=== PATIENT | female | born 1940 | race Caucasian/White ===

== ENCOUNTER → 2016-12-03 | Outpatient (CLI) | payer BC ==
[~2016-12-03] MED LIST: CALC-51 PO; CLB/200 PO; CLON0.5T3 PO; DICY10CA12 PO; DORZ1SOL OPB; FEXO1TAB49 PO; MAGN250T8 PO; MULTTAB58 PO; OMEP20TA14 PO; POTA99TA PO; PRD/1 PO; SERT25TA PO; SUMA50TA15 PO; TRAV0.00 OPB; VITA400C15 PO; VITAMIN B12 PO; VITAMIN D3 PO; ZNTT/150 PO
[2016-12-03 13:19] LABS: BASO % 0.3 %; BASO ABS # 0.02 K/uL (0-0.2); COMPLETE YES; EOS % 4.8 %; HEMATOCRIT 40.7 % (37-47); IG% 0.2 %; LYMPH % 33.8 %; LYMPH ABS # 2.04 K/uL (1.2-3.4); MEAN CELL VOLUME 88.3 fL (80-100); MEAN CORPUSCULAR HEMOGLOBIN 29.7 pg (25-34); MEAN CORPUSCULAR HGB CONC 33.7 g/dl (32-36); MEAN PLATELET VOLUME 9.9 fL (7.4-10.4); MONO % 8.3 %; NEUT % 52.6 %; PLATELET COUNT 200 K/uL (130-400); RED BLOOD COUNT 4.61 M/uL (4.2-5.4); WHITE BLOOD COUNT 6.04 K/uL (4.8-10.8)
[2016-12-03 13:47] LABS: BLOOD UREA NITROGEN 23 mg/dl (7-18); BUN/CREATININE RATIO 32.9 (10-20); CALCIUM 9.4 mg/dl (8.5-10.1); CARBON DIOXIDE 29 mmol/L (21-32); CHLORIDE 108 mmol/L (98-107); CREATININE 0.69 mg/dl (0.60-1.20); GLUCOSE 85 mg/dl (70-99); POTASSIUM 4.4 mmol/L (3.5-5.1); SODIUM 144 mmol/L (136-145)
== END | disposition home or self-care (01) ==
LOC: C.CPL 12:11
PROVIDERS: ATTEND Physical Medicine & Rehabilitation Sports Medicine
DX: Z01.818 Encounter for other preprocedural examination (principal); I44.0 Atrioventricular block, first degree; I25.2 Old myocardial infarction

== ENCOUNTER → 2016-12-22 | Day surgery (SDC) | payer BC ==
[2016-12-08 14:31] VITALS: Ht 160 cm; Wt 54.5 kg
--- NOTE | 2016-12-14 01:21 | INTERNAL MEDICINE CONSULTATION ---
DATE OF CONSULTATION: 12/22/2016 PREOPERATIVE NOTE A 76-year-old female scheduled to undergo a left median nerve decompression by Dr. Rocha on 12/22/2016. She has bilateral carpal tunnel syndrome. MEDICAL PROBLEMS: Include: 1. Migraine headache. 2. Osteoarthritis. 3. Degenerative disc disease of the lumbar spine. 4. Osteopenia. 5. Glaucoma. 6. Irritable bowel syndrome. 7. Depression. 8. History of recurrent rash, eczematous in nature. 9. Hyperlipidemia, not requiring any drug therapy. 10. History of rectopexy for rectal prolapse. CURRENT MEDICATIONS: Include: 1. Potassium and magnesium supplement 1 tablet daily. 2. Meclizine 12.5 mg 3 times a day as needed for vertigo. 3. Lidex cream to apply to the rash area, as prescribed by Dr. Kessler. 4. Ranitidine 150 mg twice a day. 5. Zyrtec 10 mg daily. 6. Metamucil 2 tablespoons in water daily. 7. Prilosec 20 mg daily, when needed for her dyspepsia. 8. Sertraline 50 mg daily. 9. Clonazepam 0.5 mg at bedtime. 10. Imitrex 100 mg tablets, she uses half a tablet as needed. 11. Dicyclomine 20 mg twice a day as needed. 12. Celebrex 200 mg twice a day. 13. Multivitamin 1 daily. 14. Vitamin D 1000 international units daily. 15. Calcium 600 mg twice a day. 16. Vitamin E 400 international units daily. 17. Dorzolamide eyedrops, 1 drop in each eye twice a day. 18. Travatan eyedrops, 1 drop in each eye at bedtime. Overall, she is doing quite well. Denied any headache, except for her migraines, which are intermittent. No dizziness, no lightheadedness. No earache, sore throat or neck pain. Denied any chest pain, pressure or tightness. No shortness of breath. No abdominal pain, no nausea, no vomiting. No problem with her bowel movements since her rectopexy. No problem urinating. She does have chronic pain in her back and extremities related to her osteoarthritis and degenerative disc disease. She was complaining of pain and numbness in both hands and wrists, related to her carpal tunnel syndrome. PHYSICAL EXAMINATION: GENERAL: Well developed, in no acute distress. Her recorded weight is 54.55 kg, her height is 160 cm, BMI is 21.3. SKIN: Warm and dry. No active rash at this point. HEENT: She is treated for glaucoma. She wears glasses for reading only. She has had a prior LASIK procedure with mono vision. No mucosal abnormality. She has upper dentures. She has a torus on the roof of her mouth. NECK: Supple without adenopathy or thyromegaly. No JVD. Normal carotid pulses. No bruit. CHEST: Normal. HEART: Regular heart sounds without any murmur, rub or gallop. LUNGS: Clear. ABDOMEN: Soft, nontender, without organomegaly or masses. BACK: No spinal tenderness. EXTREMITIES: Osteoarthritic changes. No edema, clubbing or cyanosis. Good pedal pulses. NEUROLOGIC: She does have exam findings consistent with carpal tunnel syndrome. No other neurological findings. ASSESSMENT: 1. Carpal tunnel syndrome -- bilateral. 2. Schedule for median nerve decompression on the left side first by Dr. Rocha on 12/22/2016. 3. Migraine headache. 4. Glaucoma. 5. Irritable bowel syndrome. 6. Environmental allergies. 7. Dyspepsia. 8. Osteoarthritis. 9. Degenerative disc disease. LABORATORY TESTS: The patient did have her preoperative testing done. They included a CBC showing WBC count of 6040, hemoglobin 13.7, hematocrit 40.7, platelet count 200,000. Sodium 144, potassium 4.4, chloride 108, CO2 of 29, BUN 23, creatinine 0.69, glucose 85, calcium 9.4. Her electrocardiogram did not really show any new changes compared to prior electrocardiograms. It is a sinus rhythm with a first-degree AV block. At this point, patient is in a good medical condition. I do not see any contraindication for her anticipated surgery. FIORELLA
[~2016-12-22] VITALS: Ht 160 cm; Wt 54.5 kg
[~2016-12-22] MED LIST changes: +ATROPINE SULFATE 0.1 MG/ML 5ML SYR IV PRN; +BUPIVACAINE 0.5 % 5 MG/1 ML PF 10ML VIAL ONE; +CEFAZOLIN 2000 MG/60 ML D5W IV SCH; +EpHEDrine SULFATE INJ 50 MG/ML AMP IV PRN; +FENTANYL CITRATE INJ 50 MCG/1 ML 2 ML VIAL IV PRN; +FENTANYL CITRATE INJ 50 MCG/1 ML 2 ML VIAL ONE; +LACTATED RINGER'S 1000ML 1,000 ML IV SCH; +LIDOCAINE HCL 2% 2 ML VIAL (20MG/ML) ONE; +LIDOCAINE HCL 2% LOCAL 20 ML VIAL ONE; +MIDAZOLAM HCL 1 MG/ML 2ML VIAL ONE; +ONDANSETRON INJ 2 MG/ML 2 ML VIAL IV PRN; +PROPOFOL IV EMULSION 10 MG/ML 20 ML VIAL IV ONE; +SODIUM CHLORIDE 0.9% 1000ML 1,000 ML IV SCH
--- NOTE | 2016-12-22 06:46 | History & Physical Bridge Note ---
H&P Re-Evaluation Bridge Note: I have examined the patient, reviewed the History & Physical and in the interval since the performance of the History & Physical I have noted the following changes of clinical significance: No changes noted
--- NOTE | 2016-12-22 06:47 | Discharge Instructions ---
Discharge Instructions Visit Reason for Visit: Left Carpal Tunnel Syndrome Discharge Discharge Diagnosis / Problem: same Discharge Goals Goal(s): Decrease discomfort Medications Stopped Medications Name(s): Celebrex stopped 5 days ago Restart Stopped Medication(s): resume all meds as directed by scripts Activity Recommendations Activity Limitations: as noted below Lifting Limitations: until after follow-up appointment Exercise/Sports Limitations: until after follow-up appointment May Resume Sexual Activity: when tolerated Shower/Bathe: keep incision dry Driving or Machine Use: resume 1 day after discharge Anesthesia . Post Anesthesia Instructions: If you have had General Anesthesia or IV Sedation: * Do not drive today. * Resume driving when surgeon permits. * Do not make important decisions or sign legal documents today. * Call surgeon for: 1. Temperature elevations greater than 101 degrees F. 2. Uncontrollable pain. 3. Excessive bleeding. 4. Persistent nausea and vomiting. 5. Medication intolerance (nausea, vomiting or rash). * For nausea and vomiting use only clear liquids such as: tea, soda, bouillon until nausea subsides, then gradually increase diet as tolerated. * If you have any concerns or questions, call your surgeon's office. If physician is unavailable and it is an emergency, call 911 or go to the nearest emergency room. . Instructions / Follow-Up Instructions / Follow-Up The following are instructions to follow after minor hand surgery. ACTIVITY RECOMMENDATIONS: * Minimize activity until your first visit after surgery. * No excessive walking, jogging, sports or laboring. * Return to activity is individualized. Most patients are able to return to everyday activities within 2 weeks. * Return to sports or intensive labor usually occurs at 1-2 months. * DRIVING: Driving may be resumed when you feel you have adequate pain control and use of the hand. * BATHING: You may shower or sponge-bathe immediately after surgery. The dressing will need to be covered with a plastic bag or plastic wrap until the dressing is changed on the fourth or fifth day after surgery. Once the dressing has been changed on the fourth or fifth day after surgery, you may shower and get the incision wet. * Wash with regular soap and water. * Do not bathe (submerge the incision), soak, swim or use a hot tub until the incision is completely healed over with normal skin and the doctor has given the OK to proceed. * There is no need to apply any ointments, powders or salves to your incision. * Do not apply alcohol or hydrogen peroxide directly to the incision. Diluted peroxide (50:50 mixture with sterile saline) may be used to clean dried blood from around the incision area. WORK/SCHOOL: * You may return to sedentary work or school when you are feeling comfortable. This is usually 3-7 days after surgery. * Expect increased discomfort with increased activity. Continue to elevate and ice the hand as much as possible. DIET: * Resume previous diet. MEDICATIONS: * You will have a prescription for pain medication and an anti-inflammatory medication after surgery. Use the pain pills for severe pain and the anti-inflammatory for less severe pain. * Once the pain pills have run out, try to use the anti-inflammatory. If this is not effective then contact the office for assistance. * The pain medication may cause nausea, constipation and sleepiness. You should see how they affect you before driving or similar activity. * The anti-inflammatory may cause stomach upset and bleeding. If this occurs, let your doctor know immediately . * Some patients may need blood clot prevention. This can be done with either a pill or a simple shot. Your doctor will advise you on when to begin these medications and how to take them. * Do not take aspirin or other anti-inflammatory products (i.e. Advil or Aleve ) if taking blood thinner medication. * Take a stool softener like Colace or a stimulant like Senokot to prevent constipation. SPECIAL CARE INSTRUCTIONS: ICE: * Do not apply ice directly to the skin. * Use a thin dressing or stockinet between the skin and ice bag. The dressing in place after surgery will suffice. * Apply ice for 20-30 minutes and repeat every 2-4 hours. This is especially important for the first 3-7 days after surgery. * Once the pain improves, use ice as needed. ELEVATION: * Keep your hand elevated at or above the level of your heart as much as possible. * Expect some increased discomfort and swelling if you allow your hand to hang down for any length of time. DRESSING: * Your dressing will be changed 4-5 days after surgery by the physical therapist or physician's election assistant. Leave your dressing intact until this time. * You may then change your dressing daily with clean dry gauze or Band-aids and a soft wrap or stockinet. * Always wash your hands prior to touching the incision area. * Once the stitches are removed, you may leave the wound open to air or cover with a thin bandage. * There is no need to apply any ointments, powders or salves to your incision. * Expect some bloody drainage for the first few days after surgery. * Leave the tape strips in place (if present) for 5-7 days. * The initial dressing after surgery may become soaked with blood or fluid which is normal. You may reinforce your dressing with clean, dry gauze as needed. BRACE: * Bracing is generally not needed after routine hand surgery. THERAPY: * Physical therapy may be prescribed after your surgery. * For carpal tunnel and trigger digit surgery you may begin moving your fingers and wrist immediately after surgery as tolerated. * Be careful to not overuse. * Once the sutures are removed, further range of motion exercises can be performed. * Hand incisions may be very sensitive for a few months after surgery so avoid excessive pressure on the incision. If necessary, use a padded weightlifters' glove. * You may massage the incision with skin cream to make it less sensitive and reduce scarring. * Hand strength usually returns with normal use. * If needed, squeezing a soft sponge or Play-dough may help. * Your doctor will recommend physical therapy if necessary. PROBLEMS/QUESTIONS: * If you have any problems such as severe pain, numbness, tingling or high fevers or if you have any questions, please contact the office at [phone]. * It is not uncommon to have some numbness and tingling after the surgery especially if you have had a nerve block done. This should gradually improve over the first 1- 2 days. If this persists longer or worsens then contact the office. FOLLOW UP VISIT: * If not already scheduled, please call the office at to schedule follow-up appointments for approximately 10 days, 6 weeks and 3 months after surgery. Diet Recommendations Recommended Home Diet: resume previous diet Pending Studies Studies pending at discharge: no Medical Emergencies . Who to Call and When: Medical Emergencies: If at any time you feel your situation is an emergency, please call 911 immediately. . Non-Emergent Contact Non-Emergency issues call your: Specialist Call Non-Emergent contact if: temperature is above 101.5 . . "Provider Documentation" section prepared by Gal Walsh.
[2016-12-22 07:29] VITALS: TEMP 36.9
--- NOTE | 2016-12-22 07:29 | [facility] Post Operative Brief Note ---
Immediate Operative Summary Operative Date Dec 22, 2016. Pre-Operative Diagnosis Left Carpal Tunnel Syndrome Post-Operative Diagnosis Same Procedure(s) Performed Left Carpal Tunnel Release Surgeon Dr. Walsh Laborer [facility] Surgeon(s) Danial Quiroz PA-C Estimated Blood Loss Trace Findings cts Fluids (cc crystalloids) 500cc Specimens None Drains none Anesthesia local/sedation Complication(s) None Disposition Recovery Room / PACU
--- NOTE | 2016-12-22 07:40 | Anesthesia Progress Nt - [facility] ---
Anesthesia Post Op Note Date & Time Dec 22, 2016 at 07:40 Vital Signs Pain Intensity: 0 Vital Signs Past 12 Hours Date Time Temp Pulse Resp B/P Pulse Ox O2 Delivery O2 Flow Rate FiO2 12/22/16 07:29 36.9 66 18 87/57 97 Room Air 12/22/16 06:23 36.7 63 16 101/54 95 Room Air Notes Mental Status: alert / awake / arousable, participated in evaluation Pt Amnestic to Procedure: Yes Nausea / Vomiting: adequately controlled Pain: adequately controlled Airway Patency, RR, SpO2: stable & adequate BP & HR: stable & adequate Hydration State: stable & adequate Anesthetic Complications: no major complications apparent
[2016-12-22 08:13] VITALS: BP 123/41; PULSE 68; O2SAT 97
--- NOTE | 2016-12-22 08:19 | OPERATIVE REPORT ---
DATE OF OPERATION: 12/22/2016 SURGEON: Dr. Walsh. CALIBRATION CHECKER: Jorge Luis Quiroz PA-C. No resident or fellow available. PREOPERATIVE DIAGNOSIS: Carpal tunnel syndrome left upper extremity. POSTOPERATIVE DIAGNOSIS: Same. OPERATION PERFORMED: Left carpal tunnel release. PERIOPERATIVE SITUATION: Medically cleared female with intractable numbness and tingling in the median nerve distribution of her left hand. Physical exam, x-ray and EMG nerve conduction study confirms diagnosis. PROCEDURE: The patient appropriately identified, site verified, consent verified, 2 grams of Ancef has been given. The wrist was injected with 4 mL of 0.5% plain Marcaine and 4 mL of 2% plain lidocaine. The arm was then prepped and draped in usual routine fashion. Tourniquet inflated to 250 mmHg after exsanguination of the limb with a rubber Esmarch bandage for a total of approximately 14 minutes. A curvilinear incision was then made based on the fourth ray. Sharp dissection carried through the skin and blunt dissection down to the palmar fascia. This was then incised under direct vision. The transverse carpal ligament identified and then incised under direct vision for approximately 0.5 cm proximal hook of the hamate to the distal superficial palmar arch. The floor of the carpal canal had no masses. The motor takeoff branch was identified but not explored. The nerve became hyperemic upon release of the transverse carpal ligament. The wound was then irrigated and then the wound closed with horizontal 4-0 nylon mattress sutures, Dermabond, appropriate splint and a soft tissue dressing. The patient was transferred to the holding area in satisfactory condition having tolerated the procedure well. Estimated blood loss was trace. Crystalloid was 500 mL. No DVT prophylaxis required. I attest to the content of the Intraoperative Record and any orders documented therein. Any exceptio ns are noted below.
--- NOTE | 2016-12-22 09:06 | OPERATIVE REPORT ---
PREOPERATIVE DIAGNOSIS: Left wrist carpal tunnel syndrome. POSTOPERATIVE DIAGNOSIS: Left wrist same. PROCEDURE: Left wrist open carpal tunnel release. SURGEON: Dr. Walsh. MAGNET VALVE ASSEMBLER: Jorge Luis Quiroz PA-C. HISTORY OF PRESENT ILLNESS: This 76-year-old white female presented to the office with complaints of left hand tingling that have been ongoing for several months. She had tried conservative care measures without success. EMG was obtained. She elected to proceed with surgical intervention after being educated about potential risks and outcomes. OPERATION: The patient was taken to the operating room where she was given local anesthetic and sedation. She was prepped and draped in the usual sterile fashion. Please see Dr. Walsh's operative report for specifics of the procedure. I was present for the entire case from initial patient positioning through final wound closure. Assistance was provided in tissue retraction, hemostasis, and final wound closure. The patient was taken to phase 2 recovery in satisfactory condition.
== END | disposition home or self-care (01) ==
LOC: X.SURG 06:09
PROVIDERS: ATTEND Physical Medicine & Rehabilitation Sports Medicine
DX: G56.02 Carpal tunnel syndrome, left upper limb (principal); K58.9 Irritable bowel syndrome, unspecified; G43.909 Migraine, unspecified, not intractable, without status migrainosus; G25.81 Restless legs syndrome; Z98.890 Other specified postprocedural states; Z98.51 Tubal ligation status

== ENCOUNTER → 2017-01-19 | Day surgery (SDC) | payer BC ==
[2017-01-06 13:53] VITALS: Ht 160 cm; Wt 54.5 kg
[~2017-01-19] VITALS: Ht 160 cm; Wt 54.5 kg
[~2017-01-19] MED LIST changes: +CEFAZOLIN 2000 MG/60 ML D5W 60 ML IV SCH; -CEFAZOLIN 2000 MG/60 ML D5W IV SCH; -FENTANYL CITRATE INJ 50 MCG/1 ML 2 ML VIAL IV PRN; +FLUMAZENIL 0.1 MG/1 ML 10 ML VIAL IV PRN; +HYDROmorphone INJ 1 MG/ML SYR IV PRN; +LABETALOL HCL IV 5 MG/ML 20ML IV PRN; -LACTATED RINGER'S 1000ML 1,000 ML IV SCH; +LACTATED RINGER'S 1000ML IV SCH; +NALOXONE HCL 0.4 MG/1 ML VIAL/CARP IV PRN; +PROMETHAZINE HCL INJ 12.5 MG in SODIUM CHLORIDE 0.9% 50ML 50 ML IV PRN; -VITA400C15 PO
--- NOTE | 2017-01-19 06:39 | Discharge Instructions ---
Discharge Instructions Visit Reason for Visit: Right Carpal Tunnel Syndrome Discharge Goals Goal(s): Decrease discomfort, Improve function Medications Stopped Medications Name(s): na Restart Stopped Medication(s): use scripts as directed Activity Recommendations Activity Limitations: as noted below Lifting Limitations: until after follow-up appointment Exercise/Sports Limitations: until after follow-up appointment May Resume Sexual Activity: when tolerated Shower/Bathe: keep incision dry Driving or Machine Use: no limitations Anesthesia . Post Anesthesia Instructions: If you have had General Anesthesia or IV Sedation: * Do not drive today. * Resume driving when surgeon permits. * Do not make important decisions or sign legal documents today. * Call surgeon for: 1. Temperature elevations greater than 101 degrees F. 2. Uncontrollable pain. 3. Excessive bleeding. 4. Persistent nausea and vomiting. 5. Medication intolerance (nausea, vomiting or rash). * For nausea and vomiting use only clear liquids such as: tea, soda, bouillon until nausea subsides, then gradually increase diet as tolerated. * If you have any concerns or questions, call your surgeon's office. If physician is unavailable and it is an emergency, call 911 or go to the nearest emergency room. . Instructions / Follow-Up Instructions / Follow-Up The following are instructions to follow after minor hand surgery. ACTIVITY RECOMMENDATIONS: * Minimize activity until your first visit after surgery. * No excessive walking, jogging, sports or laboring. * Return to activity is individualized. Most patients are able to return to everyday activities within 2 weeks. * Return to sports or intensive labor usually occurs at 1-2 months. * DRIVING: Driving may be resumed when you feel you have adequate pain control and use of the hand. * BATHING: You may shower or sponge-bathe immediately after surgery. The dressing will need to be covered with a plastic bag or plastic wrap until the dressing is changed on the fourth or fifth day after surgery. Once the dressing has been changed on the fourth or fifth day after surgery, you may shower and get the incision wet. * Wash with regular soap and water. * Do not bathe (submerge the incision), soak, swim or use a hot tub until the incision is completely healed over with normal skin and the doctor has given the OK to proceed. * There is no need to apply any ointments, powders or salves to your incision. * Do not apply alcohol or hydrogen peroxide directly to the incision. Diluted peroxide (50:50 mixture with sterile saline) may be used to clean dried blood from around the incision area. WORK/SCHOOL: * You may return to sedentary work or school when you are feeling comfortable. This is usually 3-7 days after surgery. * Expect increased discomfort with increased activity. Continue to elevate and ice the hand as much as possible. DIET: * Resume previous diet. MEDICATIONS: * You will have a prescription for pain medication and an anti-inflammatory medication after surgery. Use the pain pills for severe pain and the anti-inflammatory for less severe pain. * Once the pain pills have run out, try to use the anti-inflammatory. If this is not effective then contact the office for assistance. * The pain medication may cause nausea, constipation and sleepiness. You should see how they affect you before driving or similar activity. * The anti-inflammatory may cause stomach upset and bleeding. If this occurs, let your doctor know immediately . * Some patients may need blood clot prevention. This can be done with either a pill or a simple shot. Your doctor will advise you on when to begin these medications and how to take them. * Do not take aspirin or other anti-inflammatory products (i.e. Advil or Aleve ) if taking blood thinner medication. * Take a stool softener like Colace or a stimulant like Senokot to prevent constipation. SPECIAL CARE INSTRUCTIONS: ICE: * Do not apply ice directly to the skin. * Use a thin dressing or stockinet between the skin and ice bag. The dressing in place after surgery will suffice. * Apply ice for 20-30 minutes and repeat every 2-4 hours. This is especially important for the first 3-7 days after surgery. * Once the pain improves, use ice as needed. ELEVATION: * Keep your hand elevated at or above the level of your heart as much as possible. * Expect some increased discomfort and swelling if you allow your hand to hang down for any length of time. DRESSING: * Your dressing will be changed 4-5 days after surgery by the physical therapist or physician's cashier assistant. Leave your dressing intact until this time. * You may then change your dressing daily with clean dry gauze or Band-aids and a soft wrap or stockinet. * Always wash your hands prior to touching the incision area. * Once the stitches are removed, you may leave the wound open to air or cover with a thin bandage. * There is no need to apply any ointments, powders or salves to your incision. * Expect some bloody drainage for the first few days after surgery. * Leave the tape strips in place (if present) for 5-7 days. * The initial dressing after surgery may become soaked with blood or fluid which is normal. You may reinforce your dressing with clean, dry gauze as needed. BRACE: * Bracing is generally not needed after routine hand surgery. THERAPY: * Physical therapy may be prescribed after your surgery. * For carpal tunnel and trigger digit surgery you may begin moving your fingers and wrist immediately after surgery as tolerated. * Be careful to not overuse. * Once the sutures are removed, further range of motion exercises can be performed. * Hand incisions may be very sensitive for a few months after surgery so avoid excessive pressure on the incision. If necessary, use a padded weightlifters' glove. * You may massage the incision with skin cream to make it less sensitive and reduce scarring. * Hand strength usually returns with normal use. * If needed, squeezing a soft sponge or Play-dough may help. * Your doctor will recommend physical therapy if necessary. PROBLEMS/QUESTIONS: * If you have any problems such as severe pain, numbness, tingling or high fevers or if you have any questions, please contact the office at [phone]. * It is not uncommon to have some numbness and tingling after the surgery especially if you have had a nerve block done. This should gradually improve over the first 1- 2 days. If this persists longer or worsens then contact the office. FOLLOW UP VISIT: * If not already scheduled, please call the office at to schedule follow-up appointments for approximately 10 days, 6 weeks and 3 months after surgery. Diet Recommendations Recommended Home Diet: resume previous diet Procedures Procedures Performed: right carpal tunnel release Pending Studies Studies pending at discharge: no Medical Emergencies . Who to Call and When: Medical Emergencies: If at any time you feel your situation is an emergency, please call 911 immediately. . Non-Emergent Contact Non-Emergency issues call your: Specialist Call Non-Emergent contact if: temperature is above 101.5 . . "Provider Documentation" section prepared by Gal Walsh.
--- NOTE | 2017-01-19 08:06 | [facility] Post Operative Brief Note ---
Immediate Operative Summary Operative Date Jan 19, 2017. Pre-Operative Diagnosis Right Carpal Tunnel Syndrome Post-Operative Diagnosis Same Procedure(s) Performed Right Open Carpal Tunnel Release Surgeon Dr Walsh Visual Supervisor Surgeon(s) Danial Quiroz PA-C Estimated Blood Loss Trace Findings Right CTS Fluids (cc crystalloids) 500cc Specimens None Drains none Anesthesia local/sedation Complication(s) None Disposition Recovery Room / PACU
[2017-01-19 08:10] VITALS: TEMP 36.5
--- NOTE | 2017-01-19 08:19 | Anesthesia Progress Nt - [facility] ---
Anesthesia Post Op Note Date & Time Jan 19, 2017 at 08:19 Vital Signs Pain Intensity: 0 Vital Signs Past 12 Hours Date Time Temp Pulse Resp B/P Pulse Ox O2 Delivery O2 Flow Rate FiO2 01/19/17 06:38 36.6 52 20 122/57 95 Room Air Notes Mental Status: alert / awake / arousable, participated in evaluation Pt Amnestic to Procedure: Yes Nausea / Vomiting: adequately controlled Pain: adequately controlled Airway Patency, RR, SpO2: stable & adequate BP & HR: stable & adequate Hydration State: stable & adequate Anesthetic Complications: no major complications apparent
--- NOTE | 2017-01-19 08:25 | OPERATIVE REPORT ---
DATE OF OPERATION: 01/19/2017 SURGEON: Dr. Walsh. RATING EXAMINER: Jorge Luis Quiroz PA-C. No resident or fellow available. PREOPERATIVE DIAGNOSIS: Carpal tunnel syndrome right upper extremity. POSTOPERATIVE DIAGNOSIS: Same. OPERATION PERFORMED: Right carpal tunnel release. PERIOPERATIVE SITUATION: Medically cleared female with intractable numbness, tingling in the median nerve distribution. At this point in time wants to proceed with right carpal tunnel release; she had her left one done in the recent past. OPERATION: The patient appropriately identified, site verified, consent verified, 2 grams of Ancef confirmed as being given. The right upper extremity was blocked with 4 mL of 0.5% plain Marcaine and 4 mL of 2% plain lidocaine. She was then prepped and draped in usual routine fashion. Tourniquet inflated to 250 mmHg after exsanguination of limb with a rubber Esmarch bandage for a total of approximately 15 minutes. Curvilinear incision was then made based on the fourth ray. Blunt dissection carried down to the fascia. This was then incised under direct vision. The transverse carpal ligament and antebrachial fascia were then identified and incised from approximately 0.5 cm proximal hook to the hamate to the superficial palmar arch. The floor of the carpal canal had no masses. The FPL was intact. The wound was then irrigated. It should be mentioned that the nerve was quite flat and anemic and then once released started to get pink. The motor takeoff branch was identified but not explored. The wound was irrigated one final time and then closed with horizontal 3-0 and simple mattress 3-0 nylon sutures, Dermabond, appropriately dressed with Xeroform, 4 x 4 gauze and a volar fiberglass splint. The patient transferred to the holding area in satisfactory condition having tolerated the procedure well. ESTIMATED BLOOD LOSS: Trace. CRYSTALLOID: 500 mL. I attest to the content of the Intraoperative Record and any orders documented therein. Any exceptio ns are noted below.
--- NOTE | 2017-01-19 08:26 | OPERATIVE REPORT ---
PREOPERATIVE DIAGNOSIS: Right wrist carpal tunnel syndrome. POSTOPERATIVE DIAGNOSIS: Right wrist same. PROCEDURE: Right wrist open carpal tunnel release. COUNTER CLERK TRACTOR PARTS: Dr. Walsh. COUNTER CLERK TRACTOR PARTS: Jorge Luis Quiroz PA-C. HISTORY OF PRESENT ILLNESS: This 76-year-old white female presented to the office with complaints of numbness and tingling to her right wrist and hand. EMG was obtained. She elected to proceed with surgical intervention after being educated about potential risks and outcomes. OPERATION: The patient was taken to the operating room where she was given local anesthetic and sedation. She was prepped and draped in usual sterile fashion. Please see Dr. Walsh's operative report for specifics of the procedure. I was present for the entire case from initial patient positioning through final wound closure. Assistance was provided in tissue retraction, hemostasis, and final wound closure. The patient was taken to phase 2 recovery in satisfactory condition.
[2017-01-19 08:51] VITALS: BP 107/61; PULSE 51; O2SAT 99
== END | disposition home or self-care (01) ==
LOC: X.SURG 06:24
PROVIDERS: ATTEND Physical Medicine & Rehabilitation Sports Medicine
DX: G56.01 Carpal tunnel syndrome, right upper limb (principal); G43.909 Migraine, unspecified, not intractable, without status migrainosus; G25.81 Restless legs syndrome; K58.9 Irritable bowel syndrome, unspecified; Z98.890 Other specified postprocedural states; Z98.51 Tubal ligation status

== ENCOUNTER → 2017-02-18 | Outpatient (CLI) | payer BC ==
[~2017-02-18] MED LIST changes: -ATROPINE SULFATE 0.1 MG/ML 5ML SYR IV PRN; -BUPIVACAINE 0.5 % 5 MG/1 ML PF 10ML VIAL ONE; -CEFAZOLIN 2000 MG/60 ML D5W 60 ML IV SCH; -EpHEDrine SULFATE INJ 50 MG/ML AMP IV PRN; -FENTANYL CITRATE INJ 50 MCG/1 ML 2 ML VIAL ONE; -FLUMAZENIL 0.1 MG/1 ML 10 ML VIAL IV PRN; -HYDROmorphone INJ 1 MG/ML SYR IV PRN; -LABETALOL HCL IV 5 MG/ML 20ML IV PRN; -LACTATED RINGER'S 1000ML IV SCH; -LIDOCAINE HCL 2% 2 ML VIAL (20MG/ML) ONE; -LIDOCAINE HCL 2% LOCAL 20 ML VIAL ONE; -MIDAZOLAM HCL 1 MG/ML 2ML VIAL ONE; -NALOXONE HCL 0.4 MG/1 ML VIAL/CARP IV PRN; -ONDANSETRON INJ 2 MG/ML 2 ML VIAL IV PRN; -PROMETHAZINE HCL INJ 12.5 MG in SODIUM CHLORIDE 0.9% 50ML 50 ML IV PRN; -PROPOFOL IV EMULSION 10 MG/ML 20 ML VIAL IV ONE; -SODIUM CHLORIDE 0.9% 1000ML 1,000 ML IV SCH
--- NOTE | 2017-02-18 15:41 | MAMMOGRAPHY REPORT ---
BILATERAL DIGITAL SCREENING MAMMOGRAM WITH CAD: 02/18/2017 CLINICAL HISTORY: Routine screening. Patient has no complaints. TECHNIQUE: Current study was also evaluated with a Computer Aided Detection (CAD) system. Bilatera l CC and MLO views were obtained. COMPARISON: Comparison is made to exams dated: 02/13/2016 mammogram, 01/18/2014 mammogram, 02/07/2015 mammogram, 01/12/2012 mammogram, 01/07/2011 mammogram, and 12/13/2009 mammogram - [facility]. BREAST COMPOSITION: There are scattered areas of fibroglandular density in both breasts. FINDINGS: No suspicious masses, calcifications, or areas of architectural distortion are noted in e ither breast. There has been no significant interval change compared to prior exams. IMPRESSION: ACR BI-RADS CATEGORY 1: NEGATIVE There is no mammographic evidence of malignancy. A 1 year screening mammogram is recommended. The p atient will receive written notification of the results. Approximately 10% of breast cancers are not detected with mammography. A negative mammographic repor t should not delay biopsy if a clinically suggestive mass is present. Laura Brooks M.D. ah/:02/18/2017 14:52:40 Sales And Customer Relations Rep: Zafar GAMA(R)(M), [facility] letter sent: Normal 1/2 BI-RADS Code: ACR BI-RADS Category 1: Negative
== END | disposition home or self-care (01) ==
LOC: C.MAMM 11:28
PROVIDERS: ATTEND Internal Medicine
DX: Z12.31 Encounter for screening mammogram for malignant neoplasm of breast (principal)

== ENCOUNTER → 2017-02-25 | Outpatient (CLI) | payer BC | END | disposition home or self-care (01) | LOC: C.PAPS 16:11 | PROVIDERS: ATTEND Internal Medicine | DX: Z01.419 Encounter for gynecological examination (general) (routine) without abnormal findings (principal) ==

== ENCOUNTER → 2017-03-01 | Outpatient (CLI) | payer BC ==
--- NOTE | 2017-03-01 12:10 | DIAGNOSTIC IMAGING REPORT ---
LEFT KNEE 1 OR 2 VIEWS ROUTINE, RIGHT KNEE 1 OR 2 VIEWS ROUTINE CLINICAL HISTORY: BILATERAL KNEE PAIN COMPARISON STUDY: None. FINDINGS: No fracture or dislocation within the right or left knee. Cartilage spaces are maintained for age. No significant knee effusions. Soft tissues are unremarkable. IMPRESSION: No significant abnormality within the right or left knee. Electronically signed by: Mark Villela M.D. 03/01/2017 12:08 PM Dictated Date/Time: 03/01/2017 12:07 PM
== END | disposition home or self-care (01) ==
LOC: C.RAD1850 11:36
PROVIDERS: ATTEND Internal Medicine
DX: M25.561 Pain in right knee (principal); M25.562 Pain in left knee

== ENCOUNTER → 2017-08-26 | Outpatient (CLI) | payer BC ==
--- NOTE | 2017-08-26 16:20 | DIAGNOSTIC IMAGING REPORT ---
LUMBAR SPINE 5 VIEWS HISTORY: LOW BACK PAIN COMPARISON: Lumbar spine 07/24/2013. FINDINGS: There is no fracture. There is again noted mild levoscoliosis. This remains unchanged. The apex is at the L1-L2 level. Mild to moderate facet degenerative changes within the lower lumbar spine. Mild anterior wedging at L2, unchanged. Grade I retrolisthesis of L2 on L3 persists. No acute fractures identified. Moderate disc space narrowing at L1-L2 and L2-L3. IMPRESSION: No change compared the prior study. No acute fractures. Levoscoliosis and degenerative changes as described above. Electronically signed by: Mark Villela M.D. 08/26/2017 4:18 PM Dictated Date/Time: 08/26/2017 4:16 PM
--- NOTE | 2017-08-26 16:32 | DIAGNOSTIC IMAGING REPORT ---
L HAND MIN 3 VIEWS ROUTINE, R HAND MIN 3 VIEWS ROUTINE HISTORY: 76 years-old Female OSTEO ARTH chronic bilateral hand pain without trauma. Osteoarthritis. COMPARISON: Wrist radiographs 11/19/2016 TECHNIQUE: 3 views of the bilateral hands for a total of 6 images FINDINGS: RIGHT: The bones are moderately demineralized. No acute fracture or dislocation identified. Multifocal degenerative changes are seen throughout the right hand including moderate radiocarpal, severe first carpometacarpal and multidigit moderate and moderate to severe interphalangeal joint osteoarthritis. There is mild ulnar subluxation of the third distal phalanx. The fifth metacarpal is diminutive in size. LEFT: The bones are moderately demineralized without acute fracture or dislocation. The fifth metacarpal is diminutive in size. Prominent subcortical cystic changes are seen throughout. Multifocal degenerative changes are noted with severe first carpometacarpal and multidigit moderate interphalangeal joint osteoarthritis. IMPRESSION: 1. No acute fracture or dislocation of either hand. 2. Background bone demineralization noted in addition to multifocal degenerative changes as described above including severe joint space narrowing and marginal spurring of the third DIP joint with mild ulnar deviation of the distal phalanx. 3. Nonspecific diminutive size of the bilateral fifth metacarpals The above report was generated using voice recognition software. It may contain grammatical, syntax or spelling errors. Electronically signed by: Rahul Frey M.D. 08/26/2017 4:31 PM Dictated Date/Time: 08/26/2017 4:26 PM
== END | disposition home or self-care (01) ==
LOC: C.RAD 15:25
PROVIDERS: ATTEND Internal Medicine
DX: M54.5 Low back pain (principal); M19.041 Primary osteoarthritis, right hand; M19.042 Primary osteoarthritis, left hand; M85.841 Other specified disorders of bone density and structure, right hand; M85.842 Other specified disorders of bone density and structure, left hand; M25.70 Osteophyte, unspecified joint; M41.86 Other forms of scoliosis, lumbar region

== ENCOUNTER → 2017-11-04 | Outpatient (CLI) | payer BC | END | disposition home or self-care (01) | LOC: C.MAMM 13:51 | PROVIDERS: ATTEND Internal Medicine | DX: M85.851 Other specified disorders of bone density and structure, right thigh (principal); M85.852 Other specified disorders of bone density and structure, left thigh ==

== ENCOUNTER → 2018-03-01 | Outpatient (CLI) | payer BC ==
[~2018-03-01] MED LIST changes: +RANI150T85 PO; -ZNTT/150 PO
[2018-03-01 17:38] LABS: BASO % 0.4 %; BASO ABS # 0.03 K/uL (0-0.2); EOS % 3.6 %; EOS ABS # 0.25 K/uL (0-0.5); HEMATOCRIT 43.2 % (37-47); HEMOGLOBIN 14.4 g/dL (12.0-16.0); IG# 0.01 K/uL (0.00-0.02); LYMPH ABS # 2.13 K/uL (1.2-3.4); MEAN CELL VOLUME 91.5 fL (80-100); MEAN CORPUSCULAR HEMOGLOBIN 30.5 pg (25-34); MEAN CORPUSCULAR HGB CONC 33.3 g/dl (32-36); MEAN PLATELET VOLUME 10.1 fL (7.4-10.4); MONO % 14.1 %; MONO ABS # 0.97 K/uL (0.11-0.59); NEUT % 50.8 %; NEUT ABS # 3.47 K/uL (1.4-6.5); PLATELET COUNT 263 K/uL (130-400); RED CELL DISTRIBUTION WIDTH CV 14.9 % (11.5-14.5); RED CELL DISTRIBUTION WIDTH SD 50.1 fL (36.4-46.3); WHITE BLOOD COUNT 6.86 K/uL (4.8-10.8)
[2018-03-01 17:52] LABS: ALBUMIN 3.6 gm/dl (3.4-5.0); ALT/SGPT 20 U/L (12-78); AST/SGOT 25 U/L (15-37); BLOOD UREA NITROGEN 29 mg/dl (7-18); CALCIUM 8.6 mg/dl (8.5-10.1); CARBON DIOXIDE 31 mmol/L (21-32); CHOLESTEROL 191 mg/dl (0-200); CREATININE 0.96 mg/dl (0.60-1.20); GLUCOSE 77 mg/dl (70-99); POTASSIUM 3.8 mmol/L (3.5-5.1); SODIUM 141 mmol/L (136-145)
[2018-03-01 17:55] LABS: ALKALINE PHOSPHATASE 49 U/L (45-117); LDL CHOLESTEROL (DIRECT) 115 mg/dl; TOTAL PROTEIN 6.8 gm/dl (6.4-8.2)
== END | disposition home or self-care (01) ==
LOC: C.LABSPEC 16:42
PROVIDERS: ATTEND Internal Medicine
DX: M19.90 Unspecified osteoarthritis, unspecified site (principal); M85.80 Other specified disorders of bone density and structure, unspecified site; E78.5 Hyperlipidemia, unspecified

== ENCOUNTER → 2018-03-10 | Outpatient (CLI) | payer BC ==
--- NOTE | 2018-03-10 14:54 | MAMMOGRAPHY REPORT ---
BILATERAL DIGITAL SCREENING MAMMOGRAM TOMOSYNTHESIS WITH CAD: 03/10/2018 CLINICAL HISTORY: Routine screening. Patient has no complaints. TECHNIQUE: Breast tomosynthesis in addition to standard 2D mammography was performed. Current study was also evaluated with a Computer Aided Detection (CAD) system. COMPARISON: Comparison is made to exams dated: 02/18/2017 mammogram, 02/13/2016 mammogram, 02/07/2015 m ammogram, 01/18/2014 mammogram, 01/17/2013 mammogram, and 01/12/2012 mammogram - [facility] enter. BREAST COMPOSITION: There are scattered areas of fibroglandular density in both breasts. FINDINGS: No suspicious masses, calcifications, or areas of architectural distortion are noted in ei ther breast. There has been no significant interval change compared to prior exams. IMPRESSION: ACR BI-RADS CATEGORY 1: NEGATIVE There is no mammographic evidence of malignancy. A 1 year screening mammogram is recommended. The pa tient will receive written notification of the results. Approximately 10% of breast cancers are not detected with mammography. A negative mammographic report should not delay biopsy if a clinically suggestive mass is present. Laura Brooks M.D. ah/:03/10/2018 13:43:54 Traffic Control Flagger: Yessica GAMA(Michelle)(Kailee), [facility] letter sent: Normal 1/2 BI-RADS Code: ACR BI-RADS Category 1: Negative
== END | disposition home or self-care (01) ==
LOC: C.MAMM 11:46
PROVIDERS: ATTEND Internal Medicine
DX: Z12.31 Encounter for screening mammogram for malignant neoplasm of breast (principal)

== ENCOUNTER → 2018-07-04 | Outpatient (CLI) | payer BC ==
[~2018-07-04] MED LIST changes: -CLON0.5T3 PO; +CLON0.5T9 PO
== END | disposition home or self-care (01) ==
LOC: C.RDSM 10:17
PROVIDERS: ATTEND Physical Medicine & Rehabilitation Sports Medicine
DX: M79.644 Pain in right finger(s) (principal); M79.89 Other specified soft tissue disorders

== ENCOUNTER 2021-08-12 16:53 | Inpatient (IN) ==
[2021-08-12] MEDS ORDERED: SODIUM CHLORIDE 0.9% 1000ML 1,000 ML IV ONE ×2 (19:10→21:54)
--- NOTE | 2021-08-12 19:14 | Emergency Department Note ---
Impression & Plan Sepsis, Abdominal pain, Pneumonia, Leukocytosis, Splenic infarct ED Provider Note NAME: MARY NOVOA AGE: 80 SEX: F : 1940 ARRIVES VIA: Walk-In INFORMANT: Patient ED PROVIDER(S): Raul Bonilla DO CHIEF COMPLAINT: abdominal pain HPI: Patient is a 80-year-old female that presents to the ER for abdominal pain and weakness. Pain is located in left lower quadrant. She notes this started about 2 to 3 days ago. Has been worsening. She been having diarrhea which is typical for her as she had C. difficile in May. Denies any headache or change in vision. No chest pain or shortness of breath. She does feel very weak. No dysuria, urgency, or frequency. No other exacerbating or remitting factors. Pain is worse with palpation of belly. ROS: See above HPI for pertinent positives & negatives. A total of 10 systems reviewed and were otherwise negative. PAST MEDICAL HISTORY:See Below PAST SURGICAL HISTORY:See Below FAMILY HISTORY:See Below SOCIAL HISTORY:See Below HOME MEDICATIONS:See Below ALLERGIES:See Below VITALS:See Below PHYSICAL EXAMINATION: GENERAL: Sitting up in bed, alert, well appearing, well nourished, no distress, non-toxic EYE EXAM: normal conjunctiva. PERRL and EOM's grossly intact. OROPHARYNX: no exudate, no erythema, lips, buccal mucosa, and tongue normal and mucous membranes are moist NECK: supple, no nuchal rigidity, no adenopathy, non-tender LUNGS: Clear to auscultation. Normal chest wall mechanics HEART: no murmurs, S1 normal and S2 normal ABDOMEN: abdomen soft, mild diffuse tenderness, normo-active bowel sounds, no masses, no rebound or guarding. UPPER EXTREMITIES: upper extremities are grossly normal. LOWER EXTREMITIES: No pitting edema. NEURO EXAM: Normal sensorium, cranial nerves II-XII grossly intact, normal speech, no gross weakness of arms, no gross weakness of legs. MEDICAL DECISION MAKING: Patient is a 80-year-old female who presents ER for the above-stated complaint. IV was established blood was obtained. Labs show leukocytosis of 18,000. No anemia. BMP along with LFTs and bilirubin was unremarkable. UA was contaminated with multiple epithelial cells. Covid was negative. Patient had a CT angio of the abdomen which showed a questionable splenic infarct with bilateral pneumonia. Patient was given IV fluids as well as Levaquin, as for more pain. Patient was updated bedside. Discussed with hospitalist and patient was admitted for further work-up. Triage Nursing notes reviewed. Limited review of prior medical records performed Vital Signs: reviewed and remarkable for tachy Differential diagnosis: Differential diagnoses includes but is not limited to gastritis, peptic ulcer disease, GERD, gallbladder disease, pancreatitis, small bowel obstruction, acute coronary syndrome, pericarditis, ischemic bowel, irritable bowel disease, irritable bowel syndrome, appendicitis, diverticulitis, malignancy, hernia, urinary tract infection, torsion, perforation, trauma, infectious. ER treatment provided: See below Diagnostics interpreted by me: ECG: none Cardiac Monitoring: An order was placed for continuous cardiac monitoring. The monitor shows a rate of 98 with sinus rhythm. Laboratory studies: As stated above and show below. 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 Hx MRSA infection Melanoma right heel & chest wall Migraine Osteoarthritis Osteoporosis Patella-femoral syndrome Pseudogout prednisone daily for pseudogout arthritis Restless leg syndrome Scleroderma Spondylolisthesis of cervical region FULL ROM Surgical History History of carpal tunnel surgery bilateral History of colonoscopy w/ polypectomy History of hand surgery Rt finger History of Mohs micrographic surgery for skin cancer History of surgery repair of prolapsed rectum History of tooth extraction History of tubal ligation Hx of bilateral cataract extraction Hx of surgical procedure left hand pointer finger repair S/P LASIK surgery of both eyes Family History Father Family hx of colon cancer Other No family history of adverse response to anesthesia Social History Smoking Status: Former smoker Second Hand Exposure: No; Hx Alcohol Use: Yes Alcohol type: wine Hx Substance Use: No Preferred Language: Hungarian Communication Ability: Effective Visual Impairment: No Limitations Hearing Ability: Normal Telephone Clerks Supervisor Required: No Beliefs That Will Affect Care: None marital status: / Current Living Situation: Alone current occupational status: retired Feels Safe at Home: Yes Childhood Exposure to Second-Hand Smoke: No Assistive Devices: Denture - Upper and Denture - Lower Allergies Allergies Allergy/AdvReac Type Severity Reaction Status Date / Time cephalexin [From Keflex] Allergy Mild rash Verified 08/12/21 20:23 oxycodone Allergy Mild rash Verified 08/12/21 20:23 adhesive Allergy Unknown RASH Verified 08/12/21 20:23 Home Meds Home Medications Medication Instructions Recorded Confirmed dorzolamide 2 % eye drops (Trusopt) 1 drops OP BID 06/22/19 08/12/21 sumatriptan succinate 50 mg tablet 50 mg PO Q2H PRN 06/22/19 08/12/21 (Imitrex) travoprost 0.004 % eye drops 1 drops OP QPM 06/22/19 08/12/21 (Travatan Z) cholecalciferol (vitamin D3) 25 1,000 unit PO BID 07/28/19 08/12/21 mcg (1,000 unit) capsule (Vitamin D3) risedronate 35 mg tablet 35 mg PO WK 07/28/19 08/12/21 Lactobacillus acidophilus 1 tab PO QAM 04/25/20 08/12/21 (Acidophilus) calcium carbonate-vitamin D3 600 1 cap PO BID 04/25/20 08/12/21 mg calcium-200 unit capsule (Calcium 600 + D(3)) clonazepam 1 mg disintegrating 1 mg PO HS 04/25/20 08/12/21 tablet colchicine 0.6 mg tablet 0.6 mg PO QAM 04/25/20 08/12/21 lifitegrast 5 % eye drops in a 1 drp OPHTHALMIC (EYE) BID 04/25/20 08/12/21 dropperette (Xiidra) sertraline 50 mg tablet 50 mg PO QAM 04/25/20 08/12/21 peg 400-propylene glycol (PF) 0.4 1 drp OPHTHALMIC (EYE) TID PRN 05/21/20 08/12/21 %-0.3 % eye drops in a dropperette (Systane (PF)) celecoxib 200 mg capsule 200 mg PO BID 08/12/21 08/12/21 felodipine 2.5 mg tablet,extended 2.5 mg PO QAM 08/12/21 08/12/21 release 24 hr hydroxychloroquine 200 mg tablet 200 mg PO QAM 08/12/21 08/12/21 fenicevu-ghegjrwq-vpz C 250 1 tab PO DAILY 08/12/21 08/12/21 mg-herbal no.124 8.875 mg chewable tablet (Airborne (ascorbic acid)) omeprazole 20 mg capsule,delayed 20 mg PO QAM 08/12/21 08/12/21 release prednisone 5 mg tablet 5 mg PO QAM 08/12/21 08/12/21 thiamine HCl (vitamin B1) 500 mg 500 mg PO DAILY 08/12/21 08/12/21 tablet Results & Data (ED) Vital Signs Vital Signs - 24 hr 08/12/21 16:58 08/12/21 19:20 08/12/21 19:21 Temperature 37.2 C Temperature Source Temporal Artery Scan Pulse Rate 111 H 100 H Pulse Rate [Right Finger] 99 H Pulse Rate from SpO2 Sensor 100 H Pulse Rhythm [Right Finger] Regular Pulse Strength [Right Finger] Normal Respiratory Rate 20 20 22 Respiratory Effort / Characteristics Non-Labored Non-Labored Spontaneous Respiratory Depth Normal Normal Respiratory Pattern Regular Regular Blood Pressure 103/62 102/66 Blood Pressure [Left Arm] 102/66 Blood Pressure Mean 75 78 Blood Pressure Mean [Left Arm] 78 Blood Pressure Position Sitting Blood Pressure Position [Left Arm] Lying Pulse Oximetry 97 95 94 Oxygen Delivery Method Room Air Room Air Room Air Sepsis Recent Fever Within 48 Hours No Sepsis New/Unexplained Change in Mental Status No Sepsis Action Taken by Nursing No Action Required 08/12/21 20:00 08/12/21 20:10 08/12/21 20:20 Temperature Temperature Source Pulse Rate 98 H 102 H 97 H Pulse Rate [Right Finger] Pulse Rate from SpO2 Sensor Pulse Rhythm [Right Finger] Pulse Strength [Right Finger] Respiratory Rate 15 21 22 Respiratory Effort / Characteristics Respiratory Depth Respiratory Pattern Blood Pressure Blood Pressure [Left Arm] Blood Pressure Mean Blood Pressure Mean [Left Arm] Blood Pressure Position Blood Pressure Position [Left Arm] Pulse Oximetry 95 96 96 Oxygen Delivery Method Sepsis Recent Fever Within 48 Hours Sepsis New/Unexplained Change in Mental Status Sepsis Action Taken by Nursing 08/12/21 20:30 08/12/21 20:40 08/12/21 21:21 Temperature Temperature Source Pulse Rate 97 H 100 H 96 H Pulse Rate [Right Finger] Pulse Rate from SpO2 Sensor 96 H 100 H Pulse Rhythm [Right Finger] Pulse Strength [Right Finger] Respiratory Rate 22 22 18 Respiratory Effort / Characteristics Respiratory Depth Respiratory Pattern Blood Pressure 107/57 L Blood Pressure [Left Arm] Blood Pressure Mean 73 Blood Pressure Mean [Left Arm] Blood Pressure Position Blood Pressure Position [Left Arm] Pulse Oximetry 97 94 96 Oxygen Delivery Method Room Air Room Air Sepsis Recent Fever Within 48 Hours Sepsis New/Unexplained Change in Mental Status Sepsis Action Taken by Nursing 08/12/21 22:00 08/12/21 23:00 Temperature Temperature Source Pulse Rate 100 H 91 H Pulse Rate [Right Finger] Pulse Rate from SpO2 Sensor 99 H 95 H Pulse Rhythm [Right Finger] Pulse Strength [Right Finger] Respiratory Rate 24 23 Respiratory Effort / Characteristics Respiratory Depth Respiratory Pattern Blood Pressure 102/54 L 104/64 Blood Pressure [Left Arm] Blood Pressure Mean 70 77 Blood Pressure Mean [Left Arm] Blood Pressure Position Blood Pressure Position [Left Arm] Pulse Oximetry 96 96 Oxygen Delivery Method Room Air Room Air Sepsis Recent Fever Within 48 Hours Sepsis New/Unexplained Change in Mental Status Sepsis Action Taken by Nursing Laboratory Data Result diagrams: 08/12/21 Unknown 08/12/21 Unknown Lab Results 08/12/21 08/12/21 08/12/21 Range/Units 19:03 19:03 21:30 WBC (4.8-10.8) K/uL RBC (4.2-5.4) M/uL Hgb (12.0-16.0) g/dL Hct (37-47) % MCV (80-100) fL MCH (25-34) pg MCHC (32-36) g/dL RDW Std Deviation (36.4-46.3) fL RDW Coeff of Lila (11.5-14.5) % Plt Count (130-400) K/uL MPV (7.4-10.4) fL Immature Gran % (Auto) % Neut % (Auto) % Lymph % (Auto) % [place] % (Auto) % Eos % (Auto) % Baso % (Auto) % Neut # (Auto) (1.4-6.5) K/uL Lymph # (Auto) (1.2-3.4) K/uL [place] # (Auto) (0.11-0.59) K/uL Eos # (Auto) (0-0.5) K/uL Baso # (Auto) (0-0.2) K/uL Immature Gran # (Auto) (0.00-0.02) K/uL Sodium (136-145) mmol/L Potassium (3.5-5.1) mmol/L Chloride (98-107) mmol/L Carbon Dioxide (21-32) mmol/L Anion Gap (3-11) BUN (7-18) mg/dl Creatinine (0.6-1.2) mg/dl Est Cr Clr Drug Dosing ml/min Est GFR ( Amer) ml/min Est GFR (Non-Af Amer) ml/min BUN/Creatinine Ratio (10-20) Glucose (70-99) mg/dl Calcium (8.5-10.1) mg/dl Total Bilirubin (0.2-1) mg/dl AST (15-37) U/L ALT (12-78) U/L Alkaline Phosphatase (45-117) U/L Total Protein (6.4-8.2) gm/dl Albumin (3.4-5.0) gm/dl Globulin (2.5-4.0) gm/dl Albumin/Globulin Ratio (0.9-2) Lipase (73-393) U/L Urine Color Dark Yellow Urine Appearance Clear (Clear) Urine pH 8.0 H (4.5-7.5) Ur Specific [place] 1.043 H (1.000-1.030) Urine Protein 2+ H (Negative) Urine Glucose (UA) Negative (Negative) Urine Ketones Trace H (Negative) Urine Blood Trace H (Negative) Urine Nitrite Negative (Negative) Urine Bilirubin Negative (Negative) Urine Urobilinogen Negative (Negative) Ur Leukocyte Esterase Negative (Negative) Urine WBC (Auto) 1-5 (0-5) /hpf Urine RBC (Auto) 10-30 H (0-4) /hpf U Hyaline Cast (Auto) 1-5 (0-5) /lpf U Epithel Cells (Auto) 20-30 H (0-5) /lpf Urine Bacteria (Auto) Negative (Negative) COVID-19 Eval Order Covid19 at [facility] SARS-CoV-2 (PCR) NEGATIVE (Negative) 08/12/21 08/12/21 Range/Units Unknown Unknown WBC 18.84 H (4.8-10.8) K/uL RBC 4.53 (4.2-5.4) M/uL Hgb 13.5 (12.0-16.0) g/dL Hct 43.0 (37-47) % MCV 94.9 (80-100) fL MCH 29.8 (25-34) pg MCHC 31.4 L (32-36) g/dL RDW Std Deviation 50.6 H (36.4-46.3) fL RDW Coeff of Lila 14.5 (11.5-14.5) % Plt Count 273 (130-400) K/uL MPV 9.7 (7.4-10.4) fL Immature Gran % (Auto) 0.5 % Neut % (Auto) 80.3 % Lymph % (Auto) 6.0 % [place] % (Auto) 13.0 % Eos % (Auto) 0.1 % Baso % (Auto) 0.1 % Neut # (Auto) 15.13 H (1.4-6.5) K/uL Lymph # (Auto) 1.13 L (1.2-3.4) K/uL [place] # (Auto) 2.44 H (0.11-0.59) K/uL Eos # (Auto) 0.02 (0-0.5) K/uL Baso # (Auto) 0.02 (0-0.2) K/uL Immature Gran # (Auto) 0.10 H (0.00-0.02) K/uL Sodium 136 (136-145) mmol/L Potassium 3.8 (3.5-5.1) mmol/L Chloride 102 (98-107) mmol/L Carbon Dioxide 26 (21-32) mmol/L Anion Gap 8.0 (3-11) BUN 18 (7-18) mg/dl Creatinine 0.88 (0.6-1.2) mg/dl Est Cr Clr Drug Dosing 41.7 ml/min Est GFR ( Amer) 72.9 ml/min Est GFR (Non-Af Amer) 62.9 ml/min BUN/Creatinine Ratio 20.1 H (10-20) Glucose 124 H (70-99) mg/dl Calcium 8.4 L (8.5-10.1) mg/dl Total Bilirubin 0.5 (0.2-1) mg/dl AST 13 L (15-37) U/L ALT 13 (12-78) U/L Alkaline Phosphatase 67 (45-117) U/L Total Protein 6.4 (6.4-8.2) gm/dl Albumin 2.5 L (3.4-5.0) gm/dl Globulin 3.9 (2.5-4.0) gm/dl Albumin/Globulin Ratio 0.6 L (0.9-2) Lipase 44 L (73-393) U/L Urine Color Urine Appearance (Clear) Urine pH (4.5-7.5) Ur Specific [place] (1.000-1.030) Urine Protein (Negative) Urine Glucose (UA) (Negative) Urine Ketones (Negative) Urine Blood (Negative) Urine Nitrite (Negative) Urine Bilirubin (Negative) Urine Urobilinogen (Negative) Ur Leukocyte Esterase (Negative) Urine WBC (Auto) (0-5) /hpf Urine RBC (Auto) (0-4) /hpf U Hyaline Cast (Auto) (0-5) /lpf U Epithel Cells (Auto) (0-5) /lpf Urine Bacteria (Auto) (Negative) COVID-19 Eval Order SARS-CoV-2 (PCR) (Negative) Administered Medications Discontinued Medications Sodium Chloride (Nss 1000ml) 1,000 mls @ 999 mls/hr IV .Q1H1M ONE Stop: 08/12/21 20:10 Last Infusion: 08/12/21 20:41 Dose: 0 mls/hr Documented by: [id number] Admin: 08/12/21 19:37 Dose: 999 mls/hr Documented by: [id number] Levofloxacin/Dextrose (Levaquin/D5w) 750 mg in 150 mls @ 100 mls/hr IV NOW STA Stop: 08/12/21 23:23 Last Admin: 08/12/21 22:39 Dose: 100 mls/hr Documented by: [id number] Sodium Chloride (Nss 1000ml) 1,000 mls @ 999 mls/hr IV .Q1H1M ONE Stop: 08/12/21 22:54 Last Admin: 08/12/21 22:46 Dose: 999 mls/hr Documented by: [id number] Ioversol (Optiray 320 125ml) 120 ml IV ONCE ONE Stop: 08/12/21 20:57 Last Admin: 08/12/21 20:57 Dose: 120 ml Documented by: [id number] Morphine Sulfate (Morphine Sulfate 4 Mg/Ml 1 Ml Carp\Vial) 4 mg IV NOW STA Stop: 08/12/21 20:18 Last Admin: 08/12/21 20:34 Dose: 4 mg Documented by: [id number] Ondansetron HCl (Ondansetron Inj 2 Mg/Ml 2 Ml Vial) 4 mg IV NOW STA Stop: 08/12/21 20:18 Last Admin: 08/12/21 20:31 Dose: 4 mg Documented by: [id number] Discharge Plan Visit Data Chief Complaint: Abdominal Pain Stated Complaint: CONSTIPATION,ABD PAIN,WEAKNESS ED Provider: Raul Bonilla Discharge Problem: Sepsis, Abdominal pain, Pneumonia, Leukocytosis, Splenic infarct Forms Stand Alone Forms: [facility] Prescriptions Prescriptions: No Action dorzolamide [Trusopt] 2 % drops 1 drops OP BID RF: 0 sumatriptan succinate [Imitrex] 50 mg tablet 50 mg PO Q2H PRN (Reason: migraines) RF: 0 Travatan Z 0.004 % drops 1 drops OP QPM RF: 0 cholecalciferol (vitamin D3) [Vitamin D3] 1,000 unit Capsule 1,000 unit PO BID RF: 0 risedronate 35 mg Tablet 35 mg PO WK RF: 0 colchicine 0.6 mg Tablet 0.6 mg PO QAM RF: 0 sertraline 50 mg Tablet 50 mg PO QAM RF: 0 clonazepam 1 mg Tablet,Disintegrating 1 mg PO HS RF: 0 Acidophilus Tablet,Chewable 1 tab PO QAM RF: 0 Calcium 600 + D(3) 600 mg calcium- 200 unit Capsule 1 cap PO BID RF: 0 Xiidra 5 % Dropperette 1 drp OPHTHALMIC (EYE) BID RF: 0 Systane (PF) 0.4-0.3 % Dropperette 1 drp OPHTHALMIC (EYE) TID PRN (Reason: Dry Eyes) RF: 0 omeprazole 20 mg capsule,delayed release(DR/EC) 20 mg PO QAM RF: 0 celecoxib 200 mg capsule 200 mg PO BID RF: 0 felodipine 2.5 mg tablet extended release 24 hr 2.5 mg PO QAM RF: 0 prednisone 5 mg tablet 5 mg PO QAM RF: 0 hydroxychloroquine 200 mg tablet 200 mg PO QAM RF: 0 thiamine HCl (vitamin B1) [Vitamin B-1] 500 mg Tablet 500 mg PO DAILY RF: 0 Airborne (ascorbic acid) 250-8.875 mg Tablet,Chewable 1 tab PO DAILY RF: 0 Referrals Referrals: Darian Cunningham MD [Primary Care Provider] - Discharge Problem: Sepsis Qualifiers: Sepsis type: sepsis due to unspecified organism Sepsis acute organ dysfunction status: unspecified Qualified Code(s): A41.9 - Sepsis, unspecified organism Abdominal pain Qualifiers: Abdominal location: unspecified location Qualified Code(s): R10.9 - Unspecified abdominal pain Pneumonia Qualifiers: Pneumonia type: due to unspecified organism Laterality: unspecified laterality Lung location: unspecified part of lung Qualified Code(s): J18.9 - Pneumonia, unspecified organism Leukocytosis Qualifiers: Leukocytosis type: unspecified Qualified Code(s): D72.829 - Elevated white blood cell count, unspecified
[2021-08-12 19:46] LABS: Basophils # (auto) 0.02 K/uL (0-0.2); Basophils % (auto) 0.1 %; Eosinophils # (auto) 0.02 K/uL (0-0.5); Eosinophils % (auto) 0.1 %; Hemoglobin 13.5 g/dL (12.0-16.0); Immature Granulocytes % (auto) 0.5 %; Lymphocytes # (auto) 1.13 K/uL (1.2-3.4); Mean Corpuscular Hemoglobin 29.8 pg (25-34); Mean Corpuscular Hgb Conc 31.4 g/dL (32-36); Mean Corpuscular Volume 94.9 fL (80-100); Mean Platelet Volume 9.7 fL (7.4-10.4); Monocytes # (auto) 2.44 K/uL (0.11-0.59); Neutrophils # (auto) 15.13 K/uL (1.4-6.5); Neutrophils % (auto) 80.3 %; Platelet Count 273 K/uL (130-400); RDW Coefficient of Variation 14.5 % (11.5-14.5); RDW Standard Deviation 50.6 fL (36.4-46.3); Red Blood Count 4.53 M/uL (4.2-5.4); White Blood Count 18.84 K/uL (4.8-10.8)
[2021-08-12 20:14] LABS: Albumin Level 2.5 gm/dl (3.4-5.0); BUN Creatinine Ratio 20.1 (10-20); Calcium 8.4 mg/dl (8.5-10.1); Creatinine Clr Calc Pharmacy 41.7 ml/min; Est GFR (African American) 72.9 ml/min; Est GFR (Non-African American) 62.9 ml/min; Potassium 3.8 mmol/L (3.5-5.1)
[2021-08-12 20:17] LABS: Albumin Globulin Ratio 0.6 (0.9-2); Bilirubin,Total 0.5 mg/dl (0.2-1); Globulin 3.9 gm/dl (2.5-4.0); Total Protein 6.4 gm/dl (6.4-8.2)
[2021-08-12] MEDS ORDERED: MoRPHine SULFATE 4 MG/ML 1 ML CARP\\VIAL IV STA (20:17)
[2021-08-12] MEDS ORDERED: ONDANSETRON INJ 2 MG/ML 2 ML VIAL IV STA (20:17)
[2021-08-12] MEDS ORDERED: OPTIRAY 320 125ml IV ONE (20:56)
[2021-08-12 21:42] LABS: Appearance Urine Clear (Clear); Bacteria Urine Automated Negative (Negative); Bilirubin Urine Negative (Negative); Blood Urine Trace (Negative); Color Urine Dark Yellow; Epithelial Cell Urine Auto 20-30 /lpf (0-5); Glucose Urine UA Negative (Negative); Ketones Urine Trace (Negative); Leukocyte Esterase Urine Negative (Negative); Nitrite Urine Negative (Negative); Specific Gravity Urine 1.043 (1.000-1.030); Urobilinogen Urine Negative (Negative)
[2021-08-12 21:52] LABS: Protein Urine 2+ (Negative)
[2021-08-12] MEDS ORDERED: levoFLOXacin/D5W 750 MG/150 ML BAG IV STA (21:54)
[2021-08-13] MEDS ORDERED: DOCUSATE SODIUM 100 MG CAP PO PRN (01:53)
[2021-08-13] MEDS ORDERED: HEPARIN SODIUM/DEXTROSE 25,000 UNITS/500 ML BAG IV SCH (01:53)
[2021-08-13] MEDS ORDERED: Heparin IV Adult Wt-Based Standard *NO* Bolus Protocol IV ONE (01:53)
[2021-08-13] MEDS ORDERED: HEPARIN 25000 UNIT/500 ML D5W IV ONE (02:13)
[2021-08-13] MEDS: MoRPHine SULFATE 2 MG/ML CARP IV PRN (02:26)
[2021-08-13] MEDS: ONDANSETRON INJ 2 MG/ML 2 ML VIAL IV PRN ×3 (02:26→16:22)
[2021-08-13 02:28] LABS: Cdiff Antigen Positive
[2021-08-13 02:28] LABS: Magnesium 2.3 mg/dl (1.8-2.4); Phosphorus 2.3 mg/dl (2.5-4.9)
[2021-08-13 02:29] LABS: Cdiff Toxin A+B Positive Cdiff Toxin (Negative)
[2021-08-13 02:39] LABS: Hematocrit (blood only) 36.9 % (37-47); Hemoglobin 11.9 g/dL (12.0-16.0); Mean Corpuscular Hemoglobin 29.9 pg (25-34); Mean Corpuscular Hgb Conc 32.2 g/dL (32-36); Mean Corpuscular Volume 92.7 fL (80-100); Platelet Count 277 K/uL (130-400); RDW Coefficient of Variation 14.5 % (11.5-14.5); RDW Standard Deviation 49.4 fL (36.4-46.3); Red Blood Count 3.98 M/uL (4.2-5.4); White Blood Count 19.81 K/uL (4.8-10.8)
[2021-08-13 02:43] LABS: INR 1.1 (0.9-1.1); Prothrombin Time 11.4 Seconds (9.0-12.0)
[2021-08-13 03:19] LABS: Basophils # (auto) 0.02 K/uL (0-0.2); Basophils % (auto) 0.1 %; Echinocytes 1+; Eosinophils # (auto) 0.05 K/uL (0-0.5); Eosinophils % (auto) 0.3 %; Immature Granulocytes # (auto) 0.11 K/uL (0.00-0.02); Immature Granulocytes % (auto) 0.6 %; Lymphocytes # (auto) 2.28 K/uL (1.2-3.4); Lymphocytes % (auto) 11.5 %; Monocytes # (auto) 1.61 K/uL (0.11-0.59); Monocytes % (auto) 8.1 %; Neutrophils # (auto) 15.74 K/uL (1.4-6.5); Neutrophils % (auto) 79.4 %
--- NOTE | 2021-08-13 04:11 | History & Physical Report ---
Date of Service August 12, 2021 Assessment & Plan (1) C. difficile colitis: Plan: Patient with prior C. difficile infection status post 2 courses of antibiotic treatment. She has continuous diarrhea. Leukocytosis today with WBC = 18.84. C. difficile gene and toxin positive. Patient has ongoing diarrhea. CT with inflammation of the colon consistent with colitis, most likely secondary to C. difficile infection. Admit to PCU Fidaxomicin 200 mg p.o. twice daily for treatment of recurrent C. difficile infection Stool cultures ordered as well Avoidance of further antibiotics if possible (2) Splenic infarct: Plan: Patient found to have possible splenic infarct new from CT abdomen obtained on 08/10. Could possibly be contributing to abdominal pain as well. 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 Questionable stricture versus thrombus in the right hepatic vein along the proximal portion. LFTs with mildly elevated AST. Heparin drip Monitor LFTs and INR (4) GERD (gastroesophageal reflux disease): Plan: Chronic. Continue Pepcid 40 mg p.o. daily (5) Depression: Plan: Chronic. Well-controlled. Continue Zoloft 50 mg p.o. every morning (6) CKD (chronic kidney disease): Plan: BUN and creatinine near baseline Avoid nephrotoxic agents Continue to monitor BUN, creatinine, electrolytes, urine output (7) Scleroderma: Plan: Chronic. Patient is to that she has pulmonary involvement as well. She follows with cardiology and has routine PFTs. Last performed on 05/01/21 which showed no obstructive lung dysfunction. Low DLCO with poor patient effort during exam. Continue hydroxychloroquine Continue prednisone Consider sending antiphospholipid antibody and anticardiolipin antibody work-up in setting of new clots Admission and Anticipated Discharge Date Admission Date: August 12, 2021 History of Present Illness Chief Complaint: Abdominal Pain Primary Care Provider: Darian Cunningham MD Mary Venegas is a 80-year-old female with history of CKD, GERD, C. difficile presenting with left lower quadrant abdominal pain progressive over the last 2 to 3 days as well as worsening diarrhea. Patient was seen in the ER on 06/09/21 with this complaint. She had a CT abdomen and pelvis with contrast performed which revealed mucosal thickening in the rectum and sigmoid colon suggestive of colitis as well as moderate stool burden consistent with constipation. No perforation or abscess. Also noted on chronic changes of the lung bases and calcified granulomas present in the spleen. She was discharged home in stable condition. Patient returns with worsening of her abdominal pain today. Patient with history of C. difficile colitis first diagnosed in May. She has received 2 courses of antibiotics. She reports persistent diarrhea ongoing since May. She had been taking a significant amount of anti-diarrheal medication lately. She also endorses poor appetite, decreased oral intake as well as sweats last night. She denies chest pain, palpitations, cough, shortness of breath. Denies nausea/vomiting/fever. No additional complaints at this time. ER course: Levaquin, Motrin, Zofran Allergies Allergy/AdvReac Type Severity Reaction Status Date / Time cephalexin [From Keflex] Allergy Mild rash Verified 08/12/21 20:23 oxycodone Allergy Mild rash Verified 08/12/21 20:23 adhesive Allergy Unknown RASH Verified 08/12/21 20:23 Home Medications Medication Instructions Recorded Confirmed Type dorzolamide 2 % eye drops (Trusopt) 1 drops OP BID 06/22/19 08/12/21 History sumatriptan succinate 50 mg tablet 50 mg PO Q2H PRN 06/22/19 08/12/21 History (Imitrex) travoprost 0.004 % eye drops 1 drops OP QPM 06/22/19 08/12/21 History (Travatan Z) cholecalciferol (vitamin D3) 25 1,000 unit PO BID 07/28/19 08/12/21 History mcg (1,000 unit) capsule (Vitamin D3) risedronate 35 mg tablet 35 mg PO WK 07/28/19 08/12/21 History Lactobacillus acidophilus 1 tab PO QAM 04/25/20 08/12/21 History (Acidophilus) calcium carbonate-vitamin D3 600 1 cap PO BID 04/25/20 08/12/21 History mg calcium-200 unit capsule (Calcium 600 + D(3)) clonazepam 1 mg disintegrating 1 mg PO HS 04/25/20 08/12/21 History tablet colchicine 0.6 mg tablet 0.6 mg PO QAM 04/25/20 08/12/21 History lifitegrast 5 % eye drops in a 1 drp OPHTHALMIC (EYE) BID 04/25/20 08/12/21 History dropperette (Xiidra) sertraline 50 mg tablet 50 mg PO QAM 04/25/20 08/12/21 History peg 400-propylene glycol (PF) 0.4 1 drp OPHTHALMIC (EYE) TID PRN 05/21/20 08/12/21 History %-0.3 % eye drops in a dropperette (Systane (PF)) celecoxib 200 mg capsule 200 mg PO BID 08/12/21 08/12/21 History felodipine 2.5 mg tablet,extended 2.5 mg PO QAM 08/12/21 08/12/21 History release 24 hr hydroxychloroquine 200 mg tablet 200 mg PO QAM 08/12/21 08/12/21 History fhnmchhh-drgnbxfh-axr C 250 1 tab PO DAILY 08/12/21 08/12/21 History mg-herbal no.124 8.875 mg chewable tablet (Airborne (ascorbic acid)) omeprazole 20 mg capsule,delayed 20 mg PO QAM 08/12/21 08/12/21 History release prednisone 5 mg tablet 5 mg PO QAM 08/12/21 08/12/21 History thiamine HCl (vitamin B1) 500 mg 500 mg PO DAILY 08/12/21 08/12/21 History tablet Past Med/Surg History Medical History (Updated 08/13/21 @ 04:[address] DO) Cervical stenosis of spine Chronic back pain CKD (chronic kidney disease) per records Depression pt denies GERD (gastroesophageal reflux disease) Glaucoma Hammertoe of second toe of left foot Hx MRSA infection Melanoma right heel & chest wall Migraine Osteoarthritis Osteoporosis Patella-femoral syndrome Pseudogout prednisone daily for pseudogout arthritis Restless leg syndrome Scleroderma Spondylolisthesis of cervical region FULL ROM Surgical History History of carpal tunnel surgery bilateral History of colonoscopy w/ polypectomy History of hand surgery Rt finger History of Mohs micrographic surgery for skin cancer History of surgery repair of prolapsed rectum History of tooth extraction History of tubal ligation Hx of bilateral cataract extraction Hx of surgical procedure left hand pointer finger repair S/P LASIK surgery of both eyes Family History Father Family hx of colon cancer Other No family history of adverse response to anesthesia Social History Smoking Status: Former smoker Second Hand Exposure: No; Hx Alcohol Use: Yes Alcohol type: wine Hx Substance Use: No Preferred Language: Urdu Communication Ability: Effective Visual Impairment: No Limitations Hearing Ability: Normal Filling Machine Set Up Mechanic Required: No Beliefs That Will Affect Care: None marital status: / Current Living Situation: Alone current occupational status: retired Feels Safe at Home: Yes Childhood Exposure to Second-Hand Smoke: No Assistive Devices: Denture - Upper and Denture - Lower Review of Systems Review of Systems: All systems reviewed & are unremarkable except as noted in HPI & below Physical Exam Physical Exam: General: patient resting comfortably, NAD, non-toxic in appearance, AA&O x 4 Skin: warm, dry, intact, no rashes or lesions, changes of sclerodactyly noted on fingers HEENT: NC/AT, PERRL, EOMI, anicteric sclera, conjunctiva without injection, external ear normal to inspection and nontender, nares patent, moist mucus membranes, dentition intact, no oropharyngeal lesions, neck supple, trachea midline, no LAD, no thyromegaly, no JVD Heart: +S1/S2, regular, no m/r/g Lungs: equal air entry bilaterally, no rales/rhonchi/wheezes Abd: +BS, soft, ND, tenderness in LLQ with voluntary guarding, no masses/organomegaly/ascites Ext: warm, 2+ pulses in UE/LE bilaterally, no clubbing/cyanosis or edema Neuro: nonfocal, patient AA&O x 4, speech intact, no facial droop, moving all extremities on command with equal strength 5/5 Results & Data Results & Data ([facility]) Vital Signs (Past 12 Hours) Vital Signs Temp Pulse Pulse Resp BP BP Pulse Ox 08/13/21 03:00 99 H 16 116/57 L 95 08/13/21 01:58 08/13/21 01:41 103 H 22 109/55 L 95 08/13/21 00:37 98 H 23 98/61 L 94 08/12/21 23:00 91 H 23 104/64 96 08/12/21 22:00 100 H 24 102/54 L 96 08/12/21 21:21 96 H 18 107/57 L 96 08/12/21 20:40 100 H 22 94 08/12/21 20:30 97 H 22 97 08/12/21 20:20 97 H 22 96 08/12/21 20:10 102 H 21 96 08/12/21 20:00 98 H 15 95 08/12/21 19:21 99 H 22 102/66 94 08/12/21 19:20 100 H 20 102/66 95 08/12/21 16:58 37.2 C 111 H 20 103/62 97 Pulse Ox 08/13/21 03:00 08/13/21 01:58 96 08/13/21 01:41 08/13/21 00:37 08/12/21 23:00 08/12/21 22:00 08/12/21 21:21 08/12/21 20:40 08/12/21 20:30 08/12/21 20:20 08/12/21 20:10 08/12/21 20:00 08/12/21 19:21 08/12/21 19:20 08/12/21 16:58 Laboratory Results Laboratory Results WBC 18.84 K/uL (4.8-10.8) H 08/12/21 Unknown RBC 4.53 M/uL (4.2-5.4) 08/12/21 Unknown Hgb 13.5 g/dL (12.0-16.0) 08/12/21 Unknown Hct 43.0 % (37-47) 08/12/21 Unknown MCV 94.9 fL (80-100) 08/12/21 Unknown MCH 29.8 pg (25-34) 08/12/21 Unknown MCHC 31.4 g/dL (32-36) L 08/12/21 Unknown RDW Std Deviation 50.6 fL (36.4-46.3) H 08/12/21 Unknown RDW Coeff of Lila 14.5 % (11.5-14.5) 08/12/21 Unknown Plt Count 273 K/uL (130-400) 08/12/21 Unknown MPV 9.7 fL (7.4-10.4) 08/12/21 Unknown Immature Gran % (Auto) 0.5 % 08/12/21 Unknown Neut % (Auto) 80.3 % 08/12/21 Unknown Lymph % (Auto) 6.0 % 08/12/21 Unknown [place] % (Auto) 13.0 % 08/12/21 Unknown Eos % (Auto) 0.1 % 08/12/21 Unknown Baso % (Auto) 0.1 % 08/12/21 Unknown Neut # (Auto) 15.13 K/uL (1.4-6.5) H 08/12/21 Unknown Lymph # (Auto) 1.13 K/uL (1.2-3.4) L 08/12/21 Unknown [place] # (Auto) 2.44 K/uL (0.11-0.59) H 08/12/21 Unknown Eos # (Auto) 0.02 K/uL (0-0.5) 08/12/21 Unknown Baso # (Auto) 0.02 K/uL (0-0.2) 08/12/21 Unknown Immature Gran # (Auto) 0.10 K/uL (0.00-0.02) H 08/12/21 Unknown Echinocytes 1+ 08/12/21 22:46 PT 11.4 Seconds (9.0-12.0) 08/12/21 22:46 PT Cancelled 08/12/21 22:46 INR 1.1 (0.9-1.1) 08/12/21 22:46 INR Cancelled 08/12/21 22:46 Sodium 136 mmol/L (136-145) 08/12/21 Unknown Potassium 3.8 mmol/L (3.5-5.1) 08/12/21 Unknown Chloride 102 mmol/L (98-107) 08/12/21 Unknown Carbon Dioxide 26 mmol/L (21-32) 08/12/21 Unknown Anion Gap 8.0 (3-11) 08/12/21 Unknown BUN 18 mg/dl (7-18) 08/12/21 Unknown Creatinine 0.88 mg/dl (0.6-1.2) 08/12/21 Unknown Est Cr Clr Drug Dosing 41.7 ml/min 08/12/21 Unknown Est GFR ( Amer) 72.9 ml/min 08/12/21 Unknown Est GFR (Non-Af Amer) 62.9 ml/min 08/12/21 Unknown BUN/Creatinine Ratio 20.1 (10-20) H 08/12/21 Unknown Glucose 124 mg/dl (70-99) H 08/12/21 Unknown Lactate 2.4 mmol/L (0.4-2.0) H* 08/13/21 00:52 Calcium 8.4 mg/dl (8.5-10.1) L 08/12/21 Unknown Phosphorus 2.3 mg/dl (2.5-4.9) L 08/12/21 Unknown Magnesium 2.3 mg/dl (1.8-2.4) 08/12/21 Unknown Total Bilirubin 0.5 mg/dl (0.2-1) 08/12/21 Unknown AST 13 U/L (15-37) L 08/12/21 Unknown ALT 13 U/L (12-78) 08/12/21 Unknown Alkaline Phosphatase 67 U/L (45-117) 08/12/21 Unknown NT-Pro-B Natriuret Pep 1191 pg/ml (0-1800) 08/12/21 Unknown Total Protein 6.4 gm/dl (6.4-8.2) 08/12/21 Unknown Albumin 2.5 gm/dl (3.4-5.0) L 08/12/21 Unknown Globulin 3.9 gm/dl (2.5-4.0) 08/12/21 Unknown Albumin/Globulin Ratio 0.6 (0.9-2) L 08/12/21 Unknown Lipase 44 U/L (73-393) L 08/12/21 Unknown Urine Color Dark Yellow 08/12/21 21:30 Urine Appearance Clear (Clear) 08/12/21 21:30 Urine pH 8.0 (4.5-7.5) H 08/12/21 21:30 Ur Specific [place] 1.043 (1.000-1.030) H 08/12/21 21:30 Urine Protein 2+ (Negative) H 08/12/21 21:30 Urine Glucose (UA) Negative (Negative) 08/12/21 21:30 Urine Ketones Trace (Negative) H 08/12/21 21:30 Urine Blood Trace (Negative) H 08/12/21 21:30 Urine Nitrite Negative (Negative) 08/12/21 21:30 Urine Bilirubin Negative (Negative) 08/12/21 21:30 Urine Urobilinogen Negative (Negative) 08/12/21 21:30 Ur Leukocyte Esterase Negative (Negative) 08/12/21 21:30 Urine WBC (Auto) 1-5 /hpf (0-5) 08/12/21 21:30 Urine RBC (Auto) 10-30 /hpf (0-4) H 08/12/21 21:30 U Hyaline Cast (Auto) 1-5 /lpf (0-5) 08/12/21 21:30 U Epithel Cells (Auto) 20-30 /lpf (0-5) H 08/12/21 21:30 Urine Bacteria (Auto) Negative (Negative) 08/12/21 21:30 Stl C. diff Tox B Gene Positive Cdiff Gene (Neg) H 08/13/21 00:49 Stl C.difficile Tox A&B Positive Cdiff Toxin (Negative) A* 08/13/21 00:49 COVID-19 Eval Order Covid19 at [facility] 08/12/21 19:03 SARS-CoV-2 (PCR) NEGATIVE (Negative) 08/12/21 19:[address] abdomen pelvis with contrast: Per stat readmild to moderate cardiomegaly. Trace bilateral pleural effusions. Bilateral posterior lower lobe consolidation suggestive of pneumonia with mild bilateral bronchiectasis. Atherosclerotic disease of aorta with no aneurysm or dissection. Heart point enhancement of the spleen suggestive of splenic infarct, new in the interval. Diffuse granulomata throughout the spleen. Heterogenous liver which may indicate chronic liver disease or cirrhosis. Due to some mild heterogenous appearance of the liver, differential diagnosis includes perfusion abnormality which may be indicative of hepatic congestion from CHF versus Budd-Chiari syndrome. Normal bilateral kidneys. Normal bilateral adrenal glands. The stomach is decompressed with mild hiatal hernia. Nonspecific small bowel. Diffuse thickening of the wall throughout the colon more severe throughout the descending portion consistent with diffuse colitis. Degenerative disease of the spine. Ultrasound duplex hepatic/portal veins: Partially occlusive thrombus within the proximal inferior vena cava. The left and main hepatic veins are normal. Questionable stricture versus thrombus within the right hepatic vein along with the proximal portion. Portal veins are patent with normal flow. Splenic vein within normal limits. Hepatic artery velocity is 195 cm/s. ECG Additional Comments: EKG with sinus tachycardia 101 bpm, PACs present, NJ = 172, QRS = 62, QTc = 469. Low voltage QRS complexes. No acute ischemic changes. Poor R wave progression Code Status & VTE Plan VTE Prophylaxis Plan VTE Prophylaxis will be ordered: Yes PG Care Time/CCT Total # of Minutes Spent Total Time Spent with Patient: Total time spent is greater than 50% in coordination of care (as documented) at patient's floor/unit and/or counseling patient: Coding Level of Care Code 46082 Initial Inpt Care Lvl 3 Diagnoses C. difficile colitis A04.72 Splenic infarct D73.5 GERD (gastroesophageal reflux disease) K21.9 Depression F32.9 CKD (chronic kidney disease) N18.9 IVC thrombosis I82.220 Scleroderma M34.9
[2021-08-13 05:47] LABS: INR 1.1 (0.9-1.1); Prothrombin Time 11.5 Seconds (9.0-12.0)
[2021-08-13 06:11] LABS: Alanine Aminotransferase 13 U/L (12-78); Aspartate Aminotransferase 12 U/L (15-37); BUN Creatinine Ratio 16.9 (10-20); Bilirubin Direct < 0.1 mg/dl (0-0.2); Blood Urea Nitrogen 15 mg/dl (7-18); Calcium 7.4 mg/dl (8.5-10.1); Carbon Dioxide 22 mmol/L (21-32); Chloride 107 mmol/L (98-107); Creatinine Clr Calc Pharmacy 42.1 ml/min; Est GFR (Non-African American) 63.8 ml/min; Glucose 116 mg/dl (70-99); Potassium 3.6 mmol/L (3.5-5.1); Sodium 134 mmol/L (136-145)
[2021-08-13 06:14] LABS: Alkaline Phosphatase 63 U/L (45-117); Bilirubin,Total 0.4 mg/dl (0.2-1); Total Protein 5.3 gm/dl (6.4-8.2)
--- NOTE | 2021-08-13 07:27 | Ultrasound Report ---
US duplex portal hepatic veins HISTORY: 80 years-old Female ?Budd Chiari acute generalized abdominal pain with possible hepatic ab ous thrombus COMPARISON: CT abdomen and pelvis 08/12/2021, CT abdomen and pelvis 08/10/2021 TECHNIQUE: Multiple real-time sonographic images of the hepatic vasculature were obtained assessing g rayscale appearance, color and spectral flow. FINDINGS: Patent portal vein with hepatopedal flow. The splenic vein also appears patent. The hepatic artery de monstrates low resistance waveforms with peak systolic flow seen measuring up to 195 cm/s. The main a nd left hepatic veins appear normal. Narrowing of the right hepatic vein with areas of broken flow no colby distally. There is an apparent filling defect within the intrahepatic IVC which is nonocclusive. IMPRESSION: Questioned filling defect within the intrahepatic IVC which favors artifact rather than t hrombus. Note that no thrombus was identified within the IVC on the CT abdomen and pelvis study from 08/10/2021. Correlation with confirmatory CT venogram of the abdomen recommended. ACT 112: Negative or not required by law. The above report was generated using voice recognition software. It may contain grammatical, syntax o r spelling errors. Electronically signed by: Lamberto Frey M.D. 08/13/2021 7:25 AM
--- NOTE | 2021-08-13 07:44 | XRay Report ---
SINGLE VIEW CHEST CLINICAL HISTORY: Sepsis. FINDINGS: An AP, portable, upright chest radiograph is compared to study dated 01/22/2020 and correlate d with chest CT dated 04/10/2021. The heart is enlarged. The pulmonary vasculature is noncongested. En largement of the central pulmonary arteries is unchanged and suggests pulmonary hypertension. Scarrin g/atelectasis is present at both lung bases, left greater than right. No airspace consolidation typic al for pneumonia or large pleural effusion is identified. No pneumothorax is seen. The skeletal struc tures are osteopenic. The bony thorax is grossly intact. Calcified granulomas are noted in the spleen . IMPRESSION: Cardiomegaly with no acute cardiopulmonary abnormality. ACT 112: Negative or not required by law. Electronically signed by: Devante Ortiz M.D. 08/13/2021 7:43 AM
--- NOTE | 2021-08-13 08:00 | CT Scan Report ---
CT ANGIOGRAM OF THE ABDOMEN AND PELVIS CLINICAL HISTORY: Generalized abdominal pain. COMPARISON STUDY: Abdominal CT dated 08/10/2021. TECHNIQUE: Following the IV administration of 120 cc of Optiray 320, CT angiogram of the abdomen and pelvis was performed from the lung bases the proximal femora. Images are reviewed in the axial, sagit joel, and coronal planes. 3-D MIPS images are created and assessed. IV contrast was administered witho ut complication. A dose lowering technique was utilized adhering to the principles of ALARA. CT DOSE: 252.49 mGy.cm FINDINGS: Lower chest: The heart is normal in size noting a small to moderate pericardial effusion. There are t race pleural effusions. There is significant bibasilar scarring/atelectasis. No airspace consolidatio n is seen typical for pneumonia. Calcified granulomas are seen at the lung bases. There is a small to moderate hiatal hernia. Liver: The contrast-enhanced liver is normal in size and contour. Attenuation is heterogeneous. There is no intrahepatic biliary ductal dilatation. The main portal veins appear patent. Gallbladder: Unremarkable. Spleen: Normal in size and attenuation noting heterogeneous arterial phase enhancement. There are michelle cified splenic granulomas. Pancreas: Mildly atrophic and grossly unremarkable. Adrenal glands: Unremarkable. Kidneys: The contrast enhanced kidneys demonstrate cortical atrophy and are without hydronephrosis. T he kidneys enhance symmetrically. A 1.6 cm cyst arises from the interpolar right kidney. Abdominal aorta and iliac arteries: The abdominal aorta is normal in course and caliber noting mild t o moderate atherosclerotic calcification. The abdominal aorta and iliac arteries are widely patent bi laterally. No dissection is seen. Major branches of the abdominal aorta: The celiac trunk, superior mesenteric, and inferior mesenteric arteries are widely patent. The splenic artery is patent. Hepatic arterial anatomy is conventional. Single bilateral renal arteries are widely patent. Bowel: There is wall thickening and edema seen throughout the colon. This extends from the transverse colon to the rectosigmoid, with surrounding pericolonic inflammation and fluid. No bowel obstruction is seen. The appendiceal wall appears mildly thickened and hyperemic. The appendix is normal in norma ayush and fluid-filled with surrounding ascitic fluid. Peritoneum: There is a small amount of perisplenic and perihepatic ascites, as well as trace free flu id in the pelvis. No intraperitoneal free air is identified. Lymphadenopathy: None. Pelvic viscera: The bladder is normal as visualized. The endometrium is significantly thickened for a ge measuring up to 2.5 cm. No adnexal lesion is seen Skeletal structures: The skeletal structures are osteopenic. There is moderate to advanced lumbosacra l spondylosis and mild scoliosis. A mild superior endplate compression deformity of L2 is unchanged. No lytic or blastic lesion is seen. IMPRESSION: 1. Findings are consistent with a nonspecific colitis, likely on an infectious or inflammatory basis. Clinical correlation will be required. This has worsened as compared to 08/10/2021. 2. A small volume of abdominopelvic ascites is new from previous. 3. Unremarkable CT angiogram of the abdominal aorta and its major branches. 4. The endometrium is markedly thickened and heterogeneous for age. This is not well assessed by CT, and nonemergent follow-up with gynecology and pelvic ultrasound is recommended for further evaluation . 5. There is heterogeneous arterial phase enhancement of the spleen. A splenic infarct as questioned b y the pulmonary interpretation is considered unlikely. 6. The liver is heterogeneous, likely related to phase of enhancement. There is no CT evidence of [place] d-Chiari syndrome is questioned on the preliminary interpretation. 7. Mild to moderate pericardial effusion and trace pleural effusions. 8. The appendiceal wall appears mildly thickened and hyperemic. This is likely related to colitis and surrounding ascitic fluid. There is no clear CT evidence of acute appendicitis. 9. Additional findings as above. ACT 112: Negative or not required by law. Electronically signed by: Devante Ortiz M.D. 08/13/2021 7:59 AM
--- NOTE | 2021-08-13 08:33 | Electrocardiogram Report ---
Test Reason : Blood Pressure : / mmHG Vent. Rate : 101 BPM Atrial Rate : 101 BPM P-R Int : 172 ms QRS Dur : 062 ms QT Int : 362 ms P-R-T Axes : 063 031 027 degrees QTc Int : 469 ms Poor data quality, interpretation may be adversely affected Sinus tachycardia with Premature atrial complexes Low voltage QRS Possible Old Anteroseptal infarct (cited on or before 29-AUG-2012) Diffuse Nonspecific T wave abnormality Abnormal ECG When compared with ECG of 03-DEC-2016 12:38, No significant change Confirmed by Remi Chacon ([id number]) on 08/13/2021 8:32:51 AM Referred By: Darian Cunningham Confirmed By:Remi Chacon
[2021-08-13 08:54] LABS: Hematocrit (blood only) 37.5 % (37-47); Mean Corpuscular Hemoglobin 29.5 pg (25-34); Mean Corpuscular Volume 92.1 fL (80-100); Mean Platelet Volume 9.4 fL (7.4-10.4); Platelet Count 227 K/uL (130-400); RDW Coefficient of Variation 14.4 % (11.5-14.5); RDW Standard Deviation 48.8 fL (36.4-46.3); Red Blood Count 4.07 M/uL (4.2-5.4); White Blood Count 19.31 K/uL (4.8-10.8)
[2021-08-13 09:20] LABS: Partial Thromboplastin Ratio 2.5; Partial Thromboplastin Time 66.9 Seconds (21.0-31.0)
--- NOTE | 2021-08-13 09:21 | XCELERA ---
[id number]
[2021-08-13 09:22] LABS: Basophils # (auto) 0.02 K/uL (0-0.2); Basophils % (auto) 0.1 %; Dohle Bodies 1+; Eosinophils # (auto) 0.01 K/uL (0-0.5); Eosinophils % (auto) 0.1 %; Immature Granulocytes # (auto) 0.29 K/uL (0.00-0.02); Immature Granulocytes % (auto) 1.5 %; Lymphocytes # (auto) 1.37 K/uL (1.2-3.4); Lymphocytes % (auto) 7.1 %; Monocytes # (auto) 2.03 K/uL (0.11-0.59); Monocytes % (auto) 10.5 %; Neutrophils # (auto) 15.59 K/uL (1.4-6.5); Neutrophils % (auto) 80.7 %
[2021-08-13] MEDS ORDERED: OPTIRAY 320 100ml IV ONE (09:23)
[2021-08-13] MEDS: THIAMINE HCL 100 MG TAB PO SCH (09:32)
[2021-08-13] MEDS: FAMOTIDINE 40 MG TABLET PO SCH (09:32)
[2021-08-13] MEDS: DORZOLAMIDE HCL 2% OPH SOLN 10 ML BTL OP SCH ×2 (09:32→20:45)
[2021-08-13] MEDS: HYDROXYCHLOROQUINE SULFATE 200 MG TAB PO SCH (09:32)
[2021-08-13] MEDS: PANTOprazole 40 MG TAB PO SCH (09:32)
[2021-08-13] MEDS: FELODIPINE 2.5 MG TABCR PO SCH (09:32)
[2021-08-13] MEDS: SERTRALINE HCL 50 MG TABLET PO SCH (09:32)
--- NOTE | 2021-08-13 09:53 | CT Scan Report ---
CT abdomen pelvis veno w con CLINICAL INDICATION: MN ^r/o IVC thrombus. TECHNIQUE: Helical axial images of the abdomen and pelvis were obtained and displayed at 5 and 1 mm i ntervals. Automated dose lowering techniques and/or adjustment according to patient size were utilize d for this exam. This exam was performed with intravenous contrast. COMPARISON: Comparison is made to CT abdomen and pelvis 08/12/2021 FINDINGS: Lower chest: Bilateral fibrotic changes are seen within the visualized portion of the lungs. Scatter ed calcifications within the lungs. Cardiomegaly with biatrial enlargement is seen. There is a small pericardial effusion. Liver: Unremarkable. No focal lesions are seen. Gallbladder and biliary tree: Layering radiodense material is seen in the dependent portion of the ga llbladder which may represent sludge versus stones. No intra- or extrahepatic biliary ductal dilation . Pancreas: Unremarkable, no focal lesions. Spleen: Multiple scattered splenic calcifications are seen. Adrenals: Unremarkable. Kidneys and ureters: There is a 17 mm exophytic cyst on the right and a subcentimeter hypodensity in the left kidney upper pole favored to represent a cyst. Bladder: Unremarkable. Bowel: Appendix is unremarkable. Redemonstration of wall thickening and pericolonic stranding in the transverse, descending, and sigmoid colon. Wall thickening now appears to also affect the hepatic fle xure. Lymph nodes Retroperitoneal: Unremarkable. Mesenteric: Subcentimeter lymph nodes are noted. Pelvic: Subcentimeter lymph nodes are noted. Reproductive organs: Fluid-filled endometrial cavity is noted. Peritoneum: Small ascites is seen, similar to prior exam. Vessels: Atherosclerotic calcifications are seen. No thrombus is seen in the inferior vena cava. The portal venous system and superior mesenteric vein are without thrombus as well. Abdominal wall: Bilateral fat-containing inguinal hernias are seen. Bones: Redemonstration of degenerative changes most prominent in the lumbar spine. IMPRESSION: 1. No evidence of inferior vena cava thrombus. 2. Slightly greater extent of wall thickening in the colon compatible with colitis. 3. Stable ascites. 4. Endometrium is again noted to be markedly thickened for age. Nonemergent follow-up ultrasound is recommended. 5. Stable pericardial effusion. 6. Stable fibrotic changes in the lungs. 7. Diffuse calcifications in the visualized lungs and spleen compatible with granulomatous disease. ACT 112: Negative or not required by law. Electronically signed by: Kobi Castellanos M.D. 08/13/2021 9:51 AM
[2021-08-13] MEDS: LACTATED RINGER'S 1,000 ML IV SCH ×2 (10:08→20:47)
[2021-08-13] MEDS: FIDAXOMICIN 200 MG TAB PO SCH ×2 (10:08→20:46)
[2021-08-13] MEDS: predniSONE 5 MG TAB PO SCH (10:08)
--- NOTE | 2021-08-13 12:34 | Gastrointestinal Consultation ---
Date of Consultation August 13, 2021 Assessment & Plan (1) Recurrent Clostridioides difficile diarrhea: (2) C. difficile colitis: This is a 9-year-old female with the above comorbidities, has had several bouts of C. difficile since the summer, this seems to be her third bout. Previously was treated with 2 rounds of what may have been vancomycin. Now is admitted with recurrent diarrhea, abdominal discomfort, and CT suggestive of colitis. She may have also been using antidiarrheals as well. She has a leukocytosis and elevated lactate. When evaluated in the emergency room, she is afebrile, her abdomen was soft, with mild diffuse tenderness. - Agree with Dificid - Recommend bowel rest - Supportive care with IVF - Analgesia PRN - Trend CBC - Monitor GI output - She is scheduled for outpatient colonoscopy sometime in August, with the group locally, however is not sure of the details Thank you for allowing us to participate in the care of this patient. Please call with any acute changes, questions or concerns. Please see addendum below with additional recommendation from my supervising physician. Supervising Physician Co-Signing Physician Notes I have personally seen and examined the patient with Isha Hardy PA-C on 08/13/21. Her note reflects my exam and findings. I agree with her impression and plan. Agree with extended course of Dificid. Azael Castro M.D. History of Present Illness Reason for Consultation: C. diff colitis,recurrent Requesting Physician: Dr. Powers Attending Physician: Katherine Powers MD History of Present Illness This is a 80-year-old female with history of CKD, scleroderma, GERD, C. difficile and others being admitted after presenting with LLQ pain x 2-3 days as well as worsening diarrhea. She has had C. diff colitis first dx'd in May; was tx with 2 courses of antibiotics (14 day course and 10 day course) however symptoms never really went away. She had been tx with ABX for a UTI around this time. Lately has had worsening diarrhea, poor PO intake, abd discomfort. On arrival CTA abd/pelvis = nonspecific colitis, small abdominopelvic ascites, CTA portion unremarkable, and several other nonacute findings. C. difficile testing is positive. She has a leukocytosis with WBC 19 K, elevated lactate 2.4, normal hemoglobin. She was started on Dificid. Patient was seen in the ER on 06/09/21 with abd pain, diarrhea CTAP = mucosal thickening in the rectum and sigmoid colon suggestive of colitis as well as moderate stool burden consistent with constipation. No perforation or abscess. Also noted on chronic changes of the lung bases and calcified granulomas present in the spleen. She denies chest pain, palpitations, cough, shortness of breath. Denies nausea/vomiting/fever, melena, hematochezia. No additional complaints at this time. She has had several colonoscopies, in 2000, had 3 small polyps, in 2005 had diverticula, and she states she is scheduled for one in August, however, she is not sure with whom. Allergies Allergy/AdvReac Type Severity Reaction Status Date / Time cephalexin [From Open [employer] Storage] Allergy Mild rash Verified 08/12/21 20:23 oxycodone Allergy Mild rash Verified 08/12/21 20:23 adhesive Allergy Unknown RASH Verified 08/12/21 20:23 Home Medications Medication Instructions Recorded Confirmed Type dorzolamide 2 % eye drops (Trusopt) 1 drops OP BID 06/22/19 08/12/21 History sumatriptan succinate 50 mg tablet 50 mg PO Q2H PRN 06/22/19 08/12/21 History (Imitrex) travoprost 0.004 % eye drops 1 drops OP QPM 06/22/19 08/12/21 History (Travatan Z) cholecalciferol (vitamin D3) 25 1,000 unit PO BID 07/28/19 08/12/21 History mcg (1,000 unit) capsule (Vitamin D3) risedronate 35 mg tablet 35 mg PO WK 07/28/19 08/12/21 History Lactobacillus acidophilus 1 tab PO QAM 04/25/20 08/12/21 History (Acidophilus) calcium carbonate-vitamin D3 600 1 cap PO BID 04/25/20 08/12/21 History mg calcium-200 unit capsule (Calcium 600 + D(3)) clonazepam 1 mg disintegrating 1 mg PO HS 04/25/20 08/12/21 History tablet colchicine 0.6 mg tablet 0.6 mg PO QAM 04/25/20 08/12/21 History lifitegrast 5 % eye drops in a 1 drp OPHTHALMIC (EYE) BID 04/25/20 08/12/21 History dropperette (Xiidra) sertraline 50 mg tablet 50 mg PO QAM 04/25/20 08/12/21 History peg 400-propylene glycol (PF) 0.4 1 drp OPHTHALMIC (EYE) TID PRN 05/21/20 08/12/21 History %-0.3 % eye drops in a dropperette (Systane (PF)) celecoxib 200 mg capsule 200 mg PO BID 08/12/21 08/12/21 History felodipine 2.5 mg tablet,extended 2.5 mg PO QAM 08/12/21 08/12/21 History release 24 hr hydroxychloroquine 200 mg tablet 200 mg PO QAM 08/12/21 08/12/21 History tybxngfy-rqwptfep-dtk C 250 1 tab PO DAILY 08/12/21 08/12/21 History mg-herbal no.124 8.875 mg chewable tablet (Airborne (ascorbic acid)) omeprazole 20 mg capsule,delayed 20 mg PO QAM 08/12/21 08/12/21 History release prednisone 5 mg tablet 5 mg PO QAM 08/12/21 08/12/21 History thiamine HCl (vitamin B1) 500 mg 500 mg PO DAILY 08/12/21 08/12/21 History tablet Patient History Medical History (Updated 08/13/21 @ 12:50 by Isha Hardy PA-C) Cervical stenosis of spine Chronic back pain CKD (chronic kidney disease) per records Depression pt denies GERD (gastroesophageal reflux disease) Glaucoma Hammertoe of second toe of left foot Hx MRSA infection Melanoma right heel & chest wall Migraine Osteoarthritis Osteoporosis Patella-femoral syndrome Pseudogout prednisone daily for pseudogout arthritis Restless leg syndrome Scleroderma Spondylolisthesis of cervical region FULL ROM Surgical History History of carpal tunnel surgery bilateral History of colonoscopy w/ polypectomy History of hand surgery Rt finger History of Mohs micrographic surgery for skin cancer History of surgery repair of prolapsed rectum History of tooth extraction History of tubal ligation Hx of bilateral cataract extraction Hx of surgical procedure left hand pointer finger repair S/P LASIK surgery of both eyes Family History Father Family hx of colon cancer Other No family history of adverse response to anesthesia Social History Smoking Status: Never smoker Second Hand Exposure: No; Hx Alcohol Use: No Hx Substance Use: No Preferred Language: Azeri Communication Ability: Effective Visual Impairment: No Limitations Hearing Ability: Normal Relief Mate Required: No Beliefs That Will Affect Care: None marital status: / Current Living Situation: Alone current occupational status: retired Feels Safe at Home: Yes Childhood Exposure to Second-Hand Smoke: No Assistive Devices: None Review of Systems Review of Systems: A complete review of systems was performed and negative except as noted in HPI Physical Exam Constitutional: WD/WN, vitals as above Eyes: Sclera anicteric Respiratory: normal respiratory effort, lungs clear to auscultation Cardiovascular: RRR, no murmur, no edema Gastrointestinal (Abdomen): Abdomen is soft, bowel sounds somewhat hyperactive, minimal distention, mild generalized tenderness, no rebound or guarding. Skin: no rashes, warm and dry Psychiatric: A+Ox3, euthymic affect Results & Data ([facility]) Vital Signs (Past 12 Hours) Vital Signs Temp Pulse Pulse Resp BP BP Pulse Ox 08/13/21 08:42 36.7 C 101 H 18 105/63 96 08/13/21 04:54 101 H 16 103/58 L 97 08/13/21 03:00 99 H 16 116/57 L 95 08/13/21 01:58 08/13/21 01:41 103 H 22 109/55 L 95 08/13/21 00:37 98 H 23 98/61 L 94 Pulse Ox 08/13/21 08:42 08/13/21 04:54 08/13/21 03:00 08/13/21 01:58 96 08/13/21 01:41 08/13/21 00:37 Laboratory Results 08/13/21 08/13/21 08/13/21 Range/Units 08:40 08:40 08:40 WBC 19.31 H (4.8-10.8) K/uL RBC 4.07 L (4.2-5.4) M/uL Hgb 12.0 (12.0-16.0) g/dL Hct 37.5 (37-47) % MCV 92.1 (80-100) fL MCH 29.5 (25-34) pg MCHC 32.0 (32-36) g/dL RDW Std Deviation 48.8 H (36.4-46.3) fL RDW Coeff of Lila 14.4 (11.5-14.5) % Plt Count 227 (130-400) K/uL MPV 9.4 (7.4-10.4) fL Immature Gran % (Auto) 1.5 % Neut % (Auto) 80.7 % Lymph % (Auto) 7.1 % [place] % (Auto) 10.5 % Eos % (Auto) 0.1 % Baso % (Auto) 0.1 % Neut # (Auto) 15.59 H (1.4-6.5) K/uL Lymph # (Auto) 1.37 (1.2-3.4) K/uL [place] # (Auto) 2.03 H (0.11-0.59) K/uL Eos # (Auto) 0.01 (0-0.5) K/uL Baso # (Auto) 0.02 (0-0.2) K/uL Immature Gran # (Auto) 0.29 H (0.00-0.02) K/uL Dohle Bodies 1+ Anisocytosis SURVEILLANCE SUPERVISOR Echinocytes Peripher Smr Path Cons PT INR APTT 66.9 H* (21.0-31.0) Seconds PTT Ratio 2.5 Sodium (136-145) mmol/L Potassium (3.5-5.1) mmol/L Chloride (98-107) mmol/L Carbon Dioxide (21-32) mmol/L Anion Gap (3-11) BUN (7-18) mg/dl Creatinine (0.6-1.2) mg/dl Est Cr Clr Drug Dosing ml/min Est GFR ( Amer) ml/min Est GFR (Non-Af Amer) ml/min BUN/Creatinine Ratio (10-20) Glucose (70-99) mg/dl Lactate 2.3 H* (0.4-2.0) mmol/L Calcium (8.5-10.1) mg/dl Phosphorus (2.5-4.9) mg/dl Magnesium (1.8-2.4) mg/dl Total Bilirubin (0.2-1) mg/dl Direct Bilirubin (0-0.2) mg/dl AST (15-37) U/L ALT (12-78) U/L Alkaline Phosphatase (45-117) U/L NT-Pro-B Natriuret Pep (0-1800) pg/ml Total Protein (6.4-8.2) gm/dl Albumin (3.4-5.0) gm/dl Globulin (2.5-4.0) gm/dl Albumin/Globulin Ratio (0.9-2) Lipase (73-393) U/L Urine Color Urine Appearance (Clear) Urine pH (4.5-7.5) Ur Specific [place] (1.000-1.030) Urine Protein (Negative) Urine Glucose (UA) (Negative) Urine Ketones (Negative) Urine Blood (Negative) Urine Nitrite (Negative) Urine Bilirubin (Negative) Urine Urobilinogen (Negative) Ur Leukocyte Esterase (Negative) Urine WBC (Auto) (0-5) /hpf Urine RBC (Auto) (0-4) /hpf U Hyaline Cast (Auto) (0-5) /lpf U Epithel Cells (Auto) (0-5) /lpf Urine Bacteria (Auto) (Negative) Stl C. diff Tox B Gene (Neg) Stl C.difficile Tox A&B (Negative) COVID-19 Eval Order SARS-CoV-2 (PCR) (Negative) 08/13/21 08/13/21 08/13/21 Range/Units 05:31 05:31 00:52 WBC (4.8-10.8) K/uL RBC (4.2-5.4) M/uL Hgb (12.0-16.0) g/dL Hct (37-47) % MCV (80-100) fL MCH (25-34) pg MCHC (32-36) g/dL RDW Std Deviation (36.4-46.3) fL RDW Coeff of Lila (11.5-14.5) % Plt Count (130-400) K/uL MPV (7.4-10.4) fL Immature Gran % (Auto) % Neut % (Auto) % Lymph % (Auto) % [place] % (Auto) % Eos % (Auto) % Baso % (Auto) % Neut # (Auto) (1.4-6.5) K/uL Lymph # (Auto) (1.2-3.4) K/uL [place] # (Auto) (0.11-0.59) K/uL Eos # (Auto) (0-0.5) K/uL Baso # (Auto) (0-0.2) K/uL Immature Gran # (Auto) (0.00-0.02) K/uL Dohle Bodies Anisocytosis Echinocytes Peripher Smr Path Cons PT 11.5 INR 1.1 APTT (21.0-31.0) Seconds PTT Ratio Sodium 134 L (136-145) mmol/L Potassium 3.6 (3.5-5.1) mmol/L Chloride 107 (98-107) mmol/L Carbon Dioxide 22 (21-32) mmol/L Anion Gap 5.0 (3-11) BUN 15 (7-18) mg/dl Creatinine 0.87 (0.6-1.2) mg/dl Est Cr Clr Drug Dosing 42.1 ml/min Est GFR ( Amer) 74.0 ml/min Est GFR (Non-Af Amer) 63.8 ml/min BUN/Creatinine Ratio 16.9 (10-20) Glucose 116 H (70-99) mg/dl Lactate 2.4 H* (0.4-2.0) mmol/L Calcium 7.4 L (8.5-10.1) mg/dl Phosphorus (2.5-4.9) mg/dl Magnesium (1.8-2.4) mg/dl Total Bilirubin 0.4 (0.2-1) mg/dl Direct Bilirubin < 0.1 (0-0.2) mg/dl AST 12 L (15-37) U/L ALT 13 (12-78) U/L Alkaline Phosphatase 63 (45-117) U/L NT-Pro-B Natriuret Pep (0-1800) pg/ml Total Protein 5.3 L (6.4-8.2) gm/dl Albumin 2.0 L (3.4-5.0) gm/dl Globulin (2.5-4.0) gm/dl Albumin/Globulin Ratio (0.9-2) Lipase (73-393) U/L Urine Color Urine Appearance (Clear) Urine pH (4.5-7.5) Ur Specific [place] (1.000-1.030) Urine Protein (Negative) Urine Glucose (UA) (Negative) Urine Ketones (Negative) Urine Blood (Negative) Urine Nitrite (Negative) Urine Bilirubin (Negative) Urine Urobilinogen (Negative) Ur Leukocyte Esterase (Negative) Urine WBC (Auto) (0-5) /hpf Urine RBC (Auto) (0-4) /hpf U Hyaline Cast (Auto) (0-5) /lpf U Epithel Cells (Auto) (0-5) /lpf Urine Bacteria (Auto) (Negative) Stl C. diff Tox B Gene (Neg) Stl C.difficile Tox A&B (Negative) COVID-19 Eval Order SARS-CoV-2 (PCR) (Negative) 08/13/21 08/12/21 08/12/21 Range/Units 00:49 Unknown Unknown WBC 18.84 H (4.8-10.8) K/uL RBC 4.53 (4.2-5.4) M/uL Hgb 13.5 (12.0-16.0) g/dL Hct 43.0 (37-47) % MCV 94.9 (80-100) fL MCH 29.8 (25-34) pg MCHC 31.4 L (32-36) g/dL RDW Std Deviation 50.6 H (36.4-46.3) fL RDW Coeff of Lila 14.5 (11.5-14.5) % Plt Count 273 (130-400) K/uL MPV 9.7 (7.4-10.4) fL Immature Gran % (Auto) 0.5 % Neut % (Auto) 80.3 % Lymph % (Auto) 6.0 % [place] % (Auto) 13.0 % Eos % (Auto) 0.1 % Baso % (Auto) 0.1 % Neut # (Auto) 15.13 H (1.4-6.5) K/uL Lymph # (Auto) 1.13 L (1.2-3.4) K/uL [place] # (Auto) 2.44 H (0.11-0.59) K/uL Eos # (Auto) 0.02 (0-0.5) K/uL Baso # (Auto) 0.02 (0-0.2) K/uL Immature Gran # (Auto) 0.10 H (0.00-0.02) K/uL Dohle Bodies Anisocytosis Echinocytes Peripher Smr Path Cons PT INR APTT (21.0-31.0) Seconds PTT Ratio Sodium 136 (136-145) mmol/L Potassium 3.8 (3.5-5.1) mmol/L Chloride 102 (98-107) mmol/L Carbon Dioxide 26 (21-32) mmol/L Anion Gap 8.0 (3-11) BUN 18 (7-18) mg/dl Creatinine 0.88 (0.6-1.2) mg/dl Est Cr Clr Drug Dosing 41.7 ml/min Est GFR ( Amer) 72.9 ml/min Est GFR (Non-Af Amer) 62.9 ml/min BUN/Creatinine Ratio 20.1 H (10-20) Glucose 124 H (70-99) mg/dl Lactate (0.4-2.0) mmol/L Calcium 8.4 L (8.5-10.1) mg/dl Phosphorus 2.3 L (2.5-4.9) mg/dl Magnesium 2.3 (1.8-2.4) mg/dl Total Bilirubin 0.5 (0.2-1) mg/dl Direct Bilirubin (0-0.2) mg/dl AST 13 L (15-37) U/L ALT 13 (12-78) U/L Alkaline Phosphatase 67 (45-117) U/L NT-Pro-B Natriuret Pep 1191 (0-1800) pg/ml Total Protein 6.4 (6.4-8.2) gm/dl Albumin 2.5 L (3.4-5.0) gm/dl Globulin 3.9 (2.5-4.0) gm/dl Albumin/Globulin Ratio 0.6 L (0.9-2) Lipase 44 L (73-393) U/L Urine Color Urine Appearance (Clear) Urine pH (4.5-7.5) Ur Specific [place] (1.000-1.030) Urine Protein (Negative) Urine Glucose (UA) (Negative) Urine Ketones (Negative) Urine Blood (Negative) Urine Nitrite (Negative) Urine Bilirubin (Negative) Urine Urobilinogen (Negative) Ur Leukocyte Esterase (Negative) Urine WBC (Auto) (0-5) /hpf Urine RBC (Auto) (0-4) /hpf U Hyaline Cast (Auto) (0-5) /lpf U Epithel Cells (Auto) (0-5) /lpf Urine Bacteria (Auto) (Negative) Stl C. diff Tox B Gene Positive Cdiff Gene H (Neg) Stl C.difficile Tox A&B Positive Cdiff Toxin A* (Negative) COVID-19 Eval Order SARS-CoV-2 (PCR) (Negative) 08/12/21 08/12/21 08/12/21 Range/Units 22:46 22:46 22:46 WBC 19.81 H (4.8-10.8) K/uL RBC 3.98 L (4.2-5.4) M/uL Hgb 11.9 L (12.0-16.0) g/dL Hct 36.9 L (37-47) % MCV 92.7 (80-100) fL MCH 29.9 (25-34) pg MCHC 32.2 (32-36) g/dL RDW Std Deviation 49.4 H (36.4-46.3) fL RDW Coeff of Lila 14.5 (11.5-14.5) % Plt Count 277 (130-400) K/uL MPV 10.0 (7.4-10.4) fL Immature Gran % (Auto) 0.6 % Neut % (Auto) 79.4 % Lymph % (Auto) 11.5 % [place] % (Auto) 8.1 % Eos % (Auto) 0.3 % Baso % (Auto) 0.1 % Neut # (Auto) 15.74 H (1.4-6.5) K/uL Lymph # (Auto) 2.28 (1.2-3.4) K/uL [place] # (Auto) 1.61 H (0.11-0.59) K/uL Eos # (Auto) 0.05 (0-0.5) K/uL Baso # (Auto) 0.02 (0-0.2) K/uL Immature Gran # (Auto) 0.11 H (0.00-0.02) K/uL Dohle Bodies Anisocytosis Echinocytes 1+ Peripher Smr Path Cons PT 11.4 Cancelled INR 1.1 Cancelled APTT (21.0-31.0) Seconds PTT Ratio Sodium (136-145) mmol/L Potassium (3.5-5.1) mmol/L Chloride (98-107) mmol/L Carbon Dioxide (21-32) mmol/L Anion Gap (3-11) BUN (7-18) mg/dl Creatinine (0.6-1.2) mg/dl Est Cr Clr Drug Dosing ml/min Est GFR ( Amer) ml/min Est GFR (Non-Af Amer) ml/min BUN/Creatinine Ratio (10-20) Glucose (70-99) mg/dl Lactate (0.4-2.0) mmol/L Calcium (8.5-10.1) mg/dl Phosphorus (2.5-4.9) mg/dl Magnesium (1.8-2.4) mg/dl Total Bilirubin (0.2-1) mg/dl Direct Bilirubin (0-0.2) mg/dl AST (15-37) U/L ALT (12-78) U/L Alkaline Phosphatase (45-117) U/L NT-Pro-B Natriuret Pep (0-1800) pg/ml Total Protein (6.4-8.2) gm/dl Albumin (3.4-5.0) gm/dl Globulin (2.5-4.0) gm/dl Albumin/Globulin Ratio (0.9-2) Lipase (73-393) U/L Urine Color Urine Appearance (Clear) Urine pH (4.5-7.5) Ur Specific [place] (1.000-1.030) Urine Protein (Negative) Urine Glucose (UA) (Negative) Urine Ketones (Negative) Urine Blood (Negative) Urine Nitrite (Negative) Urine Bilirubin (Negative) Urine Urobilinogen (Negative) Ur Leukocyte Esterase (Negative) Urine WBC (Auto) (0-5) /hpf Urine RBC (Auto) (0-4) /hpf U Hyaline Cast (Auto) (0-5) /lpf U Epithel Cells (Auto) (0-5) /lpf Urine Bacteria (Auto) (Negative) Stl C. diff Tox B Gene (Neg) Stl C.difficile Tox A&B (Negative) COVID-19 Eval Order SARS-CoV-2 (PCR) (Negative) 08/12/21 08/12/21 08/12/21 Range/Units 21:30 19:03 19:03 WBC (4.8-10.8) K/uL RBC (4.2-5.4) M/uL Hgb (12.0-16.0) g/dL Hct (37-47) % MCV (80-100) fL MCH (25-34) pg MCHC (32-36) g/dL RDW Std Deviation (36.4-46.3) fL RDW Coeff of Lila (11.5-14.5) % Plt Count (130-400) K/uL MPV (7.4-10.4) fL Immature Gran % (Auto) % Neut % (Auto) % Lymph % (Auto) % [place] % (Auto) % Eos % (Auto) % Baso % (Auto) % Neut # (Auto) (1.4-6.5) K/uL Lymph # (Auto) (1.2-3.4) K/uL [place] # (Auto) (0.11-0.59) K/uL Eos # (Auto) (0-0.5) K/uL Baso # (Auto) (0-0.2) K/uL Immature Gran # (Auto) (0.00-0.02) K/uL Dohle Bodies Anisocytosis Echinocytes Peripher Smr Path Cons PT INR APTT (21.0-31.0) Seconds PTT Ratio Sodium (136-145) mmol/L Potassium (3.5-5.1) mmol/L Chloride (98-107) mmol/L Carbon Dioxide (21-32) mmol/L Anion Gap (3-11) BUN (7-18) mg/dl Creatinine (0.6-1.2) mg/dl Est Cr Clr Drug Dosing ml/min Est GFR ( Amer) ml/min Est GFR (Non-Af Amer) ml/min BUN/Creatinine Ratio (10-20) Glucose (70-99) mg/dl Lactate (0.4-2.0) mmol/L Calcium (8.5-10.1) mg/dl Phosphorus (2.5-4.9) mg/dl Magnesium (1.8-2.4) mg/dl Total Bilirubin (0.2-1) mg/dl Direct Bilirubin (0-0.2) mg/dl AST (15-37) U/L ALT (12-78) U/L Alkaline Phosphatase (45-117) U/L NT-Pro-B Natriuret Pep (0-1800) pg/ml Total Protein (6.4-8.2) gm/dl Albumin (3.4-5.0) gm/dl Globulin (2.5-4.0) gm/dl Albumin/Globulin Ratio (0.9-2) Lipase (73-393) U/L Urine Color Dark Yellow Urine Appearance Clear (Clear) Urine pH 8.0 H (4.5-7.5) Ur Specific [place] 1.043 H (1.000-1.030) Urine Protein 2+ H (Negative) Urine Glucose (UA) Negative (Negative) Urine Ketones Trace H (Negative) Urine Blood Trace H (Negative) Urine Nitrite Negative (Negative) Urine Bilirubin Negative (Negative) Urine Urobilinogen Negative (Negative) Ur Leukocyte Esterase Negative (Negative) Urine WBC (Auto) 1-5 (0-5) /hpf Urine RBC (Auto) 10-30 H (0-4) /hpf U Hyaline Cast (Auto) 1-5 (0-5) /lpf U Epithel Cells (Auto) 20-30 H (0-5) /lpf Urine Bacteria (Auto) Negative (Negative) Stl C. diff Tox B Gene (Neg) Stl C.difficile Tox A&B (Negative) COVID-19 Eval Order Covid19 at [facility] SARS-CoV-2 (PCR) NEGATIVE (Negative) Diagnostic Findings CTA: Lower chest: The heart is normal in size noting a small to moderate pericardial effusion. There are trace pleural effusions. There is significant bibasilar scarring/atelectasis. No airspace consolidation is seen typical for pneumonia. Calcified granulomas are seen at the lung bases. There is a small to moderate h iatal hernia. Liver: The contrast-enhanced liver is normal in size and contour. Attenuation is heterogeneous. There is no intrahepatic biliary ductal dilatation. The main portal veins appear patent. Gallbladder: Unremarkable. Spleen: Normal in size and attenuation noting heterogeneous arterial phase enhancement. There are calcified splenic granulomas. Pancreas: Mildly atrophic and grossly unremarkable. Adrenal glands: Unremarkable. Kidneys: The contrast enhanced kidneys demonstrate cortical atrophy and are without hydronephrosis. The kidneys enhance symmetrically. A 1.6 cm cyst arises from the interpolar right kidney. Abdominal aorta and iliac arteries: The abdominal aorta is normal in course and caliber noting mild to moderate atherosclerotic calcification. The abdominal aorta and iliac arteries are widely patent bilaterally. No dissection is seen. Major branches of the abdominal aorta: The celiac trunk, superior mesenteric, and inferior mesenteric arteries are widely patent. The splenic artery is patent. Hepatic arterial anatomy is conventional. Single bilateral renal arteries are widely patent. Bowel: There is wall thickening and edema seen throughout the colon. This ex tends from the transverse colon to the rectosigmoid, with surrounding pericolonic inflammation and fluid. No bowel obstruction is seen. The appendiceal wall appears mildly thickened and hyperemic. The appendix is normal in caliber and fluid-filled with surrounding ascitic fluid. Peritoneum: There is a small amount of perisplenic and perihepatic ascites, as well as trace free fluid in the pelvis. No intraperitoneal free air is identified. Lymphadenopathy: None. Pelvic viscera: The bladder is normal as visualized. The endometrium is significantly thickened for age measuring up to 2.5 cm. No adnexal lesion is seen Skeletal structures: The skeletal structures are osteopenic. There is moderate to advanced lumbosacral spondylosis and mild scoliosis. A mild superior endplate compression deformity of L2 is unchanged. No lytic or blastic lesion is seen. IMPRESSION: 1. Findings are consistent with a nonspecific colitis, likely on an infectious or inflammatory basis. Clinical correlation will be required. This has worsened as compared to 08/10/2021. 2. A small volume of abdominopelvic ascites is new from previous. 3. Unremarkable CT angiogram of the abdominal aorta and its major branches. 4. The endometrium is markedly thickened and heterogeneous for age. This is not well assessed by CT, and nonemergent follow-up with gynecology and pelvic ultrasound is recommended for further evaluation. 5. There is heterogeneous arterial phase enhancement of the spleen. A splenic infarct as questioned by the pulmonary interpretation is considered unlikely. 6. The liver is heterogeneous, likely related to phase of enhancement. There is no CT evidence of Budd-Chiari syndrome is questioned on the preliminary interpretation. 7. Mild to moderate pericardial effusion and trace pleural effusions. 8. The appendiceal wall appears mildly thickened and hyperemic. This is likely related to colitis and surrounding ascitic fluid. There is no clear CT evidence of acute appendicitis. 9. Additional findings as above. Portal Vein US: Patent portal vein with hepatopedal flow. The splenic vein also appears patent. The hepatic artery demonstrates low resistance waveforms with peak systolic flow seen measuring up to 195 cm/s. The main and left hepatic veins appear normal. Narrowing of the right hepatic vein with areas of broken flow noted distally. There is an apparent filling defect within the intrahepatic IVC which is nonocclusive. IMPRESSION: Questioned filling defect within the intrahepatic IVC which favors artifact rather than thrombus. Note that no thrombus was identified within the IVC on the CT abdomen and pelvis study from 08/10/2021. Correlation with confirmatory CT venogram of the abdomen recommended.
[2021-08-13 16:03] LABS: Partial Thromboplastin Ratio 2.9
[2021-08-13 16:17] LABS: Partial Thromboplastin Time 75.7 Seconds (21.0-31.0)
--- NOTE | 2021-08-13 20:08 | Communication Note ---
Date of Service: August 13, 2021 Attending: Dr. Powers 80-year-old female with history of CKD, GERD, C. difficile presenting with left lower quadrant abdominal pain progressive over the last 2 to 3 days as well as worsening diarrhea. Patient seen initially in the emergency department and then followed up in room 109 on telemetry Initial imaging suggested IVC thrombus as well as splenic infarct with wet read overnight. Patient started on heparin drip. Radiology read in the morning shows that there is not an IVC thrombus or a splenic infarct. Consequently heparin drip was discontinued. Patient does have a history of C. difficile colitis first diagnosed in May. This continue to be problematic for her. GI was consulted. Patient started on Dificid. Throughout the day, patient continues to have abdominal discomfort but is much improved. Patient also continues to have multiple bowel movements throughout the day. She has no fever or chills. She has no nausea or vomiting. She reports that she is feeling better at this time. Home meds include colchicine. This was held on admission. This will continue to be held at this time as this can cause diarrhea. Patient has no other acute complaints at this time. 08/13/21 08:40 08/13/21 05:31 Laboratory Tests 08/13/21 00:49 Stl C. diff Tox B Gene Positive Cdiff Gene H Vital Signs Temp 37.2 C 08/13/21 17:26 Pulse 93 H 08/13/21 17:20 Resp 24 08/13/21 17:20 BP 111/61 08/13/21 17:20 Pulse Ox 97 08/13/21 16:33 Intake & Output 08/13/21 08/13/21 08/14/21 06:59 18:59 06:59 Intake Total 2150 / 2150 468.217 / 468.217 Output Total 2 / 2 Balance 2150 / 2150 466.217 / 466.217 Weight 57.1 kg 57.1 kg Intake: IV 2150 / 2150 268.217 / 268.217 Heparin Sodium/Dextrose 25,000 268.217 / 268.217 units In 500 ml @ 900 UNITS/HR 18 mls/hr IV .Q24H [facility] Rx#: [id number] Sodium Chloride 0.9% 1000ML 1, 2000 / 2000 000 ml @ 999 mls/hr IV .Q1H1M ONE Rx#:[id number] levoFLOXacin/D5W 750 mg In 150 150 / 150 ml @ 100 mls/hr IV NOW STA Rx#: [id number] Oral 200 / 200 Output: # Bowel Movements 2 / 2 Other: # Unmeasured Voids 1 Weight Measurement Method Built in Bedscale Built in Bedscale 1. C. difficile colitis: * Continue fidaxomicin * GI consult. Appreciate their input. * Continue supportive care * Hold colchicine 2. Splenic infarct: * Reviewed by in-house radiologist shows no IVC thrombus or splenic infarct on CT scan * Discontinue heparin drip * Continue to monitor on telemetry overnight 3. GERD: * Continue pantoprazole * Patient with no complaints of midepigastric pain 4. CKD: * Continue to monitor secondary to diarrhea * Creatinine appears to be close to baseline * Follow serial labs 5. Scleroderma: * Patient is on Plaquenil as well as prednisone * Patient reports pulmonary involvement * Pulmonary function testing 05/01/2021 -no obstructive or restrictive pattern on pulmonary function testing. DLCOunc moderately reduced at 41%. Corrects for alveolar volume * Continue supportive care and home medications Disposition: Patient be monitored on telemetry overnight. If no significant changes, will downgrade to medical. Please refer to Dr. Powers's addendum for further corrections or additions. PA Supervision Note: I personally saw and examined the patient. I verified all romeo points and agree with BRANDEN Hester with the following exceptions and/or additions: Patient reports feeling better throughout the day with less abdominal pain. Still with some loose stools. We reviewed her follow-up CT venogram of the ab domen/pelvis which showed no evidence of IVC thrombus. I also discussed her care with the reading radiologist for her CT abdomen/pelvis and there is indeed no splenic infarct. I discussed her care with her daughter on the phone as well with all these findings. The patient and her daughter also questioned whether she had bilateral pneumonia-I told her that I did not feel she had pneumonia, but rather scarring at the bases of the lungs likely secondary to her scleroderma which is known to cause pulmonary fibrosis. Vitals reviewed Gen: AAOx3, NAD HEENT: Anicteric sclerae, EOMI CV: RRR no mgr nl S1S2 Pulm: Mild bibasilar crackles Abd: +BS soft positive diffuse tenderness to palpation especially in the lower abdomen without guarding or rebound, ND no masses or hernias Ext: No edema, with tightening of the skin of the fingers, no active pits on the tips of the fingers Skin: No rashes, warm/dry Neuro: Full strength throughout Laboratory values reviewed, imaging studies all reviewed 80-year-old female here with C. difficile colitis which is severe, and initially suspected splenic infarct and IVC thrombus which has now been disproven. -Continue Dificid, IV fluids, supportive care -Consider adding on cholestyramine powder for diarrhea -Replace electrolytes as needed -Recommend discontinuing home colchicine which contributes to diarrhea -Discontinued heparin drip
--- NOTE | 2021-08-13 20:40 | Billing Data ---
Date of Service August 13, 2021 Coding Level of Care Code 69934 Subseq Hosp Care Lvl 3
[2021-08-13] MEDS: TRAVOPROST Z 0.004% OPH SOLN 2.5 ML BTL OP SCH (20:46)
[2021-08-14 05:58] LABS: Hematocrit (blood only) 41.1 % (37-47); Hemoglobin 13.5 g/dL (12.0-16.0); Mean Corpuscular Hemoglobin 29.7 pg (25-34); Mean Corpuscular Hgb Conc 32.8 g/dL (32-36); Mean Corpuscular Volume 90.5 fL (80-100); Mean Platelet Volume 9.6 fL (7.4-10.4); Platelet Count 277 K/uL (130-400); RDW Coefficient of Variation 14.4 % (11.5-14.5); Red Blood Count 4.54 M/uL (4.2-5.4); White Blood Count 21.76 K/uL (4.8-10.8)
[2021-08-14 06:18] LABS: Albumin Level 1.8 gm/dl (3.4-5.0); BUN Creatinine Ratio 17.6 (10-20); Calcium 7.3 mg/dl (8.5-10.1); Creatinine Clr Calc Pharmacy 39.4 ml/min; Est GFR (African American) 68.2 ml/min; Est GFR (Non-African American) 58.9 ml/min; Magnesium 2.2 mg/dl (1.8-2.4); Potassium 3.7 mmol/L (3.5-5.1)
[2021-08-14 06:21] LABS: Albumin Globulin Ratio 0.5 (0.9-2); Bilirubin,Total 0.5 mg/dl (0.2-1); Globulin 3.3 gm/dl (2.5-4.0); Phosphorus 2.4 mg/dl (2.5-4.9); Total Protein 5.1 gm/dl (6.4-8.2)
[2021-08-14 06:40] LABS: Basophils # (auto) 0.01 K/uL (0-0.2); Dohle Bodies 1+; Echinocytes 1+; Eosinophils # (auto) 0.01 K/uL (0-0.5); Immature Granulocytes # (auto) 0.15 K/uL (0.00-0.02); Immature Granulocytes % (auto) 0.7 %; Lymphocytes # (auto) 1.36 K/uL (1.2-3.4); Lymphocytes % (auto) 6.3 %; Monocytes # (auto) 2.46 K/uL (0.11-0.59); Monocytes % (auto) 11.3 %; Neutrophils # (auto) 17.77 K/uL (1.4-6.5); Neutrophils % (auto) 81.7 %
[2021-08-14] MEDS: THIAMINE HCL 100 MG TAB PO SCH (08:11)
[2021-08-14] MEDS: FELODIPINE 2.5 MG TABCR PO SCH (08:11)
[2021-08-14] MEDS: HYDROXYCHLOROQUINE SULFATE 200 MG TAB PO SCH (08:12)
[2021-08-14] MEDS: FAMOTIDINE 40 MG TABLET PO SCH (08:12)
[2021-08-14] MEDS: predniSONE 5 MG TAB PO SCH (08:12)
[2021-08-14] MEDS: PANTOprazole 40 MG TAB PO SCH (08:12)
[2021-08-14] MEDS: SERTRALINE HCL 50 MG TABLET PO SCH (08:12)
[2021-08-14] MEDS: DORZOLAMIDE HCL 2% OPH SOLN 10 ML BTL OP SCH ×2 (08:13→20:34)
[2021-08-14] MEDS: FIDAXOMICIN 200 MG TAB PO SCH ×2 (08:14→20:34)
[2021-08-14] MEDS: ONDANSETRON INJ 2 MG/ML 2 ML VIAL IV PRN (08:29)
[2021-08-14] MEDS: LACTATED RINGER'S 1,000 ML IV SCH (10:54)
--- NOTE | 2021-08-14 12:03 | Gastroenterology Progress Note ---
Date of Service August 14, 2021 Assessment & Plan (1) Recurrent Clostridioides difficile diarrhea: (2) C. difficile colitis: Plan: This is a 80-year-old female with the above comorbidities, has had several bouts of C. difficile since the summer, this seems to be her third bout. Previously was treated with 2 rounds of what may have been vancomycin. Now is admitted with recurrent diarrhea, abdominal discomfort, and CT suggestive of colitis. She may have also been using antidiarrheals as well. She has a leukocytosis. Today she's afebrile, her abdomen was soft, with mild lower abd tenderness. She feels weak; states overall abd feels improved from what it was. - Agree with Dificid; would recommend extended course on DC - Avoid anti-diarrheals - Avoid unnecessary use of ABX; recommend judicious use - Clears as tolerated - Supportive care with IVF - Analgesia PRN - Trend CBC - Monitor GI output - She is scheduled for outpatient colonoscopy sometime in August, with the group locally, however is not sure of the details; would clarify with pt - GI will sign off, please call with questions Thank you for allowing us to participate in the care of this patient. Please call with any acute changes, questions or concerns. Please see addendum below w ith additional recommendation from my supervising physician. Admission and Anticipated Discharge Date Admission Date: August 12, 2021 Supervising Physician Co-Signing Physician Notes I have personally seen and examined the patient with Isha Hardy PA-C. Her note reflects my exam and findings. I agree with her impression and plan. Looking better today. WBC is up a little however. Abdominal exam with bowel sounds and no rebound. Cont current Tx. If WBC increases again or if she develops increasing abdominal pain, add IV Flagyl. Azael Castro M.D. Subjective Patient seen and examined, chart reviewed. She is still having abd discomfort but is better than what it was. Currently tolerating small bites of food; feels well. Bowels are loose, seem to be slowing down No n/v, hematemesis, melena, hematochezia Afebrile, no tachycardia Denies CP, SOB Review of Systems Review of Systems: A complete review of systems was performed and negative except as noted in HPI Physical Exam Constitutional: WD/WN, vitals as above looks fatigued, resting in bed Eyes: sclera anicteric Respiratory: normal respiratory effort, lungs clear to auscultation Cardiovascular: RRR, no murmur, no edema Gastrointestinal (Abdomen): soft, mildly tender to lower abd quadrants; nondistended, normal bowel sounds Skin: no rashes, warm and dry Psychiatric: A+Ox3, euthymic affect Results & Data ([facility]) Laboratory Results 08/14/21 08/14/21 08/13/21 Range/Units 05:41 05:41 15:29 WBC 21.76 H (4.8-10.8) K/uL RBC 4.54 (4.2-5.4) M/uL Hgb 13.5 (12.0-16.0) g/dL Hct 41.1 (37-47) % MCV 90.5 (80-100) fL MCH 29.7 (25-34) pg MCHC 32.8 (32-36) g/dL RDW Std Deviation 48.0 H (36.4-46.3) fL RDW Coeff of Lila 14.4 (11.5-14.5) % Plt Count 277 (130-400) K/uL MPV 9.6 (7.4-10.4) fL Immature Gran % (Auto) 0.7 % Neut % (Auto) 81.7 % Lymph % (Auto) 6.3 % [place] % (Auto) 11.3 % Eos % (Auto) 0.0 % Baso % (Auto) 0.0 % Neut # (Auto) 17.77 H (1.4-6.5) K/uL Lymph # (Auto) 1.36 (1.2-3.4) K/uL [place]ade # (Auto) 2.46 H (0.11-0.59) K/uL Eos # (Auto) 0.01 (0-0.5) K/uL Baso # (Auto) 0.01 (0-0.2) K/uL Immature Gran # (Auto) 0.15 H (0.00-0.02) K/uL Dohle Bodies 1+ Echinocytes 1+ APTT 75.7 H* (21.0-31.0) Seconds PTT Ratio 2.9 Sodium 134 L (136-145) mmol/L Potassium 3.7 (3.5-5.1) mmol/L Chloride 105 (98-107) mmol/L Carbon Dioxide 23 (21-32) mmol/L Anion Gap 6.0 (3-11) BUN 16 (7-18) mg/dl Creatinine 0.93 (0.6-1.2) mg/dl Est Cr Clr Drug Dosing 39.4 ml/min Est GFR ( Amer) 68.2 ml/min Est GFR (Non-Af Amer) 58.9 ml/min BUN/Creatinine Ratio 17.6 (10-20) Glucose 123 H (70-99) mg/dl Calcium 7.3 L (8.5-10.1) mg/dl Phosphorus 2.4 L (2.5-4.9) mg/dl Magnesium 2.2 (1.8-2.4) mg/dl Total Bilirubin 0.5 (0.2-1) mg/dl AST 15 (15-37) U/L ALT 10 L (12-78) U/L Alkaline Phosphatase 78 (45-117) U/L Total Protein 5.1 L (6.4-8.2) gm/dl Albumin 1.8 L (3.4-5.0) gm/dl Globulin 3.3 (2.5-4.0) gm/dl Albumin/Globulin Ratio 0.5 L (0.9-2) Nasal Screen MRSA (PCR) (Negative) 08/13/21 Range/Units 12:00 WBC (4.8-10.8) K/uL RBC (4.2-5.4) M/uL Hgb (12.0-16.0) g/dL Hct (37-47) % MCV (80-100) fL MCH (25-34) pg MCHC (32-36) g/dL RDW Std Deviation (36.4-46.3) fL RDW Coeff of Lila (11.5-14.5) % Plt Count (130-400) K/uL MPV (7.4-10.4) fL Immature Gran % (Auto) % Neut % (Auto) % Lymph % (Auto) % [place] % (Auto) % Eos % (Auto) % Baso % (Auto) % Neut # (Auto) (1.4-6.5) K/uL Lymph # (Auto) (1.2-3.4) K/uL Meade # (Auto) (0.11-0.59) K/uL Eos # (Auto) (0-0.5) K/uL Baso # (Auto) (0-0.2) K/uL Immature Gran # (Auto) (0.00-0.02) K/uL Dohle Bodies Echinocytes APTT (21.0-31.0) Seconds PTT Ratio Sodium (136-145) mmol/L Potassium (3.5-5.1) mmol/L Chloride (98-107) mmol/L Carbon Dioxide (21-32) mmol/L Anion Gap (3-11) BUN (7-18) mg/dl Creatinine (0.6-1.2) mg/dl Est Cr Clr Drug Dosing ml/min Est GFR ( Amer) ml/min Est GFR (Non-Af Amer) ml/min BUN/Creatinine Ratio (10-20) Glucose (70-99) mg/dl Calcium (8.5-10.1) mg/dl Phosphorus (2.5-4.9) mg/dl Magnesium (1.8-2.4) mg/dl Total Bilirubin (0.2-1) mg/dl AST (15-37) U/L ALT (12-78) U/L Alkaline Phosphatase (45-117) U/L Total Protein (6.4-8.2) gm/dl Albumin (3.4-5.0) gm/dl Globulin (2.5-4.0) gm/dl Albumin/Globulin Ratio (0.9-2) Nasal Screen MRSA (PCR) Negative (Negative)
--- NOTE | 2021-08-14 17:31 | Hospitalist Progress Note ---
Date of Service August 14, 2021 Assessment & Plan (1) C. difficile colitis: Plan: Attending: Dr. Powers Impression: Patient with prior C. difficile infection status post 2 courses of antibiotic treatment. She has continuous diarrhea. Leukocytosis on admission W BC = 18.84. C. difficile gene and toxin positive. Patient has ongoing diarrhea. CT with inflammation of the colon consistent with colitis, most likely secondary to C. difficile infection. Leukocytosis worsened today to 21, remains afebrile. Diarrhea not yet improving, but abdominal pain is improving somewhat * Admitted to PCU * Fidaxomicin (Dificid) 200 mg p.o. twice daily for treatment of recurrent C. difficile infection * Stool cultures ordered and are negative for Salmonella, Shigella, Campy lobacter jejuni. No E. coli Shiga toxin 1 or Shiga toxin 2 detected * Add metronidazole (Flagyl) 500 mg IV every 8 hours for severe disease in addition to Dificid * Would stop home colchicine daily as this can also contribute to diarrhea (2) Splenic infarct: Plan: Question of splenic infarct and IVC thrombus new from CT abdomen obtained on 08/10. This was based on wet read of overnight service Reviewed by in-house radiologist stated this was probably an over read Venogram performed with no evidence of thrombus in IVC either * Continue Morphine as needed for pain * Zofran as needed for nausea * Initially admitted to Telemetry monitoring for possible atrial fibrillation. 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 Questionable stricture versus thrombus in the right hepatic vein along the proximal portion. Patient initially started on Heparin drip Further review of imaging indicated this most likely was an over read Heparin drip was discontinued (4) GERD (gastroesophageal reflux disease): Plan: Chronic. Continue famotidine (5) Depression: Plan: Chronic. Continue Zoloft 50 mg p.o. every morning (6) CKD (chronic kidney disease): Plan: Chronic kidney disease, stage 2-3 BUN and creatinine near baseline Avoid nephrotoxic agents Continue to monitor BUN, creatinine, electrolytes, urine output (7) Scleroderma: Plan: Chronic. Patient states that she has pulmonary involvement as well. Patient follows with pulmonology and has routine PFTs. Most recent PFTs 05/01/21 showed no obstructive lung dysfunction. Slightly decreased DLCOunc with poor patient effort during exam. Continue hydroxychloroquine Continue prednisone Admission and Anticipated Discharge Date Admission Date: August 12, 2021 Supervising Physician Co-Signing Physician Notes PA Supervision Note: I did not personally see or examine the patient today, but I verified all romeo points of BRANDEN Hester's assessment and plan with the following exceptions/additions: None Subjective Attending: Dr. Powers Patient seen and examined at bedside in room 109. She is a telemetry patient at this time. There were no beds upstairs so she was temporarily placed in the intensive care unit for monitoring. Patient continues to have some abdominal tenderness but it seems improved from y . She does still have considerable amounts of diarrhea. This responds almost like a dumping syndrome. Antigen as well as PCR both positive for C. difficile. She had previously been on vancomycin orally. She was seen by gastroenterology and placed on Dificid. Due to her increased frequency and volume of diarrhea throughout the afternoon, she was started on metronidazole 500 mg IV every 8 hours. Patient denies any fever, chills, sweats, rigors. No chest pain or tightness. No shortness of breath. She is extremely tired. She denies any tachyarrhythmias or palpitations. Review of Systems Review of Systems: All systems reviewed & are unremarkable except as noted in Subjective Physical Exam Physical Exam: GENERAL : No acute distress EYES: No icterus, gaze conjugate NOSE: No evidence of epistaxis MOUTH: No lesions or candidiasis NECK: Supple LUNGS: CTA B/L, no wheezes, rales or rhonchi HEART: Regular, rate controlled ABDOMEN: Soft, BS Present. Patient does appear to be more bloated this afternoon. She also has persistent abdominal pain with palpation. There is no rebound tenderness or guarding. EXTREMITIES: No LE edema, pedal pulses intact NEURO: A&OX3 Results & Data Results & Data ([facility]) Vital Signs (Past 12 Hours) Vital Signs Temp Pulse Resp BP Pulse Ox 08/14/21 12:24 36.9 C 108 H 28 H 129/66 96 08/14/21 08:00 36.8 C 97 H 24 112/85 96 Laboratory Results 08/14/21 05:41 08/14/21 05:41 PG Care Time/CCT Total # of Minutes Spent Total Time Spent with Patient: Total time spent is greater than 50% in coordination of care (as documented) at patient's floor/unit and/or counseling patient: Coding Level of Care Code 33473 Subseq Hosp Care Lvl 2 Diagnoses C. difficile colitis A04.72 Splenic infarct D73.5 IVC thrombosis I82.220 GERD (gastroesophageal reflux disease) K21.9 Depression F32.9 CKD (chronic kidney disease) N18.9 Scleroderma M34.9 Time Spent (min) 25
[2021-08-14] MEDS: metroNIDAZOLE 500 MG/100 ML BAG IV SCH (18:10)
[2021-08-14] MEDS: TRAVOPROST Z 0.004% OPH SOLN 2.5 ML BTL OP SCH (20:34)
[2021-08-15] MEDS: LACTATED RINGER'S 1,000 ML IV SCH ×4 (00:15→22:09)
[2021-08-15] MEDS: metroNIDAZOLE 500 MG/100 ML BAG IV SCH ×3 (01:44→19:16)
[2021-08-15 05:48] LABS: Basophils # (auto) 0.02 K/uL (0-0.2); Basophils % (auto) 0.1 %; Eosinophils # (auto) 0.01 K/uL (0-0.5); Hematocrit (blood only) 39.2 % (37-47); Hemoglobin 12.9 g/dL (12.0-16.0); Immature Granulocytes % (auto) 0.9 %; Lymphocytes # (auto) 1.46 K/uL (1.2-3.4); Lymphocytes % (auto) 6.5 %; Mean Corpuscular Hemoglobin 29.4 pg (25-34); Mean Corpuscular Hgb Conc 32.9 g/dL (32-36); Mean Corpuscular Volume 89.3 fL (80-100); Mean Platelet Volume 9.6 fL (7.4-10.4); Monocytes # (auto) 2.31 K/uL (0.11-0.59); Monocytes % (auto) 10.3 %; Neutrophils # (auto) 18.37 K/uL (1.4-6.5); Neutrophils % (auto) 82.2 %; Platelet Count 288 K/uL (130-400); RDW Coefficient of Variation 14.2 % (11.5-14.5); RDW Standard Deviation 46.6 fL (36.4-46.3); Red Blood Count 4.39 M/uL (4.2-5.4); White Blood Count 22.37 K/uL (4.8-10.8)
[2021-08-15 05:51] LABS: BUN Creatinine Ratio 19.5 (10-20); Calcium 7.3 mg/dl (8.5-10.1); Creatinine Clr Calc Pharmacy 40.7 ml/min; Est GFR (Non-African American) 61.2 ml/min; Magnesium 2.4 mg/dl (1.8-2.4); Potassium 3.8 mmol/L (3.5-5.1)
[2021-08-15 05:52] LABS: Phosphorus 2.2 mg/dl (2.5-4.9)
[2021-08-15] MEDS: DORZOLAMIDE HCL 2% OPH SOLN 10 ML BTL OP SCH ×2 (08:03→22:06)
[2021-08-15] MEDS: FIDAXOMICIN 200 MG TAB PO SCH ×2 (08:04→20:53)
[2021-08-15] MEDS: SERTRALINE HCL 50 MG TABLET PO SCH (08:04)
[2021-08-15] MEDS: PANTOprazole 40 MG TAB PO SCH (08:04)
[2021-08-15] MEDS: FELODIPINE 2.5 MG TABCR PO SCH (08:04)
[2021-08-15] MEDS: HYDROXYCHLOROQUINE SULFATE 200 MG TAB PO SCH (08:04)
[2021-08-15] MEDS: FAMOTIDINE 40 MG TABLET PO SCH (08:04)
[2021-08-15] MEDS: predniSONE 5 MG TAB PO SCH (08:04)
[2021-08-15] MEDS: THIAMINE HCL 100 MG TAB PO SCH (08:05)
[2021-08-15] MEDS ORDERED: POTASSIUM PHOS 3 MMOL/1 ML INFUSION IV STA (09:46)
[2021-08-15] MEDS ORDERED: POTASSIUM PHOSPHATE 15 MMOL in SODIUM CHLORIDE 0.9% 250 ML IV ONE (10:00)
[2021-08-15] MEDS: MoRPHine SULFATE 2 MG/ML CARP IV PRN (11:56)
[2021-08-15] MEDS: ONDANSETRON INJ 2 MG/ML 2 ML VIAL IV PRN (11:56)
[2021-08-15] MEDS: MoRPHine SULFATE 4 MG/ML 1 ML CARP\\VIAL IV PRN (13:07)
--- NOTE | 2021-08-15 14:31 | Hospitalist Progress Note ---
Date of Service August 15, 2021 Assessment & Plan (1) C. difficile colitis: Plan: Patient with prior C. difficile infection status post 2 courses of antibiotic treatment with po Vanco from 05/2021-06/2021. She has had continuous diarrhea since then despite testing neg for C. diff, but then took a course of abx for a UTI recently and had worsening of the diarrhea. Leukocytosis on admission WBC = 18.84. C. difficile gene and toxin positive. CT with inflammation of the colon consistent with colitis, most likely secondary to C. difficile infection. Diarrhea volume improving, remains afebrile Leukocytosis worsened again today to 22 and having pain in rectum from recurrent rectal prolapse that is reducible Still with abd pain requiring morphine Feels retaining urine as well and having rectal prolapse with BMs that reduces afterwards Stool cultures ordered and are negative for Salmonella, Shigella, Campylobacter jejuni. No E. coli Shiga toxin 1 or Shiga toxin 2 detected -check KUB today to assess colon given somewhat worsening abd pain -repeat CBC and lactate now -continue Fidaxomicin (Dificid) 200 mg p.o. twice daily for treatment of recurrent C. difficile infection-GI recommends prolonged course -continue IVFs with LR at 100mL/hr -continue metronidazole (Flagyl) 500 mg IV every 8 hours for severe disease in addition to Dificid-started evening of 08/14 -Would stop home colchicine daily as this can also contribute to diarrhea -if had toxic megacolon, would need transfer out to tertiary care facility due to advanced age, comorbidities for total colectomy -follow daily CBC, CMP, lactate, Mag, Phos -pain control with IV morphine -no intervention for rectal prolapse unless protrudes and turns necrotic -bladder scan qshift -make NPO now (2) Splenic infarct: Plan: Question of splenic infarct and IVC thrombus new from CT abdomen obtained on 08/10. 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 Questionable stricture versus thrombus in the right hepatic vein along the proximal portion. Patient initially started on Heparin drip Further review of imaging indicated this most likely was an over read Heparin drip was discontinued RULED OUT (4) GERD (gastroesophageal reflux disease): Plan: Chronic. Continue famotidine, PPI (5) Depression: Plan: Chronic. Continue Zoloft 50 mg p.o. every morning (6) CKD (chronic kidney disease): Plan: Chronic kidney disease, stage 2-3 BUN and creatinine near baseline Avoid nephrotoxic agents Continue to monitor BUN, creatinine, electrolytes, urine output (7) Scleroderma: Plan: Chronic. Patient states that she has pulmonary involvement as well. Patient follows with pulmonology and has routine PFTs. Most recent PFTs 05/01/21 showed no obstructive lung dysfunction. Slightly decreased DLCOunc with poor patient effort during exam. Continue hydroxychloroquine Continue prednisone felodipine for Raynaud's Plan: DVT proph-SCDs, hold off on adding Lovenox in case of need for surgery Dispo-continued stay, was downgraded to med/surg Admission and Anticipated Discharge Date Admission Date: August 12, 2021 Subjective Pt having some prolapse of her rectum with BMs today that is painful-she has a h/o rectal prolapse repair. Diarrhea has slowed down somewhat since admission. Still having abd pain as well but is improved with morphine. Feels like she had to push on her bladder today to get it to empty. Review of Systems Review of Systems: All systems reviewed & are unremarkable except as noted in HPI & below Physical Exam Constitutional: WD/WN, vitals as above Eyes: + anicteric sclerae Neck: trachea midline, no thyromegaly Respiratory: normal respiratory effort, lungs clear to auscultation Cardiovascular: RRR, no murmur, no edema Chest (Breasts): Chest: normal inspection of chest Gastrointestinal (Abdomen): Inspection/Auscultation: + abdomen distended (mild) and normal bowel sounds Percussion/Palpation: + abdomen tender (mid abdomen without guarding or rebound) and abdomen soft Rectal Exam: normal visual inspection of rectum (no prolapse of rectum, a small skin tag at 0500); no hemorrhoids Musculoskeletal: Extremities: extremities normal to inspection; no cyanosis and no clubbing Skin: no rashes, warm and dry Neurologic: moves all extremities and awake; no focal motor deficits Psychiatric: A+Ox3, euthymic affect Lymphatic: no lymphedema Results & Data Results & Data ([facility]) Vital Signs (Past 12 Hours) Vital Signs Temp Pulse Pulse Resp BP BP Pulse Ox 08/15/21 12:02 36.8 C 88 16 148/80 H 96 08/15/21 08:07 105 H 19 113/66 08/15/21 08:00 36.7 C 08/15/21 03:57 37.3 C 90 20 115/73 96 Laboratory Results 08/15/21 08/15/21 Range/Units 05:28 05:28 WBC 22.37 H (4.8-10.8) K/uL RBC 4.39 (4.2-5.4) M/uL Hgb 12.9 (12.0-16.0) g/dL Hct 39.2 (37-47) % MCV 89.3 (80-100) fL MCH 29.4 (25-34) pg MCHC 32.9 (32-36) g/dL RDW Std Deviation 46.6 H (36.4-46.3) fL RDW Coeff of Lila 14.2 (11.5-14.5) % Plt Count 288 (130-400) K/uL MPV 9.6 (7.4-10.4) fL Immature Gran % (Auto) 0.9 % Neut % (Auto) 82.2 % Lymph % (Auto) 6.5 % [place] % (Auto) 10.3 % Eos % (Auto) 0.0 % Baso % (Auto) 0.1 % Neut # (Auto) 18.37 H (1.4-6.5) K/uL Lymph # (Auto) 1.46 (1.2-3.4) K/uL [place] # (Auto) 2.31 H (0.11-0.59) K/uL Eos # (Auto) 0.01 (0-0.5) K/uL Baso # (Auto) 0.02 (0-0.2) K/uL Immature Gran # (Auto) 0.20 H (0.00-0.02) K/uL Sodium 136 (136-145) mmol/L Potassium 3.8 (3.5-5.1) mmol/L Chloride 105 (98-107) mmol/L Carbon Dioxide 22 (21-32) mmol/L Anion Gap 9.0 (3-11) BUN 18 (7-18) mg/dl Creatinine 0.90 (0.6-1.2) mg/dl Est Cr Clr Drug Dosing 40.7 ml/min Est GFR ( Amer) 71.0 ml/min Est GFR (Non-Af Amer) 61.2 ml/min BUN/Creatinine Ratio 19.5 (10-20) Glucose 113 H (70-99) mg/dl Calcium 7.3 L (8.5-10.1) mg/dl Phosphorus 2.2 L (2.5-4.9) mg/dl Magnesium 2.4 (1.8-2.4) mg/dl PG Care Time/CCT Total # of Minutes Spent Total Time Spent with Patient: Total time spent is greater than 50% in coordination of care (as documented) at patient's floor/unit and/or counseling patient: Coding Level of Care Code 16090 Subseq Hosp Care Lvl 3 Diagnoses C. difficile colitis A04.72 Splenic infarct D73.5 IVC thrombosis I82.220 GERD (gastroesophageal reflux disease) K21.9 Depression F32.9 CKD (chronic kidney disease) N18.9 Scleroderma M34.9
[2021-08-15 14:52] LABS: Basophils # (auto) 0.02 K/uL (0-0.2); Basophils % (auto) 0.1 %; Eosinophils # (auto) 0.01 K/uL (0-0.5); Hematocrit (blood only) 38.7 % (37-47); Hemoglobin 12.6 g/dL (12.0-16.0); Immature Granulocytes # (auto) 0.18 K/uL (0.00-0.02); Immature Granulocytes % (auto) 0.8 %; Lymphocytes # (auto) 1.19 K/uL (1.2-3.4); Lymphocytes % (auto) 5.3 %; Mean Corpuscular Hemoglobin 29.8 pg (25-34); Mean Corpuscular Hgb Conc 32.6 g/dL (32-36); Mean Corpuscular Volume 91.5 fL (80-100); Mean Platelet Volume 9.4 fL (7.4-10.4); Monocytes # (auto) 2.12 K/uL (0.11-0.59); Monocytes % (auto) 9.4 %; Neutrophils # (auto) 19.12 K/uL (1.4-6.5); Neutrophils % (auto) 84.4 %; Platelet Count 322 K/uL (130-400); RDW Coefficient of Variation 14.4 % (11.5-14.5); RDW Standard Deviation 48.3 fL (36.4-46.3); Red Blood Count 4.23 M/uL (4.2-5.4); White Blood Count 22.64 K/uL (4.8-10.8)
--- NOTE | 2021-08-15 16:04 | XRay Report ---
KUB CLINICAL HISTORY: C. difficile colitis. FINDINGS: 2 AP, portable, supine abdominal radiographs are correlated with abdominal CT dated 08/13/20. There is a nonobstructed abdominal bowel gas pattern. No significant colonic dilatation is identi fied. There is evidence of wall thickening and edema throughout the colon consistent with the reporte d history of colitis. No evidence of intraperitoneal free air is seen on these supine views. Numerous calcified splenic granulomas are seen in the left upper quadrant. Phlebolith are observed in the pel vis. The skeletal structures are osteopenic. There is lumbosacral spondylosis and scoliosis. The hear t is enlarged. Scarring/atelectasis is noted at the lung bases. IMPRESSION: 1. There is diffuse colonic wall thickening and edema consistent with the known history of colitis. 2. There is no evidence of bowel obstruction or megacolon. Electronically signed by: Devante Ortiz M.D. 08/15/2021 4:02 PM
[2021-08-15] MEDS: TRAVOPROST Z 0.004% OPH SOLN 2.5 ML BTL OP SCH (22:07)
[2021-08-16] MEDS: metroNIDAZOLE 500 MG/100 ML BAG IV SCH ×3 (02:36→17:14)
[2021-08-16] MEDS: MoRPHine SULFATE 2 MG/ML CARP IV PRN (02:36)
[2021-08-16] MEDS: LACTATED RINGER'S 1,000 ML IV SCH ×2 (08:31→17:05)
[2021-08-16] MEDS: ONDANSETRON INJ 2 MG/ML 2 ML VIAL IV PRN (08:31)
[2021-08-16] MEDS: MoRPHine SULFATE 4 MG/ML 1 ML CARP\\VIAL IV PRN ×3 (08:31→20:27)
[2021-08-16 08:35] LABS: Hematocrit (blood only) 35.8 % (37-47); Hemoglobin 11.7 g/dL (12.0-16.0); Mean Corpuscular Hemoglobin 29.4 pg (25-34); Mean Corpuscular Hgb Conc 32.7 g/dL (32-36); Mean Corpuscular Volume 89.9 fL (80-100); Mean Platelet Volume 8.9 fL (7.4-10.4); Platelet Count 358 K/uL (130-400); RDW Coefficient of Variation 14.5 % (11.5-14.5); RDW Standard Deviation 47.8 fL (36.4-46.3); Red Blood Count 3.98 M/uL (4.2-5.4); White Blood Count 21.44 K/uL (4.8-10.8)
[2021-08-16] MEDS: THIAMINE HCL 100 MG TAB PO SCH (08:36)
[2021-08-16] MEDS: DORZOLAMIDE HCL 2% OPH SOLN 10 ML BTL OP SCH ×2 (08:36→20:28)
[2021-08-16] MEDS: PANTOprazole 40 MG TAB PO SCH (08:36)
[2021-08-16] MEDS: predniSONE 5 MG TAB PO SCH (08:37)
[2021-08-16] MEDS: SERTRALINE HCL 50 MG TABLET PO SCH (08:37)
[2021-08-16] MEDS: FELODIPINE 2.5 MG TABCR PO SCH (08:37)
[2021-08-16] MEDS: HYDROXYCHLOROQUINE SULFATE 200 MG TAB PO SCH (08:37)
[2021-08-16] MEDS: FAMOTIDINE 40 MG TABLET PO SCH (08:38)
[2021-08-16] MEDS: FIDAXOMICIN 200 MG TAB PO SCH ×2 (08:44→20:27)
[2021-08-16 09:06] LABS: Albumin Level 1.7 gm/dl (3.4-5.0); BUN Creatinine Ratio 27.2 (10-20); Creatinine Clr Calc Pharmacy 47.6 ml/min; Est GFR (African American) 85.7 ml/min; Magnesium 1.9 mg/dl (1.8-2.4); Potassium 3.8 mmol/L (3.5-5.1)
[2021-08-16 09:09] LABS: Albumin Globulin Ratio 0.6 (0.9-2); Bilirubin,Total 0.3 mg/dl (0.2-1); Globulin 2.9 gm/dl (2.5-4.0); Phosphorus 2.2 mg/dl (2.5-4.9); Total Protein 4.6 gm/dl (6.4-8.2)
[2021-08-16] MEDS ORDERED: POTASSIUM PHOS 3 MMOL/1 ML INFUSION IV STA (09:14)
[2021-08-16 09:15] LABS: Basophils # (auto) 0.02 K/uL (0-0.2); Basophils % (auto) 0.1 %; Eosinophils # (auto) 0.01 K/uL (0-0.5); Immature Granulocytes # (auto) 0.25 K/uL (0.00-0.02); Immature Granulocytes % (auto) 1.2 %; Lymphocytes # (auto) 1.78 K/uL (1.2-3.4); Lymphocytes % (auto) 8.3 %; Monocytes # (auto) 2.11 K/uL (0.11-0.59); Monocytes % (auto) 9.8 %; Neutrophils # (auto) 17.27 K/uL (1.4-6.5); Neutrophils % (auto) 80.6 %
[2021-08-16] MEDS ORDERED: MAGNESIUM SULFATE / D5W 1 GM/100 ML BAG IV ONE (09:30)
--- NOTE | 2021-08-16 09:57 | Hospitalist Progress Note ---
Date of Service August 16, 2021 Assessment & Plan (1) C. difficile colitis: Plan: Patient with prior C. difficile infection status post 2 courses of antibiotic treatment with po Vanco from 05/2021-06/2021. She has had continuous diarrhea since then despite testing neg for C. diff, but then took a course of abx for a UTI recently and had worsening of the diarrhea. Leukocytosis on admission WBC = 18.84 and lactate initially elevated at 2.3. C. difficile gene and toxin positive. CT with inflammation of the colon consistent with colitis, most likely secondary to C. difficile infection. Diarrhea volume continues to be improving, remains afebrile Leukocytosis had worsened despite therapy to 22, but now is decreased to 21 Lactate now normal She is having pain in rectum from recurrent rectal prolapse that is reducible Still with abd pain requiring morphine Feels retaining urine but bladder scan was for PVR 150 mL Stool culture negative Had some increase in pain and distention on 08/15- KUB negative for megacolon or obstruction, showed diffuse colonic wall thickening and edema consistent with colitis Abdominal pain and diarrhea improving now on 08/16 -continue Fidaxomicin (Dificid) 200 mg p.o. twice daily for treatment of recurrent C. difficile infection-GI recommends prolonged course-will give 20 days total -continue IVFs with LR at 100mL/hr -continue metronidazole (Flagyl) 500 mg IV every 8 hours for severe disease in addition to Dificid-started evening of 08/14 -Advance to clear liquids diet today as pain is improving -Would stop home colchicine daily as this can also contribute to diarrhea -if had toxic megacolon, would need transfer out to tertiary care facility due to advanced age, comorbidities for total colectomy -follow daily CBC, CMP, lactate, Mag, Phos and replace electrolytes as needed- will give potassium phosphorus and magnesium today -pain control with IV morphine -no intervention for rectal prolapse unless protrudes and turns necrotic -bladder scan qshift (2) Splenic infarct: Plan: Question of splenic infarct and IVC thrombus new from CT abdomen obtained on 08/10. 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 Questionable stricture versus thrombus in the right hepatic vein along the proximal portion. Patient initially started on Heparin drip Further review of imaging indicated this most likely was an over read Heparin drip was discontinued RULED OUT (4) GERD (gastroesophageal reflux disease): Plan: Chronic. Continue famotidine, PPI (5) Depression: Plan: Chronic. Continue Zoloft 50 mg p.o. every morning (6) CKD (chronic kidney disease): Plan: Chronic kidney disease, stage 2-3 BUN and creatinine near baseline Avoid nephrotoxic agents Continue to monitor BUN, creatinine, electrolytes, urine output (7) Scleroderma: Plan: Chronic. Patient states that she has pulmonary involvement as well. Patient follows with pulmonology and has routine PFTs. Most recent PFTs 05/01/21 showed no obstructive lung dysfunction. Slightly decreased DLCOunc with poor patient effort during exam. Continue hydroxychloroquine Continue prednisone Continue felodipine for Raynaud's Plan: DVT proph-SCDs, add on Lovenox SQ today Dispo-continued stay, on med/surg Discussed her care with her daughter on the phone on 08/13 and 08/16 Admission and Anticipated Discharge Date Admission Date: August 12, 2021 Subjective Patient continues to have rectal pain with prolapse with bowel movements, abdominal pain is slightly improved today. She also reports her diarrhea has slowed down. No nausea. She does not feel lightheaded when she gets up to go to the bathroom. She does feel like she wants to try drinking some liquids today. Review of Systems Review of Systems: All systems reviewed & are unremarkable except as noted in HPI & below Physical Exam Constitutional: WD/WN, vitals as above Eyes: + anicteric sclerae Neck: trachea midline, no thyromegaly Respiratory: normal respiratory effort, lungs clear to auscultation Cardiovascular: RRR, no murmur, no edema Chest (Breasts): Chest: normal inspection of chest Gastrointestinal (Abdomen): Inspection/Auscultation: + abdomen distended (mild) and normal bowel sounds Percussion/Palpation: + abdomen tender (mid abdomen without guarding or rebound, improved from previous) and abdomen soft Musculoskeletal: Extremities: extremities normal to inspection; no cyanosis and no clubbing Skin: no rashes, warm and dry Neurologic: moves all extremities and awake; no focal motor deficits Psychiatric: A+Ox3, euthymic affect Lymphatic: no lymphedema Results & Data Results & Data ([facility]) Vital Signs (Past 12 Hours) Vital Signs Temp Pulse Resp BP Pulse Ox 08/16/21 06:22 36.8 C 88 16 116/69 93 08/15/21 23:01 36.7 C 94 H 16 112/69 92 Laboratory Results 08/16/21 08/16/21 08/16/21 Range/Units 08:19 08:19 08:19 WBC 21.44 H (4.8-10.8) K/uL RBC 3.98 L (4.2-5.4) M/uL Hgb 11.7 L (12.0-16.0) g/dL Hct 35.8 L (37-47) % MCV 89.9 (80-100) fL MCH 29.4 (25-34) pg MCHC 32.7 (32-36) g/dL RDW Std Deviation 47.8 H (36.4-46.3) fL RDW Coeff of Lila 14.5 (11.5-14.5) % Plt Count 358 (130-400) K/uL MPV 8.9 (7.4-10.4) fL Immature Gran % (Auto) 1.2 % Neut % (Auto) 80.6 % Lymph % (Auto) 8.3 % [place] % (Auto) 9.8 % Eos % (Auto) 0.0 % Baso % (Auto) 0.1 % Neut # (Auto) 17.27 H (1.4-6.5) K/uL Lymph # (Auto) 1.78 (1.2-3.4) K/uL [place] # (Auto) 2.11 H (0.11-0.59) K/uL Eos # (Auto) 0.01 (0-0.5) K/uL Baso # (Auto) 0.02 (0-0.2) K/uL Immature Gran # (Auto) 0.25 H (0.00-0.02) K/uL Sodium 138 (136-145) mmol/L Potassium 3.8 (3.5-5.1) mmol/L Chloride 109 H (98-107) mmol/L Carbon Dioxide 21 (21-32) mmol/L Anion Gap 8.0 (3-11) BUN 21 H (7-18) mg/dl Creatinine 0.77 (0.6-1.2) mg/dl Est Cr Clr Drug Dosing 47.6 ml/min Est GFR ( Amer) 85.7 ml/min Est GFR (Non-Af Amer) 74.0 ml/min BUN/Creatinine Ratio 27.2 H (10-20) Glucose 93 (70-99) mg/dl Lactate 0.7 (0.4-2.0) mmol/L Calcium 7.0 L (8.5-10.1) mg/dl Phosphorus 2.2 L (2.5-4.9) mg/dl Magnesium 1.9 (1.8-2.4) mg/dl Total Bilirubin 0.3 (0.2-1) mg/dl AST 16 (15-37) U/L ALT 10 L (12-78) U/L Alkaline Phosphatase 83 (45-117) U/L Total Protein 4.6 L (6.4-8.2) gm/dl Albumin 1.7 L (3.4-5.0) gm/dl Globulin 2.9 (2.5-4.0) gm/dl Albumin/Globulin Ratio 0.6 L (0.9-2) PG Care Time/CCT Total # of Minutes Spent Total Time Spent with Patient: Total time spent is greater than 50% in coordination of care (as documented) at patient's floor/unit and/or counseling patient: Coding Level of Care Code 81394 Subseq Hosp Care Lvl 3 Diagnoses C. difficile colitis A04.72 Splenic infarct D73.5 IVC thrombosis I82.220 GERD (gastroesophageal reflux disease) K21.9 Depression F32.9 CKD (chronic kidney disease) N18.9 Scleroderma M34.9
[2021-08-16] MEDS ORDERED: POTASSIUM PHOSPHATE 9 MMOL in SODIUM CHLORIDE 0.9% 250 ML IV ONE (10:00)
[2021-08-16] MEDS: ENOXAPARIN INJ 40 MG/0.4 ML SYR SQ SCH (12:57)
[2021-08-16] MEDS: TRAVOPROST Z 0.004% OPH SOLN 2.5 ML BTL OP SCH (20:28)
[2021-08-17] MEDS ORDERED: COUGH DROP (SUGAR FREE) LOZ 24 LOZ/1 BOX BUCCAL PRN (01:17)
[2021-08-17] MEDS: MoRPHine SULFATE 4 MG/ML 1 ML CARP\\VIAL IV PRN ×3 (01:34→20:52)
[2021-08-17] MEDS: metroNIDAZOLE 500 MG/100 ML BAG IV SCH ×3 (01:34→18:32)
[2021-08-17] MEDS: LACTATED RINGER'S 1,000 ML IV SCH ×2 (03:57→18:32)
[2021-08-17] MEDS: ONDANSETRON INJ 2 MG/ML 2 ML VIAL IV PRN (06:08)
[2021-08-17 06:09] LABS: Hematocrit (blood only) 36.1 % (37-47); Hemoglobin 11.4 g/dL (12.0-16.0); Mean Corpuscular Hemoglobin 29.5 pg (25-34); Mean Corpuscular Hgb Conc 31.6 g/dL (32-36); Mean Corpuscular Volume 93.3 fL (80-100); Mean Platelet Volume 9.3 fL (7.4-10.4); Platelet Count 401 K/uL (130-400); RDW Coefficient of Variation 14.8 % (11.5-14.5); RDW Standard Deviation 50.3 fL (36.4-46.3); Red Blood Count 3.87 M/uL (4.2-5.4)
[2021-08-17 06:52] LABS: BUN Creatinine Ratio 30.4 (10-20); Calcium 7.1 mg/dl (8.5-10.1); Creatinine Clr Calc Pharmacy 50.9 ml/min; Est GFR (Non-African American) 80.2 ml/min; Magnesium 2.5 mg/dl (1.8-2.4); Potassium 4.2 mmol/L (3.5-5.1)
[2021-08-17 06:53] LABS: Phosphorus 2.1 mg/dl (2.5-4.9)
[2021-08-17 06:56] LABS: Basophils # (auto) 0.02 K/uL (0-0.2); Basophils % (auto) 0.1 %; Eosinophils # (auto) 0.04 K/uL (0-0.5); Eosinophils % (auto) 0.2 %; Immature Granulocytes % (auto) 2.4 %; Lymphocytes # (auto) 2.59 K/uL (1.2-3.4); Lymphocytes % (auto) 12.3 %; Monocytes # (auto) 1.93 K/uL (0.11-0.59); Monocytes % (auto) 9.1 %; Neutrophils # (auto) 16.02 K/uL (1.4-6.5); Neutrophils % (auto) 75.9 %
[2021-08-17] MEDS: THIAMINE HCL 100 MG TAB PO SCH (10:10)
[2021-08-17] MEDS: predniSONE 5 MG TAB PO SCH (10:10)
[2021-08-17] MEDS: SERTRALINE HCL 50 MG TABLET PO SCH (10:10)
[2021-08-17] MEDS: FAMOTIDINE 40 MG TABLET PO SCH (10:12)
[2021-08-17] MEDS: PANTOprazole 40 MG TAB PO SCH (10:12)
[2021-08-17] MEDS: HYDROXYCHLOROQUINE SULFATE 200 MG TAB PO SCH (10:12)
--- NOTE | 2021-08-17 10:12 | XRay Report ---
KUB CLINICAL HISTORY: C. difficile colitis. FINDINGS: An AP, portable, supine abdominal radiograph is compared to study dated 08/15/2021 and corre lated with abdominal CT dated 08/13/2021. There is a nonobstructed abdominal bowel gas pattern. No sig nificant colonic dilatation is identified. Wall thickening and edema again suggested throughout the c olon consistent with the reported history of colitis. No evidence of intraperitoneal free air is seen on this supine view. Numerous calcified splenic granulomas are seen in the left upper quadrant. Phle bolith are observed in the pelvis. The skeletal structures are osteopenic. There is lumbosacral spond ylosis and scoliosis. IMPRESSION: 1. Clinical thickening is again noted and consistent with the known history of colitis. 2. There is no evidence of bowel obstruction or megacolon. Electronically signed by: Devante Ortiz M.D. 08/17/2021 10:11 AM
[2021-08-17] MEDS: FELODIPINE 2.5 MG TABCR PO SCH (10:13)
[2021-08-17] MEDS: FIDAXOMICIN 200 MG TAB PO SCH ×2 (10:13→19:43)
[2021-08-17] MEDS: DORZOLAMIDE HCL 2% OPH SOLN 10 ML BTL OP SCH ×2 (10:14→19:44)
[2021-08-17] MEDS: ENOXAPARIN INJ 40 MG/0.4 ML SYR SQ SCH (11:31)
--- NOTE | 2021-08-17 12:08 | Hospitalist Progress Note ---
Date of Service August 17, 2021 Assessment & Plan (1) C. difficile colitis: Plan: Patient with prior C. difficile infection status post 2 courses of antibiotic treatment with po Vanco from 05/2021-06/2021. She has had continuous diarrhea since then despite testing neg for C. diff, but then took a course of abx for a UTI recently and had worsening of the diarrhea. Leukocytosis on admission WBC = 18.84 and lactate initially elevated at 2.3. C. difficile gene and toxin positive. CT with inflammation of the colon consistent with colitis, most likely secondary to C. difficile infection. Diarrhea has certainly lessened since admission, remains afebrile Leukocytosis had worsened despite therapy to 22, but hs since decreased to 21 but remains stable there today-somewhat concerning but clinically improving otherwise Lactate remains normal. HCO3 slightly low today at 20 could be from GI losses She is having pain in rectum from recurrent rectal prolapse that is reducible Still with abd pain requiring morphine but overall abd pain improving Feels retaining urine but bladder scans acceptable Stool culture negative Had some increase in pain and distention on 08/15- KUB negative for megacolon or obstruction, showed diffuse colonic wall thickening and edema consistent with colitis Abdominal pain and diarrhea improving now on 08/16 KUB repeated 08/17 again neg for megacolon or obstruction -continue Fidaxomicin (Dificid) 200 mg p.o. twice daily for treatment of recurrent C. difficile infection-GI recommends prolonged course-will give 20 days total -continue IVFs with LR but reduce to 75mL/hr -continue metronidazole (Flagyl) 500 mg IV every 8 hours for severe disease in addition to Dificid-started evening of 08/14 -continue clear liquids diet only for now -discontinue home colchicine daily as this can also contribute to diarrhea -if had toxic megacolon, would need transfer out to tertiary care facility due to advanced age, comorbidities for total colectomy -follow daily CBC, CMP, lactate, Mag, Phos and replace electrolytes as needed -pain control with IV morphine prn -no intervention for rectal prolapse unless protrudes and turns necrotic -chronic prednisone use does increase her risk for bowel perforation -if leukocytosis not improving by Wednesday, consider re-imaging the abdomen with CT--> for now, lactate negative and pain and exam improving so that is reassuring (2) Splenic infarct: Plan: Question of splenic infarct and IVC thrombus new from CT abdomen obtained on 08/10. 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 Questionable stricture versus thrombus in the right hepatic vein along the proximal portion. Patient initially started on Heparin drip Further review of imaging indicated this most likely was an over read Heparin drip was discontinued RULED OUT (4) GERD (gastroesophageal reflux disease): Plan: Chronic. Continue famotidine, PPI (5) Depression: Plan: Chronic. Continue Zoloft 50 mg p.o. every morning (6) CKD (chronic kidney disease): Plan: Chronic kidney disease, stage 2-3 BUN and creatinine near baseline Avoid nephrotoxic agents Continue to monitor BUN, creatinine, electrolytes, urine output (7) Scleroderma: Plan: Chronic. Patient states that she has pulmonary involvement as well. Patient follows with pulmonology and has routine PFTs. Most recent PFTs 05/01/21 showed no obstructive lung dysfunction. Slightly decreased DLCOunc with poor patient effort during exam. Continue hydroxychloroquine Continue prednisone Continue felodipine for Raynaud's (8) Cough: Plan: dry, mild has fibrosis at bases of lungs on imaging could be some developing pulm edema given hypoalbuminemia and IVFs -add incentive spirometry-was ordered previously but never given to her--> reordered and changed to q1 hour not concerned for PNA -reduce IVFs to 75mL/hr (9) Edema: Plan: trace peripheral edema does have hypoalbuminemia and receiving IVFs also scleroderma causes some skin changes and shiny skin will reduce IVFs as above Plan: DVT proph-SCDs, Lovenox SQ today Dispo-continued stay, on med/surg Discussed her care with her daughter on the phone on 08/13 and 08/16, and will call again on 08/17 at daughter's request Admission and Anticipated Discharge Date Admission Date: August 12, 2021 Subjective Feeling better today, less abd pain. Still with fairly significant pain in rectal area with prolapse while having BMs and has to sit down on bed to manually push rectum back into place. Diarrhea has slowed down to only 3 times so far today. No nausea or indigestion. She does have a dry cough and is taking cough drops for this. No chest pain, not lightheaded. No fevers Review of Systems Review of Systems: All systems reviewed & are unremarkable except as noted in HPI & below has mild edema in legs Physical Exam Constitutional: WD/WN, vitals as above Eyes: + anicteric sclerae Neck: trachea midline, no thyromegaly Respiratory: normal respiratory effort, lungs clear to auscultation Cardiovascular: Rate/Rhythm: regular rate and regular rhythm Heart Sounds: no murmur Extremities: + edema (trace edema legs bilat) Chest (Breasts): Chest: normal inspection of chest Gastrointestinal (Abdomen): Inspection/Auscultation: + abdomen distended (mild) and normal bowel sounds Percussion/Palpation: + abdomen tender (mid abdomen without guarding or rebound, improved from previous) and abdomen soft Rectal Exam: normal visual inspection of rectum (no prolapse of rectum, a small skin tag at 0500); no hemorrhoids Musculoskeletal: Extremities: extremities normal to inspection; no cyanosis and no clubbing Skin: no rashes, warm and dry Neurologic: moves all extremities and awake; no focal motor deficits Psychiatric: A+Ox3, euthymic affect Lymphatic: no lymphedema Results & Data Results & Data ([facility]) Vital Signs (Past 12 Hours) Vital Signs Temp Pulse Resp BP Pulse Ox 08/17/21 06:49 36.7 C 100 H 16 128/76 93 Laboratory Results 08/17/21 08/17/21 08/17/21 Range/Units 09:27 05:40 05:40 WBC 21.10 H (4.8-10.8) K/uL RBC 3.87 L (4.2-5.4) M/uL Hgb 11.4 L (12.0-16.0) g/dL Hct 36.1 L (37-47) % MCV 93.3 (80-100) fL MCH 29.5 (25-34) pg MCHC 31.6 L (32-36) g/dL RDW Std Deviation 50.3 H (36.4-46.3) fL RDW Coeff of Lila 14.8 H (11.5-14.5) % Plt Count 401 H (130-400) K/uL MPV 9.3 (7.4-10.4) fL Immature Gran % (Auto) 2.4 % Neut % (Auto) 75.9 % Lymph % (Auto) 12.3 % [place] % (Auto) 9.1 % Eos % (Auto) 0.2 % Baso % (Auto) 0.1 % Neut # (Auto) 16.02 H (1.4-6.5) K/uL Lymph # (Auto) 2.59 (1.2-3.4) K/uL [place] # (Auto) 1.93 H (0.11-0.59) K/uL Eos # (Auto) 0.04 (0-0.5) K/uL Baso # (Auto) 0.02 (0-0.2) K/uL Immature Gran # (Auto) 0.50 H (0.00-0.02) K/uL Sodium 138 (136-145) mmol/L Potassium 4.2 (3.5-5.1) mmol/L Chloride 108 H (98-107) mmol/L Carbon Dioxide 20 L (21-32) mmol/L Anion Gap 10.0 (3-11) BUN 22 H (7-18) mg/dl Creatinine 0.72 (0.6-1.2) mg/dl Est Cr Clr Drug Dosing 50.9 ml/min Est GFR ( Amer) 93.0 ml/min Est GFR (Non-Af Amer) 80.2 ml/min BUN/Creatinine Ratio 30.4 H (10-20) Glucose 84 (70-99) mg/dl Lactate 1.3 (0.4-2.0) mmol/L Calcium 7.1 L (8.5-10.1) mg/dl Phosphorus 2.1 L (2.5-4.9) mg/dl Magnesium 2.5 H (1.8-2.4) mg/dl PG Care Time/CCT Total # of Minutes Spent Total Time Spent with Patient: Total time spent is greater than 50% in coordination of care (as documented) at patient's floor/unit and/or counseling patient: Coding Level of Care Code 08397 Subseq Hosp Care Lvl 3 Diagnoses C. 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
[2021-08-17] MEDS ORDERED: SODIUM PHOSPHATE 3 MMOL/1 ML INFUSION IV STA (12:22)
[2021-08-17] MEDS ORDERED: SODIUM PHOSPHATE 9 MMOL in SODIUM CHLORIDE 0.9% 250 ML IV ONE (13:00)
[2021-08-17] MEDS: MoRPHine SULFATE 2 MG/ML CARP IV PRN (15:00)
[2021-08-17] MEDS: TRAVOPROST Z 0.004% OPH SOLN 2.5 ML BTL OP SCH (19:43)
[2021-08-18] MEDS: metroNIDAZOLE 500 MG/100 ML BAG IV SCH ×3 (02:06→19:20)
[2021-08-18 06:13] LABS: Hematocrit (blood only) 35.5 % (37-47); Hemoglobin 11.5 g/dL (12.0-16.0); Mean Corpuscular Hemoglobin 29.4 pg (25-34); Mean Corpuscular Hgb Conc 32.4 g/dL (32-36); Mean Corpuscular Volume 90.8 fL (80-100); Platelet Count 410 K/uL (130-400); Red Blood Count 3.91 M/uL (4.2-5.4); White Blood Count 18.84 K/uL (4.8-10.8)
[2021-08-18 06:34] LABS: BUN Creatinine Ratio 27.3 (10-20); Calcium 7.3 mg/dl (8.5-10.1); Creatinine Clr Calc Pharmacy 55.6 ml/min; Est GFR (African American) 98.1 ml/min; Est GFR (Non-African American) 84.6 ml/min; Magnesium 2.1 mg/dl (1.8-2.4); Potassium 3.7 mmol/L (3.5-5.1)
[2021-08-18 06:35] LABS: Phosphorus 1.8 mg/dl (2.5-4.9)
[2021-08-18 07:01] LABS: Basophils # (auto) 0.03 K/uL (0-0.2); Basophils % (auto) 0.2 %; Echinocytes 1+; Eosinophils % (auto) 0.5 %; Immature Granulocytes # (auto) 0.63 K/uL (0.00-0.02); Immature Granulocytes % (auto) 3.3 %; Lymphocytes # (auto) 2.56 K/uL (1.2-3.4); Lymphocytes % (auto) 13.6 %; Monocytes # (auto) 1.44 K/uL (0.11-0.59); Monocytes % (auto) 7.6 %; Neutrophils # (auto) 14.08 K/uL (1.4-6.5); Neutrophils % (auto) 74.8 %
[2021-08-18] MEDS ORDERED: POTASSIUM PHOS 3 MMOL/1 ML INFUSION IV STA (08:48)
[2021-08-18] MEDS ORDERED: POTASSIUM PHOSPHATE 9 MMOL in SODIUM CHLORIDE 0.9% 250 ML IV ONE (09:00)
[2021-08-18] MEDS: LACTATED RINGER'S 1,000 ML IV SCH ×2 (10:37→22:52)
[2021-08-18] MEDS: FIDAXOMICIN 200 MG TAB PO SCH ×2 (10:39→20:21)
[2021-08-18] MEDS: DORZOLAMIDE HCL 2% OPH SOLN 10 ML BTL OP SCH ×2 (11:30→20:20)
[2021-08-18] MEDS: POT PHOSPHATE MONOBASIC W/ SOD TAB PO SCH ×3 (11:31→20:21)
[2021-08-18] MEDS: FAMOTIDINE 40 MG TABLET PO SCH (11:32)
[2021-08-18] MEDS: PANTOprazole 40 MG TAB PO SCH (11:32)
[2021-08-18] MEDS: THIAMINE HCL 100 MG TAB PO SCH (11:33)
[2021-08-18] MEDS: FELODIPINE 2.5 MG TABCR PO SCH (11:33)
[2021-08-18] MEDS: SERTRALINE HCL 50 MG TABLET PO SCH (11:34)
[2021-08-18] MEDS: predniSONE 5 MG TAB PO SCH (11:34)
[2021-08-18] MEDS: ENOXAPARIN INJ 40 MG/0.4 ML SYR SQ SCH (11:35)
[2021-08-18] MEDS: MoRPHine SULFATE 4 MG/ML 1 ML CARP\\VIAL IV PRN (13:38)
--- NOTE | 2021-08-18 17:49 | Hospitalist Progress Note ---
Date of Service August 18, 2021 Assessment & Plan (1) C. difficile colitis: Plan: Patient with prior C. difficile infection status post 2 courses of antibiotic treatment with po Vanco from 05/2021-06/2021. She has had continuous diarrhea since then despite testing neg for C. diff, but then took a course of abx for a UTI recently and had worsening of the diarrhea. - Leukocytosis on admission WBC = 18.84 and lactate initially elevated at 2.3. C. difficile gene and toxin positive. CT with inflammation of the colon consistent with colitis, most likely secondary to C. difficile infection. - Diarrhea lessening, still watery - Afebrile - Leukocytosis improving 08/19. Consider CT-Ab repeat if worsening or concern for megacolon; pt clinically improving at this time - Having pain in rectum from recurrent rectal prolapse that is reducible - Stool culture negative - 08/15- KUB negative for megacolon or obstruction, showed diffuse colonic wall thickening and edema consistent with colitis. KUB repeated 08/17 again neg for megacolon or obstruction -continue Fidaxomicin (Dificid) 200 mg p.o. twice daily for treatment of recurrent C. difficile infection-GI recommends prolonged course-will give 20 days total -continue LR 75cc/hr -continue metronidazole (Flagyl) 500 mg IV every 8 hours for severe disease in addition to Dificid-started evening of 08/14 -continue clear liquids diet only for now -discontinued home colchicine daily as this can also contribute to diarrhea -if had toxic megacolon, would need transfer out to tertiary care facility due to advanced age, comorbidities for total colectomy -pain control with IV morphine prn -no intervention for rectal prolapse unless protrudes and turns necrotic -chronic prednisone use does increase her risk for bowel perforation (2) Splenic infarct: Plan: - Question of splenic infarct and IVC thrombus new from CT abdomen obtained on 08/10. 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 Questionable stricture versus thrombus in the right hepatic vein along the proximal portion. - Patient initially started on Heparin drip. Further review of imaging indicated this most likely was an over read. Heparin drip was discontinued - RULED OUT (4) GERD (gastroesophageal reflux disease): Plan: Chronic. Continue famotidine, PPI (5) Depression: Plan: -Chronic. -Continue Zoloft 50 mg p.o. every morning (6) CKD (chronic kidney disease): Plan: -Chronic kidney disease, stage 2-3 -BUN and creatinine near baseline -Avoid nephrotoxic agents -Continue to monitor BUN, creatinine, electrolytes, urine output (7) Scleroderma: Plan: -Chronic. -Patient states that she has pulmonary involvement as well. -Patient follows with pulmonology and has routine PFTs. Most recent PFTs 05/01/21 showed no obstructive lung dysfunction. Slightly decreased DLCOunc with poor patient effort during exam. -Continue hydroxychloroquine -Continue prednisone -Continue felodipine for Raynaud's (8) Cough: Plan: -dry, mild -has fibrosis at bases of lungs on imaging -could be some developing pulm edema given hypoalbuminemia and IVFs. IVF as noted -Continue inceptive allyson (9) Edema: Plan: -trace peripheral edema -does have hypoalbuminemia and receiving IVFs -also scleroderma causes some skin changes and shiny skin -will reduce IVFs as above - Pt very concerned about swelling, will order dopplers given large change and some calf pain, suspect 2/2 hypoalbumenia and 3rd spacing - + Boost Plan: DVT proph-SCDs, Lovenox SQ today Dispo-med/surg PT/OT once slightly more clinically progressed Admission and Anticipated Discharge Date Admission Date: August 12, 2021 Judi Hernandez seen at the bedside this morning. She reports that she feels fatigued and continues to have watery diarrhea several times a day with pain from her rectal prolapse. She does feel her abdomen is improving, and her belly pain is much better today and 3/10 overall. She reports her appetite is diminished but intact. No nausea/vomiting this morning. She denies fever/chills/sweats. Review of Systems Review of Systems: Constitutional: Denies fever, chills, Endorses fatigue Eyes: Denies vision change ENT: Denies ear pain, sore throat, sinus pain Cardiovascular: Denies Chest pain, chest pressure, palpitations, extremity swelling Respiratory: Denies shortness of breath, sputum production, difficulty breathing Gastrointestinal: Denies abdominal pain, nausea, vomiting. Endorses diarrhea as noted Genitourinary: Denies dysuria, urinary frequency Musculoskeletal: Endorses bilateral leg swelling and some calf aching bilaterally. Denies other focal muscle aches/pains. Continues to endorse global fatigue Integumentary:Denies acute rash, lesions, bruising Neurological: Denies numbness, tingling, focal weakness Physical Exam Physical Exam: General: A&Ox3. NAD. Cooperative. HEENT: Atraumatic, normocephalic. Visual acuity and hearing grossly intact. Extraocular movements intact. Pulm: CTAB A&P. -wheezes, -rales, -rhonchi. Symmetrical chest rise. No increase work of breathing. No respiratory distress. Cardiac: RRR, -mrg. Radial pulses intact and symmetrical. Abdominal: Nontender to palpation, without guarding on exam, nondistended, soft. BS Increased Extremities: Bilateral soft tissue edema 1+ pitting of the lower extremities bilaterally, no calf asymmetry. Ankle dorsiflexion/plantar flexion is 5/5 bilaterally. [employer] strength 5/5 bilaterally. Sensation to soft touch intact in hands and calfs bilaterally. PT pulse intact bilaterally. Results & Data Results & Data ([facility]) Vital Signs (Past 12 Hours) Vital Signs Temp Pulse Resp BP Pulse Ox 08/18/21 15:50 36.7 C 98 H 16 111/68 95 08/18/21 07:00 36.8 C 85 18 116/69 95 PG Care Time/CCT Total # of Minutes Spent Total Time Spent with Patient: Total time spent is greater than 50% in coordination of care (as documented) at patient's floor/unit and/or counseling patient: Coding Level of Care Code 29126 Subseq Hosp Care Lvl 2 Diagnoses C. 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
--- NOTE | 2021-08-18 18:36 | Ultrasound Report ---
BILATERAL LOWER EXTREMITY VENOUS DOPPLER HISTORY: Bilateral leg swelling COMPARISON STUDY: None. FINDINGS: There is normal compressibility, flow, and augmentation within the bilateral lower extremit y deep venous systems. IMPRESSION: No DVT within the right or left lower extremity. ACT 112: Negative or not required by law. Electronically signed by: Mark Villela M.D. 08/18/2021 6:34 PM
[2021-08-18] MEDS: TRAVOPROST Z 0.004% OPH SOLN 2.5 ML BTL OP SCH (20:25)
[2021-08-18] MEDS: MoRPHine SULFATE 2 MG/ML CARP IV PRN (21:48)
[2021-08-19] MEDS: LACTATED RINGER'S 1,000 ML IV SCH ×2 (01:34→17:04)
[2021-08-19] MEDS: metroNIDAZOLE 500 MG/100 ML BAG IV SCH ×3 (01:34→18:37)
[2021-08-19] MEDS: MoRPHine SULFATE 2 MG/ML CARP IV PRN (02:09)
[2021-08-19 06:35] LABS: Basophils # (auto) 0.02 K/uL (0-0.2); Basophils % (auto) 0.1 %; Eosinophils # (auto) 0.12 K/uL (0-0.5); Eosinophils % (auto) 0.7 %; Hematocrit (blood only) 34.9 % (37-47); Hemoglobin 11.2 g/dL (12.0-16.0); Lymphocytes # (auto) 2.27 K/uL (1.2-3.4); Lymphocytes % (auto) 12.8 %; Mean Corpuscular Hemoglobin 29.9 pg (25-34); Mean Corpuscular Hgb Conc 32.1 g/dL (32-36); Mean Corpuscular Volume 93.1 fL (80-100); Mean Platelet Volume 9.1 fL (7.4-10.4); Monocytes # (auto) 1.26 K/uL (0.11-0.59); Monocytes % (auto) 7.1 %; Neutrophils # (auto) 13.32 K/uL (1.4-6.5); Neutrophils % (auto) 75.3 %; Platelet Count 456 K/uL (130-400); RDW Coefficient of Variation 15.1 % (11.5-14.5); RDW Standard Deviation 51.9 fL (36.4-46.3); Red Blood Count 3.75 M/uL (4.2-5.4); White Blood Count 17.69 K/uL (4.8-10.8)
[2021-08-19 07:04] LABS: BUN Creatinine Ratio 27.1 (10-20); Calcium 7.3 mg/dl (8.5-10.1); Creatinine Clr Calc Pharmacy 67.9 ml/min; Est GFR (African American) 104.8 ml/min; Est GFR (Non-African American) 90.4 ml/min; Potassium 3.7 mmol/L (3.5-5.1)
[2021-08-19] MEDS: DORZOLAMIDE HCL 2% OPH SOLN 10 ML BTL OP SCH ×2 (11:46→20:43)
[2021-08-19] MEDS: PANTOprazole 40 MG TAB PO SCH (11:47)
[2021-08-19] MEDS: predniSONE 5 MG TAB PO SCH (11:47)
[2021-08-19] MEDS: FIDAXOMICIN 200 MG TAB PO SCH ×2 (11:48→20:43)
[2021-08-19] MEDS: FELODIPINE 2.5 MG TABCR PO SCH (11:48)
[2021-08-19] MEDS: SERTRALINE HCL 50 MG TABLET PO SCH (11:49)
[2021-08-19] MEDS: FAMOTIDINE 40 MG TABLET PO SCH (11:50)
[2021-08-19] MEDS: THIAMINE HCL 100 MG TAB PO SCH (11:50)
[2021-08-19] MEDS: ENOXAPARIN INJ 40 MG/0.4 ML SYR SQ SCH (11:52)
--- NOTE | 2021-08-19 14:35 | Hospitalist Progress Note ---
Date of Service August 19, 2021 Assessment & Plan (1) C. difficile colitis: Plan: Patient with prior C. difficile infection status post 2 courses of antibiotic treatment with po Vanco from 05/2021-06/2021. She has had continuous diarrhea since then despite testing neg for C. diff, but then took a course of abx for a UTI recently and had worsening of the diarrhea. - Leukocytosis on admission WBC = 18.84 and lactate initially elevated at 2.3. C. difficile gene and toxin positive. CT with inflammation of the colon consistent with colitis, most likely secondary to C. difficile infection. - Diarrhea lessening, still watery - Afebrile - Leukocytosis improving. Consider CT-Ab repeat if worsening or concern for megacolon; pt clinically improving at this time - Having pain in rectum from recurrent rectal prolapse that is reducible - Stool culture negative - 08/15- KUB negative for megacolon or obstruction, showed diffuse colonic wall thickening and edema consistent with colitis. KUB repeated 08/17 again neg for megacolon or obstruction -continue Fidaxomicin (Dificid) 200 mg p.o. twice daily for treatment of recurrent C. difficile infection-GI recommends prolonged course-will give 20 days total -continue LR 75cc/hr -continue metronidazole (Flagyl) 500 mg IV every 8 hours for severe disease in addition to Dificid-started evening of 08/14 -discontinued home colchicine daily as this can also contribute to diarrhea -if had toxic megacolon, would need transfer out to tertiary care facility due to advanced age, comorbidities for total colectomy -pain control with IV morphine prn -no intervention for rectal prolapse unless protrudes and turns necrotic -chronic prednisone use does increase her risk for bowel perforation Trial Questran Trial full liquid diet + Boost (2) Splenic infarct: Plan: - Question of splenic infarct and IVC thrombus new from CT abdomen obtained on 08/10. 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 Questionable stricture versus thrombus in the right hepatic vein along the proximal portion. - Patient initially started on Heparin drip. Further review of imaging indicated this most likely was an over read. Heparin drip was discontinued - RULED OUT (4) GERD (gastroesophageal reflux disease): Plan: Chronic. Continue famotidine, PPI (5) Depression: Plan: -Chronic. -Continue Zoloft 50 mg p.o. every morning (6) CKD (chronic kidney disease): Plan: -Chronic kidney disease, stage 2-3 -BUN and creatinine near baseline -Avoid nephrotoxic agents -Continue to monitor BUN, creatinine, electrolytes, urine output (7) Scleroderma: Plan: -Chronic. -Patient states that she has pulmonary involvement as well. -Patient follows with pulmonology and has routine PFTs. Most recent PFTs 05/01/21 showed no obstructive lung dysfunction. Slightly decreased DLCOunc with poor patient effort during exam. -Continue hydroxychloroquine -Continue prednisone -Continue felodipine for Raynaud's (8) Cough: Plan: -dry, mild -has fibrosis at bases of lungs on imaging -could be some developing pulm edema given hypoalbuminemia and IVFs. IVF as noted -Continue inceptive allyson (9) Edema: Plan: -trace peripheral edema -does have hypoalbuminemia and receiving IVFs -also scleroderma causes some skin changes and shiny skin -will reduce IVFs as above - Pt very concerned about swelling, bilateral Dopplers negative Discussed likely 2/2 hypoalbuminemia with poor nutrition in the last week. Diet advanced to full liquid, plus boost Plan: DVT proph-SCDs, Lovenox SQ today Dispo-med/surg PT/OT once slightly more clinically progressed Admission and Anticipated Discharge Date Admission Date: August 12, 2021 Subjective Seen at bedside today. Feels similar to slightly improved today. She feels her abdominal pain continues to improve and is fairly mild today. She reports she continues to have liquid diarrhea, but the volume is slightly less than yesterday and is without blood. No vomiting, slightly uneasy stomach but minimal nausea. Will try advancement of full liquid diet. Review of Systems Review of Systems: Constitutional: Denies fever, chills, Endorses fatigue Eyes: Denies vision change ENT: Denies ear pain, sore throat, sinus pain Cardiovascular: Denies Chest pain, chest pressure, palpitations, extremity swelling Respiratory: Denies shortness of breath, sputum production, difficulty breathing Gastrointestinal: Denies abdominal pain, nausea, vomiting. Endorses diarrhea as noted Genitourinary: Denies dysuria, urinary frequency Musculoskeletal: Endorses bilateral leg swelling and some calf aching bilaterally. Denies other focal muscle aches/pains. Continues to endorse global fatigue Integumentary:Denies acute rash, lesions, bruising Neurological: Denies numbness, tingling, focal weakness Physical Exam Physical Exam: General: A&Ox3. NAD. Cooperative. HEENT: Atraumatic, normocephalic. Visual acuity and hearing grossly intact. Extraocular movements intact. Pulm: CTAB A&P. -wheezes, -rales, -rhonchi. Symmetrical chest rise. No increase work of breathing. No respiratory distress. Cardiac: RRR, -mrg. Radial pulses intact and symmetrical. Abdominal: Nontender to palpation, without guarding on exam, nondistended, soft. BS Increased Extremities: Bilateral soft tissue edema 1+ pitting of the lower extremities bilaterally, no calf asymmetry. Ankle dorsiflexion/plantar flexion is 5/5 bilaterally. Machine Folder strength 5/5 bilaterally. Sensation to soft touch intact in hands and calfs bilaterally. PT pulse intact bilaterally. Results & Data Results & Data ([facility]) Vital Signs (Past 12 Hours) Vital Signs Temp Pulse Resp BP Pulse Ox 08/19/21 07:53 36.7 C 85 17 122/71 96 PG Care Time/CCT Total # of Minutes Spent Total Time Spent with Patient: Total time spent is greater than 50% in coordin ation of care (as documented) at patient's floor/unit and/or counseling patient: Coding Level of Care Code 46138 Subseq Hosp Care Lvl 2 Diagnoses C. 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
[2021-08-19] MEDS: TRAVOPROST Z 0.004% OPH SOLN 2.5 ML BTL OP SCH (20:43)
[2021-08-19] MEDS: CHOLESTYRAMINE LIGHT 4 GM PKT PO SCH (21:55)
[2021-08-20] MEDS: metroNIDAZOLE 500 MG/100 ML BAG IV SCH ×3 (01:41→17:01)
[2021-08-20 06:13] LABS: Hematocrit (blood only) 36.3 % (37-47); Hemoglobin 11.8 g/dL (12.0-16.0); Mean Corpuscular Hemoglobin 29.4 pg (25-34); Mean Corpuscular Hgb Conc 32.5 g/dL (32-36); Mean Corpuscular Volume 90.3 fL (80-100); Mean Platelet Volume 8.9 fL (7.4-10.4); Platelet Count 435 K/uL (130-400); RDW Coefficient of Variation 15.1 % (11.5-14.5); RDW Standard Deviation 49.6 fL (36.4-46.3); Red Blood Count 4.02 M/uL (4.2-5.4); White Blood Count 15.71 K/uL (4.8-10.8)
[2021-08-20 06:31] LABS: Basophils # (auto) 0.02 K/uL (0-0.2); Basophils % (auto) 0.1 %; Eosinophils # (auto) 0.21 K/uL (0-0.5); Eosinophils % (auto) 1.3 %; Immature Granulocytes # (auto) 0.85 K/uL (0.00-0.02); Immature Granulocytes % (auto) 5.4 %; Lymphocytes # (auto) 2.11 K/uL (1.2-3.4); Lymphocytes % (auto) 13.4 %; Monocytes # (auto) 0.87 K/uL (0.11-0.59); Monocytes % (auto) 5.5 %; Neutrophils # (auto) 11.65 K/uL (1.4-6.5); Neutrophils % (auto) 74.3 %
[2021-08-20] MEDS: LACTATED RINGER'S 1,000 ML IV SCH ×2 (06:36→22:41)
[2021-08-20 06:52] LABS: Albumin Level 1.5 gm/dl (3.4-5.0); BUN Creatinine Ratio 22.3 (10-20); Calcium 7.6 mg/dl (8.5-10.1); Creatinine Clr Calc Pharmacy 74.8 ml/min; Est GFR (African American) 108.2 ml/min; Est GFR (Non-African American) 93.3 ml/min; Magnesium 1.8 mg/dl (1.8-2.4); Potassium 3.4 mmol/L (3.5-5.1)
[2021-08-20 06:55] LABS: Albumin Globulin Ratio 0.6 (0.9-2); Bilirubin,Total 0.4 mg/dl (0.2-1); Globulin 2.7 gm/dl (2.5-4.0); Phosphorus 1.8 mg/dl (2.5-4.9); Total Protein 4.2 gm/dl (6.4-8.2)
[2021-08-20] MEDS: FIDAXOMICIN 200 MG TAB PO SCH ×2 (07:44→20:05)
[2021-08-20] MEDS: DORZOLAMIDE HCL 2% OPH SOLN 10 ML BTL OP SCH ×2 (07:44→20:06)
[2021-08-20] MEDS: predniSONE 5 MG TAB PO SCH (08:33)
[2021-08-20] MEDS: PANTOprazole 40 MG TAB PO SCH (08:33)
[2021-08-20] MEDS: SERTRALINE HCL 50 MG TABLET PO SCH (08:33)
[2021-08-20] MEDS: FAMOTIDINE 40 MG TABLET PO SCH (08:33)
[2021-08-20] MEDS: FELODIPINE 2.5 MG TABCR PO SCH (08:33)
[2021-08-20] MEDS: THIAMINE HCL 100 MG TAB PO SCH (08:33)
[2021-08-20] MEDS ORDERED: POTASSIUM PHOS 3 MMOL/1 ML INFUSION IV STA (08:52)
[2021-08-20] MEDS: CHOLESTYRAMINE LIGHT 4 GM PKT PO SCH ×2 (09:14→21:47)
[2021-08-20] MEDS: POT PHOSPHATE MONOBASIC W/ SOD TAB PO SCH ×4 (09:14→20:05)
[2021-08-20] MEDS ORDERED: POTASSIUM PHOSPHATE 21 MMOL in SODIUM CHLORIDE 0.9% 500 ML IV ONE (09:15)
[2021-08-20] MEDS: ENOXAPARIN INJ 40 MG/0.4 ML SYR SQ SCH (12:26)
[2021-08-20] MEDS: ONDANSETRON INJ 2 MG/ML 2 ML VIAL IV PRN (12:31)
--- NOTE | 2021-08-20 14:15 | Hospitalist Progress Note ---
Date of Service August 20, 2021 Assessment & Plan (1) C. difficile colitis: Plan: Patient with prior C. difficile infection status post 2 courses of antibiotic treatment with po Vanco from 05/2021-06/2021. She has had continuous diarrhea since then despite testing neg for C. diff, but then took a course of abx for a UTI recently and had worsening of the diarrhea. - Leukocytosis on admission WBC = 18.84 and lactate initially elevated at 2.3. C. difficile gene and toxin positive. CT with inflammation of the colon consistent with colitis, most likely secondary to C. difficile infection. - Diarrhea persists, still watery - Afebrile - Leukocytosis continuing to improve, not yet normalized. Consider CT-Ab repeat if worsening or concern for megacolon; pt clinically improving at this time - Having pain in rectum from recurrent rectal prolapse that is reducible - Stool culture negative - 08/15- KUB negative for megacolon or obstruction, showed diffuse colonic wall thickening and edema consistent with colitis. KUB repeated 08/17 again neg for megacolon or obstruction -continue Fidaxomicin (Dificid) 200 mg p.o. twice daily for treatment of recurrent C. difficile infection-GI recommends prolonged course-will give 20 days total -continue LR 75cc/hr -continue metronidazole (Flagyl) 500 mg IV every 8 hours for severe disease in addition to Dificid-started evening of 08/14 -discontinued home colchicine daily as this can also contribute to diarrhea -if had toxic megacolon, would need transfer out to tertiary care facility due to advanced age, comorbidities for total colectomy -pain control with IV morphine prn -no intervention for rectal prolapse unless protrudes and turns necrotic -chronic prednisone use does increase her risk for bowel perforation Trial Questran Patient unable to tolerate liquid/full diet. Has had chronic malnutrition for a full week, concern for enteral integrity. Discussed options extensively with patient, will place NGT and consult nutrition for trophic partial elemental feeds. KUB to confirm placement will also be placed for reevaluation of colon Phosphate, potassium low and repleted. Repeat in a.m. (2) Splenic infarct: Plan: - Question of splenic infarct and IVC thrombus new from CT abdomen obtained on 08/10. 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 Questionable stricture versus thrombus in the right hepatic vein along the proximal portion. - Patient initially started on Heparin drip. Further review of imaging indicated this most likely was an over read. Heparin drip was discontinued - RULED OUT (4) GERD (gastroesophageal reflux disease): Plan: Chronic. Continue famotidine, PPI (5) Depression: Plan: -Chronic. -Continue Zoloft 50 mg p.o. every morning (6) CKD (chronic kidney disease): Plan: -Chronic kidney disease, stage 2-3 -BUN and creatinine near baseline -Avoid nephrotoxic agents -Continue to monitor BUN, creatinine, electrolytes, urine output (7) Scleroderma: Plan: -Chronic. -Patient states that she has pulmonary involvement as well. -Patient follows with pulmonology and has routine PFTs. Most recent PFTs 05/01/21 showed no obstructive lung dysfunction. Slightly decreased DLCOunc with poor patient effort during exam. -Continue hydroxychloroquine -Continue prednisone -Continue felodipine for Raynaud's (8) Cough: Plan: -dry, mild -has fibrosis at bases of lungs on imaging -could be some developing pulm edema given hypoalbuminemia and IVFs. IVF as noted -Continue inceptive allyson (9) Edema: Plan: -trace peripheral edema -does have hypoalbuminemia and receiving IVFs -also scleroderma causes some skin changes and shiny skin -will reduce IVFs as above - Pt very concerned about swelling, bilateral Dopplers negative Discussed likely 2/2 hypoalbuminemia with poor nutrition in the last week. Diet advanced to full liquid, plus boost Plan: DVT proph-SCDs, Lovenox SQ today Dispo-med/surg PT/OT once slightly more clinically progressed Admission and Anticipated Discharge Date Admission Date: August 12, 2021 Judi Hernandez is seen at the bedside this morning. She reports that her night was "terrible "and that her diarrhea has not improved in either volume or consistency. She has also had difficulty sleeping, and continues to feel weak. She was not able to tolerate a full liquid diet, and she says meals run right through her. She continues to have some abdominal discomfort. Denies fever/chills/sweats but feels weak and wiped out. Discussed her care at bedside, and also with her family today via phone conference. Discussed NGT and trophic feeds, patient agreeable and will trial as noted in plan. Review of Systems Review of Systems: Constitutional: Denies fever, chills, Endorses fatigue Eyes: Denies vision change ENT: Denies ear pain, sore throat, sinus pain Cardiovascular: Denies Chest pain, chest pressure, palpitations, extremity swelling Respiratory: Denies shortness of breath, sputum production, difficulty breathing Gastrointestinal: endorses mild abdominal discomfort, no vomiting. Endorses diarrhea as noted Genitourinary: Denies dysuria, urinary frequency Musculoskeletal: Endorses bilateral leg swelling. Denies other focal muscle aches/pains. Continues to endorse global fatigue Integumentary:Denies acute rash, lesions, bruising Neurological: Denies numbness, tingling, focal weakness Physical Exam Physical Exam: General: A&Ox3. NAD. Cooperative. HEENT: Atraumatic, normocephalic. Visual acuity and hearing grossly intact. Extraocular movements intact. Pulm: CTAB A&P. -wheezes, -rales, -rhonchi. Symmetrical chest rise. No increase work of breathing. No respiratory distress. Cardiac: RRR, -mrg. Radial pulses intact and symmetrical. Abdominal: Mild diffuse tenderness to palpation without rebound, soft, without guarding. BS Increased Extremities: Bilateral soft tissue edema 1+ pitting of the lower extremities bilaterally, no calf asymmetry. Ankle dorsiflexion/plantar flexion is 5/5 bilaterally. Handcrew Foreman strength 5/5 bilaterally. Sensation to soft touch intact in hands and calfs bilaterally. PT pulse intact bilaterally. Results & Data Results & Data ([facility]) Vital Signs (Past 12 Hours) Vital Signs Temp Pulse Resp BP Pulse Ox 08/20/21 08:29 36.9 C 89 18 135/78 97 PG Care Time/CCT Total # of Minutes Spent Total Time Spent with Patient: Total time spent is greater than 50% in coordination of care (as documented) at patient's floor/unit and/or counseling patient: Coding Level of Care Code 13529 Subseq Hosp Care Lvl 3 Diagnoses C. 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
--- NOTE | 2021-08-20 16:20 | Communication Note ---
Date of Service: August 20, 2021 Family meeting by phone reviewed case including progression and NGT with pts daughter and son. Family request point person Sarah Hampton at [phone] can be updated and will discuss with other family members. No additional questions at time of voice visit.
[2021-08-20] MEDS: LORazepam 0.5 MG/1 ML VIAL IV PRN (17:02)
--- NOTE | 2021-08-20 17:34 | XRay Report ---
KUB HISTORY: Status post placement of an enteric tube to confirm NGT after placement COMPARISON: KUB 08/17/2021 FINDINGS: Status post placement of a feeding tube with distal tip projected within the right upper qu adrant abdomen within the region of the duodenal bulb. Calcified granulomata of the spleen. Layering pleural effusions with bibasilar consolidation. No renal calculi. No ureteral calculi. No pneumoperit oneum or pneumatosis. No fracture. IMPRESSION: 1. Feeding tube distal tip is present within the expected location of the duodenal bulb. 2. Layering pleural effusions with bibasilar consolidation. ACT 112: Negative or not required by law. The above report was generated using voice recognition software. It may contain grammatical, syntax o r spelling errors. Electronically signed by: Lamberto Frey M.D. 08/20/2021 5:33 PM
[2021-08-20] MEDS: TUBE FEEDING WATER FLUSH NG SCH ×2 (18:23→22:11)
[2021-08-20] MEDS: PEPTAMEN 1.5 CAL 1,000 ML BAG NG SCH (18:23)
[2021-08-20] MEDS: TRAVOPROST Z 0.004% OPH SOLN 2.5 ML BTL OP SCH (20:06)
[2021-08-21] MEDS: metroNIDAZOLE 500 MG/100 ML BAG IV SCH ×3 (01:31→18:23)
[2021-08-21] MEDS: TUBE FEEDING WATER FLUSH NG SCH ×6 (01:32→21:30)
[2021-08-21] MEDS: FAMOTIDINE 40 MG TABLET PO SCH (08:18)
[2021-08-21] MEDS: SERTRALINE HCL 50 MG TABLET PO SCH (08:18)
[2021-08-21] MEDS: DORZOLAMIDE HCL 2% OPH SOLN 10 ML BTL OP SCH ×2 (08:18→20:33)
[2021-08-21] MEDS: predniSONE 5 MG TAB PO SCH (08:18)
[2021-08-21] MEDS: POT PHOSPHATE MONOBASIC W/ SOD TAB PO SCH ×4 (08:18→20:35)
[2021-08-21] MEDS: FELODIPINE 2.5 MG TABCR PO SCH (08:18)
[2021-08-21] MEDS: FIDAXOMICIN 200 MG TAB PO SCH ×2 (08:18→20:35)
[2021-08-21] MEDS: PANTOprazole 40 MG TAB PO SCH (08:18)
[2021-08-21] MEDS: THIAMINE HCL 100 MG TAB PO SCH (08:18)
[2021-08-21 09:30] LABS: Basophils # (auto) 0.02 K/uL (0-0.2); Basophils % (auto) 0.1 %; Eosinophils # (auto) 0.23 K/uL (0-0.5); Eosinophils % (auto) 1.4 %; Hemoglobin 12.7 g/dL (12.0-16.0); Immature Granulocytes # (auto) 0.54 K/uL (0.00-0.02); Immature Granulocytes % (auto) 3.3 %; Lymphocytes # (auto) 2.54 K/uL (1.2-3.4); Lymphocytes % (auto) 15.6 %; Mean Corpuscular Hemoglobin 29.2 pg (25-34); Mean Corpuscular Hgb Conc 32.6 g/dL (32-36); Mean Corpuscular Volume 89.7 fL (80-100); Monocytes % (auto) 6.2 %; Neutrophils # (auto) 11.91 K/uL (1.4-6.5); Neutrophils % (auto) 73.4 %; Platelet Count 424 K/uL (130-400); RDW Coefficient of Variation 15.3 % (11.5-14.5); RDW Standard Deviation 49.9 fL (36.4-46.3); Red Blood Count 4.35 M/uL (4.2-5.4); White Blood Count 16.24 K/uL (4.8-10.8)
[2021-08-21 09:55] LABS: BUN Creatinine Ratio 14.5 (10-20); Creatinine Clr Calc Pharmacy 62.2 ml/min; Est GFR (African American) 101.7 ml/min; Est GFR (Non-African American) 87.8 ml/min; Magnesium 1.9 mg/dl (1.8-2.4); Potassium 3.2 mmol/L (3.5-5.1)
[2021-08-21 09:59] LABS: Phosphorus 2.8 mg/dl (2.5-4.9)
[2021-08-21] MEDS: LACTATED RINGER'S 1,000 ML IV SCH (10:47)
[2021-08-21] MEDS: CHOLESTYRAMINE LIGHT 4 GM PKT PO SCH ×2 (10:50→21:46)
--- NOTE | 2021-08-21 13:02 | Hospitalist Progress Note ---
Date of Service August 21, 2021 Assessment & Plan (1) C. difficile colitis: Plan: Patient with prior C. difficile infection status post 2 courses of antibiotic treatment with po Vanco from 05/2021-06/2021. She has had continuous diarrhea since then despite testing neg for C. diff, but then took a course of abx for a UTI recently and had worsening of the diarrhea. - Leukocytosis on admission WBC = 18.84 and lactate initially elevated at 2.3. C. difficile gene and toxin positive. CT with inflammation of the colon consistent with colitis, most likely secondary to C. difficile infection. - Diarrhea persists, still watery - Afebrile - Leukocytosis, not yet normalized. Consider CT-Ab repeat if worsening or concern for megacolon; pt clinically improving at this time - Having pain in rectum from recurrent rectal prolapse that is reducible - Stool culture negative - 08/15- KUB negative for megacolon or obstruction, showed diffuse colonic wall thickening and edema consistent with colitis. KUB repeated 08/17 again neg for megacolon or obstruction -continue Fidaxomicin (Dificid) 200 mg p.o. twice daily for treatment of recurrent C. difficile infection-GI recommends prolonged course-will give 20 days total -continue LR 75cc/hr -continue metronidazole (Flagyl) 500 mg IV every 8 hours for severe disease in addition to Dificid-started evening of 08/14 -discontinued home colchicine daily as this can also contribute to diarrhea -if had toxic megacolon, would need transfer out to tertiary care facility due to advanced age, comorbidities for total colectomy -pain control with IV morphine prn -no intervention for rectal prolapse unless protrudes and turns necrotic -chronic prednisone use does increase her risk for bowel perforation Trialing Questran Patient unable to tolerate liquid/full diet. Has had chronic malnutrition for a full week, concern for enteral integrity. Discussed options extensively with patient, NGT placed with partial elemental feeds. KUB confirmed placement, no abnormality of colon appreciated on KUB. Feeds currently at 10cc/hr continuous. Estimated daily caloric needs [id number] kcals per day, per nutrition if able to increase rate goal of 45 cc/h (2) Splenic infarct: Plan: - Question of splenic infarct and IVC thrombus new from CT abdomen obtained on 08/10. 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 Questionable stricture versus thrombus in the right hepatic vein along the proximal portion. - Patient initially started on Heparin drip. Further review of imaging indicated this most likely was an over read. Heparin drip was discontinued - RULED OUT (4) GERD (gastroesophageal reflux disease): Plan: Chronic. Continue famotidine, PPI (5) Depression: Plan: -Chronic. -Continue Zoloft 50 mg p.o. every morning (6) CKD (chronic kidney disease): Plan: -Chronic kidney disease, stage 2-3 -BUN and creatinine near baseline -Avoid nephrotoxic agents -Continue to monitor BUN, creatinine, electrolytes, urine output (7) Scleroderma: Plan: -Chronic. -Patient states that she has pulmonary involvement as well. -Patient follows with pulmonology and has routine PFTs. Most recent PFTs 05/01/21 showed no obstructive lung dysfunction. Slightly decreased DLCOunc with poor patient effort during exam. -Continue hydroxychloroquine -Continue prednisone -Continue felodipine for Raynaud's (8) Cough: Plan: -dry, mild -has fibrosis at bases of lungs on imaging -could be some developing pulm edema given hypoalbuminemia and IVFs. IVF as noted -Continue inceptive allyson (9) Edema: Plan: -trace peripheral edema -does have hypoalbuminemia and receiving IVFs -also scleroderma causes some skin changes and shiny skin -will reduce IVFs as above - Pt very concerned about swelling, bilateral Dopplers negative Discussed likely 2/2 hypoalbuminemia with poor nutrition in the last week. Diet advanced to full liquid, plus boost Plan: DVT proph-SCDs, Lovenox SQ today Dispo-med/surg PT/OT once slightly more clinically progressed Admission and Anticipated Discharge Date Admission Date: August 12, 2021 Subjective Mary feels relatively unchanged today. She feels like she has a little more energy, but the diarrhea has not changed. Tolerating NGT well. Diarrhea has not increased, but has also not improved. No fevers, chills, sweats overnight. Review of Systems Review of Systems: Constitutional: Denies fever, chills, Endorses fatigue slightly improved from prior Eyes: Denies vision change ENT: Denies ear pain, sore throat, sinus pain Cardiovascular: Denies Chest pain, chest pressure, palpitations, extremity swelling Respiratory: Denies shortness of breath, sputum production, difficulty breathing Gastrointestinal: endorses mild abdominal discomfort, no vomiting. Endorses diarrhea as noted Genitourinary: Denies dysuria, urinary frequency Musculoskeletal: Endorses bilateral leg swelling. Denies other focal muscle aches/pains. Continues to endorse global fatigue Integumentary:Denies acute rash, lesions, bruising Neurological: Denies numbness, tingling, focal weakness Physical Exam Physical Exam: General: A&Ox3. NAD. Cooperative. HEENT: Atraumatic, normocephalic. Visual acuity and hearing grossly intact. Extraocular movements intact. NGT intact in right nare. Pulm: CTAB A&P. -wheezes, -rales, -rhonchi. Symmetrical chest rise. No increase work of breathing. No respiratory distress. Cardiac: RRR, -mrg. Radial pulses intact and symmetrical. Abdominal: Mild diffuse tenderness to palpation without rebound, soft, without guarding. BS Increased Extremities: Bilateral soft tissue edema 1+ pitting of the lower extremities bilaterally, no calf asymmetry. Ankle dorsiflexion/plantar flexion is 5/5 bilaterally. Water Fitness Instructor strength 5/5 bilaterally. Sensation to soft touch intact in hands and calfs bilaterally. PT pulse intact bilaterally. Results & Data Results & Data ([facility]) Vital Signs (Past 12 Hours) Vital Signs Temp Pulse Resp BP Pulse Ox 08/21/21 08:17 36.8 C 93 H 16 133/78 97 PG Care Time/CCT Total # of Minutes Spent Total Time Spent with Patient: Total time spent is greater than 50% in coordination of care (as documented) at patient's floor/unit and/or counseling patient: Coding Level of Care Code 92770 Subseq Hosp Care Lvl 3 Diagnoses C. 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
[2021-08-21] MEDS: POTASSIUM CHLORIDE / WTR 10 MEQ/100 ML PLCT IV SCH ×3 (13:17→15:27)
[2021-08-21] MEDS: ENOXAPARIN INJ 40 MG/0.4 ML SYR SQ SCH (13:19)
[2021-08-21] MEDS: SACCHAROMYCES BOULARDII 250 MG CAP PO SCH (14:23)
[2021-08-21] MEDS: ACETAMINOPHEN 325 MG TAB PO PRN (14:44)
[2021-08-21] MEDS: PEPTAMEN 1.5 CAL 1,000 ML BAG NG SCH (18:23)
[2021-08-21] MEDS: TRAVOPROST Z 0.004% OPH SOLN 2.5 ML BTL OP SCH (20:34)
[2021-08-21] MEDS: LORazepam 0.5 MG/1 ML VIAL IV PRN (22:22)
[2021-08-22] MEDS: TUBE FEEDING WATER FLUSH NG SCH ×6 (01:30→22:00)
[2021-08-22] MEDS: metroNIDAZOLE 500 MG/100 ML BAG IV SCH ×3 (02:24→17:41)
[2021-08-22 07:15] LABS: Basophils # (auto) 0.02 K/uL (0-0.2); Basophils % (auto) 0.1 %; Eosinophils % (auto) 2.1 %; Hematocrit (blood only) 35.5 % (37-47); Hemoglobin 11.6 g/dL (12.0-16.0); Immature Granulocytes # (auto) 0.28 K/uL (0.00-0.02); Immature Granulocytes % (auto) 1.9 %; Lymphocytes # (auto) 2.24 K/uL (1.2-3.4); Lymphocytes % (auto) 15.5 %; Mean Corpuscular Hemoglobin 29.2 pg (25-34); Mean Corpuscular Hgb Conc 32.7 g/dL (32-36); Mean Corpuscular Volume 89.4 fL (80-100); Mean Platelet Volume 9.1 fL (7.4-10.4); Monocytes # (auto) 0.98 K/uL (0.11-0.59); Monocytes % (auto) 6.8 %; Neutrophils % (auto) 73.6 %; Platelet Count 392 K/uL (130-400); RDW Coefficient of Variation 15.2 % (11.5-14.5); RDW Standard Deviation 49.3 fL (36.4-46.3); Red Blood Count 3.97 M/uL (4.2-5.4); White Blood Count 14.42 K/uL (4.8-10.8)
[2021-08-22 07:47] LABS: Albumin Level 1.5 gm/dl (3.4-5.0); BUN Creatinine Ratio 14.5 (10-20); Calcium 7.4 mg/dl (8.5-10.1); Creatinine Clr Calc Pharmacy 81.5 ml/min; Est GFR (African American) 111.2 ml/min; Potassium 3.4 mmol/L (3.5-5.1)
[2021-08-22 07:49] LABS: Albumin Globulin Ratio 0.6 (0.9-2); Bilirubin,Total 0.3 mg/dl (0.2-1); Globulin 2.6 gm/dl (2.5-4.0); Total Protein 4.1 gm/dl (6.4-8.2)
[2021-08-22] MEDS: FIDAXOMICIN 200 MG TAB PO SCH ×2 (08:05→20:22)
[2021-08-22] MEDS: DORZOLAMIDE HCL 2% OPH SOLN 10 ML BTL OP SCH ×2 (08:05→20:21)
[2021-08-22] MEDS: SACCHAROMYCES BOULARDII 250 MG CAP PO SCH (08:06)
[2021-08-22] MEDS: predniSONE 5 MG TAB PO SCH (08:06)
[2021-08-22] MEDS: FELODIPINE 2.5 MG TABCR PO SCH (08:06)
[2021-08-22] MEDS: PANTOprazole 40 MG TAB PO SCH (08:06)
[2021-08-22] MEDS: THIAMINE HCL 100 MG TAB PO SCH (08:06)
[2021-08-22] MEDS: SERTRALINE HCL 50 MG TABLET PO SCH (08:07)
[2021-08-22] MEDS: FAMOTIDINE 40 MG TABLET PO SCH (08:07)
[2021-08-22] MEDS: POTASSIUM CHLORIDE CRTAB 20 MEQ TABCR PO SCH ×2 (08:36→20:22)
[2021-08-22] MEDS: CHOLESTYRAMINE LIGHT 4 GM PKT PO SCH ×2 (10:01→22:00)
[2021-08-22] MEDS: ENOXAPARIN INJ 40 MG/0.4 ML SYR SQ SCH (11:07)
--- NOTE | 2021-08-22 12:43 | Hospitalist Progress Note ---
Date of Service August 22, 2021 Assessment & Plan (1) C. difficile colitis: Plan: Patient with prior C. difficile infection status post 2 courses of antibiotic treatment with po Vanco from 05/2021-06/2021. She has had continuous diarrhea since then despite testing neg for C. diff, but then took a course of abx for a UTI recently and had worsening of the diarrhea. - Leukocytosis on admission WBC = 18.84 and lactate initially elevated at 2.3. C. difficile gene and toxin positive. CT with inflammation of the colon consistent with colitis, most likely secondary to C. difficile infection. - Diarrhea persists, still watery - Afebrile - Leukocytosis, not yet normalized, downtrending. Consider CT-Ab repeat if worsening or concern for megacolon - Having pain in rectum from recurrent rectal prolapse that is reducible - Stool culture negative - 08/15- KUB negative for megacolon or obstruction, showed diffuse colonic wall thickening and edema consistent with colitis. KUB repeated 08/17 again neg for megacolon or obstruction -continue Fidaxomicin (Dificid) 200 mg p.o. twice daily for treatment of recurrent C. difficile infection-GI recommends prolonged course-will give 20 days total -continue LR 75cc/hr -continue metronidazole (Flagyl) 500 mg IV every 8 hours for severe disease in addition to Dificid-started evening of 08/14 -discontinued home colchicine daily as this can also contribute to diarrhea -if had toxic megacolon, would need transfer out to tertiary care facility due to advanced age, comorbidities for total colectomy -pain control with IV morphine prn -no intervention for rectal prolapse unless protrudes and turns necrotic -chronic prednisone use does increase her risk for bowel perforation Trialing Questran, no improvement 08/22 Patient unable to tolerate liquid/full diet. Has had chronic malnutrition for a full week, concern for enteral integrity. Discussed options extensively with patient, NGT placed with partial elemental feeds. KUB confirmed placement, no abnormality of colon appreciated on KUB. Started at 10cc/hr continuous 08/21. - Estimated daily caloric needs [id number] kcals per day, per nutrition if able to increase rate goal of 45 cc/h - Trial increase to 20cc/hr 08/21 -Discussed with patient, given prolonged course and failure to improve we will continue to see how she does with NG nutrition and ongoing care through the weekend. Although her leukocytosis is slowly improving, if she clinically continues to feel improved rediscussed with GI 08/25. (2) Splenic infarct: Plan: - Question of splenic infarct and IVC thrombus new from CT abdomen obtained on 08/10. 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 Questionable stricture versus thrombus in the right hepatic vein along the proximal portion. - Patient initially started on Heparin drip. Further review of imaging indicated this most likely was an over read. Heparin drip was discontinued - RULED OUT (4) GERD (gastroesophageal reflux disease): Plan: Chronic. Continue famotidine, PPI (5) Depression: Plan: -Chronic. -Continue Zoloft 50 mg p.o. every morning (6) CKD (chronic kidney disease): Plan: -Chronic kidney disease, stage 2-3 -BUN and creatinine near baseline -Avoid nephrotoxic agents -Continue to monitor BUN, creatinine, electrolytes, urine output (7) Scleroderma: Plan: -Chronic. -Patient states that she has pulmonary involvement as well. -Patient follows with pulmonology and has routine PFTs. Most recent PFTs 05/01/21 showed no obstructive lung dysfunction. Slightly decreased DLCOunc with poor patient effort during exam. -Continue hydroxychloroquine -Continue prednisone -Continue felodipine for Raynaud's (8) Cough: Plan: -dry, mild -has fibrosis at bases of lungs on imaging -could be some developing pulm edema given hypoalbuminemia and IVFs. IVF as noted -Continue inceptive allyson (9) Edema: Plan: -trace peripheral edema -does have hypoalbuminemia and receiving IVFs -also scleroderma causes some skin changes and shiny skin -will reduce IVFs as above - Pt very concerned about swelling, bilateral Dopplers negative Discussed likely 2/2 hypoalbuminemia with poor nutrition in the last week. Diet advanced to full liquid, plus boost Plan: DVT proph-SCDs, Lovenox SQ today Dispo-med/surg PT/OT once slightly more clinically progressed Admission and Anticipated Discharge Date Admission Date: August 12, 2021 Subjective Mary seen at the bedside this morning. She reports she slept much better last night with sleep medicine, and felt more rested this morning. She reports that she continues to feel very wiped out from her diarrhea and has intermittent abdominal discomfort, diarrhea continues and is very watery. Has not noticed a change in frequency or volume yet. No fever/chills/sweats overnight. Reports that her but is somewhat raw from diarrhea and that her rectal prolapse continues to be intermittently painful with bowel movements. Review of Systems Review of Systems: Constitutional: Denies fever, chills, Endorses fatigue Eyes: Denies vision change ENT: Denies ear pain, sore throat, sinus pain Cardiovascular: Denies Chest pain, chest pressure, palpitations, extremity swelling Respiratory: Denies shortness of breath, sputum production, difficulty breathing Gastrointestinal: endorses mild abdominal discomfort, no vomiting. Endorses diarrhea as noted Genitourinary: Denies dysuria, urinary frequency Musculoskeletal: Endorses bilateral leg swelling. Denies other focal muscle aches/pains. Integumentary:Denies acute rash, lesions, bruising. Endorses pain/raw feeling have buttocks from diarrhea. Neurological: Denies numbness, tingling, focal weakness Physical Exam Physical Exam: General: A&Ox3. NAD. Cooperative. HEENT: Atraumatic, normocephalic. Visual acuity and hearing grossly intact. Extraocular movements intact. NGT intact in right nare. Pulm: CTAB A&P. -wheezes, -rales, -rhonchi. Symmetrical chest rise. No increase work of breathing. No respiratory distress. Cardiac: RRR, -mrg. Radial pulses intact and symmetrical. Abdominal: Mild diffuse tenderness to palpation without rebound, soft, without guarding. BS Increased Extremities: Bilateral soft tissue edema of the lower extremities bilaterally, no calf asymmetry. Ankle dorsiflexion/plantar flexion is 5/5 bilaterally. Adjunct [employer] strength 5/5 bilaterally. Sensation to soft touch intact in hands and calfs bilaterally. PT pulse intact bilaterally. Results & Data Results & Data ([facility]) Vital Signs (Past 12 Hours) Vital Signs Temp Pulse Resp BP Pulse Ox 08/22/21 06:22 36.8 C 99 H 18 126/80 96 PG Care Time/CCT Total # of Minutes Spent Total Time Spent with Patient: Total time spent is greater than 50% in coordination of care (as documented) at patient's floor/unit and/or counseling patient: Coding Level of Care Code 08410 Subseq Hosp Care Lvl 2 Diagnoses C. 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
[2021-08-22] MEDS: ONDANSETRON INJ 2 MG/ML 2 ML VIAL IV PRN (18:05)
[2021-08-22] MEDS: TRAVOPROST Z 0.004% OPH SOLN 2.5 ML BTL OP SCH (20:21)
[2021-08-22] MEDS: LORazepam 0.5 MG/1 ML VIAL IV PRN (22:35)
[2021-08-23] MEDS: TUBE FEEDING WATER FLUSH NG SCH ×6 (01:30→21:30)
[2021-08-23] MEDS: metroNIDAZOLE 500 MG/100 ML BAG IV SCH ×3 (02:26→17:33)
[2021-08-23 06:05] LABS: Basophils # (auto) 0.02 K/uL (0-0.2); Basophils % (auto) 0.2 %; Eosinophils % (auto) 1.6 %; Hematocrit (blood only) 33.6 % (37-47); Immature Granulocytes % (auto) 1.6 %; Lymphocytes # (auto) 2.01 K/uL (1.2-3.4); Lymphocytes % (auto) 15.7 %; Mean Corpuscular Hemoglobin 29.4 pg (25-34); Mean Corpuscular Hgb Conc 32.7 g/dL (32-36); Mean Corpuscular Volume 89.8 fL (80-100); Mean Platelet Volume 8.9 fL (7.4-10.4); Monocytes % (auto) 6.3 %; Neutrophils # (auto) 9.55 K/uL (1.4-6.5); Neutrophils % (auto) 74.6 %; Platelet Count 335 K/uL (130-400); RDW Coefficient of Variation 15.5 % (11.5-14.5); RDW Standard Deviation 49.8 fL (36.4-46.3); Red Blood Count 3.74 M/uL (4.2-5.4); White Blood Count 12.78 K/uL (4.8-10.8)
[2021-08-23] MEDS ORDERED: ZINC OXIDE 16% 45 APPLN, HYDROCORTISONE 1% 45 APPLN, ALUMINUM/MAGNESIUM SUSP 15 ML, BAR... TOP PRN (06:27)
[2021-08-23 06:34] LABS: BUN Creatinine Ratio 11.7 (10-20); Calcium 7.6 mg/dl (8.5-10.1); Creatinine Clr Calc Pharmacy 67.9 ml/min; Est GFR (African American) 104.8 ml/min; Est GFR (Non-African American) 90.4 ml/min; Magnesium 1.8 mg/dl (1.8-2.4); Potassium 3.7 mmol/L (3.5-5.1)
[2021-08-23 06:37] LABS: Phosphorus 1.9 mg/dl (2.5-4.9)
[2021-08-23] MEDS ORDERED: BUTT PASTE (ZINC OXIDE 16%) 171 APPLN/57 GM JAR EXT PRN (07:03)
[2021-08-23] MEDS: CHOLESTYRAMINE LIGHT 4 GM PKT PO SCH (08:13)
[2021-08-23] MEDS: DORZOLAMIDE HCL 2% OPH SOLN 10 ML BTL OP SCH ×2 (08:53→20:32)
[2021-08-23] MEDS: FAMOTIDINE 40 MG TABLET PO SCH (08:53)
[2021-08-23] MEDS: POTASSIUM CHLORIDE CRTAB 20 MEQ TABCR PO SCH ×2 (08:53→20:31)
[2021-08-23] MEDS: SACCHAROMYCES BOULARDII 250 MG CAP PO SCH (08:54)
[2021-08-23] MEDS: THIAMINE HCL 100 MG TAB PO SCH (08:54)
[2021-08-23] MEDS: SERTRALINE HCL 50 MG TABLET PO SCH (08:54)
[2021-08-23] MEDS: PANTOprazole 40 MG TAB PO SCH (08:54)
[2021-08-23] MEDS: predniSONE 5 MG TAB PO SCH (08:54)
[2021-08-23] MEDS: POT PHOSPHATE MONOBASIC W/ SOD TAB PO SCH ×4 (09:50→20:32)
[2021-08-23] MEDS: FELODIPINE 2.5 MG TABCR PO SCH (09:50)
[2021-08-23] MEDS: ONDANSETRON INJ 2 MG/ML 2 ML VIAL IV PRN (10:23)
[2021-08-23] MEDS: ENOXAPARIN INJ 40 MG/0.4 ML SYR SQ SCH (11:28)
--- NOTE | 2021-08-23 16:12 | Hospitalist Progress Note ---
Date of Service August 23, 2021 Assessment & Plan (1) C. difficile colitis: Plan: Patient with prior C. difficile infection status post 2 courses of antibiotic treatment with po Vanco from 05/2021-06/2021. She has had continuous diarrhea since then despite testing neg for C. diff, but then took a course of abx for a UTI recently and had worsening of the diarrhea. - Leukocytosis on admission WBC = 18.84 and lactate initially elevated at 2.3. C. difficile gene and toxin positive. CT with inflammation of the colon consistent with colitis, most likely secondary to C. difficile infection. - Diarrhea persists, still watery - Afebrile - Leukocytosis, not yet normalized, downtrending. Consider CT-Ab repeat if worsening or concern for megacolon - Having pain in rectum from recurrent rectal prolapse that is reducible - Stool culture negative - 08/15- KUB negative for megacolon or obstruction, showed diffuse colonic wall thickening and edema consistent with colitis. KUB repeated 08/17 again neg for megacolon or obstruction -continue Fidaxomicin (Dificid) 200 mg p.o. twice daily for treatment of recurrent C. difficile infection-GI recommends prolonged course-will give 20 days total -continue LR 75cc/hr -continue metronidazole (Flagyl) 500 mg IV every 8 hours for severe disease in addition to Dificid-started evening of 08/14 -discontinued home colchicine daily as this can also contribute to diarrhea -if had toxic megacolon, would need transfer out to tertiary care facility due to advanced age, comorbidities for total colectomy -pain control with IV morphine prn -no intervention for rectal prolapse unless protrudes and turns necrotic -chronic prednisone use does increase her risk for bowel perforation No clinical change with Questran, discontinued. Patient unable to tolerate liquid/full diet. Has had chronic malnutrition for a full week, concern for enteral integrity. Discussed options extensively with patient, NGT placed with partial elemental feeds. KUB confirmed placement, no abnormality of colon appreciated on KUB. Started at 10cc/hr continuous 08/21. - Estimated daily caloric needs [id number] kcals per day, per nutrition if able to increase rate goal of 45 cc/h - Increased to 30cc/hr -Discussed with patient, given prolonged course and failure to improve we will continue to see how she does with NG nutrition and ongoing care through the weekend. Although her leukocytosis is slowly improving, if she clinically continues to feel improved rediscussed with GI 08/25. (2) Splenic infarct: Plan: - Question of splenic infarct and IVC thrombus new from CT abdomen obtained on 08/10. 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 Questionable stricture versus thrombus in the right hepatic vein along the proximal portion. - Patient initially started on Heparin drip. Further review of imaging indicated this most likely was an over read. Heparin drip was discontinued - RULED OUT (4) GERD (gastroesophageal reflux disease): Plan: Chronic. Continue famotidine, PPI (5) Depression: Plan: -Chronic. -Continue Zoloft 50 mg p.o. every morning (6) CKD (chronic kidney disease): Plan: -Chronic kidney disease, stage 2-3 -BUN and creatinine near baseline -Avoid nephrotoxic agents -Continue to monitor BUN, creatinine, electrolytes, urine output (7) Scleroderma: Plan: -Chronic. -Patient states that she has pulmonary involvement as well. -Patient follows with pulmonology and has routine PFTs. Most recent PFTs 05/01/21 showed no obstructive lung dysfunction. Slightly decreased DLCOunc with poor patient effort during exam. -Continue hydroxychloroquine -Continue prednisone -Continue felodipine for Raynaud's (8) Cough: Plan: -dry, mild -has fibrosis at bases of lungs on imaging -could be some developing pulm edema given hypoalbuminemia and IVFs. IVF as noted -Continue inceptive allyson (9) Edema: Plan: -trace peripheral edema -does have hypoalbuminemia and receiving IVFs -also scleroderma causes some skin changes and shiny skin -will reduce IVFs as above - Pt very concerned about swelling, bilateral Dopplers negative Discussed likely 2/2 hypoalbuminemia with poor nutrition in the last week. Diet advanced to full liquid, plus boost patient did not tolerate. NGT nutrition as noted above. Plan: DVT proph-SCDs, Lovenox SQ today Dispo-med/surg PT/OT Admission and Anticipated Discharge Date Admission Date: August 12, 2021 Subjective Seen bedside this morning. Leukocytosis continues to improve, patient feels she is clinically unchanged. Continues to have unchanged diarrhea, notes that she used zinc oxide cream which was helpful. She has tolerated 20 cc of nutrition continuous well, agreeable to trying 30 cc/h. No fever/chills. No change in pain, no vomiting. Patient had slight nausea with free water flush, otherwise no nausea. Review of Systems Review of Systems: Constitutional: Denies fever, chills, Endorses fatigue Eyes: Denies vision change ENT: Denies ear pain, sore throat, sinus pain Cardiovascular: Denies Chest pain, chest pressure, palpitations, extremity swelling Respiratory: Denies shortness of breath, sputum production, difficulty breathing Gastrointestinal: See HPI Genitourinary: Denies dysuria, urinary frequency Musculoskeletal: Continued bilateral leg swelling. Denies other focal muscle aches/pains. Integumentary:Denies acute rash, lesions, bruising. Endorses pain/raw feeling have buttocks from diarrhea. Neurological: Denies numbness, tingling, focal weakness Physical Exam Physical Exam: General: A&Ox3. NAD. Cooperative. HEENT: Atraumatic, normocephalic. Visual acuity and hearing grossly intact. Extraocular movements intact. NGT intact in right nare. Pulm: CTAB A&P. -wheezes, -rales, -rhonchi. Symmetrical chest rise. No increase work of breathing. No respiratory distress. Cardiac: RRR, -mrg. Radial pulses intact and symmetrical. Abdominal: Mild diffuse tenderness to palpation without rebound, soft, without guarding. Bowel sounds intact. Extremities: Bilateral soft tissue edema of the lower extremities bilaterally, no calf asymmetry. Patient walking from bathroom, moving all extremities equally. PT pulse intact bilaterally. Results & Data Results & Data ([facility]) Vital Signs (Past 12 Hours) Vital Signs Temp Pulse Resp BP Pulse Ox 08/23/21 15:32 36.9 C 79 14 114/68 97 08/23/21 07:03 36.8 C 88 16 105/66 95 PG Care Time/CCT Total # of Minutes Spent Total Time Spent with Patient: Total time spent is greater than 50% in coordination of care (as documented) at patient's floor/unit and/or counseling patient: Coding Level of Care Code 79236 Subseq Hosp Care Lvl 3 Diagnoses C. 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
[2021-08-23] MEDS: TRAVOPROST Z 0.004% OPH SOLN 2.5 ML BTL OP SCH (20:32)
[2021-08-23] MEDS: LORazepam 0.5 MG/1 ML VIAL IV PRN (22:10)
[2021-08-24] MEDS: TUBE FEEDING WATER FLUSH NG SCH ×6 (01:30→21:34)
[2021-08-24] MEDS: metroNIDAZOLE 500 MG/100 ML BAG IV SCH ×2 (02:01→10:37)
--- NOTE | 2021-08-24 07:08 | Hospitalist Progress Note ---
Date of Service August 24, 2021 Assessment & Plan (1) C. difficile colitis: Plan: Patient with prior C. difficile infection status post 2 courses of antibiotic treatment with po Vanco from 05/2021-06/2021. She has had continuous diarrhea since then despite testing neg for C. diff, but then took a course of abx for a UTI recently and had worsening of the diarrhea. - Leukocytosis on admission WBC = 18.84 and lactate initially elevated at 2.3. C. difficile gene and toxin positive. CT with inflammation of the colon consistent with colitis, most likely secondary to C. difficile infection. - Diarrhea persists, still watery - Afebrile - Leukocytosis, not yet normalized 13.6 08/24. - Having pain in rectum from recurrent rectal prolapse that is reducible - Stool culture negative - 08/15- KUB negative for megacolon or obstruction, showed diffuse colonic wall thickening and edema consistent with colitis. KUB repeated 08/17 again neg for megacolon or obstruction -continue Fidaxomicin (Dificid) 200 mg p.o. twice daily for treatment of recur rent C. difficile infection-GI recommends prolonged course-will give 20 days total -continue metronidazole (Flagyl) 500 mg IV every 8 hours for severe disease in addition to Dificid-started evening of 08/14 -discontinued home colchicine daily as this can also contribute to diarrhea -if had toxic megacolon, would need transfer out to tertiary care facility due to advanced age, comorbidities for total colectomy -pain control with IV morphine prn -no intervention for rectal prolapse unless protrudes and turns necrotic -chronic prednisone use does increase her risk for bowel perforation No clinical change with Questran, discontinued. 08/21: Patient unable to tolerate liquid/full diet. had chronic malnutrition for a full week, concern for enteral integrity. Discussed options extensively with patient, NGT placed with partial elemental feeds. KUB confirmed placement, no abnormality of colon appreciated on KUB. Started at 10cc/hr continuous 08/21. - Estimated daily caloric needs [id number] kcals per day, per nutrition if able to increase rate goal of 45 cc/h - Continuous feeds at 45/hr -Discussed with patient, given prolonged course and failure to improve we will continue to see how she does with NG nutrition and ongoing care through the weekend. Although her leukocytosis is slowly improving, if she clinically continues to feel clinically unchanged we will rediscuss with GI 08/25 CT A/P:1. Stable to slight improvement in the pancolitis. This is likely due to an infectious or inflammatory process. Small to moderate bilateral pleural fusions have increased in size. Mild body wall edema. Abnormal endometrial thickening is again noted. Stable ascites. (2) Bilateral pleural effusion: Plan: - CT-A/P: 1. 2. Small to moderate bilateral pleural fusions have increased in size. Likely transudate of in the setting of hypoalbuminemia with aggressive IV fluids prior to starting NGT feeds. No hypoxia Diuresis limited by hypotension, hypoalbuminemia Thoracentesis likely to reaccumulate, consider pulmonary consult if clinical deterioration and bleeding (3) Splenic infarct: Plan: - Question of splenic infarct and IVC thrombus new from CT abdomen obtained on 08/10. - This was based on wet read of overnight service - Reviewed by in-house radiologist stated this was probably an over read - Venogram performed with no evidence of thrombus in IVC either - Splenic infarct and IVC thrombus both ruled out (4) IVC thrombosis: Plan: - Initial imaging suggested partially occlusive thrombus within the proximal inf erior vena cava. Questionable stricture versus thrombus in the right hepatic vein along the proximal portion. - Patient initially started on Heparin drip. Further review of imaging indicated this most likely was an over read. Heparin drip was discontinued - RULED OUT (5) GERD (gastroesophageal reflux disease): Plan: Chronic. Continue famotidine, PPI (6) Depression: Plan: -Chronic. -Continue Zoloft 50 mg p.o. every morning (7) CKD (chronic kidney disease): Plan: -Chronic kidney disease, stage 2-3 -BUN and creatinine near baseline -Avoid nephrotoxic agents -Continue to monitor BUN, creatinine, electrolytes, urine output (8) Scleroderma: Plan: -Chronic. -Patient states that she has pulmonary involvement as well. -Patient follows with pulmonology and has routine PFTs. Most recent PFTs 05/01/21 showed no obstructive lung dysfunction. Slightly decreased DLCOunc with poor patient effort during exam. -Continue hydroxychloroquine -Continue prednisone -Continue felodipine for Raynaud's (9) Cough: Plan: -dry, mild -has fibrosis at bases of lungs on imaging -could be some developing pulm edema given hypoalbuminemia and IVFs. IVF as noted -Continue inceptive allyson (10) Edema: Plan: -trace peripheral edema -does have hypoalbuminemia and receiving IVFs -also scleroderma causes some skin changes and shiny skin -will reduce IVFs as above - Pt very concerned about swelling, bilateral Dopplers negative Discussed likely 2/2 hypoalbuminemia with poor nutrition in the last week. Diet advanced to full liquid, plus boost patient did not tolerate. NGT nu trition as noted above. Plan: DVT proph-SCDs, Lovenox SQ today Dispo-med/surg PT/OT Family Updates may be given to Sarah at [phone] if primary # no available (no voicemail primary contact number Admission and Anticipated Discharge Date Admission Date: August 12, 2021 Subjective Seen at bedside. Patient reports she feels clinically unchanged, continues to have diarrhea and fatigue. Denies shortness of breath or difficulty breathing, was not aware of pleural effusions on admission. She is using her incentive spirometer regularly. She is happy that she has been able to get her continuous feeds up to goal rate, no belching or nausea. Denies fever/chills/sweats. Diffuse mild abdominal pain without focal pain or increased pain. Discussed CT abdomen, mild improvement in pancolitis without megacolon appreciated. No additional questions or concerns at time of bedside assessment. Review of Systems Review of Systems: Constitutional: Denies fever, chills, Endorses fatigue Eyes: Denies vision change ENT: Denies ear pain, sore throat, sinus pain Cardiovascular: Denies Chest pain, chest pressure, palpitations, extremity swelling Respiratory: Denies shortness of breath, sputum production, difficulty breathing Gastrointestinal: See HPI Genitourinary: Denies dysuria, urinary frequency Musculoskeletal: Continued bilateral leg swelling. Denies other focal muscle aches/pains. Integumentary:Denies acute rash, lesions, bruising. Endorses pain/raw feeling have buttocks from diarrhea. Neurological: Denies numbness, tingling, focal weakness Physical Exam Physical Exam: General: A&Ox3. NAD. Cooperative. HEENT: Atraumatic, normocephalic. Visual acuity and hearing grossly intact. Extraocular movements intact. NGT intact in right nare. Pulm: CTAB A&P. -wheezes, -rales, -rhonchi. Symmetrical chest rise. No increase work of breathing. No respiratory distress. Cardiac: RRR, -mrg. Radial pulses intact and symmetrical. Abdominal: Mild diffuse tenderness to palpation without rebound, soft, without guarding. Bowel sounds intact. Extremities: Bilateral soft tissue edema of the lower extremities bilaterally, no calf asymmetry. Patient walking from bathroom, moving all extremities equally. PT pulse intact bilaterally. Results & Data Results & Data ([facility]) Vital Signs (Past 12 Hours) Vital Signs Temp Pulse Resp BP Pulse Ox 08/23/21 23:05 36.4 C L 81 16 98/63 L 96 PG Care Time/CCT Total # of Minutes Spent Total Time Spent with Patient: Total time spent is greater than 50% in coordination of care (as documented) at patient's floor/unit and/or counseling patient: Coding Level of Care Code 42931 Subseq Hosp Care Lvl 3 Diagnoses C. 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
[2021-08-24] MEDS ORDERED: SODIUM CHLORIDE 0.9% 1000ML 500 ML IV ONE (08:27)
[2021-08-24] MEDS: POTASSIUM CHLORIDE CRTAB 20 MEQ TABCR PO SCH ×2 (08:44→20:09)
[2021-08-24] MEDS: POT PHOSPHATE MONOBASIC W/ SOD TAB PO SCH ×4 (08:44→20:09)
[2021-08-24] MEDS: DORZOLAMIDE HCL 2% OPH SOLN 10 ML BTL OP SCH ×2 (08:44→20:10)
[2021-08-24] MEDS: PANTOprazole 40 MG TAB PO SCH (08:44)
[2021-08-24] MEDS: FAMOTIDINE 40 MG TABLET PO SCH (08:44)
[2021-08-24] MEDS: SERTRALINE HCL 50 MG TABLET PO SCH (08:45)
[2021-08-24] MEDS: predniSONE 5 MG TAB PO SCH (08:45)
[2021-08-24] MEDS: THIAMINE HCL 100 MG TAB PO SCH (08:45)
[2021-08-24] MEDS: SACCHAROMYCES BOULARDII 250 MG CAP PO SCH (08:45)
[2021-08-24 09:40] LABS: Basophils # (auto) 0.02 K/uL (0-0.2); Basophils % (auto) 0.1 %; Eosinophils # (auto) 0.11 K/uL (0-0.5); Eosinophils % (auto) 0.8 %; Hematocrit (blood only) 34.8 % (37-47); Hemoglobin 11.2 g/dL (12.0-16.0); Immature Granulocytes # (auto) 0.11 K/uL (0.00-0.02); Immature Granulocytes % (auto) 0.8 %; Lymphocytes # (auto) 2.22 K/uL (1.2-3.4); Lymphocytes % (auto) 16.2 %; Mean Corpuscular Hemoglobin 29.2 pg (25-34); Mean Corpuscular Hgb Conc 32.2 g/dL (32-36); Mean Corpuscular Volume 90.6 fL (80-100); Mean Platelet Volume 9.3 fL (7.4-10.4); Monocytes # (auto) 0.72 K/uL (0.11-0.59); Monocytes % (auto) 5.3 %; Neutrophils % (auto) 76.8 %; Platelet Count 323 K/uL (130-400); RDW Coefficient of Variation 15.8 % (11.5-14.5); RDW Standard Deviation 52.3 fL (36.4-46.3); Red Blood Count 3.84 M/uL (4.2-5.4); White Blood Count 13.68 K/uL (4.8-10.8)
[2021-08-24 09:59] LABS: BUN Creatinine Ratio 11.5 (10-20); Calcium 7.7 mg/dl (8.5-10.1); Creatinine Clr Calc Pharmacy 66.7 ml/min; Est GFR (African American) 104.1 ml/min; Est GFR (Non-African American) 89.8 ml/min; Magnesium 2.1 mg/dl (1.8-2.4); Potassium 3.9 mmol/L (3.5-5.1)
--- NOTE | 2021-08-24 11:23 | CT Scan Report ---
ABDOMEN AND PELVIS CT WITHOUT CONTRAST CT DOSE: 354.25 mGy.cm HISTORY: severe c. diff, persistent generalized abdominal pain TECHNIQUE: Multiaxial CT images of the abdomen and pelvis were performed without contrast. A dose lo wering technique was utilized adhering to the principles of ALARA. COMPARISON STUDY: Abdomen and pelvis CT 08/13/2021. FINDINGS: Increase in size in the small bilateral pleural effusions. Consolidation within the bilater al lower lobes are nonspecific but favor compressive atelectasis from the pleural effusions. Feeding tube terminates in the second portion of the duodenum. Small hiatus hernia, unchanged. Trace pericard ial effusion. No pneumoperitoneum. No pneumatosis. No suspicious lytic or blastic osseous lesions. Ol d mild superior endplate compression deformity at L2, unchanged. Scattered calcified granulomas again noted within the spleen. The unenhanced liver, gallbladder, pancreas, and adrenal glands are unremar kable. There is a punctate calcification within the right kidney. Stable 1.5 cm exophytic hypodense l esion within the right kidney. This favors a cyst. No ureteral stones. No hydronephrosis. The bladder is unremarkable. Stable endometrial thickening. Mild diffuse body wall edema. No retroperitoneal lym phadenopathy. Calcified plaque within the normal caliber abdominal aorta. Small amount of ascites, un changed. Colonic diverticulosis. Moderate mild to moderate thickening of the majority colon most pron ounced within the descending colon and sigmoid colon with mild pericolonic fat stranding. This is sta ble to slightly improved compared to the prior study and is consistent with a colitis. Fluid-filled c olon. No dilated loops of small bowel to suggest an obstruction. There is mild mesenteric edema seen within the small bowel which could be due to the colitis. This is also similar to the prior study. IMPRESSION: 1. Stable to slight improvement in the pancolitis. This is likely due to an infectious or inflammator y process. 2. Small to moderate bilateral pleural fusions have increased in size. 3. Mild body wall edema. 4. Abnormal endometrial thickening is again noted. 5. Stable ascites. ACT 112: Negative or not required by law. Electronically signed by: Mark Villela M.D. 08/24/2021 11:22 AM
[2021-08-24] MEDS: ENOXAPARIN INJ 40 MG/0.4 ML SYR SQ SCH (12:25)
[2021-08-24] MEDS ORDERED: Influenza Vaccine-High Dose (Fluzone-HD) PF 65+ 0.7 ML SYR IM ONE (14:00)
[2021-08-24] MEDS: TRAVOPROST Z 0.004% OPH SOLN 2.5 ML BTL OP SCH (20:09)
[2021-08-24] MEDS: LORazepam 0.5 MG/1 ML VIAL IV PRN (21:43)
[2021-08-25] MEDS: TUBE FEEDING WATER FLUSH NG SCH ×6 (01:31→21:25)
[2021-08-25 06:35] LABS: Basophils # (auto) 0.02 K/uL (0-0.2); Basophils % (auto) 0.2 %; Eosinophils # (auto) 0.11 K/uL (0-0.5); Hematocrit (blood only) 33.9 % (37-47); Immature Granulocytes # (auto) 0.04 K/uL (0.00-0.02); Immature Granulocytes % (auto) 0.4 %; Lymphocytes # (auto) 0.98 K/uL (1.2-3.4); Lymphocytes % (auto) 8.8 %; Mean Corpuscular Hemoglobin 29.6 pg (25-34); Mean Corpuscular Hgb Conc 32.4 g/dL (32-36); Mean Corpuscular Volume 91.1 fL (80-100); Monocytes # (auto) 0.75 K/uL (0.11-0.59); Monocytes % (auto) 6.7 %; Neutrophils # (auto) 9.25 K/uL (1.4-6.5); Neutrophils % (auto) 82.9 %; Platelet Count 324 K/uL (130-400); RDW Coefficient of Variation 15.9 % (11.5-14.5); RDW Standard Deviation 52.1 fL (36.4-46.3); Red Blood Count 3.72 M/uL (4.2-5.4); White Blood Count 11.15 K/uL (4.8-10.8)
[2021-08-25 07:07] LABS: BUN Creatinine Ratio 15.3 (10-20); Calcium 8.5 mg/dl (8.5-10.1); Creatinine Clr Calc Pharmacy 70.5 ml/min; Est GFR (African American) 106.1 ml/min; Est GFR (Non-African American) 91.5 ml/min
[2021-08-25 07:09] LABS: Phosphorus 2.6 mg/dl (2.5-4.9)
[2021-08-25] MEDS: SERTRALINE HCL 50 MG TABLET PO SCH (07:47)
[2021-08-25] MEDS: THIAMINE HCL 100 MG TAB PO SCH (07:48)
[2021-08-25] MEDS: FAMOTIDINE 40 MG TABLET PO SCH (07:48)
[2021-08-25] MEDS: FIDAXOMICIN 200 MG TAB PO SCH ×2 (07:48→20:33)
[2021-08-25] MEDS: predniSONE 5 MG TAB PO SCH (07:48)
[2021-08-25] MEDS: POTASSIUM CHLORIDE CRTAB 20 MEQ TABCR PO SCH ×2 (07:49→20:33)
[2021-08-25] MEDS: PANTOprazole 40 MG TAB PO SCH (07:49)
[2021-08-25] MEDS: POT PHOSPHATE MONOBASIC W/ SOD TAB PO SCH ×4 (07:49→20:33)
[2021-08-25] MEDS: SACCHAROMYCES BOULARDII 250 MG CAP PO SCH (07:49)
[2021-08-25] MEDS: metroNIDAZOLE 500 MG/100 ML BAG IV SCH ×3 (07:52→22:33)
--- NOTE | 2021-08-25 07:54 | Hospitalist Progress Note ---
Date of Service August 25, 2021 Assessment & Plan (1) C. difficile colitis: Plan: Patient with prior C. difficile infection status post 2 courses of antibiotic treatment with po Vanco from 05/2021-06/2021. She has had continuous diarrhea since then despite testing neg for C. diff, but then took a course of abx for a UTI recently and had worsening of the diarrhea. Severe, treatment resistant C. difficile colitis - Leukocytosis on admission WBC = 18.84 and lactate initially elevated at 2.3. C. difficile gene and toxin positive. CT with inflammation of the colon consistent with colitis, most likely secondary to C. difficile infection. - Diarrhea persists, still watery - Afebrile - Leukocytosis downtrending - Having pain in rectum from recurrent rectal prolapse that is reducible - Stool culture negative - 08/15- KUB negative for megacolon or obstruction, showed diffuse colonic wall thickening and edema consistent with colitis. KUB repeated 08/17 again neg for megacolon or obstruction - Dificid started 08/13 (continue until 09/02) - Continue flagyl 500mg TID -discontinued home colchicine daily as this can also contribute to diarrhea -if had toxic megacolon, would need transfer out to tertiary care facility due to advanced age, comorbidities for total colectomy -pain control with IV morphine prn -no intervention for rectal prolapse unless protrudes and turns necrotic -chronic prednisone use does increase her risk for bowel perforation No clinical change with Questran, discontinued. 08/21: Patient unable to tolerate liquid/full diet. had chronic malnutrition for a full week, concern for enteral integrity. Discussed options extensively with patient, NGT placed with partial elemental feeds. KUB confirmed placement, no abnormality of colon appreciated on KUB. Started at 10cc/hr continuous 08/21. - Estimated daily caloric needs [id number] kcals per day, per nutrition if able to increase rate goal of 45 cc/h - Continuous feeds at 45/hr. Patient with improved third spacing and less pressure from ascites today, nutritionally improving although clinical C. difficile/diarrhea remains unchanged. Repeat 08/24 CT A/P: Stable to slight improvement in the pancolitis. This is likely due to an infectious or inflammatory process. Small to moderate bilateral pleural fusions have increased in size. Mild body wall edema. Abnormal endometrial thickening is again noted. Stable ascites. While patient has not had a elevated creatinine/EFREM and shock/ileus, she continues severely ill despite ongoing inpatient antibiotic treatment including C. difficile and Flagyl. She is not able to tolerate oral nutrition and is requiring continuous NGT feeding. Discussed with GI, patient meets criteria for emergency authorization to [place] for fecal transplant. Will pursue potential transplant for higher level of care and fecal transplant. (2) Bilateral pleural effusion: Plan: - CT-A/P: 1. 2. Small to moderate bilateral pleural fusions have increased in size. Likely transudate of in the setting of hypoalbuminemia with aggressive IV fluids prior to starting NGT feeds. No hypoxia Diuresis limited by hypotension, hypoalbuminemia Thoracentesis likely to reaccumulate, consider pulmonary consult if clinical deterioration and bleeding (3) Splenic infarct: Plan: - Question of splenic infarct and IVC thrombus new from CT abdomen obtained on 08/10. 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 Questionable stricture versus thrombus in the right hepatic vein along the proximal portion. - Patient initially started on Heparin drip. Further review of imaging indicated this most likely was an over read. Heparin drip was discontinued - RULED OUT (5) GERD (gastroesophageal reflux disease): Plan: Chronic. Continue famotidine, PPI (6) Depression: Plan: -Chronic. -Continue Zoloft 50 mg p.o. every morning (7) CKD (chronic kidney disease): Plan: -Chronic kidney disease, stage 2-3 -BUN and creatinine near baseline -Avoid nephrotoxic agents -Continue to monitor BUN, creatinine, electrolytes, urine output (8) Scleroderma: Plan: -Chronic. -Patient states that she has pulmonary involvement as well. -Patient follows with pulmonology and has routine PFTs. Most recent PFTs 05/01/21 showed no obstructive lung dysfunction. Slightly decreased DLCOunc with poor patient effort during exam. -Continue hydroxychloroquine -Continue prednisone -Continue felodipine for Raynaud's (9) Cough: Plan: -dry, mild -has fibrosis at bases of lungs on imaging -could be some developing pulm edema given hypoalbuminemia and IVFs. IVF as noted -Continue inceptive allyson (10) Edema: Plan: -trace peripheral edema -does have hypoalbuminemia and receiving IVFs -also scleroderma causes some skin changes and shiny skin -will reduce IVFs as above - Pt very concerned about swelling, bilateral Dopplers negative Discussed likely 2/2 hypoalbuminemia with poor nutrition in the last week. Diet advanced to full liquid, plus boost patient did not tolerate. NGT nutrition as noted above. Plan: DVT proph-SCDs, Lovenox SQ today Dispo-med/surg PT/OT Family Updates may be given to Sarah at [phone] if primary # no available (no voicemail at primary contact number) Admission and Anticipated Discharge Date Admission Date: August 12, 2021 Subjective Mary is seen at the bedside, she continues to feel clinically unchanged given her persistent illness despite medical treatment and failure to improve despite improving labs discussed potential for transplant,/additional care with GI. Patient meets criteria for emergency authorization for fecal transplant, will pursue potential transfer and may be able to do so as early as tomorrow. Discussed with patient and with her daughter by phone. Review of Systems Review of Systems: Constitutional: Denies fever, chills, Endorses fatigue Eyes: Denies vision change ENT: Denies ear pain, sore throat, sinus pain Cardiovascular: Denies Chest pain, chest pressure, palpitations, extremity swelling Respiratory: Denies shortness of breath, sputum production, difficulty breathing. Gastrointestinal: See HPI. "Full fluid feeling "improving Genitourinary: Denies dysuria, urinary frequency Musculoskeletal: Continued bilateral leg swelling, improving denies other focal muscle aches/pains. Integumentary:Denies acute rash, lesions, bruising. Endorses pain/raw feeling have buttocks from diarrhea. Neurological: Denies numbness, tingling, focal weakness Physical Exam Physical Exam: General: A&Ox3. NAD. Cooperative. HEENT: Atraumatic, normocephalic. Visual acuity and hearing grossly intact. Extraocular movements intact. NGT intact in right nare. Pulm: CTAB A&P. -wheezes, -rales, -rhonchi. Symmetrical chest rise. No increase work of breathing. No respiratory distress. Cardiac: RRR, -mrg. Radial pulses intact and symmetrical. Abdominal: Mild diffuse tenderness to palpation without rebound, soft, without guarding. Bowel sounds intact. Extremities: Bilateral soft tissue edema of the lower extremities bilaterally improved from prior, no calf asymmetry. Results & Data Results & Data ([facility]) Vital Signs (Past 12 Hours) Vital Signs Temp Pulse Resp BP Pulse Ox 08/24/21 21:45 37.1 C 78 16 102/65 97 PG Care Time/CCT Total # of Minutes Spent Total Time Spent with Patient: Total time spent is greater than 50% in coordination of care (as documented) at patient's floor/unit and/or counseling patient: Coding Level of Care Code 09986 Subseq Hosp Care Lvl 3 Diagnoses C. 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
[2021-08-25] MEDS: DORZOLAMIDE HCL 2% OPH SOLN 10 ML BTL OP SCH ×2 (08:01→20:32)
[2021-08-25] MEDS: PEPTAMEN 1.5 CAL 1,000 ML BAG NG SCH (10:37)
[2021-08-25] MEDS: ENOXAPARIN INJ 40 MG/0.4 ML SYR SQ SCH (12:22)
[2021-08-25] MEDS: ACETAMINOPHEN 325 MG TAB PO PRN (12:29)
[2021-08-25] MEDS: LORazepam 0.5 MG/1 ML VIAL IV PRN ×2 (18:28→22:33)
[2021-08-25] MEDS: TRAVOPROST Z 0.004% OPH SOLN 2.5 ML BTL OP SCH (20:32)
[2021-08-26] MEDS: TUBE FEEDING WATER FLUSH NG SCH ×6 (01:15→21:12)
[2021-08-26 06:24] LABS: Basophils # (auto) 0.03 K/uL (0-0.2); Basophils % (auto) 0.3 %; Eosinophils % (auto) 1.1 %; Hemoglobin 10.7 g/dL (12.0-16.0); Immature Granulocytes # (auto) 0.05 K/uL (0.00-0.02); Immature Granulocytes % (auto) 0.6 %; Lymphocytes # (auto) 1.33 K/uL (1.2-3.4); Lymphocytes % (auto) 14.9 %; Mean Corpuscular Hemoglobin 29.4 pg (25-34); Mean Corpuscular Hgb Conc 32.4 g/dL (32-36); Mean Corpuscular Volume 90.7 fL (80-100); Mean Platelet Volume 9.2 fL (7.4-10.4); Monocytes # (auto) 0.76 K/uL (0.11-0.59); Monocytes % (auto) 8.5 %; Neutrophils # (auto) 6.64 K/uL (1.4-6.5); Neutrophils % (auto) 74.6 %; Platelet Count 333 K/uL (130-400); RDW Standard Deviation 52.7 fL (36.4-46.3); Red Blood Count 3.64 M/uL (4.2-5.4); White Blood Count 8.91 K/uL (4.8-10.8)
[2021-08-26 07:04] LABS: BUN Creatinine Ratio 16.7 (10-20); Calcium 8.4 mg/dl (8.5-10.1); Creatinine Clr Calc Pharmacy 76.4 ml/min; Est GFR (African American) 108.9 ml/min
[2021-08-26] MEDS: metroNIDAZOLE 500 MG/100 ML BAG IV SCH ×3 (08:43→23:26)
[2021-08-26] MEDS: PANTOprazole 40 MG TAB PO SCH (08:47)
[2021-08-26] MEDS: THIAMINE HCL 100 MG TAB PO SCH (08:47)
[2021-08-26] MEDS: POTASSIUM CHLORIDE CRTAB 20 MEQ TABCR PO SCH ×2 (08:47→20:23)
[2021-08-26] MEDS: SERTRALINE HCL 50 MG TABLET PO SCH (08:48)
[2021-08-26] MEDS: FIDAXOMICIN 200 MG TAB PO SCH ×2 (08:48→20:23)
[2021-08-26] MEDS: SACCHAROMYCES BOULARDII 250 MG CAP PO SCH (08:48)
[2021-08-26] MEDS: predniSONE 5 MG TAB PO SCH (08:48)
[2021-08-26] MEDS: FAMOTIDINE 40 MG TABLET PO SCH (08:48)
[2021-08-26] MEDS: POT PHOSPHATE MONOBASIC W/ SOD TAB PO SCH ×4 (08:49→20:22)
[2021-08-26] MEDS: DORZOLAMIDE HCL 2% OPH SOLN 10 ML BTL OP SCH ×2 (08:50→20:21)
[2021-08-26] MEDS: ENOXAPARIN INJ 40 MG/0.4 ML SYR SQ SCH (13:38)
[2021-08-26] MEDS: PEPTAMEN 1.5 CAL 1,000 ML BAG NG SCH (13:39)
--- NOTE | 2021-08-26 14:21 | Gastroenterology Progress Note ---
Date of Service August 26, 2021 Assessment & Plan (1) Recurrent Clostridioides difficile diarrhea: Plan: Patient with failure of medical therapy, would add rifaximin to medical regimen, I would advance diet as tolerated, I have reached out and do agree that she meets the emergency criteria for fecal transplant. I discussed with my colleagues in [place] and they are attempting to see when specimen would be available, once we know that we can attempt to arrange transfer. Admission and Anticipated Discharge Date Admission Date: August 12, 2021 Subjective We were reconsulted on Ms. Venegas to see if any additional input could be accomplished. She is a 80-year-old female with history of CKD, scleroderma, GERD, C. difficile and others being admitted after presenting with LLQ pain x 2-3 days as well as worsening diarrhea. She has had C. diff colitis first dx'd in May; was tx with 2 courses of antibiotics (14 day course and 10 day course) however symptoms never really went away. She had been tx with ABX for a UTI around this time. Lately has had worsening diarrhea, poor PO intake, abd discomfort. On arrival CTA abd/pelvis = nonspecific colitis, small abdominopelvic ascites, CTA portion unremarkable, and several other nonacute findings. C. difficile testing is positive. She has a leukocytosis with WBC 19 K, elevated lactate 2.4, normal hemoglobin. She was started on Dificid. Patient was seen in the ER on 06/09/21 with abd pain, diarrhea CTAP = mucosal thickening in the rectum and sigmoid colon suggestive of colitis as well as moderate stool burden consistent with constipation. No perforation or abscess. Also noted on chronic changes of the lung bases and calcified granulomas present in the spleen. She has had progression of her C. difficile with anasarca, pleural effusion, inability to tolerate p.o., fatigue, and on tube feeds for nutrition via a Dobbhoff tube. She has become more deconditioned, white count has fallen she has been on Dificid since 08/11 with minimal to no improvement. Physical Exam Physical Exam: Ill-appearing, weak, Dobbhoff tube in place Cardiovascular: RRR, no murmur, no edema Gastrointestinal (Abdomen): Soft, mildly distended, hypoactive but present bowel sounds, mildly tender Results & Data ([facility]) Vital Signs (Past 12 Hours) Vital Signs Temp Pulse Resp BP Pulse Ox 10/05/21 07:21 36.8 C 79 16 116/70 97
--- NOTE | 2021-08-26 16:25 | Hospitalist Progress Note ---
Date of Service August 26, 2021 Assessment & Plan (1) C. difficile colitis: Plan: Patient with prior C. difficile infection status post 2 courses of antibiotic treatment with po Vanco from 05/2021-06/2021. She has had continuous diarrhea since then despite testing neg for C. diff, but then took a course of abx for a UTI recently and had worsening of the diarrhea. Severe, treatment resistant C. difficile colitis - Leukocytosis on admission WBC = 18.84 and lactate initially elevated at 2.3. C. difficile gene and toxin positive. CT with inflammation of the colon consistent with colitis, most likely secondary to C. difficile infection. - Diarrhea persists, still watery - Afebrile - Leukocytosis downtrending - Having pain in rectum from recurrent rectal prolapse that is reducible - Stool culture negative - 08/15- KUB negative for megacolon or obstruction, showed diffuse colonic wall thickening and edema consistent with colitis. KUB repeated 08/17 again neg for megacolon or obstruction - Dificid started 08/13 (continue until 09/02) - Continue flagyl 500mg TID -discontinued home colchicine daily as this can also contribute to diarrhea -if had toxic megacolon, would need transfer out to tertiary care facility due to advanced age, comorbidities for total colectomy -pain control with IV morphine prn -no intervention for rectal prolapse unless protrudes and turns necrotic -chronic prednisone use does increase her risk for bowel perforation No clinical change with Questran, discontinued. 08/21: Patient unable to tolerate liquid/full diet. had chronic malnutrition for a full week, concern for enteral integrity. Discussed options extensively with patient, NGT placed with partial elemental feeds. KUB confirmed placement, no abnormality of colon appreciated on KUB. Started at 10cc/hr continuous 08/21. - Estimated daily caloric needs [id number] kcals per day, per nutrition if able to increase rate goal of 45 cc/h - Continuous feeds at 45/hr. Patient with improved third spacing and less pressure from ascites today, nutritionally improving although clinical C. difficile/diarrhea remains unchanged. Repeat 08/24 CT A/P: Stable to slight improvement in the pancolitis. This is likely due to an infectious or inflammatory process. Small to moderate bilateral pleural fusions have increased in size. Mild body wall edema. Abnormal endometrial thickening is again noted. Stable ascites. While patient has not had a elevated creatinine/EFREM and shock/ileus, she continues severely ill despite ongoing inpatient antibiotic treatment including C. difficile and Flagyl. -> Discussed with GI, patient meets criteria for emergency authorization to [facility] for fecal transplant. Will pursue potential transplant for higher level of care and fecal transplant. Seen with GI today. Dr. Ling is working with [facility] to order fecal transplant material from lab. Once that is approved, she will hopefully get bed relatively quickly. Did agree to advance diet which patient was happy with. (2) Bilateral pleural effusion: Plan: - CT-A/P: 1. 2. Small to moderate bilateral pleural fusions have increased in size. Likely transudate of in the setting of hypoalbuminemia with aggressive IV fluids prior to starting NGT feeds. No hypoxia Diuresis limited by hypotension, hypoalbuminemia Thoracentesis likely to reaccumulate, consider pulmonary consult if clinical deterioration and bleeding (3) Splenic infarct: Plan: - Question of splenic infarct and IVC thrombus new from CT abdomen obtained on 08/10. 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 Questionable stricture versus thrombus in the right hepatic vein along the proximal portion. - Patient initially started on Heparin drip. Further review of imaging indicated this most likely was an over read. Heparin drip was discontinued - RULED OUT (5) GERD (gastroesophageal reflux disease): Plan: Chronic. Continue famotidine, PPI (6) Depression: Plan: -Chronic. -Continue Zoloft 50 mg p.o. every morning (7) CKD (chronic kidney disease): Plan: -Chronic kidney disease, stage 2-3 -BUN and creatinine near baseline -Avoid nephrotoxic agents -Continue to monitor BUN, creatinine, electrolytes, urine output (8) Scleroderma: Plan: -Chronic. -Patient states that she has pulmonary involvement as well. -Patient follows with pulmonology and has routine PFTs. Most recent PFTs 05/01/21 showed no obstructive lung dysfunction. Slightly decreased DLCOunc with poor patient effort during exam. -Continue hydroxychloroquine -Continue prednisone -Continue felodipine for Raynaud's (9) Cough: Plan: -dry, mild -has fibrosis at bases of lungs on imaging -could be some developing pulm edema given hypoalbuminemia and IVFs. IVF as noted -Continue inceptive allyson (10) Edema: Plan: -trace peripheral edema -does have hypoalbuminemia and receiving IVFs -also scleroderma causes some skin changes and shiny skin -will reduce IVFs as above - Pt very concerned about swelling, bilateral Dopplers negative Discussed likely 2/2 hypoalbuminemia with poor nutrition in the last week. Diet advanced to full liquid, plus boost patient did not tolerate. NGT nutrition as noted above. Plan: DVT proph-SCDs, Lovenox SQ today Dispo-med/surg PT/OT Family Updates may be given to Sarah at [phone] if primary # no available (no voicemail at primary contact number) - Updated on 08/26 with transfer plans Admission and Anticipated Discharge Date Admission Date: August 12, 2021 Subjective Somewhat dispirited. Had been hoping to be transferred today with procedure soon. Still having diarrhea. Reports no fevers/chills, chest pain, shortness of breath, abdominal pain, nausea, or vomiting. Physical Exam Constitutional: WD/WN, vitals as above + cachectic Eyes: EOM intact bilaterally; no conjunctival abnormality ENMT: external ear and nose normal, oropharynx normal Neck: trachea midline, no thyromegaly normal visual inspection Respiratory: normal respiratory effort, lungs clear to auscultation no respiratory distress Cardiovascular: RRR, no murmur, no edema Gastrointestinal (Abdomen): Inspection/Auscultation: abdomen normal to inspection; abdomen not distended Musculoskeletal: no cyanosis or clubbing, extremities motor strength 5/5 Skin: no rashes, warm and dry Neurologic: moves all extremities and awake Psychiatric: Orientation: alert, oriented to person and cooperative Results & Data Results & Data ([facility]) Vital Signs (Past 12 Hours) Vital Signs Temp Pulse Resp BP Pulse Ox 08/26/21 14:26 36.8 C 77 16 123/63 95 08/26/21 07:21 36.8 C 79 16 116/70 97 PG Care Time/CCT Total # of Minutes Spent Total Time Spent with Patient: Total time spent is greater than 50% in coordination of care (as documented) at patient's floor/unit and/or counseling patient: Coding Level of Care Code 66689 Subseq Hosp Care Lvl 2 Diagnoses C. 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
[2021-08-26] MEDS: rifAXIMin 550 MG TABLET PO SCH (20:21)
[2021-08-26] MEDS: TRAVOPROST Z 0.004% OPH SOLN 2.5 ML BTL OP SCH (20:22)
[2021-08-26] MEDS: LORazepam 0.5 MG/1 ML VIAL IV PRN (21:12)
[2021-08-27] MEDS: TUBE FEEDING WATER FLUSH NG SCH ×6 (01:10→21:14)
[2021-08-27] MEDS: metroNIDAZOLE 500 MG/100 ML BAG IV SCH ×3 (09:27→23:01)
[2021-08-27] MEDS: predniSONE 5 MG TAB PO SCH (09:29)
[2021-08-27] MEDS: FAMOTIDINE 40 MG TABLET PO SCH (09:30)
[2021-08-27] MEDS: PANTOprazole 40 MG TAB PO SCH (09:30)
[2021-08-27] MEDS: POT PHOSPHATE MONOBASIC W/ SOD TAB PO SCH ×4 (09:30→21:03)
[2021-08-27] MEDS: THIAMINE HCL 100 MG TAB PO SCH (09:30)
[2021-08-27] MEDS: SACCHAROMYCES BOULARDII 250 MG CAP PO SCH (09:30)
[2021-08-27] MEDS: FIDAXOMICIN 200 MG TAB PO SCH ×2 (09:31→21:03)
[2021-08-27] MEDS: POTASSIUM CHLORIDE CRTAB 20 MEQ TABCR PO SCH ×2 (09:31→21:03)
[2021-08-27] MEDS: rifAXIMin 550 MG TABLET PO SCH ×2 (09:31→21:12)
[2021-08-27] MEDS: SERTRALINE HCL 50 MG TABLET PO SCH (09:31)
[2021-08-27] MEDS: DORZOLAMIDE HCL 2% OPH SOLN 10 ML BTL OP SCH ×2 (09:32→21:02)
[2021-08-27] MEDS: PEPTAMEN 1.5 CAL 1,000 ML BAG NG SCH (12:06)
[2021-08-27] MEDS: ENOXAPARIN INJ 40 MG/0.4 ML SYR SQ SCH (12:15)
[2021-08-27] MEDS ORDERED: CHLORASEPTIC 1.4% SOLN 180 ML BTL MT PRN (12:23)
[2021-08-27] MEDS: ACETAMINOPHEN 325 MG TAB PO PRN ×2 (14:44→22:08)
--- NOTE | 2021-08-27 14:48 | Gastroenterology Progress Note ---
Date of Service August 27, 2021 Assessment & Plan (1) Recurrent Clostridioides difficile diarrhea: Plan: Continue rifaximin, flagyl IV, Dificid Discussion with [facility] - working to arrange fecal transplant, possibly by oral route, unfortunately available only at [facility]. Continue tube feedings for nutritional support. . IV fluids. Will continue to follow. Admission and Anticipated Discharge Date Admission Date: August 12, 2021 Supervising Physician Co-Signing Physician Notes Attending attestation I have seen, examined this patient, and agree with the findings and above by our mid-level provider DANIEL Real: -Patient with very mild improvement but still very weak, having 8-10 if not 12 bowel movements daily. Started taking some liquids -Waiting on open biome idea of when sample in [facility] will become available for [facility] Subjective 80 female admitted for C-diff colitis Tx previously with Vanco x 2 course, currently with Dificid since 08/25. also on metronidazole IV. Continues with very frequent diarrhea though feels improved this afternoon compared to prior with more energy, BMs slowing. Continues with diffuse abdominal pain and nausea - again improved this afternoon. No blood in BMs. On NG tube feedings. Review of Systems Review of Systems: ROS: Gen: + weakness, + weight loss No fevers, Eyes: No eye redness, or pain, no recent vision changes Resp: No SOB, no cough Cardio: No palpitations/irregular beats, no chest pain GI:See HPI : Denies pain on urination Skin: No jaundice, itching or new rashes Physical Exam Constitutional: well developed, + ill appearing, + thin and cooperative Eyes: PERRL, conjunctivae normal, anicteric sclerae Respiratory: normal respiratory effort, lungs clear to auscultation Cardiovascular: RRR, no murmur, no edema Gastrointestinal (Abdomen): Percussion/Palpation: + abdomen tender (Mild diffuse adbdominal tenderness. No signs of acute abdomen.) and abdomen soft; no guarding and abdomen not rigid Skin: no rashes, warm and dry normal turgor and + pallor Neurologic: PERRL, EOMI, accommodation nl, no face palsy, no dysarthria awake; not confused Psychiatric: A+Ox3, euthymic affect Orientation: alert, oriented x 3 and cooperative Results & Data ([facility]) Vital Signs (Past 12 Hours) Vital Signs Temp Pulse Resp BP Pulse Ox 08/27/21 10:56 36.6 C 74 16 130/72 99 08/27/21 07:42 36.6 C 75 16 113/67 99 Laboratory Results WBC 8, Hb 10, Hct 33, Plts 333, Na 144, K 4.0, BUN 8, Cr 0.48 Diagnostic Findings CTAP non contrast 08/24: 1. Stable to slight improvement in the pancolitis. This is likely due to an infectious or inflammatory process. 2. Small to moderate bilateral pleural fusions have increased in size. 3. Mild body wall edema. 4. Abnormal endometrial thickening is again noted. 5. Stable ascites.
--- NOTE | 2021-08-27 16:18 | Hospitalist Progress Note ---
Date of Service August 27, 2021 Assessment & Plan (1) C. difficile colitis: Plan: Attending: Dr. Lott Impression: Patient with prior C. difficile infection status post 2 courses of antibiotic treatment with po Vanco from 05/2021-06/2021. She has had continuous diarrhea since then despite testing neg for C. diff, but then took a course of abx for a UTI recently and had worsening of the diarrhea. Severe, treatment resistant C. difficile colitis - Leukocytosis on admission WBC = 18.84 and lactate initially elevated at 2.3. C. difficile gene and toxin positive. CT with inflammation of the colon consistent with colitis, most likely secondary to C. difficile infection. - Diarrhea persists, still watery and frequent -Continues to be afebrile - Leukocytosis downtrending - Having pain in rectum from recurrent rectal prolapse that is reducible - Stool is culture negative - 08/15- KUB negative for megacolon or obstruction, showed diffuse colonic wall thickening and edema consistent with colitis. KUB repeated 08/17 again neg for megacolon or obstruction -CT abdomen pelvis 08/24/2021 with stable to slight improvement in pancolitis. Small to moderate bilateral pleural effusions have increased in size. Mild body wall edema. Abnormal endometrial thickening again noted. There is stable ascites. - Dificid started 08/13 (continue until 09/02) - Continue flagyl 500mg TID -discontinued home colchicine daily as this can also contribute to diarrhea -pain control with IV morphine prn -no intervention for rectal prolapse unless protrudes and turns necrotic -chronic prednisone use does increase her risk for bowel perforation No clinical change with Questran so this was discontinued. 08/21: Patient unable to tolerate liquid/full diet. had chronic malnutrition for a full week, concern for enteral integrity. Discussed options extensively with patient, NGT placed with partial elemental feeds. KUB confirmed placement, no abnormality of colon appreciated on KUB. Started at 10cc/hr continuous 08/21. - Estimated daily caloric needs [id number] kcals per day, per nutrition if able to increase rate goal of 45 cc/h - Continuous feeds at 45/hr. Patient with improved third spacing and less pressure from ascites today, nutritionally improving although clinical C. difficile/diarrhea remains unchanged. While patient has not had a elevated creatinine/EFREM and shock/ileus, she continues severely ill despite ongoing inpatient antibiotic treatment including C. difficile and Flagyl. She is not able to tolerate oral nutrition and is requiring continuous NGT feeding. Discussed with GI, patient meets criteria for emergency authorization to [place] for fecal transplant. Continue to pursue potential transplant for higher level of care and fecal transplant. (2) Bilateral pleural effusion: Plan: - CT-A/P: 1. 2. Small to moderate bilateral pleural fusions have increased in size. Likely transudate of in the setting of hypoalbuminemia with aggressive IV fluids prior to starting NGT feeds. No hypoxia Diuresis limited by hypotension, hypoalbuminemia Thoracentesis likely to reaccumulate, consider pulmonary consult if clinical deterioration and bleeding -Patient denies shortness of breath or pleuritic type pain (3) Splenic infarct: Plan: - Question of splenic infarct and IVC thrombus new from CT abdomen obtained on 08/10. 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 Questionable stricture versus thrombus in the right hepatic vein along the proximal portion. - Patient initially started on Heparin drip. Further review of imaging indicated this most likely was an over read. Heparin drip was discontinued - RULED OUT (5) GERD (gastroesophageal reflux disease): Plan: Chronic. Continue famotidine, PPI (6) Depression: Plan: -Chronic. -Continue Zoloft 50 mg p.o. every morning (7) CKD (chronic kidney disease): Plan: -Chronic kidney disease, stage 2-3 -BUN and creatinine near baseline -Avoid nephrotoxic agents -Continue to monitor BUN, creatinine, electrolytes, urine output (8) Scleroderma: Plan: -Chronic. -Patient states that she has pulmonary involvement as well. -Patient follows with pulmonology and has routine PFTs. Most recent PFTs 05/01/21 showed no obstructive lung dysfunction. Slightly decreased DLCOunc with poor patient effort during exam. -Continue hydroxychloroquine -Continue prednisone -Continue felodipine for Raynaud's (9) Cough: Plan: -No coughing during the course of my interview and examination. Continue to monitor -dry, mild -has fibrosis at bases of lungs on imaging -could be some developing pulm edema given hypoalbuminemia and IVFs. IVF as noted -Continue incentive spirometry (10) Edema: Plan: -trace peripheral edema -does have hypoalbuminemia and receiving IVFs -also scleroderma causes some skin changes and shiny skin -will reduce IVFs as above - Pt very concerned about swelling, bilateral Dopplers negative Discussed likely 2/2 hypoalbuminemia with poor nutrition in the last week. Diet advanced to full liquid, plus boost patient did not tolerate. NGT nutrition as noted above. Plan: DVT proph-SCDs, Lovenox SQ today Await availability of fecal transplant and bed at [facility] Family Updates may be given to Sarah at [phone] if primary # no available (no voicemail at primary contact number) Admission and Anticipated Discharge Date Admission Date: August 12, 2021 Subjective Attending: Dr. Lott Impression: 80 yo female admitted for C-diff colitis. Tx previously with Vanco x 2 course, currently with Dificid since 08/25. also on metronidazole IV. Continues with very frequent diarrhea, BMs slowing. Continues on NG tube feedings. Patient seen and examined at bedside. Feeding tube is in place. Patient has no acute complaints. She continues with some diarrhea. Not sleeping much due to frequency of stool. Abdominal pain is generally controlled. She denies any fever, chills, sweats, rigors. Review of Systems Review of Systems: All systems reviewed & are unremarkable except as noted in Subjective Physical Exam Physical Exam: GENERAL : No acute distress EYES: No icterus, gaze conjugate NOSE: No evidence of epistaxis. Course safe feeding tube secure in right naris MOUTH: No lesions or candidiasis. Mucosa moist NECK: Supple LUNGS: CTA B/L, no wheezes, rales or rhonchi HEART: Regular, rate controlled ABDOMEN: Soft, ND, BS Present. Tender to light palpation with guarding. EXTREMITIES: No LE edema, pedal pulses intact and equal bilaterally NEURO: A&OX3 Results & Data Results & Data ([facility]) Vital Signs (Past 12 Hours) Vital Signs Temp Pulse Resp BP Pulse Ox 08/27/21 15:42 36.8 C 77 16 131/70 100 08/27/21 10:56 36.6 C 74 16 130/72 99 08/27/21 07:42 36.6 C 75 16 113/67 99 Laboratory Results 08/26/21 06:01 08/26/21 06:01 Diagnostic Findings No further diagnostic imaging PG Care Time/CCT Total # of Minutes Spent Total Time Spent with Patient: Total time spent is greater than 50% in coordination of care (as documented) at patient's floor/unit and/or counseling patient: 30 minutes Coding Level of Care Code 85323 Subseq Hosp Care Lvl 2 Diagnoses C. difficile colitis A04.72 Bilateral pleural effusion J90 Splenic infarct D73.5 IVC thrombosis I82.220 GERD (gastroesophageal reflux disease) K21.9 Depression F32.9 CKD (chronic kidney disease) N18.9 Scleroderma M34.9 Cough R05 Edema R60.9 Time Spent (min) 30
[2021-08-27] MEDS: TRAVOPROST Z 0.004% OPH SOLN 2.5 ML BTL OP SCH (21:13)
[2021-08-27] MEDS: MELATONIN 3 MG TAB PO PRN (22:08)
[2021-08-28] MEDS: TUBE FEEDING WATER FLUSH NG SCH ×6 (01:11→22:15)
[2021-08-28] MEDS ORDERED: SUMAtriptan succinate 50 MG TAB PO PRN (02:53)
[2021-08-28] MEDS: LORazepam 0.5 MG/1 ML VIAL IV PRN ×2 (04:40→23:09)
[2021-08-28] MEDS: metroNIDAZOLE 500 MG/100 ML BAG IV SCH ×3 (08:52→23:21)
[2021-08-28] MEDS: DORZOLAMIDE HCL 2% OPH SOLN 10 ML BTL OP SCH ×2 (08:55→20:38)
[2021-08-28] MEDS: rifAXIMin 550 MG TABLET PO SCH ×2 (08:56→20:40)
[2021-08-28] MEDS: FIDAXOMICIN 200 MG TAB PO SCH ×2 (08:56→20:39)
[2021-08-28] MEDS: POTASSIUM CHLORIDE CRTAB 20 MEQ TABCR PO SCH ×2 (08:59→20:39)
[2021-08-28] MEDS: THIAMINE HCL 100 MG TAB PO SCH (08:59)
[2021-08-28] MEDS: FAMOTIDINE 40 MG TABLET PO SCH (08:59)
[2021-08-28] MEDS: POT PHOSPHATE MONOBASIC W/ SOD TAB PO SCH ×4 (08:59→20:39)
[2021-08-28] MEDS: PANTOprazole 40 MG TAB PO SCH (09:00)
[2021-08-28] MEDS: SACCHAROMYCES BOULARDII 250 MG CAP PO SCH (09:00)
[2021-08-28] MEDS: SERTRALINE HCL 50 MG TABLET PO SCH (09:00)
[2021-08-28] MEDS: predniSONE 5 MG TAB PO SCH (09:00)
[2021-08-28] MEDS: ENOXAPARIN INJ 40 MG/0.4 ML SYR SQ SCH (12:57)
[2021-08-28] MEDS: PEPTAMEN 1.5 CAL 1,000 ML BAG NG SCH (12:59)
--- NOTE | 2021-08-28 15:33 | Gastroenterology Progress Note ---
Date of Service August 28, 2021 Assessment & Plan (1) Recurrent Clostridioides difficile diarrhea: Plan: Continue rifaximin, flagyl IV, Dificid Discussion with Shruti - working to arrange fecal transplant, possibly by oral route, unfortunately available only at [place]. If unable to arrange, may consider arranging outpatient fecal transplant via colonoscopy with daughters being the donors. Continue tube feedings for nutritional support. IV fluids. Will continue to follow. Admission and Anticipated Discharge Date Admission Date: August 12, 2021 Supervising Physician Co-Signing Physician Notes Attending attestation Late entry, patient was seen on date of INVESTIGATIVE REPORTER provider: I have seen, examined this patient, and agree with the findings and above by our mid-level provider DANIEL Tyson, with the following additions - mildly improved - continue dificid and rifaximin - eval for FMT, awaiting word from supplier ([employer]) Subjective 80 female. Admitted for recurrent C-diff - Ct with colitis Tx previously with Vanco x 2 course, currently with Dificid since 08/25. also on metronidazole IV. On NG feedings. Patient is clearly stronger than a few days ago. Abdominal exam is less tender, less distended. However diarrhea continues approximately every 1-2 hours. Review of Systems Review of Systems: ROS: Gen: + weakness, improving No fevers, weight loss Eyes: No eye redness, or pain, no recent vision changes Resp: No SOB, no cough Cardio: No palpitations/irregular beats, no chest pain GI: Per HPI, otherwise negative : Denies pain on urination Skin: No jaundice, itching or new rashes A total of 10 systems reviewed, all others negative Physical Exam Constitutional: well developed, + ill appearing, + thin and cooperative Eyes: PERRL, conjunctivae normal, anicteric sclerae Respiratory: normal respiratory effort, lungs clear to auscultation Cardiovascular: RRR, no murmur, no edema Gastrointestinal (Abdomen): Percussion/Palpation: + abdomen tender (Mild diffuse adbdominal tenderness. No signs of acute abdomen.) and abdomen soft; no guarding and abdomen not rigid Nondistended Skin: no rashes, warm and dry normal turgor and + pallor Neurologic: PERRL, EOMI, accommodation nl, no face palsy, no dysarthria awake; not confused Psychiatric: A+Ox3, euthymic affect Orientation: alert, oriented x 3 and cooperative Results & Data ([facility]) Vital Signs (Past 12 Hours) Vital Signs Temp Pulse Resp BP Pulse Ox 08/28/21 08:47 36.3 C L 87 16 136/78 97 Laboratory Results WBC 8, Hb 10, HCT 33, PLT SP 33, NA 144, K4.0, CL 113, CO2 25, BUN 9, CR 0.48, glucose 140 Diagnostic Findings CTAP 08/12/21: 1. Stable to slight improvement in the pancolitis. This is likely due to an infectious or inflammatory process. 2. Small to moderate bilateral pleural fusions have increased in size. 3. Mild body wall edema. 4. Abnormal endometrial thickening is again noted. 5. Stable ascites.
--- NOTE | 2021-08-28 16:42 | Hospitalist Progress Note ---
Date of Service August 28, 2021 Assessment & Plan (1) C. difficile colitis: Plan: Attending: Dr. Lott Impression: Patient with prior C. difficile infection status post 2 courses of antibiotic treatment with po Vanco from 05/2021-06/2021. She has had continuous diarrhea since then despite testing neg for C. diff, but then took a course of abx for a UTI recently and had worsening of the diarrhea. Severe, treatment resistant C. difficile colitis - Leukocytosis on admission WBC = 18.84 and lactate initially elevated at 2.3. C. difficile gene and toxin positive. CT with inflammation of the colon consistent with colitis, most likely secondary to C. difficile infection. - Diarrhea persists, still watery and frequent every 1-2 hours -Continues to be afebrile - Leukocytosis resolved - Having pain in rectum from recurrent rectal prolapse that is reducible - Stool is culture negative - 08/15- KUB negative for megacolon or obstruction, showed diffuse colonic wall thickening and edema consistent with colitis. KUB repeated 08/17 again neg for megacolon or obstruction -CT abdomen pelvis 08/24/2021 with stable to slight improvement in pancolitis. Small to moderate bilateral pleural effusions have increased in size. Mild body wall edema. Abnormal endometrial thickening again noted. There is stable ascites. - Dificid started 08/13 (continue until 09/02) - Continue flagyl 500mg TID -discontinued home colchicine daily as this can also contribute to diarrhea -No longer requiring narcotics for pain control -no intervention for rectal prolapse unless protrudes and turns necrotic -chronic prednisone use does increase her risk for bowel perforation No clinical change with Questran so this was discontinued. 08/21: Patient unable to tolerate liquid/full diet. had chronic malnutrition for a full week, concern for enteral integrity. Discussed options extensively with patient, NGT placed with partial elemental feeds. - Estimated daily caloric needs [id number] kcals per day, per nutrition if able to increase rate goal of 45 cc/h - Continuous feeds at 45/hr. Patient with improved third spacing - Check CBC, PRP, Procalcitonin, Mag, Phos, LFTs in the am While patient has not had a elevated creatinine/EFREM and shock/ileus, she continues severely ill despite ongoing inpatient antibiotic treatment including C. difficile and Flagyl. She is not able to tolerate oral nutrition and is requiring continuous NGT feeding. Discussed with GI, patient meets criteria for emergency authorization to [facility] for fecal transplant. Continue to pursue potential transplant for higher level of care and fecal transplant. (2) Bilateral pleural effusion: Plan: - CT-A/P: 1. 2. Small to moderate bilateral pleural fusions have increased in size. Likely transudate of in the setting of hypoalbuminemia with aggressive IV fluids prior to starting NGT feeds. No hypoxia Diuresis limited by hypotension, hypoalbuminemia Thoracentesis likely to reaccumulate, consider pulmonary consult if clinical deterioration and bleeding -Patient denies shortness of breath or pleuritic type pain -CXR in the morning (3) Splenic infarct: Plan: - Question of splenic infarct and IVC thrombus new from CT abdomen obtained on 08/10. 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 Questionable stricture versus thrombus in the right hepatic vein along the proximal portion. - Patient initially started on Heparin drip. Further review of imaging indicated this most likely was an over read. Heparin drip was discontinued - RULED OUT (5) GERD (gastroesophageal reflux disease): Plan: Chronic. Continue famotidine, PPI (6) Depression: Plan: -Chronic. -Continue Zoloft 50 mg p.o. every morning (7) CKD (chronic kidney disease): Plan: -Chronic kidney disease, stage 2-3 -BUN and creatinine near baseline -Avoid nephrotoxic agents -Continue to monitor BUN, creatinine, electrolytes, urine output (8) Scleroderma: Plan: -Chronic. -Patient states that she has pulmonary involvement as well. -Patient follows with pulmonology and has routine PFTs. Most recent PFTs 05/01/21 showed no obstructive lung dysfunction. Slightly decreased DLCOunc with poor patient effort during exam. -Continue hydroxychloroquine -Continue prednisone -Continue felodipine for Raynaud's (9) Cough: Plan: -Improved -No coughing during the course of my interview and examination. Continue to monitor -dry, mild -has fibrosis at bases of lungs on imaging -could be some developing pulm edema given hypoalbuminemia and IVFs. IVF as noted -Continue incentive spirometry -Portable chest x-ray in the morning to evaluate pleural effusions (10) Edema: Plan: -trace peripheral edema -does have hypoalbuminemia and receiving IVFs -also scleroderma causes some skin changes and shiny skin -will reduce IVFs as above - Pt very concerned about swelling, bilateral Dopplers negative Discussed likely 2/2 hypoalbuminemia with poor nutrition in the last week. Diet advanced to full liquid, plus boost patient did not tolerate. NGT nutrition as noted above. Plan: DVT proph-SCDs, Lovenox SQ today Await availability of fecal transplant and bed at [facility] Family Updates may be given to Sarah at [phone] if primary # not available (no voicemail at primary contact number) Admission and Anticipated Discharge Date Admission Date: August 12, 2021 Subjective Attending: Dr. Lott Patient seen and examined at bedside. She looks stronger today she is tolerating tube feeds well. She continues to have diarrhea every 1-2 hours. She has no abdominal pain. She has no cramping. She denies fever, chills, s weats, rigors. She does state that she has been out of bed to the chair and has moved about the room. No other acute complaints. Review of Systems 2 Review of Systems: All systems reviewed & are unremarkable except as noted in Subjective Physical Exam Physical Exam: GENERAL : No acute distress EYES: No icterus, gaze conjugate NOSE: No evidence of epistaxis MOUTH: No lesions or candidiasis NECK: Supple LUNGS: CTA B/L, no wheezes, rales or rhonchi HEART: Regular, rate controlled ABDOMEN: Soft, ND, BS Present. Some tenderness to deep palpation. No rebound tenderness EXTREMITIES: +1 bilateral LE edema, pedal pulses intact intact and equal bilaterally NEURO: A&OX3 Results & Data Results & Data ([facility]) Vital Signs (Past 12 Hours) Vital Signs Temp Pulse Resp BP Pulse Ox 08/28/21 15:31 36.9 C 86 16 118/74 97 08/28/21 08:47 36.3 C L 87 16 136/78 97 Laboratory Results 08/26/21 06:01 08/26/21 06:01 Diagnostic Findings No further imaging PG Care Time/CCT Total # of Minutes Spent Total Time Spent with Patient: Total time spent is greater than 50% in coordination of care (as documented) at patient's floor/unit and/or counseling patient: 60 minutes including 30-minute discussion with daughters by phone with update Coding Level of Care Code 15232 Subseq Hosp Care Lvl 2 Diagnoses C. difficile colitis A04.72 Bilateral pleural effusion J90 Splenic infarct D73.5 IVC thrombosis I82.220 GERD (gastroesophageal reflux disease) K21.9 Depression F32.9 CKD (chronic kidney disease) N18.9 Scleroderma M34.9 Cough R05 Edema R60.9 Time Spent (min) 60 Comment Including 30 minutes on the phone with daughters
[2021-08-28] MEDS: TRAVOPROST Z 0.004% OPH SOLN 2.5 ML BTL OP SCH (20:38)
[2021-08-28] MEDS: MELATONIN 3 MG TAB PO PRN (20:57)
[2021-08-29] MEDS: TUBE FEEDING WATER FLUSH NG SCH ×6 (01:35→21:46)
[2021-08-29 06:44] LABS: Hematocrit (blood only) 33.6 % (37-47); Hemoglobin 10.2 g/dL (12.0-16.0); Mean Corpuscular Hemoglobin 28.3 pg (25-34); Mean Corpuscular Hgb Conc 30.4 g/dL (32-36); Mean Corpuscular Volume 93.1 fL (80-100); Mean Platelet Volume 9.2 fL (7.4-10.4); Platelet Count 340 K/uL (130-400); RDW Coefficient of Variation 16.3 % (11.5-14.5); RDW Standard Deviation 55.3 fL (36.4-46.3); Red Blood Count 3.61 M/uL (4.2-5.4); White Blood Count 5.78 K/uL (4.8-10.8)
[2021-08-29 07:09] LABS: Alanine Aminotransferase 11 U/L (12-78); Albumin Level 2.2 gm/dl (3.4-5.0); Aspartate Aminotransferase 12 U/L (15-37); BUN Creatinine Ratio 27.4 (10-20); Bilirubin Direct < 0.1 mg/dl (0-0.2); Blood Urea Nitrogen 13 mg/dl (7-18); Calcium 8.7 mg/dl (8.5-10.1); Carbon Dioxide 25 mmol/L (21-32); Chloride 112 mmol/L (98-107); Creatinine Clr Calc Pharmacy 76.4 ml/min; Est GFR (African American) 108.9 ml/min; Glucose 119 mg/dl (70-99); Magnesium 2.4 mg/dl (1.8-2.4); Potassium 3.9 mmol/L (3.5-5.1); Sodium 142 mmol/L (136-145)
[2021-08-29 07:12] LABS: Alkaline Phosphatase 41 U/L (45-117); Bilirubin,Total 0.2 mg/dl (0.2-1); Phosphorus 2.8 mg/dl (2.5-4.9); Total Protein 5.6 gm/dl (6.4-8.2)
--- NOTE | 2021-08-29 07:55 | XRay Report ---
XR chest 1V portable HISTORY: Shortness of breath. Bilateral pleural effusions COMPARISON: Chest 08/12/2021. FINDINGS: Feeding tube terminates below the diaphragm. The tip is not included on this study. No pneu mothorax. Small bilateral pleural effusions and patchy bibasilar densities are noted. The upper lung zones are clear. There is mild emphysema. No evidence for pulmonary edema. The heart is top normal in size. IMPRESSION: 1. Small bilateral pleural effusions with patchy bibasilar densities. This favors atelectasis. A pneu monia could also have a similar appearance. 2. The feeding tube terminates below the diaphragm. ACT 112: Negative or not required by law. Electronically signed by: Mark Villela M.D. 08/29/2021 7:53 AM
[2021-08-29] MEDS: metroNIDAZOLE 500 MG/100 ML BAG IV SCH ×3 (08:26→23:58)
[2021-08-29] MEDS: DORZOLAMIDE HCL 2% OPH SOLN 10 ML BTL OP SCH ×2 (08:27→21:44)
[2021-08-29] MEDS: rifAXIMin 550 MG TABLET PO SCH ×2 (08:27→21:46)
[2021-08-29] MEDS: predniSONE 5 MG TAB PO SCH (08:27)
[2021-08-29] MEDS: THIAMINE HCL 100 MG TAB PO SCH (08:28)
[2021-08-29] MEDS: SERTRALINE HCL 50 MG TABLET PO SCH (08:28)
[2021-08-29] MEDS: SACCHAROMYCES BOULARDII 250 MG CAP PO SCH (08:28)
[2021-08-29] MEDS: POTASSIUM CHLORIDE CRTAB 20 MEQ TABCR PO SCH ×2 (08:28→21:46)
[2021-08-29] MEDS: POT PHOSPHATE MONOBASIC W/ SOD TAB PO SCH ×4 (08:29→21:45)
[2021-08-29] MEDS: PANTOprazole 40 MG TAB PO SCH (08:29)
[2021-08-29] MEDS: FIDAXOMICIN 200 MG TAB PO SCH ×2 (08:29→21:45)
[2021-08-29] MEDS: FAMOTIDINE 40 MG TABLET PO SCH (08:30)
--- NOTE | 2021-08-29 11:30 | Gastroenterology Progress Note ---
Date of Service August 29, 2021 Assessment & Plan (1) Recurrent Clostridioides difficile diarrhea: Plan: Continue rifaximin, flagyl IV, Dificid. Will assume that we will NOT be unable to obtain the fecal transplant material. Pt is slowly improving. Continue to monitor outputs, electrolytes, albumin, WBC. Cont NG tube feedings until able to support nutritional needs po. As a binding agent, will add carafate, 1gm one tab 4 times daily, ongoing. (Pt did not tolerate the taste of cholestyramine). At completion of the Dificid, then Vancomycin long taper: 125mg QID x 28 days, then one tab every other day for a month. Then consider following with Rifaximin x 4 wks if able to get insurance coverage. Admission and Anticipated Discharge Date Admission Date: August 12, 2021 Supervising Physician Co-Signing Physician Notes I saw and evaluated the patient this afternoon. She has a history of severe C. difficile infection which appears to be improved with the use of intravenous metronidazole high-dose vancomycin and Xifaxan. Would recommend that she complete a 10-day course of these medications and then begin a long-term taper with vancomycin as noted above. Given the severity of this patient's presentation I wonder if it would be beneficial to obtain a infectious disease consultation. Fecal bacterial therapy has been considered in this patient but unfortunately due to the Covid epidemic [facility] is unable to obtain a sample for this patient. Subjective 80 female Recurrent C-diff, here with C-diff colitis. Pt tells me she is a little better. Appears comfortable but frail. Still getting NG tube feedings. Albumin 2.2 today, up from 1.5 the past few days. Cr is normal. Resting in bed. Most recent diarrhea this morning around 6Am, was able to eat a small amt of full liquids w/o post prandial diarrhea which was an improvement. Thus far unable to procure fecal transplant media from [facility] which is providing only in critical situation. Dr. Ling has a message in the [employer] this morning w/o response. Review of Systems Review of Systems: ROS: Gen: + weakness, improving No fevers, weight loss Eyes: No eye redness, or pain, no recent vision changes Resp: No SOB, no cough Cardio: No palpitations/irregular beats, no chest pain GI: Per HPI, otherwise negative : Denies pain on urination Skin: No jaundice, itching or new rashes A total of 10 systems reviewed, all others negative Physical Exam Constitutional: well developed, + ill appearing, + thin and cooperative Eyes: PERRL, conjunctivae normal, anicteric sclerae Respiratory: normal respiratory effort, lungs clear to auscultation Cardiovascular: RRR, no murmur, no edema Gastrointestinal (Abdomen): Percussion/Palpation: + abdomen tender (Mild diffuse adbdominal tenderness. No signs of acute abdomen.) and abdomen soft; no guarding and abdomen not rigid Skin: no rashes, warm and dry normal turgor and + pallor Neurologic: PERRL, EOMI, accommodation nl, no face palsy, no dysarthria awake; not confused Psychiatric: A+Ox3, euthymic affect Orientation: alert, oriented x 3 and cooperative Results & Data ([facility]) Vital Signs (Past 12 Hours) Vital Signs Temp Pulse Resp BP Pulse Ox 08/29/21 06:27 36.7 C 79 16 121/71 98 Laboratory Results WBC 5, Hb 10, HCT 33, PLT is 340, NA 142, K3.9, CL 112, CO2 25, BUN 13, creatinine 0.48, glucose 119. Diagnostic Findings Noncontrast CT abdomen pelvis 08/24/2021: 1. Stable to slight improvement in the pancolitis. This is likely due to an infectious or inflammatory process. 2. Small to moderate bilateral pleural fusions have increased in size. 3. Mild body wall edema. 4. Abnormal endometrial thickening is again noted. 5. Stable ascites. CTA : 1. Findings are consistent with a nonspecific colitis, likely on an infectious or inflammatory basis. Clinical correlation will be required. This has worsened as compared to 08/10/2021. 2. A small volume of abdominopelvic ascites is new from previous. 3. Unremarkable CT angiogram of the abdominal aorta and its major branches. 4. The endometrium is markedly thickened and heterogeneous for age. This is not well assessed by CT, and nonemergent follow-up with gynecology and pelvic ultrasound is recommended for further evaluation. 5. There is heterogeneous arterial phase enhancement of the spleen. A splenic infarct as questioned by the pulmonary interpretation is considered unlikely. 6. The liver is heterogeneous, likely related to phase of enhancement. There is no CT evidence of Budd-Chiari syndrome is questioned on the preliminary interpretation. 7. Mild to moderate pericardial effusion and trace pleural effusions. 8. The appendiceal wall appears mildly thickened and hyperemic. This is likely related to colitis and surrounding ascitic fluid. There is no clear CT evidence of acute appendicitis.
[2021-08-29] MEDS: ENOXAPARIN INJ 40 MG/0.4 ML SYR SQ SCH (12:20)
[2021-08-29] MEDS: LORazepam 0.5 MG/1 ML VIAL IV PRN ×2 (14:36→21:57)
[2021-08-29] MEDS: PEPTAMEN 1.5 CAL 1,000 ML BAG NG SCH (17:00)
[2021-08-29] MEDS: SUCRALFATE 1 GM TAB PO SCH ×2 (17:47→21:46)
--- NOTE | 2021-08-29 20:39 | Hospitalist Progress Note ---
Date of Service August 29, 2021 Assessment & Plan (1) C. difficile colitis: Plan: Attending: Dr. Lott Impression: Patient with prior C. difficile infection status post 2 courses of antibiotic treatment with po Vanco from 05/2021-06/2021. She has had continuous diarrhea since then despite testing neg for C. diff, but then took a course of abx for a UTI recently and had worsening of the diarrhea. Severe, treatment resistant C. difficile colitis - Leukocytosis on admission WBC = 18.84 and lactate initially elevated at 2.3. C. difficile gene and toxin positive. CT with inflammation of the colon consistent with colitis, most likely secondary to C. difficile infection. - Diarrhea persists, still watery and frequent every 1-2 hours -Continues to be afebrile - Leukocytosis resolved - Having pain in rectum from recurrent rectal prolapse that is reducible - Stool is culture negative - 08/15- KUB negative for megacolon or obstruction, showed diffuse colonic wall thickening and edema consistent with colitis. KUB repeated 08/17 again neg for megacolon or obstruction -CT abdomen pelvis 08/24/2021 with stable to slight improvement in pancolitis. Small to moderate bilateral pleural effusions have increased in size. Mild body wall edema. Abnormal endometrial thickening again noted. There is stable ascites. - Dificid started 08/13 (continue until 09/02) - Continue flagyl 500mg TID -discontinued home colchicine daily as this can also contribute to diarrhea -No longer requiring narcotics for pain control -no intervention for rectal prolapse unless protrudes and turns necrotic -chronic prednisone use does increase her risk for bowel perforation No clinical change with Questran so this was discontinued. 08/21: Patient unable to tolerate liquid/full diet. had chronic malnutrition for a full week, concern for enteral integrity. Discussed options extensively with patient, NGT placed with partial elemental feeds. - Estimated daily caloric needs [id number] kcals per day, per nutrition if able to increase rate goal of 45 cc/h - Continuous feeds at 45/hr. Patient with improved third spacing - WBC continues to improve. -procal is negaive. While patient has not had a elevated creatinine/EFREM and shock/ileus, she continues severely ill despite ongoing inpatient antibiotic treatment including C. difficile and Flagyl. She is not able to tolerate oral nutrition and is requiring continuous NGT feeding. Discussed with GI, patient meets criteria for emergency authorization to [facility] for fecal transplant. -It appears at this point that stool transplant is not available at this time. Patient is responding to treatment. Will monitor. (2) Bilateral pleural effusion: Plan: - CT-A/P: 1. 2. Small to moderate bilateral pleural fusions have increased in size. Likely transudate of in the setting of hypoalbuminemia with aggressive IV fluids prior to starting NGT feeds. No hypoxia Diuresis limited by hypotension, hypoalbuminemia Thoracentesis likely to reaccumulate, consider pulmonary consult if clinical deterioration and bleeding -Patient denies shortness of breath or pleuritic type pain -CXR in the morning (3) Splenic infarct: Plan: - Question of splenic infarct and IVC thrombus new from CT abdomen obtained on 08/10. 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 Questionable stricture versus thrombus in the right hepatic vein along the proximal portion. - Patient initially started on Heparin drip. Further review of imaging indicated this most likely was an over read. Heparin drip was discontinued - RULED OUT (5) GERD (gastroesophageal reflux disease): Plan: Chronic. Continue famotidine, PPI (6) Depression: Plan: -Chronic. -Continue Zoloft 50 mg p.o. every morning (7) CKD (chronic kidney disease): Plan: -Chronic kidney disease, stage 2-3 -BUN and creatinine near baseline -Avoid nephrotoxic agents -Continue to monitor BUN, creatinine, electrolytes, urine output (8) Scleroderma: Plan: -Chronic. -Patient states that she has pulmonary involvement as well. -Patient follows with pulmonology and has routine PFTs. Most recent PFTs 05/01/21 showed no obstructive lung dysfunction. Slightly decreased DLCOunc with poor patient effort during exam. -Continue hydroxychloroquine -Continue prednisone -Continue felodipine for Raynaud's (9) Cough: Plan: -Improved -No coughing during the course of my interview and examination. Continue to m onitor -dry, mild -has fibrosis at bases of lungs on imaging -could be some developing pulm edema given hypoalbuminemia and IVFs. IVF as noted -Continue incentive spirometry -Portable chest x-ray in the morning to evaluate pleural effusions (10) Edema: Plan: -trace peripheral edema -does have hypoalbuminemia and receiving IVFs -also scleroderma causes some skin changes and shiny skin -will reduce IVFs as above - Pt very concerned about swelling, bilateral Dopplers negative Discussed likely 2/2 hypoalbuminemia with poor nutrition in the last week. Diet advanced to full liquid, plus boost patient did not tolerate. NGT nutrition as noted above. Plan: DVT proph-SCDs, Lovenox SQ today Await availability of fecal transplant and bed at [facility] Family Updates may be given to Sarah at [phone] if primary # not available (no voicemail at primary contact number) Admission and Anticipated Discharge Date Admission Date: August 12, 2021 Subjective Patient reports she has had a mid improvement in her stools as she states her stool frequency is down, however she states may have had 7 loose stools in past 24 hours. Review of Systems Review of Systems: All systems reviewed & are unremarkable except as noted in HPI & below Physical Exam Physical Exam: GENERAL : No acute distress EYES: No icterus, gaze conjugate NOSE: No evidence of epistaxis MOUTH: No lesions or candidiasis NECK: Supple LUNGS: CTA B/L, no wheezes, rales or rhonchi HEART: Regular, rate controlled ABDOMEN: Soft, ND, BS Present. Some tenderness to deep palpation. No rebound tenderness EXTREMITIES: +1 bilateral LE edema, pedal pulses intact intact and equal bilaterally NEURO: A&OX3 Results & Data Results & Data ([facility]) Vital Signs (Past 12 Hours) Vital Signs Temp Pulse Resp BP Pulse Ox 08/29/21 15:58 36.7 C 86 16 128/76 98 PG Care Time/CCT Total # of Minutes Spent Total Time Spent with Patient: Total time spent is greater than 50% in coordination of care (as documented) at patient's floor/unit and/or counseling patient: Coding Level of Care Code 54716 Subseq Hosp Care Lvl 2 Diagnoses C. 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
[2021-08-29] MEDS: TRAVOPROST Z 0.004% OPH SOLN 2.5 ML BTL OP SCH (21:44)
[2021-08-29] MEDS: MELATONIN 3 MG TAB PO PRN (21:58)
[2021-08-30] MEDS: TUBE FEEDING WATER FLUSH NG SCH ×6 (02:34→21:32)
[2021-08-30] MEDS: metroNIDAZOLE 500 MG/100 ML BAG IV SCH ×3 (08:52→23:56)
[2021-08-30] MEDS: SUCRALFATE 1 GM TAB PO SCH ×4 (09:42→20:25)
[2021-08-30] MEDS: DORZOLAMIDE HCL 2% OPH SOLN 10 ML BTL OP SCH ×2 (09:42→20:23)
[2021-08-30] MEDS: rifAXIMin 550 MG TABLET PO SCH ×2 (09:43→20:23)
[2021-08-30] MEDS: FIDAXOMICIN 200 MG TAB PO SCH ×2 (09:44→20:24)
[2021-08-30] MEDS: FAMOTIDINE 40 MG TABLET PO SCH (09:44)
[2021-08-30] MEDS: predniSONE 5 MG TAB PO SCH (09:45)
[2021-08-30] MEDS: POT PHOSPHATE MONOBASIC W/ SOD TAB PO SCH ×4 (09:45→20:24)
[2021-08-30] MEDS: POTASSIUM CHLORIDE CRTAB 20 MEQ TABCR PO SCH ×2 (09:46→20:24)
[2021-08-30] MEDS: SERTRALINE HCL 50 MG TABLET PO SCH (09:46)
[2021-08-30] MEDS: PANTOprazole 40 MG TAB PO SCH (09:46)
[2021-08-30] MEDS: THIAMINE HCL 100 MG TAB PO SCH (09:47)
[2021-08-30] MEDS: SACCHAROMYCES BOULARDII 250 MG CAP PO SCH (09:47)
--- NOTE | 2021-08-30 10:22 | Hospitalist Progress Note ---
Date of Service August 30, 2021 Assessment & Plan (1) C. difficile colitis: Plan: Attending: Dr. Lott Impression: Patient with prior C. difficile infection status post 2 courses of antibiotic treatment with po Vanco from 05/2021-06/2021. She has had continuous diarrhea since then despite testing neg for C. diff, but then took a course of abx for a UTI recently and had worsening of the diarrhea. Severe, treatment resistant C. difficile colitis - Leukocytosis on admission WBC = 18.84 and lactate initially elevated at 2.3. C. difficile gene and toxin positive. CT with inflammation of the colon consistent with colitis, most likely secondary to C. difficile infection. - Diarrhea persists, still watery and frequent every 1-2 hours -Continues to be afebrile - Leukocytosis resolved - Having pain in rectum from recurrent rectal prolapse that is reducible - Stool is culture negative - 08/15- KUB negative for megacolon or obstruction, showed diffuse colonic wall thickening and edema consistent with colitis. KUB repeated 08/17 again neg for megacolon or obstruction -CT abdomen pelvis 08/24/2021 with stable to slight improvement in pancolitis. Small to moderate bilateral pleural effusions have increased in size. Mild body wall edema. Abnormal endometrial thickening again noted. There is stable ascites. - Dificid started 08/13 (continue until 09/02) - Continue flagyl 500mg TID -discontinued home colchicine daily as this can also contribute to diarrhea -No longer requiring narcotics for pain control -no intervention for rectal prolapse unless protrudes and turns necrotic -chronic prednisone use does increase her risk for bowel perforation No clinical change with Questran so this was discontinued. 08/21: Patient unable to tolerate liquid/full diet. had chronic malnutrition for a full week, concern for enteral integrity. Discussed options extensively with patient, NGT placed with partial elemental feeds. - Estimated daily caloric needs [id number] kcals per day, per nutrition if able to increase rate goal of 45 cc/h - Continuous feeds at 45/hr. Patient with improved third spacing - WBC continues to improve. -procal is negaive. While patient has not had a elevated creatinine/EFREM and shock/ileus, she continues severely ill despite ongoing inpatient antibiotic treatment including C. difficile and Flagyl. She is not able to tolerate oral nutrition and is requiring continuous NGT feeding. -It appears at this point that stool transplant is not available at this time. Patient is responding to treatment. Will monitor. will await consult with ID on Wednesday. (2) Bilateral pleural effusion: Plan: - CT-A/P: 1. 2. Small to moderate bilateral pleural fusions have increased in size. Likely transudate of in the setting of hypoalbuminemia with aggressive IV fluids prior to starting NGT feeds. No hypoxia Diuresis limited by hypotension, hypoalbuminemia Thoracentesis likely to reaccumulate, consider pulmonary consult if clinical deterioration and bleeding -Patient denies shortness of breath or pleuritic type pain -CXR in the morning (3) Splenic infarct: Plan: - Question of splenic infarct and IVC thrombus new from CT abdomen obtained on 08/10. 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 Questionable stricture versus thrombus in the right hepatic vein along the proximal portion. - Patient initially started on Heparin drip. Further review of imaging indicated this most likely was an over read. Heparin drip was discontinued - RULED OUT (5) GERD (gastroesophageal reflux disease): Plan: Chronic. Continue famotidine, PPI (6) Depression: Plan: -Chronic. -Continue Zoloft 50 mg p.o. every morning (7) CKD (chronic kidney disease): Plan: -Chronic kidney disease, stage 2-3 -BUN and creatinine near baseline -Avoid nephrotoxic agents -Continue to monitor BUN, creatinine, electrolytes, urine output (8) Scleroderma: Plan: -Chronic. -Patient states that she has pulmonary involvement as well. -Patient follows with pulmonology and has routine PFTs. Most recent PFTs 05/01/21 showed no obstructive lung dysfunction. Slightly decreased DLCOunc with poor patient effort during exam. -Continue hydroxychloroquine -Continue prednisone -Continue felodipine for Raynaud's (9) Cough: Plan: -Improved -No coughing during the course of my interview and examination. Continue to monitor -dry, mild -has fibrosis at bases of lungs on imaging -could be some developing pulm edema given hypoalbuminemia and IVFs. IVF as noted -Continue incentive spirometry -Portable chest x-ray in the morning to evaluate pleural effusions (10) Edema: Plan: -trace peripheral edema -does have hypoalbuminemia and receiving IVFs -also scleroderma causes some skin changes and shiny skin -will reduce IVFs as above - Pt very concerned about swelling, bilateral Dopplers negative Discussed likely 2/2 hypoalbuminemia with poor nutrition in the last week. Diet advanced to full liquid, plus boost patient did not tolerate. NGT nutrition as noted above. Plan: DVT proph-SCDs, Lovenox SQ today Await availability of fecal transplant and bed at [facility] Family Updates may be given to Sarah at [phone] if primary # not available (no voicemail at primary contact number) Admission and Anticipated Discharge Date Admission Date: August 12, 2021 Subjective Patient is a 80 yo female who reports having multiple episodes of diarrhea overnight. She feels tired ans she had interrupted sleep. She does not have any pin, or fevers. She reports she is eating more than before and had most of her breakfast. Updated Sarah, She had multiple questions. Asking if she could donate fecal material for her mother. Also asked if she could be transferred out to another facility. Curently her mother is improving, VITALS ARE STABLE, labs are normal. Will await input from ID specialist if there is any benefit to any other treatment.or if she should be transferred. Review of Systems Review of Systems: All systems reviewed & are unremarkable except as noted in HPI & below Physical Exam Physical Exam: GENERAL : No acute distress EYES: No icterus, gaze conjugate NOSE: No evidence of epistaxis MOUTH: No lesions or candidiasis NECK: Supple LUNGS: CTA B/L, no wheezes, rales or rhonchi HEART: Regular, rate controlled ABDOMEN: Soft, ND, BS Present. Some tenderness to deep palpation. No rebound tenderness EXTREMITIES: +1 bilateral LE edema, pedal pulses intact intact and equal bilaterally NEURO: A&OX3 Results & Data Results & Data ([facility]) Vital Signs (Past 12 Hours) Vital Signs Temp Pulse Resp BP Pulse Ox 08/30/21 07:59 36.6 C 82 16 110/70 99 08/29/21 23:35 36.7 C 81 16 114/70 96 PG Care Time/CCT Total # of Minutes Spent Total Time Spent with Patient: Total time spent is greater than 50% in coordination of care (as documented) at patient's floor/unit and/or counseling patient: Coding Level of Care Code 87091 Subseq Hosp Care Lvl 3 Diagnoses C. 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
[2021-08-30 11:43] LABS: BUN Creatinine Ratio 24.9 (10-20); Calcium 8.8 mg/dl (8.5-10.1); Creatinine Clr Calc Pharmacy 60.1 ml/min; Est GFR (African American) 100.6 ml/min; Est GFR (Non-African American) 86.8 ml/min
[2021-08-30 12:26] LABS: Hemoglobin 10.7 g/dL (12.0-16.0); Mean Corpuscular Hemoglobin 29.3 pg (25-34); Mean Corpuscular Hgb Conc 31.5 g/dL (32-36); Mean Corpuscular Volume 93.2 fL (80-100); Mean Platelet Volume 9.3 fL (7.4-10.4); Platelet Count 341 K/uL (130-400); RDW Coefficient of Variation 16.3 % (11.5-14.5); Red Blood Count 3.65 M/uL (4.2-5.4); White Blood Count 5.88 K/uL (4.8-10.8)
[2021-08-30] MEDS: SODIUM CHLORIDE 0.9% 1000ML 1,000 ML IV SCH ×2 (12:34→23:57)
[2021-08-30] MEDS: ENOXAPARIN INJ 40 MG/0.4 ML SYR SQ SCH (12:35)
[2021-08-30] MEDS: PEPTAMEN 1.5 CAL 1,000 ML BAG NG SCH (13:20)
[2021-08-30] MEDS: TRAVOPROST Z 0.004% OPH SOLN 2.5 ML BTL OP SCH (20:23)
[2021-08-30] MEDS: LORazepam 0.5 MG/1 ML VIAL IV PRN (20:40)
[2021-08-31] MEDS: TUBE FEEDING WATER FLUSH NG SCH ×6 (01:30→21:54)
[2021-08-31] MEDS: MELATONIN 3 MG TAB PO PRN ×2 (03:45→20:02)
[2021-08-31] MEDS: metroNIDAZOLE 500 MG/100 ML BAG IV SCH ×3 (08:51→22:52)
[2021-08-31] MEDS: ACETAMINOPHEN 325 MG TAB PO PRN ×2 (08:51→22:57)
[2021-08-31] MEDS: PANTOprazole 40 MG TAB PO SCH (08:57)
[2021-08-31] MEDS: SACCHAROMYCES BOULARDII 250 MG CAP PO SCH (08:59)
[2021-08-31] MEDS: predniSONE 5 MG TAB PO SCH (08:59)
[2021-08-31] MEDS: SUCRALFATE 1 GM TAB PO SCH ×4 (08:59→19:56)
[2021-08-31] MEDS: FAMOTIDINE 40 MG TABLET PO SCH (09:00)
[2021-08-31] MEDS: POT PHOSPHATE MONOBASIC W/ SOD TAB PO SCH ×4 (09:00→19:55)
[2021-08-31] MEDS: SERTRALINE HCL 50 MG TABLET PO SCH (09:00)
[2021-08-31] MEDS: THIAMINE HCL 100 MG TAB PO SCH (09:00)
[2021-08-31] MEDS: FIDAXOMICIN 200 MG TAB PO SCH ×2 (09:01→19:55)
[2021-08-31] MEDS: DORZOLAMIDE HCL 2% OPH SOLN 10 ML BTL OP SCH ×2 (09:02→19:55)
[2021-08-31] MEDS: POTASSIUM CHLORIDE CRTAB 20 MEQ TABCR PO SCH ×2 (09:02→19:55)
[2021-08-31] MEDS: rifAXIMin 550 MG TABLET PO SCH ×2 (09:03→19:55)
[2021-08-31] MEDS: ENOXAPARIN INJ 40 MG/0.4 ML SYR SQ SCH (13:32)
[2021-08-31] MEDS ORDERED: CHOLESTYRAMINE LIGHT 4 GM PKT PO SCH (13:45)
[2021-08-31] MEDS: PEPTAMEN 1.5 CAL 1,000 ML BAG NG SCH (13:47)
[2021-08-31] MEDS: LORazepam 0.5 MG/1 ML VIAL IV PRN (19:52)
[2021-08-31] MEDS: TRAVOPROST Z 0.004% OPH SOLN 2.5 ML BTL OP SCH (19:53)
--- NOTE | 2021-08-31 20:10 | Hospitalist Progress Note ---
Date of Service August 31, 2021 Assessment & Plan (1) C. difficile colitis: Plan: Attending: Dr. Lott Impression: Patient with prior C. difficile infection status post 2 courses of antibiotic treatment with po Vanco from 05/2021-06/2021. She has had continuous diarrhea since then despite testing neg for C. diff, but then took a course of abx for a UTI recently and had worsening of the diarrhea. Severe, treatment resistant C. difficile colitis - Leukocytosis on admission WBC = 18.84 and lactate initially elevated at 2.3. C. difficile gene and toxin positive. CT with inflammation of the colon consistent with colitis, most likely secondary to C. difficile infection. - Diarrhea persists, still watery and frequent every 1-2 hours -Continues to be afebrile - Leukocytosis resolved - Having pain in rectum from recurrent rectal prolapse that is reducible - Stool is culture negative - 08/15- KUB negative for megacolon or obstruction, showed diffuse colonic wall thickening and edema consistent with colitis. KUB repeated 08/17 again neg for megacolon or obstruction -CT abdomen pelvis 08/24/2021 with stable to slight improvement in pancolitis. Small to moderate bilateral pleural effusions have increased in size. Mild body wall edema. Abnormal endometrial thickening again noted. There is stable ascites. - Dificid started 08/13 (continue until 09/02) - Continue flagyl 500mg TID -discontinued home colchicine daily as this can also contribute to diarrhea -No longer requiring narcotics for pain control -no intervention for rectal prolapse unless protrudes and turns necrotic -chronic prednisone use does increase her risk for bowel perforation No clinical change with Questran so this was discontinued. 08/21: Patient unable to tolerate liquid/full diet. had chronic malnutrition for a full week, concern for enteral integrity. Discussed options extensively with patient, NGT placed with partial elemental feeds. - Estimated daily caloric needs [id number] kcals per day, per nutrition if able to increase rate goal of 45 cc/h - Continuous feeds at 45/hr. Patient with improved third spacing - WBC continues to improve. -procal is negaive. While patient has not had a elevated creatinine/EFREM and shock/ileus, she continues severely ill despite ongoing inpatient antibiotic treatment including C. difficile and Flagyl. She is not able to tolerate oral nutrition and is requiring continuous NGT feeding. -It appears at this point that stool transplant is not available at this time de to COVID pandemic. -Patient is responding to treatment as her labs look improved. -PERHAPS tube feedings MAY BE CONTRIBUTING to her diarrhea. -will reorder cholestyramine to see if it may help with her symptoms. -Will continue to monitor. -will await consult with ID on Wednesday. -Family is asking if she may benfit from a transfer to a tertiary center. -will defer to ID networks software consultant. (2) Bilateral pleural effusion: Plan: - CT-A/P: 1. 2. Small to moderate bilateral pleural fusions have increased in s ize. Likely transudate of in the setting of hypoalbuminemia with aggressive IV fluids prior to starting NGT feeds. No hypoxia Diuresis limited by hypotension, hypoalbuminemia Thoracentesis likely to reaccumulate, consider pulmonary consult if clinical deterioration and bleeding -Patient denies shortness of breath or pleuritic type pain (3) Splenic infarct: Plan: - Question of splenic infarct and IVC thrombus new from CT abdomen obtained on 08/10. 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 Questionable stricture versus thrombus in the right hepatic vein along the proximal portion. - Patient initially started on Heparin drip. Further review of imaging indicated this most likely was an over read. Heparin drip was discontinued - RULED OUT (5) GERD (gastroesophageal reflux disease): Plan: Chronic. Continue famotidine, PPI (6) Depression: Plan: -Chronic. -Continue Zoloft 50 mg p.o. every morning (7) CKD (chronic kidney disease): Plan: -Chronic kidney disease, stage 2-3 -BUN and creatinine near baseline -Avoid nephrotoxic agents -Continue to monitor BUN, creatinine, electrolytes, urine output (8) Scleroderma: Plan: -Chronic. -Patient states that she has pulmonary involvement as well. -Patient follows with pulmonology and has routine PFTs. Most recent PFTs 05/01/21 showed no obstructive lung dysfunction. Slightly decreased DLCOunc with poor patient effort during exam. -Continue hydroxychloroquine -Continue prednisone -Continue felodipine for Raynaud's (9) Cough: Plan: -Improved -No coughing during the course of my interview and examination. Continue to monitor -dry, mild -has fibrosis at bases of lungs on imaging -could be some developing pulm edema given hypoalbuminemia and IVFs. IVF as noted -Continue incentive spirometry -Portable chest x-ray in the morning to evaluate pleural effusions (10) Edema: Plan: -trace peripheral edema -does have hypoalbuminemia and receiving IVFs -also scleroderma causes some skin changes and shiny skin -will reduce IVFs as above - Pt very concerned about swelling, bilateral Dopplers negative Discussed likely 2/2 hypoalbuminemia with poor nutrition in the last week. Diet advanced to full liquid, plus boost patient did not tolerate. NGT nutrition as noted above. Plan: DVT proph-SCDs, Lovenox SQ today Await availability of fecal transplant and bed at [facility] Family Updates may be given to Sarah at [phone] if primary # not available (no voicemail at primary contact number) Updated on Wednesday. Admission and Anticipated Discharge Date Admission Date: August 12, 2021 Subjective Patient reports she is getting frustrated with her diarrhea. She reports still having multiple episodes of loose stools today. She states she is willing to try anything and would try cholestyramine again. Review of Systems Review of Systems: All systems reviewed & are unremarkable except as noted in HPI & below Physical Exam Physical Exam: GENERAL : No acute distress EYES: No icterus, gaze conjugate NOSE: No evidence of epistaxis MOUTH: No lesions or candidiasis NECK: Supple LUNGS: CTA B/L, no wheezes, rales or rhonchi HEART: Regular, rate controlled ABDOMEN: Soft, ND, BS Present. Some tenderness to deep palpation. No rebound tenderness EXTREMITIES: +1 bilateral LE edema, pedal pulses intact intact and equal bilaterally NEURO: A&OX3 Results & Data Results & Data ([facility]) Vital Signs (Past 12 Hours) Vital Signs Temp Pulse Resp BP Pulse Ox 08/31/21 15:42 36.8 C 84 20 128/72 99 PG Care Time/CCT Total # of Minutes Spent Total Time Spent with Patient: Total time spent is greater than 50% in coordination of care (as documented) at patient's floor/unit and/or counseling patient: Coding Level of Care Code 90708 Subseq Hosp Care Lvl 2 Diagnoses C. 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
[2021-09-01] MEDS: TUBE FEEDING WATER FLUSH NG SCH ×6 (01:30→20:51)
[2021-09-01] MEDS: LORazepam 0.5 MG/1 ML VIAL IV PRN ×2 (02:17→21:18)
[2021-09-01 06:34] LABS: Hematocrit (blood only) 32.3 % (37-47); Hemoglobin 10.1 g/dL (12.0-16.0); Mean Corpuscular Hemoglobin 29.4 pg (25-34); Mean Corpuscular Hgb Conc 31.3 g/dL (32-36); Mean Corpuscular Volume 94.2 fL (80-100); Platelet Count 291 K/uL (130-400); RDW Coefficient of Variation 16.7 % (11.5-14.5); RDW Standard Deviation 57.4 fL (36.4-46.3); Red Blood Count 3.43 M/uL (4.2-5.4); White Blood Count 5.11 K/uL (4.8-10.8)
[2021-09-01 06:56] LABS: BUN Creatinine Ratio 29.1 (10-20); Calcium 8.3 mg/dl (8.5-10.1); Creatinine Clr Calc Pharmacy 73.3 ml/min; Est GFR (African American) 107.4 ml/min; Est GFR (Non-African American) 92.7 ml/min; Potassium 3.9 mmol/L (3.5-5.1)
--- NOTE | 2021-09-01 08:54 | Gastroenterology Progress Note ---
Date of Service September 01, 2021 Assessment & Plan (1) Recurrent Clostridioides difficile diarrhea: Plan: 80 year old female recurrent Clostridioides difficile diarrhea, less frequent loose stools - Trial of dairy free diet - Continue rifaximin, flagyl IV, Dificid. - Will assume that we will NOT be unable to obtain the fecal transplant material. - Continue to monitor outputs, electrolytes, albumin, WBC. - Cont NG tube feedings until able to support nutritional needs po. - Can use carafate, 1 gm one tab 4 times daily, ongoing. (Pt did not tolerate the taste of cholestyramine). - Dificid, then Vancomycin long taper: 125mg QID x 28 days, then one tab every other day for a month. Then consider following with Rifaximin x 4 wks if able to get insurance coverage. Thank you for allowing us to participate in the care of this patient. Please call with any acute changes, questions or concerns. Please see addendum below with additional recommendation from my supervising physician. Admission and Anticipated Discharge Date Admission Date: August 12, 2021 Supervising Physician Co-Signing Physician Notes I have seen and examined the patient with DANIEL Cornejo whose note reflects our findings and plan. Subjective Pt was seen and evaluated, chart reviewed. Feeling somewhat better this AM Stools less frequent Suggests she is keeping diary of BMs now Has had two movements today. One at 2 am and one at 7 am Liquid No black or bloody stools She is concerned about her dairy intake, worsening her symptoms Review of Systems Review of Systems: All systems reviewed & are unremarkable except as noted in HPI & below Physical Exam Constitutional: WD/WN, vitals as above Neck: trachea midline, no thyromegaly Respiratory: normal respiratory effort, lungs clear to auscultation Cardiovascular: RRR, no murmur, no edema Gastrointestinal (Abdomen): normal bowel sounds, soft, nontender, no hepatosplenomegaly Skin: no rashes, warm and dry Results & Data ([facility]) Vital Signs (Past 12 Hours) Vital Signs Temp Pulse Resp BP Pulse Ox 09/01/21 08:15 36.9 C 74 14 106/68 97 08/31/21 22:30 37.1 C 84 16 126/70 98 Laboratory Results 09/01/21 09/01/21 08/31/21 Range/Units 06:08 06:08 13:16 WBC 5.11 (4.8-10.8) K/uL RBC 3.43 L (4.2-5.4) M/uL Hgb 10.1 L (12.0-16.0) g/dL Hct 32.3 L (37-47) % MCV 94.2 (80-100) fL MCH 29.4 (25-34) pg MCHC 31.3 L (32-36) g/dL RDW Std Deviation 57.4 H (36.4-46.3) fL RDW Coeff of Lila 16.7 H (11.5-14.5) % Plt Count 291 (130-400) K/uL MPV 9.0 (7.4-10.4) fL Sodium 142 (136-145) mmol/L Potassium 3.9 (3.5-5.1) mmol/L Chloride 112 H (98-107) mmol/L Carbon Dioxide 26 (21-32) mmol/L Anion Gap 4.0 (3-11) BUN 14 (7-18) mg/dl Creatinine 0.50 L (0.6-1.2) mg/dl Est Cr Clr Drug Dosing 73.3 ml/min Est GFR ( Amer) 107.4 ml/min Est GFR (Non-Af Amer) 92.7 ml/min BUN/Creatinine Ratio 29.1 H (10-20) Glucose 144 H (70-99) mg/dl Lactate 1.4 (0.4-2.0) mmol/L Calcium 8.3 L (8.5-10.1) mg/dl
[2021-09-01] MEDS: metroNIDAZOLE 500 MG/100 ML BAG IV SCH ×2 (09:12→16:41)
[2021-09-01] MEDS: PANTOprazole 40 MG TAB PO SCH (09:19)
[2021-09-01] MEDS: DORZOLAMIDE HCL 2% OPH SOLN 10 ML BTL OP SCH ×2 (09:19→20:51)
[2021-09-01] MEDS: POT PHOSPHATE MONOBASIC W/ SOD TAB PO SCH ×4 (09:20→20:49)
[2021-09-01] MEDS: POTASSIUM CHLORIDE CRTAB 20 MEQ TABCR PO SCH ×2 (09:20→20:49)
[2021-09-01] MEDS: SERTRALINE HCL 50 MG TABLET PO SCH (09:20)
[2021-09-01] MEDS: THIAMINE HCL 100 MG TAB PO SCH (09:20)
[2021-09-01] MEDS: SACCHAROMYCES BOULARDII 250 MG CAP PO SCH (09:21)
[2021-09-01] MEDS: SUCRALFATE 1 GM TAB PO SCH ×4 (09:21→20:49)
[2021-09-01] MEDS: rifAXIMin 550 MG TABLET PO SCH ×2 (09:21→20:49)
[2021-09-01] MEDS: predniSONE 5 MG TAB PO SCH (09:21)
[2021-09-01] MEDS: FIDAXOMICIN 200 MG TAB PO SCH ×2 (09:22→20:49)
[2021-09-01] MEDS: FAMOTIDINE 40 MG TABLET PO SCH (09:22)
[2021-09-01] MEDS: ENOXAPARIN INJ 40 MG/0.4 ML SYR SQ SCH (12:43)
--- NOTE | 2021-09-01 17:45 | Hospitalist Progress Note ---
Date of Service September 01, 2021 Assessment & Plan (1) C. difficile colitis: Plan: Patient with prior C. difficile infection status post 2 courses of antibiotic treatment with po Vanco from 05/2021-06/2021. She has had continuous diarrhea since then despite testing neg for C. diff, but then took a course of abx for a UTI recently and had worsening of the diarrhea. positive on 08/13 Severe, treatment resistant C. difficile colitis - Leukocytosis on admission WBC = 18.84 and lactate initially elevated at 2.3. C. difficile gene and toxin positive. CT with inflammation of the colon consistent with colitis, most likely secondary to C. difficile infection. -Dificid started 08/13 (GI recommends 20 days of treatment) followed by a vancomycin taper next 28 days -Flagyl added 08/14 (GI recommending 20 days of treatment) -Xifaxan and Carafate added 08/26 as binding agents -GI on boardappreciate recommendations -NG tube in place with trophic feeds -Patient was not tolerating any oral intake upfront. Has been tolerating a full liquid diet since 08/26 -Did have a stool culture negative for Salmonella, Shigella, Campylobacter, and E. coli - 08/15- KUB negative for megacolon or obstruction, showed diffuse colonic wall thickening and edema consistent with colitis. KUB repeated 08/17 again neg for megacolon or obstruction -CT abdomen pelvis 08/24/2021 with stable to slight improvement in pancolitis. Small to moderate bilateral pleural effusions have increased in size. Mild body wall edema. Abnormal endometrial thickening again noted. There is stable ascites. -History of rectal prolapse that flared during this hospitalization due to d iarrhea. No intervention for rectal prolapse unless protrudes and turns necrotic -chronic prednisone use dose increase her risk for bowel perforation Limited/stagnant response noted upfront and plan was for transfer for stool transplant. Due to lack of donor, this has not yet taken place. In the interim, patient has seemed to show favorable response. Uncertain if stool transplant is necessary -Although patient still having loose stools, her white blood cell count has completely normalized, she is tolerating oral intake, she is not having any abdominal pain and generally is feeling better -I am uncertain if the persistent loose stools is related to the C. difficile or from the enteral feeds and only clear liquid diet -At this time, will pause Peptamen enteral feeding to allow for added oral intake. Advance diet to brat -Spoke with a dietitian who has reservations on completely stopping the enteral feeding. Will allow for continued infusion from 7 PM until 7 AM until we can better gauge patient's ability to take in oral intake -We will pause enteral feedings again in the a.m. and if patient is able to maintain nutritional/caloric intake with oral intakewill discontinue Peptamen as this may be contributing to loose stools -Infectious disease has been consulted. Appreciate recommendations. (2) Bilateral pleural effusion: Plan: - CT-A/P: 1. 2. Small to moderate bilateral pleural fusions have increased in size. Likely transudate of in the setting of hypoalbuminemia with aggressive IV fluids prior to starting NGT feeds. No hypoxia Diuresis limited by hypotension, hypoalbuminemia Thoracentesis likely to reaccumulate, consider pulmonary consult if clinical deterioration and bleeding -Patient denies shortness of breath or pleuritic type pain -Follow-up x-ray showed improving pleural effusions (3) Splenic infarct: Plan: - Question of splenic infarct and IVC thrombus new from CT abdomen obtained on 08/10. 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 Questionable stricture versus thrombus in the right hepatic vein along the proximal portion. - Patient initially started on Heparin drip. Further review of imaging indicated this most likely was an over read. Heparin drip was discontinued - RULED OUT (5) GERD (gastroesophageal reflux disease): Plan: Chronic. Continue famotidine Stop PPI as should not be used with C. difficile (6) Depression: Plan: -Chronic. -Continue Zoloft 50 mg p.o. every morning (7) CKD (chronic kidney disease): Plan: -Chronic kidney disease, stage 2-3 -BUN and creatinine at baseline -Avoid nephrotoxic agents -Continue to monitor BUN, creatinine, electrolytes, urine output (8) Scleroderma: Plan: -Chronic. -Patient states that she has pulmonary involvement as well. -Patient follows with pulmonology and has routine PFTs. Most recent PFTs 05/01/21 showed no obstructive lung dysfunction. Slightly decreased DLCOunc with poor patient effort during exam. -Plaquenil currently on hold due to her resistant C. difficile/immunocompromised state -Continue prednisone -Continue felodipine for Raynaud's (9) Edema: Plan: -Apparently did have substantial edema and ascites likely due to third spacing from hypoalbuminemia -Clinically, this is overall improved with enteral feeding and adequate nutritional support Plan: Daughter updated Admission and Anticipated Discharge Date Admission Date: August 12, 2021 Subjective Patient seen on daily rounds today. Hospitalized 08/13 with C. difficile colitis failing outpatient treatment. Had 2 different courses of oral vancomycin Had abdominal pain with anorexia and leukocytosis of 18.8 upon presentation. In addition, she had a lactic acidosis of 2.4. There was initial concern for splenic infarct and IVC thrombus; however, this was felt to be an over read after read by in-house radiology. Patient initially placed on a heparin drip that was subsequently stopped. In regards to her C. difficile, was placed on deficit but due to continued/per sistent diarrheaFlagyl added. GI has been on board and recommending a total of 20 days of treatment. Despite combination therapy, patient was unable to tolerate any oral intake which led to NG tube for trophic feeds with slow up titration. Dietary has been on board. Xifaxan and Carafate subsequently added as binding agents. There was initial plan for patient be transferred for stool transplant but that did not take place due to lack of donors. Patient had family that was willing to be a donor but since, patient has shown favorable response. Patient's white blood cell count has since normalized. She has not had any subsequent abdominal discomfort. Has had multiple KUBs showing no evidence of toxic megacolon. She has remained afebrile and hemodynamically stable. She is currently tolerating a full liquid diet. Reports that she feels she could eat more but she is "full". Still receiving enteral feedings (Peptamen). Is still having loose stools (approximately 4-10 a day). Infectious disease has been consulted. This has not yet taken place. Patient does have scleroderma and is immunocompromised. She takes chronic prednisone which has been continued. In addition, takes hydroxychloroquine (which is currently on hold). Review of Systems Review of Systems: All systems reviewed and are unremarkable except as noted in HPI and below Denies fevers, chills, headache, nasal congestion, sore throat, cough, chest pain, shortness of breath, palpitations, orthopnea, PND, abdominal pain, nausea, vomiting, constipation, dysuria, hematuria, frequency, back pain, joint pain or swelling, easy bruising or bleeding, skin lesions or rashes. Physical Exam Physical Exam: General: Resting comfortably in her hospital bed. Appears cachectic but overall in no acute distress. She does not appear acutely ill at present. NAD. HEENT: Head is AT/NC buccal mucosa is moist and pink. NG tube to right nares noted Neck: No JVD. Negative hepatojugular reflex Cardiac: RRR with 1/6 FELICIA Lungs: CTA without W/R/R Abdomen: Normoactive X4. Soft and nontender in all quadrants. Extremities: No peripheral clubbing cyanosis or edema Neuro: A&O X4 cranial nerves II through XII are grossly intact no focal neuro deficits Skin: No obvious skin lesions or rashes Psych: Appropriate affect pleasant and cooperative Results & Data Results & Data ([facility]) Vital Signs (Past 12 Hours) Vital Signs Temp Pulse Resp BP Pulse Ox 09/01/21 15:45 37.3 C 81 16 117/70 98 09/01/21 08:15 36.9 C 74 14 106/68 97 Laboratory Results 09/01/21 06:08 09/01/21 06:08 PG Care Time/CCT Total # of Minutes Spent Total Time Spent with Patient: Total time spent is greater than 50% in coordination of care (as documented) at patient's floor/unit and/or counseling patient: Coding [place] [address] Subseq Hosp Care Lvl 3 Patient Type Established History Comprehensive Exam Comprehensive Medical Decision Making High Complexity Diagnoses C. difficile colitis A04.72 Bilateral pleural effusion J90 Splenic infarct D73.5 IVC thrombosis I82.220 GERD (gastroesophageal reflux disease) K21.9 Depression F32.9 CKD (chronic kidney disease) N18.9 Scleroderma M34.9 Edema R60.9
[2021-09-01] MEDS: PEPTAMEN 1.5 CAL 1,000 ML BAG NG SCH (20:47)
[2021-09-01] MEDS: TRAVOPROST Z 0.004% OPH SOLN 2.5 ML BTL OP SCH (20:48)
[2021-09-01] MEDS: ACETAMINOPHEN 325 MG TAB PO PRN (20:49)
[2021-09-02] MEDS: MELATONIN 3 MG TAB PO PRN ×2 (00:04→21:40)
[2021-09-02] MEDS: metroNIDAZOLE 500 MG/100 ML BAG IV SCH ×4 (00:07→22:58)
[2021-09-02] MEDS: TUBE FEEDING WATER FLUSH NG SCH ×6 (01:57→21:43)
[2021-09-02 07:12] LABS: Basophils # (auto) 0.04 K/uL (0-0.2); Basophils % (auto) 0.8 %; Hematocrit (blood only) 34.8 % (37-47); Hemoglobin 10.7 g/dL (12.0-16.0); Immature Granulocytes # (auto) 0.02 K/uL (0.00-0.02); Immature Granulocytes % (auto) 0.4 %; Lymphocytes # (auto) 2.27 K/uL (1.2-3.4); Mean Corpuscular Hgb Conc 30.7 g/dL (32-36); Mean Corpuscular Volume 94.3 fL (80-100); Mean Platelet Volume 9.3 fL (7.4-10.4); Monocytes % (auto) 10.1 %; Neutrophils % (auto) 40.7 %; Platelet Count 299 K/uL (130-400); RDW Coefficient of Variation 16.7 % (11.5-14.5); RDW Standard Deviation 57.7 fL (36.4-46.3); Red Blood Count 3.69 M/uL (4.2-5.4); White Blood Count 4.93 K/uL (4.8-10.8)
[2021-09-02 07:29] LABS: Calcium 8.8 mg/dl (8.5-10.1); Creatinine Clr Calc Pharmacy 61.1 ml/min; Est GFR (African American) 101.2 ml/min; Est GFR (Non-African American) 87.3 ml/min; Magnesium 2.1 mg/dl (1.8-2.4); Potassium 3.9 mmol/L (3.5-5.1)
[2021-09-02] MEDS: DORZOLAMIDE HCL 2% OPH SOLN 10 ML BTL OP SCH ×2 (08:56→21:43)
[2021-09-02] MEDS: THIAMINE HCL 100 MG TAB PO SCH (08:56)
[2021-09-02] MEDS: FIDAXOMICIN 200 MG TAB PO SCH ×2 (08:56→21:40)
[2021-09-02] MEDS: FAMOTIDINE 40 MG TABLET PO SCH (08:57)
[2021-09-02] MEDS: rifAXIMin 550 MG TABLET PO SCH ×2 (08:57→21:40)
[2021-09-02] MEDS: POT PHOSPHATE MONOBASIC W/ SOD TAB PO SCH ×4 (08:57→21:40)
[2021-09-02] MEDS: SACCHAROMYCES BOULARDII 250 MG CAP PO SCH (08:57)
[2021-09-02] MEDS: predniSONE 5 MG TAB PO SCH (08:57)
[2021-09-02] MEDS: SERTRALINE HCL 50 MG TABLET PO SCH (08:57)
[2021-09-02] MEDS: SUCRALFATE 1 GM TAB PO SCH ×4 (08:57→21:40)
[2021-09-02] MEDS: POTASSIUM CHLORIDE CRTAB 20 MEQ TABCR PO SCH ×2 (08:58→21:40)
[2021-09-02] MEDS: ENOXAPARIN INJ 40 MG/0.4 ML SYR SQ SCH (11:12)
--- NOTE | 2021-09-02 16:49 | Hospitalist Progress Note ---
Date of Service September 02, 2021 Assessment & Plan (1) C. difficile colitis: Plan: Patient with prior C. difficile infection status post 2 courses of antibiotic treatment with po Vanco from 05/2021-06/2021. She has had continuous diarrhea since then despite testing neg for C. diff, but then took a course of abx for a UTI recently and had worsening of the diarrhea. positive on 08/13 Severe, treatment resistant C. difficile colitis - Leukocytosis on admission WBC = 18.84 and lactate initially elevated at 2.3. C. difficile gene and toxin positive. CT with inflammation of the colon consistent with colitis, most likely secondary to C. difficile infection. -Dificid started 08/13 (GI recommends 20 days of treatment) followed by a vancomycin taper next 28 days -Flagyl added 08/14 (GI recommending 20 days of treatment) -Xifaxan and Carafate added 08/26 as binding agents -GI on boardappreciate recommendations -Did have a stool culture negative for Salmonella, Shigella, Campylobacter, and E. coli - 08/15- KUB negative for megacolon or obstruction, showed diffuse colonic wall thickening and edema consistent with colitis. KUB repeated 08/17 again neg for megacolon or obstruction -CT abdomen pelvis 08/24/2021 with stable to slight improvement in pancolitis. Small to moderate bilateral pleural effusions have increased in size. Mild body wall edema. Abnormal endometrial thickening again noted. There is stable ascites. -History of rectal prolapse that flared during this hospitalization due to diarrhea. No intervention for rectal prolapse unless protrudes and turns necrotic -chronic prednisone use dose increase her risk for bowel perforation - NG tube in place with trophic feeds -Patient was not tolerating any oral intake upfront. Has been tolerating a full liquid diet since 08/26 - diet since advanced on 09/01 to BRAT (for which she is tolerating) -Stools are starting to become semiformed with addition/advancement of diet. Gi ab the fact that she is tolerating oral intake, will put a permanent pause on Peptamen to encourage added oral intake. If she is able to maintain adequate oral nutrition/caloric support, would completely DC Peptamen. Appreciate dietary's recommendations Limited/stagnant response noted upfront and plan was for transfer for stool transplant. Due to lack of donor, this has not yet taken place. In the interim, patient has seemed to show favorable response. Uncertain if emergent s tool transplant is necessary at this point. Would appreciate recommendations from infectious disease -Although patient still having loose stools, her white blood cell count has completely normalized, she is tolerating oral intake, she is not having any abdominal pain and generally is feeling better -I am uncertain if the persistent loose stools is related to the C. difficile or from the enteral feeds and only clear liquid diet--> stools starting to become semiformed with advancement in diet and de-escalation in Peptamen -Again, pause Peptamen with potential discontinuation if patient can maintain caloric support with oral intake. Appreciate recommendations from infectious disease (2) Bilateral pleural effusion: Plan: - CT-A/P: 1. 2. Small to moderate bilateral pleural fusions have increased in size. Likely transudate of in the setting of hypoalbuminemia with aggressive IV fluids prior to starting NGT feeds. No hypoxia Diuresis limited by hypotension, hypoalbuminemia Thoracentesis likely to reaccumulate, consider pulmonary consult if clinical deterioration and bleeding -Patient denies shortness of breath or pleuritic type pain -Follow-up x-ray showed improving pleural effusions (3) Splenic infarct: Plan: - Question of splenic infarct and IVC thrombus new from CT abdomen obtained on 08/10. 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 Questionable stricture versus thrombus in the right hepatic vein along the proximal portion. - Patient initially started on Heparin drip. Further review of imaging indicated this most likely was an over read. Heparin drip was discontinued - RULED OUT (5) GERD (gastroesophageal reflux disease): Plan: Chronic. Continue famotidine Stop PPI as should not be used with C. difficile (6) Depression: Plan: -Chronic. -Continue Zoloft 50 mg p.o. every morning (7) CKD (chronic kidney disease): Plan: -Chronic kidney disease, stage 2-3 -BUN and creatinine at baseline -Avoid nephrotoxic agents -Continue to monitor BUN, creatinine, electrolytes, urine output (8) Scleroderma: Plan: -Chronic. -Patient states that she has pulmonary involvement as well. -Patient follows with pulmonology and has routine PFTs. Most recent PFTs 05/01/21 showed no obstructive lung dysfunction. Slightly decreased DLCOunc with poor patient effort during exam. -Plaquenil currently on hold due to her resistant C. difficile/immunocompromised state -Continue prednisone -Continue felodipine for Raynaud's (9) Edema: Plan: -Apparently did have substantial edema and ascites likely due to third spacing from hypoalbuminemia -Clinically, this is overall improved with enteral feeding and adequate nutritional support Admission and Anticipated Discharge Date Admission Date: August 12, 2021 Subjective Patient seen on daily rounds today. Vocalizes subtle improvements compared to yesterday. Had Peptamen clamped until 7 PM last night which ran until 7 AM this morning. She tolerated a brat diet for lunch and dinner yesterday. Denies nausea or abdominal discomfort. Did not eat breakfast this morning but reports that she was not hungry. nursing staff, stools are starting to become semiformed and decreasing in frequency Patient to be seen by infectious disease today Review of Systems Review of Systems: All systems reviewed and are unremarkable except as noted in HPI and below Denies fevers, chills, headache, nasal congestion, sore throat, cough, chest pain, shortness of breath, palpitations, orthopnea, PND, abdominal pain, nausea, vomiting, diarrhea, constipation, dysuria, hematuria, frequency, back pain, joint pain or swelling, easy bruising or bleeding, skin lesions or rashes. Physical Exam Physical Exam: General: Resting comfortably in her hospital bed. Does not currently appear ill or toxic. Is cachectic. NAD. HEENT: Head is AT/NC buccal mucosa is moist and pink Neck: No JVD. Negative hepatojugular reflex Cardiac: RRR without M/G/R Lungs: CTA without W/R/R Abdomen: Normoactive X4. Soft and nontender in all quadrants. Extremities: No peripheral clubbing cyanosis or edema Neuro: A&O X4 cranial nerves II through XII are grossly intact no focal neuro deficits Skin: No obvious skin lesions or rashes Psych: Appropriate affect pleasant and cooperative Results & Data Results & Data ([facility]) Vital Signs (Past 12 Hours) Vital Signs Temp Pulse Resp BP Pulse Ox 09/02/21 15:41 36.9 C 90 16 120/67 98 09/02/21 07:42 36.7 C 95 H 16 146/84 H 95 Laboratory Results 09/02/21 06:47 09/02/21 06:47 Use frequent like because I have it is not hard to swallow because it is so hard to swallow because it literally starts to disintegrate put so if you is really interesting to doing a stick it in 5 mL of liquid and literally and divided to 2pills 1 personal like I thought it made my symptoms worse because PG Care Time/CCT Total # of Minutes Spent Total Time Spent with Patient: Total time spent is greater than 50% in c oordination of care (as documented) at patient's floor/unit and/or counseling patient: Coding [place] [address] Subseq Hosp Care Lvl 2 Patient Type Established History Expanded Problem Focused Exam Expanded Problem Focused Medical Decision Making Moderate Complexity Diagnoses C. difficile colitis A04.72 Bilateral pleural effusion J90 Splenic infarct D73.5 IVC thrombosis I82.220 GERD (gastroesophageal reflux disease) K21.9 Depression F32.9 CKD (chronic kidney disease) N18.9 Scleroderma M34.9 Edema R60.9
[2021-09-02] MEDS: TRAVOPROST Z 0.004% OPH SOLN 2.5 ML BTL OP SCH (21:37)
[2021-09-02] MEDS: ACETAMINOPHEN 325 MG TAB PO PRN (21:38)
[2021-09-03] MEDS: TUBE FEEDING WATER FLUSH NG SCH ×4 (01:14→11:17)
[2021-09-03] MEDS: LORazepam 0.5 MG/1 ML VIAL IV PRN ×3 (03:10→21:23)
[2021-09-03 07:02] LABS: Basophils # (auto) 0.02 K/uL (0-0.2); Basophils % (auto) 0.3 %; Eosinophils # (auto) 0.16 K/uL (0-0.5); Eosinophils % (auto) 2.6 %; Hematocrit (blood only) 35.2 % (37-47); Hemoglobin 11.2 g/dL (12.0-16.0); Immature Granulocytes # (auto) 0.01 K/uL (0.00-0.02); Immature Granulocytes % (auto) 0.2 %; Lymphocytes % (auto) 46.1 %; Mean Corpuscular Hemoglobin 29.6 pg (25-34); Mean Corpuscular Hgb Conc 31.8 g/dL (32-36); Mean Corpuscular Volume 93.1 fL (80-100); Mean Platelet Volume 9.1 fL (7.4-10.4); Monocytes # (auto) 0.57 K/uL (0.11-0.59); Monocytes % (auto) 9.4 %; Neutrophils # (auto) 2.52 K/uL (1.4-6.5); Neutrophils % (auto) 41.4 %; Platelet Count 299 K/uL (130-400); RDW Coefficient of Variation 16.9 % (11.5-14.5); RDW Standard Deviation 57.8 fL (36.4-46.3); Red Blood Count 3.78 M/uL (4.2-5.4); White Blood Count 6.08 K/uL (4.8-10.8)
[2021-09-03 07:33] LABS: Albumin Level 2.5 gm/dl (3.4-5.0); BUN Creatinine Ratio 39.8 (10-20); Calcium 8.8 mg/dl (8.5-10.1); Creatinine Clr Calc Pharmacy 63.2 ml/min; Est GFR (African American) 102.3 ml/min; Est GFR (Non-African American) 88.3 ml/min; Magnesium 2.2 mg/dl (1.8-2.4); Potassium 4.1 mmol/L (3.5-5.1)
[2021-09-03 07:36] LABS: Albumin Globulin Ratio 0.7 (0.9-2); Bilirubin,Total 0.2 mg/dl (0.2-1); Globulin 3.4 gm/dl (2.5-4.0); Total Protein 5.9 gm/dl (6.4-8.2)
[2021-09-03] MEDS: FIDAXOMICIN 200 MG TAB PO SCH (08:23)
[2021-09-03] MEDS: POT PHOSPHATE MONOBASIC W/ SOD TAB PO SCH ×4 (08:24→20:23)
[2021-09-03] MEDS: POTASSIUM CHLORIDE CRTAB 20 MEQ TABCR PO SCH ×2 (08:24→20:23)
[2021-09-03] MEDS: THIAMINE HCL 100 MG TAB PO SCH (08:25)
[2021-09-03] MEDS: SERTRALINE HCL 50 MG TABLET PO SCH (08:26)
[2021-09-03] MEDS: FAMOTIDINE 40 MG TABLET PO SCH (08:26)
[2021-09-03] MEDS: SACCHAROMYCES BOULARDII 250 MG CAP PO SCH (08:27)
[2021-09-03] MEDS: predniSONE 5 MG TAB PO SCH (08:27)
[2021-09-03] MEDS: SUCRALFATE 1 GM TAB PO SCH ×4 (08:27→20:23)
[2021-09-03] MEDS: rifAXIMin 550 MG TABLET PO SCH ×2 (08:27→20:23)
[2021-09-03] MEDS: metroNIDAZOLE 500 MG/100 ML BAG IV SCH (08:28)
[2021-09-03] MEDS: DORZOLAMIDE HCL 2% OPH SOLN 10 ML BTL OP SCH ×2 (08:28→20:23)
[2021-09-03] MEDS: ENOXAPARIN INJ 40 MG/0.4 ML SYR SQ SCH (12:45)
[2021-09-03] MEDS ORDERED: COLESTIPOL HCL 1 GM TAB PO PRN (13:47)
--- NOTE | 2021-09-03 15:18 | Hospitalist Progress Note ---
Date of Service September 03, 2021 Assessment & Plan (1) C. difficile colitis: Plan: Patient with prior C. difficile infection status post 2 courses of antibiotic treatment with po Vanco from 05/2021-06/2021. She has had continuous diarrhea since then despite testing neg for C. diff, but then took a course of abx for a UTI recently and had worsening of the diarrhea. positive on 08/13 Severe, treatment resistant C. difficile colitis - Leukocytosis on admission WBC = 18.84 and lactate initially elevated at 2.3. C. difficile gene and toxin positive. CT with inflammation of the colon consistent with colitis, most likely secondary to C. difficile infection. -Dificid started 08/13 and Flagyl started 08/14 (given persistent symptoms with single agent Dificid) -Xifaxan and Carafate added 08/26 as binding agents -Did have a stool culture negative for Salmonella, Shigella, Campylobacter, and E. coli - 08/15- KUB negative for megacolon or obstruction, showed diffuse colonic wall thickening and edema consistent with colitis. KUB repeated 08/17 again neg for megacolon or obstruction -CT abdomen pelvis 08/24/2021 with stable to slight improvement in pancolitis. Small to moderate bilateral pleural effusions have increased in size. Mild body wall edema. Abnormal endometrial thickening again noted. There is stable ascites. -History of rectal prolapse that flared during this hospitalization due to diarrhea. No intervention for rectal prolapse unless protrudes and turns necrotic (which it has not) -chronic prednisone dose increased upfront given risk for bowel perforation. Now back to usual dose - NG tube placed (08/20) for trophic feeds as Patient was not tolerating any oral intake upfront and became severely malnourished with hypoalbuminemia (causing severe third spacing) -clear liquids given and subsequently advanced to full liquid diet on 08/26 - diet since advanced on 09/01 to BRAT (for which she is tolerating)--> is eating >75% of her meals. -with uptitration of her oral intake, her enteral feeds have been paused and now subsequently stopped. - Dietary agrees that patient can sustain adequate nutrition but mouth-->D/C NGT! -stools have since become semiformed with addition/advancement of diet and discontinuation of the Peptamen (enteral feeds). Perhaps these were contributing to persistent loose stools - it was noted that her plaquenil and protonix were continued upfront but have since been stopped as to not suppress the immune system Limited/stagnant response noted upfront and plan was for transfer for stool transplant. Due to lack of donor, this did not take place. Patient's family was willing to be a donor but lab that prepares specimen is NOT accepting donors now because of covid - In the interim, patient has seemed to show favorable response. Do not believe that emergent stool transplant is necessary at this point but ideally should take place to help prevent reoccurrence -Patient has since been seen by infectious disease who agrees with discontinu ation of Dificid/Flagyl as she has completed 20 days of therapy as of 09/02. In addition, will transition to tapering course of vancomycin -Infectious disease also recommending infusion of bezlotoxumab (which I have discussed with pharmacy and this is restricted and can only be administered as an outpatient). -ID recommending tissue biopsy to determine need for stool transplant; however, in talking with GIthis is going to take place irregardless so we will hold off on tissue biopsy/colonoscopy to avoid prep given the fact that patient stools are finally starting to become formed as a tissue biopsy will not change the plan -Continue monitoring and if patient does well, consider discharge within the next 24 to 48 hours. Will arrange for bezlotoxumab infusion as an outpatient and follow-up with GI where they can arrange for stool transplant to take place as an outpatient. (2) Bilateral pleural effusion: Plan: - CT-A/P: 1. 2. Small to moderate bilateral pleural fusions have increased in size. Likely transudate of in the setting of hypoalbuminemia with aggressive IV fluids prior to starting NGT feeds. No hypoxia Diuresis limited by hypotension, hypoalbuminemia Thoracentesis was not done given lack of symptoms and likelihood to reaccumulate -Follow-up x-ray showed improving pleural effusions (3) Splenic infarct: Plan: - Question of splenic infarct and IVC thrombus new from CT abdomen obtained on 08/10. 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 Questionable stricture versus thrombus in the right hepatic vein along the proximal portion. - Patient initially started on Heparin drip. Further review of imaging indicated this most likely was an over read. Heparin drip was discontinued - RULED OUT (5) GERD (gastroesophageal reflux disease): Plan: Chronic. Continue famotidine Stop PPI as should not be used with C. difficile (6) Depression: Plan: -Chronic. -Continue Zoloft 50 mg p.o. every morning (7) CKD (chronic kidney disease): Plan: -Chronic kidney disease, stage 2-3 -BUN and creatinine at baseline -Avoid nephrotoxic agents -Continue to monitor BUN, creatinine, electrolytes, urine output (8) Scleroderma: Plan: -Chronic. -Patient states that she has pulmonary involvement as well. -Patient follows with pulmonology and has routine PFTs. Most recent PFTs 05/01/21 showed no obstructive lung dysfunction. Slightly decreased DLCOunc with poor patient effort during exam. -not ideal but Plaquenil currently on hold due to her resistant C. difficile/immunocompromised state (necessary at this point) -Continue prednisone -Continue felodipine for Raynaud's (9) Edema: Plan: -Apparently did have substantial edema and ascites likely due to third spacing from hypoalbuminemia -Clinically, this is overall improved with enteral feeding and adequate nutritional support Plan: consult PT/OT as patient likely deconditioned given her lengthy hospitalization Likely discussion with patient, her daughter, and case management and plan is for hopeful discharge within the next 24 to 48 hours with home health services. Patient's daughter has come from [place] and plans on staying with the patient for whenever time necessary to help with her recovery Admission and Anticipated Discharge Date Admission Date: August 12, 2021 Subjective Patient seen on daily rounds today. Overall she vocalizes no significant complaints or concerns. She is having semiformed BMs and tolerating a regular diet (had 2 sandwiches for lunch). Is eating over 75% of each meal. Denies fevers, chills, abdominal pain, nausea or vomiting. Only 1 loose BM in the past 24 hours. Has been seen by infectious disease who agrees with discontinuation of Flagyl/Dificid as yesterday marked 20 days of treatment. ID did recommend consideration of colonoscopy for tissue biopsy to determine if patient needs a fecal transplant; however, in talking with GI that is the plan a regardless. Does not need to be done urgently however. In addition, ID did recommend an infusion of bezlotoxumab (which I have since contacted pharmacy and this is on restriction and can only be infused as an outpatient). Patient does inform me that upon discharge she plans on having her daughter (who is a home health nurse) stay with her to help provide care Review of Systems Review of Systems: All systems reviewed and are unremarkable except as noted in HPI and below Denies fevers, chills, headache, nasal congestion, sore throat, cough, chest pain, shortness of breath, palpitations, orthopnea, PND, abdominal pain, nausea, vomiting, diarrhea, constipation, dysuria, hematuria, frequency, back pain, joint pain or swelling, easy bruising or bleeding, skin lesions or rashes. Physical Exam Physical Exam: General: Resting comfortably in his/her hospital bed/bedside chair. NAD. HEENT: Head is AT/NC buccal mucosa is moist and pink. NGT in Right nares Neck: No JVD. Negative hepatojugular reflex Cardiac:. NG tube to right nare without M/G/R Lungs: CTA without W/R/R Abdomen: Normoactive X4. Soft and nontender in all quadrants. Extremities: No peripheral clubbing cyanosis or edema Neuro: A&O X4 cranial nerves II through XII are grossly intact no focal neuro deficits Skin: No obvious skin lesions or rashes Psych: Appropriate affect pleasant and cooperative Results & Data Results & Data ([facility]) Vital Signs (Past 12 Hours) Vital Signs Temp Pulse Resp BP Pulse Ox 09/03/21 07:50 36.6 C 84 16 102/66 97 Laboratory Results 09/03/21 06:21 09/03/21 06:21 PG Care Time/CCT Total # of Minutes Spent Total Time Spent with Patient: Total time spent is greater than 50% in coordination of care (as documented) at patient's floor/unit and/or counseling patient: 90 minutes including time spent with the patient, discussion with GI, reviewing records/infectious disease recommendations, calling daughter, discussion with dietitian [place] [address] Subseq Hosp Care Lvl 3 Patient Type Established History Comprehensive Exam Comprehensive Medical Decision Making High Complexity Diagnoses C. difficile colitis A04.72 Bilateral pleural effusion J90 Splenic infarct D73.5 IVC thrombosis I82.220 GERD (gastroesophageal reflux disease) K21.9 Depression F32.9 CKD (chronic kidney disease) N18.9 Scleroderma M34.9 Edema R60.9
[2021-09-03] MEDS: RASPBERRY SYRUP 5 ML UDP PO SCH ×2 (16:59→23:21)
[2021-09-03] MEDS: VANCOMYCIN HCL 125 MG/2.5ML SOLN PO SCH ×2 (16:59→23:21)
[2021-09-03] MEDS: TRAVOPROST Z 0.004% OPH SOLN 2.5 ML BTL OP SCH (20:22)
[2021-09-03] MEDS: MELATONIN 3 MG TAB PO PRN (20:28)
[2021-09-04] MEDS: RASPBERRY SYRUP 5 ML UDP PO SCH ×2 (05:25→12:14)
[2021-09-04] MEDS: VANCOMYCIN HCL 125 MG/2.5ML SOLN PO SCH ×2 (05:25→12:13)
[2021-09-04 06:19] LABS: Basophils # (auto) 0.04 K/uL (0-0.2); Basophils % (auto) 0.6 %; Eosinophils # (auto) 0.19 K/uL (0-0.5); Eosinophils % (auto) 2.8 %; Hematocrit (blood only) 38.6 % (37-47); Hemoglobin 12.2 g/dL (12.0-16.0); Immature Granulocytes # (auto) 0.03 K/uL (0.00-0.02); Immature Granulocytes % (auto) 0.4 %; Lymphocytes # (auto) 3.26 K/uL (1.2-3.4); Lymphocytes % (auto) 48.3 %; Mean Corpuscular Hemoglobin 29.5 pg (25-34); Mean Corpuscular Hgb Conc 31.6 g/dL (32-36); Mean Corpuscular Volume 93.2 fL (80-100); Mean Platelet Volume 9.2 fL (7.4-10.4); Monocytes # (auto) 0.74 K/uL (0.11-0.59); Neutrophils # (auto) 2.49 K/uL (1.4-6.5); Neutrophils % (auto) 36.9 %; Platelet Count 307 K/uL (130-400); RDW Standard Deviation 58.3 fL (36.4-46.3); Red Blood Count 4.14 M/uL (4.2-5.4); White Blood Count 6.75 K/uL (4.8-10.8)
[2021-09-04 06:51] LABS: BUN Creatinine Ratio 33.4 (10-20); Calcium 8.9 mg/dl (8.5-10.1); Creatinine Clr Calc Pharmacy 48.9 ml/min; Est GFR (African American) 94.6 ml/min; Est GFR (Non-African American) 81.6 ml/min; Potassium 4.1 mmol/L (3.5-5.1)
[2021-09-04] MEDS: DORZOLAMIDE HCL 2% OPH SOLN 10 ML BTL OP SCH (10:23)
[2021-09-04] MEDS: SERTRALINE HCL 50 MG TABLET PO SCH (10:25)
[2021-09-04] MEDS: SACCHAROMYCES BOULARDII 250 MG CAP PO SCH (10:25)
[2021-09-04] MEDS: SUCRALFATE 1 GM TAB PO SCH ×2 (10:25→12:16)
[2021-09-04] MEDS: POT PHOSPHATE MONOBASIC W/ SOD TAB PO SCH ×2 (10:25→12:16)
[2021-09-04] MEDS: POTASSIUM CHLORIDE CRTAB 20 MEQ TABCR PO SCH (10:25)
[2021-09-04] MEDS: predniSONE 5 MG TAB PO SCH (10:25)
[2021-09-04] MEDS: rifAXIMin 550 MG TABLET PO SCH (10:25)
[2021-09-04] MEDS: FAMOTIDINE 40 MG TABLET PO SCH (10:25)
[2021-09-04] MEDS: THIAMINE HCL 100 MG TAB PO SCH (10:26)
[2021-09-04] MEDS: ENOXAPARIN INJ 40 MG/0.4 ML SYR SQ SCH (12:17)
--- NOTE | 2021-09-04 18:46 | Discharge Summary ---
Date of Service September 04, 2021 Admission HPI Per Admitting Provider Mary Venegas is a 80-year-old female with history of CKD, GERD, C. difficile presenting with left lower quadrant abdominal pain progressive over the last 2 to 3 days as well as worsening diarrhea. Patient was seen in the ER on 06/09/21 with this complaint. She had a CT abdomen and pelvis with contrast performed which revealed mucosal thickening in the rectum and sigmoid colon suggestive of colitis as well as moderate stool burden consistent with constipation. No perforation or abscess. Also noted on chronic changes of the lung bases and calcified granulomas present in the spleen. She was discharged home in stable condition. Patient returns with worsening of her abdominal pain today. Patient with history of C. difficile colitis first diagnosed in May. She has received 2 courses of antibiotics. She reports persistent diarrhea ongoing since May. She had been taking a significant amount of anti-diarrheal medication lately. She also endorses poor appetite, decreased oral intake as well as sweats last night. She denies chest pain, palpitations, cough, shortness of breath. Denies nausea/vomiting/fever. No additional complaints at this time. ER course: Rosa Suggs Zofran Principal Diagnosis 1. Severe C. difficile with pancolitis 2. Bilateral pleural effusionthird spacing due to severe hypoalbuminemia 3. Peripheral edemasecondary to hypoalbuminemia 4. Malnutrition with severe hypoalbuminemiaresolved/treated Discharge Exam General: Resting comfortably in his/her hospital bed/bedside chair. NAD. HEENT: Head is AT/NC buccal mucosa is moist and pink. NGT in Right nares Neck: No JVD. Negative hepatojugular reflex Cardiac:. NG tube to right nare without M/G/R Lungs: CTA without W/R/R Abdomen: Normoactive X4. Soft and nontender in all quadrants. Extremities: No peripheral clubbing cyanosis or edema Neuro: A&O X4 cranial nerves II through XII are grossly intact no focal neuro deficits Skin: No obvious skin lesions or rashes Psych: Appropriate affect pleasant and cooperative Discharge Data Allergies Allergy/AdvReac Type Severity Reaction Status Date / Time adhesive Allergy Mild RASH Verified 09/08/21 13:15 cephalexin [From Keflex] Allergy Mild rash Verified 09/08/21 13:15 oxycodone Allergy Mild rash Verified 09/08/21 13:15 Consultations 08/12/21 21:54 ED Decision to Admit Stat 08/13/21 08:27 Consult Gastroenterology Routine (1) Recurrent Clostridioides difficile diarrhea: Plan: 80 year old female recurrent Clostridioides difficile diarrhea, less frequent loose stools - Trial of dairy free diet - Continue rifaximin, flagyl IV, Dificid. - Will assume that we will NOT be unable to obtain the fecal transplant material. - Continue to monitor outputs, electrolytes, albumin, WBC. - Cont NG tube feedings until able to support nutritional needs po. - Can use carafate, 1 gm one tab 4 times daily, ongoing. (Pt did not tolerate the taste of cholestyramine). - Dificid, then Vancomycin long taper: 125mg QID x 28 days, then one tab every other day for a month. Then consider following with Rifaximin x 4 wks if able to get insurance coverage. Thank you for allowing us to participate in the care of this patient. Please call with any acute changes, questions or concerns. Please see addendum below with additional recommendation from my supervising physician. 08/30/21 08:57 Consult Infectious Diseases Routine Recommendations: Consider obtaining a tissue biopsy to assist in determining if the cause of her persistent diarrhea is based on medication for her C. difficile or noninfectious etiology as enteral feeds can be contributing. If it is proven to be C. difficile related, would proceed with fecal matter transplant to reduce risk of needing colectomy and reduce mortality rate. In addition, could consider bezlotoxumab infusion. It was recommended that Flagyl/Dificid be discontinued and continue monitoring while off antibiotics. Procedures Performed Operation Date: 09/05/21 16:30 <No data on this case meets the specified criteria> Ordered Studies 08/12/21 19:14 CT angio abdomen pelvis w con Urgent IMPRESSION: 1. Findings are consistent with a nonspecific colitis, likely on an infectious or inflammatory basis. Clinical correlation will be required. This has worsened as compared to 08/10/2021. 2. A small volume of abdominopelvic ascites is new from previous. 3. Unremarkable CT angiogram of the abdominal aorta and its major branches. 4. The endometrium is markedly thickened and heterogeneous for age. This is not well assessed by CT, and nonemergent follow-up with gynecology and pelvic ultrasound is recommended for further evaluation. 5. There is heterogeneous arterial phase enhancement of the spleen. A splenic infarct as questioned by the pulmonary interpretation is considered unlikely. 6. The liver is heterogeneous, likely related to phase of enhancement. There is no CT evidence of Budd-Chiari syndrome is questioned on the preliminary interpretation. 7. Mild to moderate pericardial effusion and trace pleural effusions. 8. The appendiceal wall appears mildly thickened and hyperemic. This is likely related to colitis and surrounding ascitic fluid. There is no clear CT evidence of acute appendicitis. 9. Additional findings as above. 08/12/21 23:33 US duplex portal hepatic veins Urgent IMPRESSION: Questioned filling defect within the intrahepatic IVC which favors artifact rather than thrombus. Note that no thrombus was identified within the IVC on the CT abdomen and pelvis study from 08/10/2021. Correlation with confirmatory CT venogram of the abdomen recommended. 08/13/21 08:17 CT abdomen pelvis veno w con Urgent IMPRESSION: 1. No evidence of inferior vena cava thrombus. 2. Slightly greater extent of wall thickening in the colon compatible with colitis. 3. Stable ascites. 4. Endometrium is again noted to be markedly thickened for age. Nonemergent follow-up ultrasound is recommended. 5. Stable pericardial effusion. 6. Stable fibrotic changes in the lungs. 7. Diffuse calcifications in the visualized lungs and spleen compatible with granulomatous disease. 08/17/2021 KUB IMPRESSION: 1. There is diffuse colonic wall thickening and edema consistent with the known history of colitis. 2. There is no evidence of bowel obstruction or megacolon. 08/18/21 17:41 US venous doppler LE BI Routine IMPRESSION: No DVT within the right or left lower extremity 08/20/2021 KUB IMPRESSION: 1. Feeding tube distal tip is present within the expected location of the duodenal bulb. 2. Layering pleural effusions with bibasilar consolidation. 08/24/21 08:24 CT abd pelvis wo con Routine IMPRESSION: 1. Stable to slight improvement in the pancolitis. This is likely due to an infectious or inflammatory process. 2. Small to moderate bilateral pleural fusions have increased in size. 3. Mild body wall edema. 4. Abnormal endometrial thickening is again noted. 5. Stable ascites. 08/29/2021 CXR IMPRESSION: 1. Small bilateral pleural effusions with patchy bibasilar densities. This favors atelectasis. A pneumonia could also have a similar appearance. 2. The feeding tube terminates below the diaphragm. Hospital Course (1) C. difficile colitis: Patient with prior C. difficile infection status post 2 courses of antibiotic treatment with po Vanco from 05/2021-06/2021. She has had continuous diarrhea since then despite testing neg for C. diff, but then took a course of abx for a UTI recently and had worsening of the diarrhea. positive on 08/13 Severe, treatment resistant C. difficile colitis - Leukocytosis on admission WBC = 18.84 and lactate initially elevated at 2.3. C. difficile gene and toxin positive. CT with inflammation of the colon consistent with colitis, most likely secondary to C. difficile infection. -Dificid started 08/13 and Flagyl started 08/14 (given persistent symptoms with single agent Dificid) -Xifaxan and Carafate added 08/26 as binding agents -Did have a stool culture negative for Salmonella, Shigella, Campylobacter, and E. coli - 08/15- KUB negative for megacolon or obstruction, showed diffuse colonic wall thickening and edema consistent with colitis. KUB repeated 08/17 again neg for megacolon or obstruction -CT abdomen pelvis 08/24/2021 with stable to slight improvement in pancolitis. Small to moderate bilateral pleural effusions have increased in size. Mild body wall edema. Abnormal endometrial thickening again noted. There is stable ascites. -History of rectal prolapse that flared during this hospitalization due to diarrhea. No intervention for rectal prolapse unless protrudes and turns necrotic (which it has not) -chronic prednisone dose increased upfront given risk for bowel perforation. Now back to usual dose - NG tube placed (08/20) for trophic feeds as Patient was not tolerating any oral intake upfront and became severely malnourished with hypoalbuminemia (causing severe third spacing) -clear liquids given and subsequently advanced to full liquid diet on 08/26 - diet since advanced on 09/01 to BRAT (for which she is tolerating)--> is eating >75% of her meals. -with uptitration of her oral intake, her enteral feeds have been paused and now subsequently stopped. - Dietary agrees that patient can sustain adequate nutrition but mouth -->NGT/trophic feeds stopped on 09/03/21 -stools have since become semiformed with addition/advancement of diet and discontinuation of the Peptamen (enteral feeds). Perhaps these were contributing to persistent loose stools - it was noted that her plaquenil and protonix were continued upfront but have since been stopped as to not suppress the immune system Limited/stagnant response noted upfront and plan was for transfer for stool transplant. Due to lack of donor, this did not take place. Patient's family was willing to be a donor but lab that prepares specimen is NOT accepting donors now because of covid - In the interim, patient has seemed to show favorable response. Do not believe that emergent stool transplant is necessary at this point but ideally should take place to help prevent reoccurrence -Patient has since been seen by infectious disease who agrees with discontinuation of Dificid/Flagyl as she has completed 20 days of therapy as of 09/02. Both meds stopped and started on tapering course of vancomycin -Infectious disease also recommending infusion of bezlotoxumab (which I have discussed with pharmacy and this is restricted and can only be administered as an outpatient). -ID recommending tissue biopsy to determine need for stool transplant; however, in talking with GIthis is going to take place irregardless so we will hold off on tissue biopsy/colonoscopy to avoid prep given the fact that patient stools are finally starting to become formed as a tissue biopsy will not change the plan -When seen on daily rounds 09/04/2021: Patient was not having any further liquid BMs. All semiformed. Tolerating oral intake. White blood cell count normal. Afebrile and hemodynamically stable. At this point, I believe she is medically and hemodynamically stable for discharged home as her acute case has been successfully treated but symptomatically she has improved greatly. I do believe she is at high risk for developing recurrence and to help prevent that, I have arranged for her to have the bezlotoxumab infusion which will take place 09/08/2021 at 1230. In addition, she will follow-up with GI next week and has been placed on a donor list for a fecal transplant which will be done as soon as a specimen is available (again lack of specimens due to Covid) -Patient is independently getting to and from the bathroom. Her daughter (who is a home health aide) is going to live with her until she has completely recovered. Will discharge with visiting nurses, home PT/OT and home health aide. --Omeprazole has been permanently discontinued. May use Pepcid --Continue to hold Plaquenil. Discussed with carver hand and PCP when they feel it is safe to restart this medication. --Recommend addition of align probiotic (due to its yeast based components). --Lengthy discussion with patient regarding the importance of avoiding unnecessary antibiotic therapy in the future (2) Bilateral pleural effusion: - CT-A/P: 1. 2. Small to moderate bilateral pleural fusions have increased in size. Likely transudate of in the setting of hypoalbuminemia with aggressive IV fluids prior to starting NGT feeds. No hypoxia Diuresis limited by hypotension, hypoalbuminemia Thoracentesis was not done given lack of symptoms and likelihood to reaccumulate -Follow-up x-ray showed improving pleural effusions (3) Splenic infarct: - Question of splenic infarct and IVC thrombus new from CT abdomen obtained on 08/10. 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 Questionable stricture versus thrombus in the right hepatic vein along the proximal portion. - Patient initially started on Heparin drip. Further review of imaging indicated this most likely was an over read. Heparin drip was discontinued - RULED OUT (5) GERD (gastroesophageal reflux disease): Chronic. Continue famotidine Stop PPI as should not be used with C. difficile (6) Depression: -Chronic. -Continue Zoloft 50 mg p.o. every morning (7) CKD (chronic kidney disease): -Chronic kidney disease, stage 2-3 -BUN and creatinine at baseline -Avoid nephrotoxic agents -Continue to monitor BUN, creatinine, electrolytes, urine output (8) Scleroderma: -Chronic. -Patient states that she has pulmonary involvement as well. -Patient follows with pulmonology and has routine PFTs. Most recent PFTs 05/01/21 showed no obstructive lung dysfunction. Slightly decreased DLCOunc with poor patient effort during exam. -not ideal but Plaquenil currently on hold due to her resistant C. difficile/immunocompromised state (necessary at this point) -Continue prednisone -Continue felodipine for Raynaud's (9) Edema: -Apparently did have substantial edema and ascites likely due to third spacing from hypoalbuminemia -Clinically, this is overall improved with enteral feeding and adequate nutritional support consult PT/OT as patient likely deconditioned given her lengthy hospitalization Likely discussion with patient, her daughter, and case management and plan is for hopeful discharge within the next 24 to 48 hours with home health services. Patient's daughter has come from [place] and plans on staying with the patient for whenever time necessary to help with her recovery Home Health Attestation I certify that this patient is under my care and that I, or a physicians assistant family teacher working with me, had a face to-face encounter that meets the home health [id number] encounter requirements with this patient. The encounter with the patient was in whole, or in part, for the following medical condition, which is the primary reason for home health care (list medical condition): C. diff colitis I certify that, based on my findings, the following services are medically necessary home health services: My clinical findings support the need for the above services because: PT Assessment for Endurance / Balance / Strength PT Eval for Safety and Mobility PT Eval for Safety, Gait Training, Assistive Devices PT Gait and Balance Training, Strengthening and Safety Skilled Nsg Assessment Further, I certify that my clinical findings support that this patient is homebound (i.e. absences from home require considerable and taxing effort and are for medical reasons or restoration services or infrequently or of short duration when for other reasons) because: Transportation Assistance/Unable to Leave Home Unassisted Certification for Home Health Services: Based on the above findings, I certify that this patient is confined to the home and needs intermittent fdc care, physical therapy and/or speech therapy or continues to need occupational therapy. The patient is under my care, and I have initiated the establishment of the plan of care. This patient will be followed by a physician who will periodically review the plan of care. Total Time Total Time Spent Total Time Spent (In Minutes): 90 minutes including time spent with patient, talking with daughter, coordination of care, talking with dietitian, talking with case management and pharmacy to arrange for bezlotoxumab infusion Discharge Plan Discharge Items Patient Disposition: Home - Home Health Services Reason For Visit: ABDOMINAL PAIN Discharge Diagnosis: 1. Severe Clostridium Difficile 2. Malnutrition 3. Bilateral pleural effusions and edema (secondary to third spacing from low albumin)-- resolved with adequate nutrition Activity: Resume your previous activity Activity Comment: you are being sent home with home PT/OT Non-emergency contact: Primary Care Provider and Retail Sales Specialist Call non-emergency contact if: you have any medication questions and your symptoms worsen Follow-up/Referrals: Darian Cunningham MD [Primary Care Provider] - 09/11/21 11:30 am Azael Castro MD [Physician] - (Follow up with GI (1-2 weeks). The Windows Systems Engineer attempted to make this appt for you and was unsucessful reaching the office at your time of discharge.) Diet: Regular Diet Comment: as tolerated Addtl Attending Provider Instructions: - You were hospitalized with Severe C.Diff - You have VERY STAGNANT/SLOW response but overall, you are doing very well - you have completed a full course of antibiotics for the C.Diff - you are being send home on a tapering course of Vancomycin (to help reduce the risk of recurrence) - You are at a very high risk of developing C.Diff in the future. So help reduce this risk, you have been set up to have an infusion (Bezlotoxumab) which is an infusion that helps to neutralize the C.Diff gene (that you potentially may carry AFTER this active infection. This infusion has been arranged for Wednesday09/08/21 at 12:30. [facility] - Also, you will need to follow up with GI next week. From there, the fecal transplant will be arranged (I was told that you were put on the donor list) - take all medications as outlined - it is IMPERATIVE that you only ever take antibiotics IF ABSOLUTELY NEEDED. There may come a time that it is necessary for you to be on them but they should not be used UNLESS ABSOLUTELY NEEDED as this increases the risk of C.Diff - continue your prednisone but I would continue to hold your plaquenil as this causes your immune system to be compromised. Follow up with your Wine Sales Representative/PCP to decide when/if it is safe to go back on this medication - Also, your Omeprazole has been stopped as this creates a more favorable environment in the gut for C.Diff. Instead, you can use Pepcid (which is over the counter) for acid reflux/dyspepsia - Last, I have recommended that you take a probiotic. The one preferred is ALIGN as it is yeast based (with 'good' bacteria inside) rather than strictly bacteria based-- which has a favorable response of getting to the gut where it needed to be (especially in the setting of concurrent antibiotic use) - follow up with GI (1-2 weeks) - follow up with your PCP: 7-10 days - return to the ED for new or worsening symptoms - your stools should continue to form. You may have intermittent loose stools. >10 loose stools a day would be cause for concern - you are being discharged with colestipol, and carafate to help with the stools (at these are binding agents). An Rx for Xifaxin was given (however, unlikely covered by insurance. If not covered, can try without this). As you continue to recover, you may become constipated (for which you can stop the colestipol and carafate). Avoid any laxatives. - Pending Studies at Discharge: No Stand-Alone Forms: My [facility] Medications and DC Order Prescriptions: New sucralfate 1 gram Tablet 1 g PO QID Qty: 90 RF: 0 famotidine 40 mg Tablet 40 mg PO QAM Qty: 30 RF: 0 vancomycin 1,000 mg Recon Soln 125 mg PO DIRECTED Qty: 1 RF: 0 colestipol [Colestid] 1 gram Tablet 1 g PO Q6H PRN (Reason: diarrhea) Qty: 60 RF: 0 Xifaxan 550 mg Tablet 550 mg PO BID Qty: 30 RF: 0 Continued dorzolamide [Trusopt] 2 % drops 1 drops OP BID RF: 0 sumatriptan succinate [Imitrex] 50 mg tablet 50 mg PO Q2H PRN (Reason: migraines) RF: 0 Travatan Z 0.004 % drops 1 drops OP QPM RF: 0 cholecalciferol (vitamin D3) [Vitamin D3] 1,000 unit Capsule 1,000 unit PO BID RF: 0 risedronate 35 mg Tablet 35 mg PO WK RF: 0 colchicine 0.6 mg Tablet 0.6 mg PO QAM RF: 0 sertraline 50 mg Tablet 50 mg PO QAM RF: 0 clonazepam 1 mg Tablet,Disintegrating 1 mg PO HS RF: 0 Calcium 600 + D(3) 600 mg calcium- 200 unit Capsule 1 cap PO BID RF: 0 Xiidra 5 % Dropperette 1 drp OPHTHALMIC (EYE) BID RF: 0 Systane (PF) 0.4-0.3 % Dropperette 1 drp OPHTHALMIC (EYE) TID PRN (Reason: Dry Eyes) RF: 0 celecoxib 200 mg capsule 200 mg PO BID RF: 0 felodipine 2.5 mg tablet extended release 24 hr 2.5 mg PO QAM RF: 0 prednisone 5 mg tablet 5 mg PO QAM RF: 0 thiamine HCl (vitamin B1) 500 mg Tablet 500 mg PO DAILY RF: 0 Airborne (ascorbic acid) 250-8.875 mg Tablet,Chewable 1 tab PO DAILY RF: 0 Discontinued Acidophilus Tablet,Chewable 1 tab PO QAM RF: 0 omeprazole 20 mg capsule,delayed release(DR/EC) 20 mg PO QAM RF: 0 hydroxychloroquine 200 mg tablet 200 mg PO QAM RF: 0 Discharge Orders: Discharge Order (Routine); Ordered 09/04/21 Ordered By: Jody Rosario/Other Patient Handouts: Understanding Fecal Transplant, C Diff Tx Bezlotoxumab, What Is C. Diff? Admission Data Admit Date/Time: 08/12/21 23:33 Attending Provider: oKbi Brunner Admit Provider: Ariana St Primary Care Provider: Darian Cunningham Other Providers: Azael Castro ; [facility] ; Jeovanny Trevino ; Abraham Blake ; Kelley Rinaldi ; Grzegorz St I. ; Hussain Barbosa II ; Luisa Osuna ; Marty Sin ; Sudhakar Wilson Other Interventions: Discharge Summary Assessment (RN) Last Done: 09/04/21 14:25 Supervising Physician Co-Signing Physician Notes Patient seen and examined on the day of discharge. I agree with the discharge summary by Jody OTERO. I have reviewed the chart including labs, imaging and plans for discharge. patient finally feeling better, very long hospitalization treating C diff colitis tolerating diet, stools are more formed, no fever, no abdominal pain she understands the plan for discharge, questions answered - Recurrent C difficile colitis, severe infection completed 20 day course of Dificid and Flagyl inpatient will discharge on long taper of Vancomycin PO arranged for bezlotoxumab infusion on Saturday 09/08 recommendations appreciated from infectious disease GI will work on getting her set up for fecal transplantation Coding Level of Care Code Established Pt D/C DAY MANAGEMENT >30 MINS Patient Type Established Diagnoses C. 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
== END 2021-09-04 15:48 | disposition home health service (06) | DRG 371 ==
LOC: ED 16:53 → SUATTDRO 23:33 → EDINP 23:33 → 1E 08-13 01:56 → 3E 08-15 09:57

== ENCOUNTER 2022-10-02 00:42 | Inpatient (IN) ==
[2022-10-02] MEDS ORDERED: ONDANSETRON INJ 2 MG/ML 2 ML VIAL IV STA (01:08)
--- NOTE | 2022-10-02 01:08 | Emergency Department Note ---
History of Present Illness General Chief complaint: Chest Pain Stated complaint: CHEST PAIN, ABDOMINAL PAIN Time Seen by Provider: 10/02/22 00:59 History of Present Illness Maximum Pain Intensity: 7 82-year-old female presents with sudden onset of midepigastric abdominal pain that started at 7 PM this evening after eating. Patient states that it has been coming in waves over the past few hours now there is associated episode of vomiting. Patient states chills no fever. Patient states that the pain radiates across her upper abdomen. Patient denies any substernal or midsternal chest pain. Patient denies significant back pain. There are no other mitigating or alleviating factors. Home Medications Medication Instructions Recorded Confirmed Type dorzolamide 2 % eye drops (Trusopt) 1 drops ophthalmic (eye) BID 06/22/19 09/01/22 History sumatriptan succinate 50 mg tablet 50 mg PO Q2H PRN migraines 06/22/19 09/01/22 History (Imitrex) travoprost 0.004 % eye drops 1 drops ophthalmic (eye) QPM 06/22/19 09/01/22 History (Travatan Z) cholecalciferol (vitamin D3) 25 1,000 unit PO BID 07/28/19 09/01/22 History mcg (1,000 unit) capsule (Vitamin D3) risedronate 35 mg tablet 35 mg PO WK 07/28/19 09/01/22 History calcium carbonate 600 mg-vitamin 2 cap PO QAM 04/25/20 09/01/22 History D3 5 mcg (200 unit) capsule (Calcium 600 + D(3)) clonazepam 1 mg disintegrating 1 mg PO HS 04/25/20 09/01/22 History tablet colchicine 0.6 mg tablet 0.6 mg PO QAM 04/25/20 09/01/22 History lifitegrast 5 % eye drops in a 1 drp ophthalmic (eye) BID 04/25/20 09/01/22 History dropperette (Xiidra) sertraline 50 mg tablet 50 mg PO QAM 04/25/20 09/01/22 History celecoxib 200 mg capsule 200 mg PO BID 08/12/21 09/01/22 History felodipine 2.5 mg tablet,extended 2.5 mg PO QAM 08/12/21 09/01/22 History release 24 hr xepbbcfl-[id number]-xxh C 250 1 tab PO DAILY 08/12/21 09/01/22 History mg-herbal no.124 8.875 mg chewable tablet (Airborne (ascorbic acid)) prednisone 5 mg tablet 5 mg PO QAM 08/12/21 09/01/22 History Bifidobacterium infantis 10.5 mg 10.5 mg PO DAILY 12/05/21 09/01/22 History (10 million cell) chewable tablet (Align) famotidine 20 mg tablet (Pepcid) 20 mg PO BID 12/05/21 09/01/22 History vitamin B complex 1 tab PO QAM 12/05/21 09/01/22 History tramadol 50 mg tablet 50 mg PO Q4H PRN pain #15 tabs 12/10/21 09/01/22 Rx tramadol 50 mg tablet (Ultram) 50 mg PO Q6H PRN pain #20 tabs 05/23/22 09/01/22 Rx Allergies Allergy/AdvReac Type Severity Reaction Status Date / Time cephalexin [From Keflex] Allergy Mild rash Verified 09/01/22 14:59 oxycodone Allergy Mild rash Verified 09/01/22 14:59 adhesive AdvReac Mild SKIN Verified 09/01/22 14:59 IRRITATION Past Med/Surg History Medical History Calcinosis Cervical stenosis of spine Chronic back pain CKD (chronic kidney disease) per records GERD (gastroesophageal reflux disease) Glaucoma History of melanoma right heel & chest wall Hx MRSA infection Hx of Clostridium difficile infection Migraine Osteoarthritis Osteoporosis Patella-femoral syndrome Restless leg syndrome Rheumatoid arthritis Right toe amputee Scleroderma Spondylolisthesis of cervical region FULL ROM Surgical History History of amputation RT LEFT TOE AMPUTATION History of carpal tunnel surgery bilateral History of colonoscopy w/ polypectomy History of hand surgery Rt finger History of Mohs micrographic surgery for skin cancer History of surgery repair of prolapsed rectum History of tooth extraction History of tubal ligation Hx of bilateral cataract extraction Hx of surgical procedure left hand pointer finger repair S/P dilation and curettage S/P LASIK surgery of both eyes Family History Father Family hx of colon cancer Colorectal cancer Other Breast cancer No family history of adverse response to anesthesia Denies family history of Ovarian cancer Uterine cancer Social History Smoking Status: Never smoker Second Hand Exposure: No; Hx Alcohol Use: Yes Alcohol type: wine Hx Substance Use: No Preferred Language: Czech Communication Ability: Effective Visual Impairment: No Limitations Hearing Ability: Normal Industrial X Ray Operator Required: No Beliefs That Will Affect Care: None marital status: / Current Living Situation: Alone current occupational status: retired Feels Safe at Home: Yes Childhood Exposure to Second-Hand Smoke: No Review of Systems A total of 10 systems reviewed and were otherwise negative Constitutional: + chills; no fever Respiratory: no cough Gastrointestinal: + abdominal pain Physical Exam Vital Signs Vital Signs - 24 hr 10/02/22 00:48 10/02/22 01:01 10/02/22 01:01 Temperature 36.7 C Temperature Source Temporal Artery Scan Pulse Rate 52 L Pulse Rate [Apical] 54 L Pulse Rhythm Regular Pulse Rhythm [Apical] Regular Pulse Strength Normal Pulse Strength [Apical] Normal Respiratory Rate 18 18 Respiratory Effort / Characteristics Non-Labored Spontaneous Non-Labored Respiratory Depth Normal Normal Respiratory Pattern Regular Regular Blood Pressure 121/63 Blood Pressure [Right Arm] 163/64 H Blood Pressure Mean 82 Blood Pressure Mean [Right Arm] 97 Blood Pressure Position Sitting Blood Pressure Position [Right Arm] Lying Pulse Oximetry 98 100 97 Oxygen Delivery Method Room Air Room Air Room Air Sepsis Recent Fever Within 48 Hours No Sepsis New/Unexplained Change in Mental Status No Sepsis Action Taken by Nursing No Action Required 10/02/22 01:13 10/02/22 03:03 Temperature Temperature Source Pulse Rate 54 L 57 L Pulse Rate [Apical] Pulse Rhythm Regular Pulse Rhythm [Apical] Pulse Strength Pulse Strength [Apical] Respiratory Rate 17 Respiratory Effort / Characteristics Respiratory Depth Respiratory Pattern Blood Pressure 128/63 Blood Pressure [Right Arm] Blood Pressure Mean 84 Blood Pressure Mean [Right Arm] Blood Pressure Position Blood Pressure Position [Right Arm] Pulse Oximetry 98 95 Oxygen Delivery Method Room Air Room Air Sepsis Recent Fever Within 48 Hours Sepsis New/Unexplained Change in Mental Status Sepsis Action Taken by Nursing GENERAL: Patient is awake alert in no acute distress patient is resting comfortably and showing no signs of anxiety EYES: The conjunctivae are clear. The pupils are round and reactive. EARS, NOSE, MOUTH AND THROAT: The nose is without any evidence of any deformity. Mucous membranes are moist. Tongue is midline. NECK: The neck is nontender and supple. RESPIRATORY: Normal respiratory effort is noted there is no evidence of wheezing rhonchi or rales CARDIOVASCULAR: Regular rate and rhythm noted there no murmurs rubs or gallops normal S1 normal S2. GASTROINTESTINAL: The abdomen is soft. Abdomen is mildly tender in the midepigastrium there is no rebound rigidity guarding there is no abnormal aortic pulsations or masses. There are bowel sounds present PELVIS: The Pelvis is stable. No tenderness to palpation is noted. BACK: No midline tenderness or or step-off noted range of motion in flexion extension as well as rotation no signs of muscle spasm noted MUSCULOSKELETAL/EXTREMITIES: There is no evidence of gross deformity full range of motion is noted in the hips and shoulders. SKIN: There is no obvious evidence of any rash. There are no petechiae, pallor or cyanosis noted. NEUROLOGIC: Patient is awake alert and oriented x3 strength is symmetric Course Reevaluation(s) Reevaluation #1: Patient is resting in no distress. I discussed evaluation with the patient at bedside patient will need to be admitted for small bowel obstruction Time: 04: Reevaluation #2: Spoke with the patient at bedside with the surgical physician advertising assistant manager Time: :29 Consultations Consultation #1: Spoke with Isai mo physician advertising assistant manager for surgical services for consultation Time: : Consultation #2: Consult to [facility] for admission Time: 04:29 Administered Medications Discontinued Medications Fentanyl Citrate (Fentanyl Citrate 100 Mcg/2 Ml Vial) 25 mcg IV NOW ONE Stop: 10/02/22 01:25 Last Admin: 10/02/22 01:54 Dose: 25 mcg Documented By: ENOCH Ioversol (Optiray 350 100ml) 100 ml IV ONCE ONE Stop: 10/02/22 02:56 Last Admin: 10/02/22 02:55 Dose: 88 ml Documented By: VALENCIA Ondansetron HCl (Ondansetron Inj 2 Mg/Ml 2 Ml Vial) 4 mg IV NOW STA Stop: 10/02/22 01:09 Last Admin: 10/02/22 01:54 Dose: 4 mg Documented By: ENOCH Medical Decision Making Medical Records Attestation: I reviewed the patient's medical records. Home Medications Current Medication List: was personally reviewed by me Laboratory Data Attestation: I reviewed the patient's lab results. Result diagrams: 10/02/22 01:13 10/02/22 01:13 Lab Results 10/02/22 10/02/22 10/02/22 Range/Units 01:13 01:13 01:13 WBC 12.05 H (4.8-10.8) K/ul RBC 4.48 (3.93-5.22) M/uL Hgb 13.4 (12.0-16.0) g/dl Hct 42.0 (34.1-44.9) % MCV 93.8 (80.0-100.0) fL MCH 29.9 (25.0-34.0) pg MCHC 31.9 L (32.0-36.0) g/dL RDW Std Deviation 48.5 H (36.4-46.3) fL RDW Coeff of Lila 14.1 (11.5-14.5) % Plt Count 301 (130-400) K/uL MPV 9.4 (9.4-12.3) fL Immature Gran % (Auto) 0.4 % Neut % (Auto) 68.9 % Lymph % (Auto) 21.7 % Lassen % (Auto) 8.7 % Eos % (Auto) 0.2 % Baso % (Auto) 0.1 % Neut # (Auto) 8.31 H (1.4-6.5) K/uL Lymph # (Auto) 2.61 (1.2-3.4) K/uL Lassen # (Auto) 1.05 H (0.24-0.82) K/uL Eos # (Auto) 0.02 (0-0.50) K/uL Baso # (Auto) 0.01 (0-0.2) K/uL Immature Gran # (Auto) 0.05 H (0.00-0.02) K/uL PT 11.1 (9.0-12.0) Seconds INR 1.0 (0.9-1.1) Sodium 144 (136-145) mmol/L Potassium 3.7 (3.5-5.1) mmol/L Chloride 105 (98-107) mmol/L Carbon Dioxide 33 H (21-32) mmol/L Anion Gap 6 (3-11) BUN 31 H (6-23) mg/dl Creatinine 0.84 (0.6-1.2) mg/dl Est Cr Clr Drug Dosing 40.3 ml/min Est GFR ( Amer) 76.1 ml/min Est GFR (Non-Af Amer) 65.6 ml/min BUN/Creatinine Ratio 36.9 H (10-20) Glucose 131 H (70-99(Fasting)) mg/dl Calcium 9.2 (8.5-10.1) mg/dl Total Bilirubin 0.3 (0.2-1.0) mg/dl AST 15 (13-39) U/L ALT 11 (7-52) U/L Alkaline Phosphatase 40 (34-104) U/L Troponin I High Sens 8.5 (0-14) pg/ml Total Protein 6.3 (6.0-8.3) gm/dl Albumin 3.8 (3.4-5.0) gm/dl Globulin 2.5 (2.5-4.0) gm/dl Albumin/Globulin Ratio 1.5 (0.9-2) Lipase 15 (11-82) U/L Imaging Data Attestation: I personally reviewed and interpreted this imaging study as follows: My Impression: Chest x-ray interpreted by me negative for infiltrate normal mediastinum no free air Radiologist's Impression: CT abdomen pelvis is high-grade small bowel obstruction with transition point to left lower quadrant proximal to the obstruction with loops of small bowel with mesenteric edema and thickening of the enhanced tapia concerning for injury no pneumatosis or mesenteric gas no evidence of a closed-loop per stat read radiology ECG Data Attestation: I personally reviewed and interpreted this ECG as follows: Additional Comments: EKG interpreted by me sinus bradycardia rate of 49 poor R wave progression the precordium no obvious ST segment elevation or depression there is interference in the inferior leads MDM Narrative Medical decision making differential diagnosis includes biliary colic, cholelithiasis, cholecystitis, gastritis, pancreatitis, bowel obstruction, cardiac event. Plan is to check labs EKG, CT, observe Patient was found to have an elevated white blood cell count, patient CT showed a high-grade small bowel obstruction, surgical consultation was initiated, patient received an NG tube, patient received IV fluids and pain medicine., Case was discussed with the hospitalist. Patient will be admitted for small bowel obstruction Impression & Plan SBO (small bowel obstruction) Discharge Plan Visit Data Chief Complaint: Chest Pain Stated Complaint: CHEST PAIN, ABDOMINAL PAIN ED Provider: Cedric Varghese Discharge Problem: SBO (small bowel obstruction) Patient Disposition: Admitted As Inpatient Forms Stand Alone Forms: [facility] Prescriptions Prescriptions: No Action dorzolamide [Trusopt] 2 % drops 1 drops OP BID sumatriptan succinate [Imitrex] 50 mg tablet 50 mg PO Q2H PRN (Reason: migraines) Travatan Z 0.004 % drops 1 drops OP QPM cholecalciferol (vitamin D3) [Vitamin D3] 1,000 unit Capsule 1,000 unit PO BID risedronate 35 mg Tablet 35 mg PO WK Rx Instructions: [facility] colchicine 0.6 mg Tablet 0.6 mg PO QAM sertraline 50 mg Tablet 50 mg PO QAM clonazepam 1 mg Tablet,Disintegrating 1 mg PO HS Calcium 600 + D(3) 600 mg calcium- 200 unit Capsule 2 cap PO QAM Xiidra 5 % Dropperette 1 drp OPHTHALMIC (EYE) BID tramadol [Ultram] 50 mg tablet 50 mg PO Q6H PRN (Reason: pain) Qty: 20 0RF celecoxib 200 mg capsule 200 mg PO BID felodipine 2.5 mg tablet extended release 24 hr 2.5 mg PO QAM prednisone 5 mg tablet 5 mg PO QAM Airborne (ascorbic acid) 250-8.875 mg Tablet,Chewable 1 tab PO DAILY famotidine [Pepcid] 20 mg Tablet 20 mg PO BID vitamin B complex Tablet 1 tab PO QAM Align 10.5 mg (10 million cell) Tablet,Chewable 10.5 mg PO DAILY tramadol 50 mg tablet 50 mg PO Q4H PRN (Reason: pain) Qty: 15 0RF Referrals Referrals: Anupam Huang MD [Primary Care Provider] -
[2022-10-02 01:22] LABS: Basophils # (auto) 0.01 K/uL (0-0.2); Basophils % (auto) 0.1 %; Eosinophils # (auto) 0.02 K/uL (0-0.50); Eosinophils % (auto) 0.2 %; Hemoglobin 13.4 g/dl (12.0-16.0); Immature Granulocytes # (auto) 0.05 K/uL (0.00-0.02); Immature Granulocytes % (auto) 0.4 %; Lymphocytes # (auto) 2.61 K/uL (1.2-3.4); Lymphocytes % (auto) 21.7 %; Mean Corpuscular Hemoglobin 29.9 pg (25.0-34.0); Mean Corpuscular Hgb Conc 31.9 g/dL (32.0-36.0); Mean Corpuscular Volume 93.8 fL (80.0-100.0); Mean Platelet Volume 9.4 fL (9.4-12.3); Monocytes # (auto) 1.05 K/uL (0.24-0.82); Monocytes % (auto) 8.7 %; Neutrophils # (auto) 8.31 K/uL (1.4-6.5); Neutrophils % (auto) 68.9 %; Platelet Count 301 K/uL (130-400); RDW Coefficient of Variation 14.1 % (11.5-14.5); RDW Standard Deviation 48.5 fL (36.4-46.3); Red Blood Count 4.48 M/uL (3.93-5.22); White Blood Count 12.05 K/ul (4.8-10.8)
[2022-10-02] MEDS ORDERED: fentaNYL citrate 100 MCG/2 ML VIAL IV ONE (01:24)
[2022-10-02 01:36] LABS: Prothrombin Time 11.1 Seconds (9.0-12.0)
[2022-10-02 01:46] LABS: Troponin I High Sensitivity 8.5 pg/ml (0-14)
[2022-10-02 02:31] LABS: Albumin Globulin Ratio 1.5 (0.9-2); Albumin Level 3.8 gm/dl (3.4-5.0); BUN Creatinine Ratio 36.9 (10-20); Bilirubin,Total 0.3 mg/dl (0.2-1.0); Calcium 9.2 mg/dl (8.5-10.1); Creatinine Clr Calc Pharmacy 40.3 ml/min; Est GFR (African American) 76.1 ml/min; Est GFR (Non-African American) 65.6 ml/min; Globulin 2.5 gm/dl (2.5-4.0); Potassium 3.7 mmol/L (3.5-5.1); Total Protein 6.3 gm/dl (6.0-8.3)
[2022-10-02] MEDS ORDERED: OPTIRAY 350 100ml IV ONE (02:55)
--- NOTE | 2022-10-02 04:33 | History & Physical Report ---
Date of Service October 02, 2022 Assessment & Plan (1) SBO (small bowel obstruction): Plan: I discussed with the treating emergency room physician. He is having the patient admitted on the hospitalist service. Recommend proceeding as follows: Due to the nature of the high small bowel obstruction we recommend placing NG tube which has been ordered by the treating emergency room physician. We will continue this modality until patient has improvement of her abdominal exam and return of bowel function at which time we can consider removing it and slowly advancing her diet beginning with clear liquids We will provide hydration with IV fluids We will keep the patient n.p.o. Recommend providing analgesics and antiemetics We will add a lactic acid level so we have a baseline reading of this Additional recommendations be forthcoming based on her clinical course as it unfolds History of Present Illness Chief Complaint: Abdominal pain Primary Care Provider: Anupam Huang MD This is an 82-year-old female who says that she was in her usual state of health feeling fine when after the evening meal on 10/01/2022 she developed some diffuse abdominal pain. She did report several episodes of nausea and vomiting. She denies any fevers, shakes, or chills. She notes that she had a normal sloan l movement earlier in the day. Because of her symptomatology she presented to the emergency department. She notes that she has had prior abdominal surgeries in the form of a tubal ligation. In the emergency department the patient had labs and imaging which I independently reviewed. She did have a CT scan of the abdomen that showed concern for high grade small bowel obstruction with a transition point in the left lower quadrant. There were some loops of small bowel with mesenteric edema and thickened enhancing tapia concerning for injury however there was no pneumatosis or mesenteric gas. There is no evidence of a closed-loop. Labs included a CBC were white blood cell count was 12.0. Hemoglobin and hematocrit were both normal. Her platelet count was normal. Chemistry profile showed sodium and potassium are both normal. BUN and creatinine were 31 and 0.8. Chemistry profile did not reveal any elevation of patient's LFTs. Lipase was also normal. At the time of my interview the patient was noted to be afebrile without tachycardia. She was hemodynamically stable. She was in no distress. Allergies Allergy/AdvReac Type Severity Reaction Status Date / Time cephalexin [From Keflex] Allergy Mild rash Verified 09/01/22 14:59 oxycodone Allergy Mild rash Verified 09/01/22 14:59 adhesive AdvReac Mild SKIN Verified 09/01/22 14:59 IRRITATION Home Medications Medication Instructions Recorded Confirmed Type dorzolamide 2 % eye drops (Trusopt) 1 drops ophthalmic (eye) BID 06/22/19 09/01/22 History sumatriptan succinate 50 mg tablet 50 mg PO Q2H PRN migraines 06/22/19 09/01/22 History (Imitrex) travoprost 0.004 % eye drops 1 drops ophthalmic (eye) QPM 06/22/19 09/01/22 History (Travatan Z) cholecalciferol (vitamin D3) 25 1,000 unit PO BID 07/28/19 09/01/22 History mcg (1,000 unit) capsule (Vitamin D3) risedronate 35 mg tablet 35 mg PO WK 07/28/19 09/01/22 History calcium carbonate 600 mg-vitamin 2 cap PO QAM 04/25/20 09/01/22 History D3 5 mcg (200 unit) capsule (Calcium 600 + D(3)) clonazepam 1 mg disintegrating 1 mg PO HS 04/25/20 09/01/22 History tablet colchicine 0.6 mg tablet 0.6 mg PO QAM 04/25/20 09/01/22 History lifitegrast 5 % eye drops in a 1 drp ophthalmic (eye) BID 04/25/20 09/01/22 History dropperette (Xiidra) sertraline 50 mg tablet 50 mg PO QAM 04/25/20 09/01/22 History celecoxib 200 mg capsule 200 mg PO BID 08/12/21 09/01/22 History felodipine 2.5 mg tablet,extended 2.5 mg PO QAM 08/12/21 09/01/22 History release 24 hr oisabbls-mbexagki-hhb C 250 1 tab PO DAILY 08/12/21 09/01/22 History mg-herbal no.124 8.875 mg chewable tablet (Airborne (ascorbic acid)) prednisone 5 mg tablet 5 mg PO QAM 08/12/21 09/01/22 History Bifidobacterium infantis 10.5 mg 10.5 mg PO DAILY 12/05/21 09/01/22 History (10 million cell) chewable tablet (Align) famotidine 20 mg tablet (Pepcid) 20 mg PO BID 12/05/21 09/01/22 History vitamin B complex 1 tab PO QAM 12/05/21 09/01/22 History Past Med/Surg History Medical History Calcinosis Cervical stenosis of spine Chronic back pain CKD (chronic kidney disease) per records GERD (gastroesophageal reflux disease) Glaucoma History of melanoma right heel & chest wall Hx MRSA infection Hx of Clostridium difficile infection Migraine Osteoarthritis Osteoporosis Patella-femoral syndrome Restless leg syndrome Rheumatoid arthritis Right toe amputee Scleroderma Spondylolisthesis of cervical region FULL ROM Surgical History History of amputation RT LEFT TOE AMPUTATION History of carpal tunnel surgery bilateral History of colonoscopy w/ polypectomy History of hand surgery Rt finger History of Mohs micrographic surgery for skin cancer History of surgery repair of prolapsed rectum History of tooth extraction History of tubal ligation Hx of bilateral cataract extraction Hx of surgical procedure left hand pointer finger repair S/P dilation and curettage S/P LASIK surgery of both eyes Family History Father Family hx of colon cancer Colorectal cancer Other Breast cancer No family history of adverse response to anesthesia Denies family history of Ovarian cancer Uterine cancer Social History Smoking Status: Never smoker Second Hand Exposure: No; Hx Alcohol Use: Yes Alcohol type: wine Hx Substance Use: No Preferred Language: Wallisian Communication Ability: Effective Visual Impairment: No Limitations Hearing Ability: Normal Wheel Molder Required: No Beliefs That Will Affect Care: None marital status: / Current Living Situation: Alone current occupational status: retired Feels Safe at Home: Yes Childhood Exposure to Second-Hand Smoke: No Review of Systems Constitutional: no fever and no chills Eyes: no eye pain Ear, Nose, Mouth, Throat: no ear pain Respiratory: no cough Cardiovascular: no chest pain Gastrointestinal: as per Subjective / HPI Genitourinary: no dysuria Musculoskeletal: no back pain Integumentary: no rash Neurologic: no localized weakness Physical Exam Constitutional: WD/WN, vitals as above Eyes: no conjunctival abnormality ENMT: Ears: no hearing impairment and no external ear abnormality Mouth: no oropharynx abnormality Neck: trachea midline Respiratory: normal respiratory effort; no respiratory distress and no labored breathing Cardiovascular: Rate/Rhythm: regular rate and regular rhythm Gastrointestinal (Abdomen): Abdomen is soft and nondistended. It is nonrigid. Patient had only mild tenderness with palpation. There is no rebound tenderness or guarding or peritoneal signs. Musculoskeletal: No calf tenderness, feet are warm and nonmottled Skin: no rashes Neurologic: moves all extremities Psychiatric: A+Ox3, euthymic affect Results & Data Results & Data ([facility]) Vital Signs (Past 12 Hours) Vital Signs Temp Pulse Pulse Resp BP BP Pulse Ox 10/02/22 03:03 57 L 17 128/63 95 10/02/22 01:13 54 L 98 10/02/22 01:01 54 L 18 163/64 H 97 10/02/22 01:01 100 10/02/22 00:48 36.7 C 52 L 18 121/63 98 O2 Del Method 10/02/22 03:03 Room Air 10/02/22 01:13 Room Air 10/02/22 01:01 Room Air 10/02/22 01:01 Room Air 10/02/22 00:48 Room Air Supervising Physician Co-Signing Physician Notes I personally saw and evaluated the patient with Kareem Lundberg PA-C and agree with the assessment and plan. 82-year-old female with history of scleroderma with small bowel obstruction CT images and results personally viewed by me, she does have some dilated and then decompressed bowel present on CT scan without any overt signs of ischemia She is being admitted to the medical service We will keep her n.p.o., place an NG tube We will follow her clinically for any signs of mesenteric ischemia, however at this point she has no tenderness to palpation on exam, therefore I think we can attempt a trial of nonoperative management Will follow along PG Care Time/CCT Total # of Minutes Spent Total Time Spent with Patient: Total time spent is greater than 50% in coordination of care (as documented) at patient's floor/unit and/or counseling patient: Coding Level of Care Code 64041 Initial Inpt Care Lvl 3 Diagnoses SBO (small bowel obstruction) K56.609
--- NOTE | 2022-10-02 07:45 | CT Scan Report ---
CT SCAN OF THE ABDOMEN AND PELVIS WITH IV CONTRAST CLINICAL HISTORY: Generalized abdominal pain. Vomiting. COMPARISON STUDY: Abdominal CT dated 08/24/2021. TECHNIQUE: Following the IV administration of 88 cc of Optiray 350, CT scan of the abdomen and pelvi s is performed from the lung bases to the proximal femora. Images are reviewed in the axial, sagittal , and coronal planes. IV contrast was administered without complication. A dose lowering technique wa s utilized adhering to the principles of ALARA. CT DOSE: 272.15 mGy.cm FINDINGS: Lung bases: The heart is enlarged noting a small pericardial effusion. There is mild fibrotic change at the lung bases. No airspace consolidation or pleural effusion is identified. There are calcified g ranulomas. There is a small hiatal hernia. Liver: The contrast-enhanced liver is normal in size, contour, and attenuation. There is no intrahepa tic biliary ductal dilatation. The hepatic veins and portal veins are patent. Gallbladder: Unremarkable. Spleen: Normal in size and attenuation. There are numerous calcified splenic granulomas. Pancreas: Unremarkable. Adrenal glands: Unremarkable. Kidneys: The contrast enhanced kidneys are normal in size and without hydronephrosis. The kidneys enh ance symmetrically. Bilateral renal cysts measure up to 1.5 cm. Abdominal vasculature: The abdominal aorta is normal in course and caliber noting moderate to advance d atherosclerotic calcification. Bowel: The proximal small bowel loops are distended and fluid-filled, measuring up to 2.[address] There is a transition point in the left lower quadrant seen on axial image #258. The distal smal l bowel is decompressed, and the appearance is consistent with a small bowel obstruction. Mildly hype remic appearing loops of small bowel are seen in the pelvis. Interloop fluid is observed and there is associated mesenteric edema. There is no pneumatosis intestinalis or portal venous gas. There is mil d colonic diverticulosis without CT evidence of acute diverticulitis. Mild/moderate fecal retention i s seen throughout the colon. The appendix is well-visualized and normal. Peritoneum: There is a small volume of perihepatic and perisplenic ascites. There is also trace free fluid in the pelvis. No intraperitoneal free air is seen. Lymphadenopathy: None. Pelvic viscera: The bladder wall appears mildly thickened. There is marked endometrial thickening bre hui fluid within the endometrial canal. This measures up to 2.5 cm in diameter. No adnexal lesion is seen. Skeletal structures: The skeletal structures are osteopenic. There is moderate lumbosacral spondylosi s and scoliosis. There is a mild chronic superior endplate compression deformity of L2. No lytic or b lastic lesions are seen. IMPRESSION: 1. Findings are consistent with a small bowel obstruction. A transition point is identified in the le ft lower quadrant and this may be related to adhesions. 2. There is interloop fluid, mildly hyperemic small bowel loops, and mild mesenteric edema. 3. No intraperitoneal free air is seen. There is no significant bowel wall thickening, and no pneumat osis intestinalis or portal venous gas. 4. Small volume abdominopelvic ascites. 5. Cardiomegaly. 6. There is marked endometrial thickening versus fluid within the endometrial canal (hydrocolpos). Th is is not well evaluated by CT, and nonemergent pelvic ultrasound and gynecology evaluation is advise d. 7. The bladder wall appears mildly thickened. Correlate with clinical findings and urinalysis. 8. Additional findings as above. ACT 112: Negative or not required by law. Electronically signed by: Devante Ortiz M.D. 10/02/2022 7:43 AM
--- NOTE | 2022-10-02 07:45 | XRay Report ---
SINGLE VIEW CHEST CLINICAL HISTORY: Atypical chest pain. Epigastric abdominal pain. FINDINGS: An AP, portable, upright chest radiograph is compared to study dated 08/29/2021. The heart i s enlarged noting atherosclerotic calcification of the thoracic aorta. The pulmonary vasculature is n oncongested. Chronic interstitial thickening is similar to previous. There is bibasilar scarring/atel ectasis. There are scattered calcified granulomas. The lungs and pleural spaces are otherwise clear. No pneumothorax is seen. The skeletal structures are osteopenic. The bony thorax is grossly intact. IMPRESSION: Cardiomegaly with no active disease in the chest. ACT 112: Negative or not required by law. Electronically signed by: Devante Ortiz M.D. 10/02/2022 7:44 AM
[2022-10-02] MEDS ORDERED: hydrALAZINE HCL 20 MG/ML VIAL IV PRN (07:58)
[2022-10-02] MEDS ORDERED: ACETAMINOPHEN 1,000 MG/100 ML VIAL IV PRN (07:58)
[2022-10-02] MEDS ORDERED: LORazepam 1 MG TAB SL PRN (07:58)
[2022-10-02] MEDS: D5W AND NSS 1,000 ML IV SCH ×2 (08:29→17:58)
--- NOTE | 2022-10-02 08:56 | History and Physical Report ---
DATE OF ADMISSION: 10/02/2022. CHIEF COMPLAINT: Abdominal pain. HISTORY OF PRESENT ILLNESS: An 82-year-old female with past medical history significant for irritable bowel syndrome, GERD, history of melanoma in situ, generalized osteoarthritis, osteoporosis, pseudogout, degenerative disk disease, migraine, glaucoma, scleroderma, depression, history of C. diff presented with abdominal pain. The patient says that yesterday morning, she had diarrhea and tonight she has severe abdominal pain, which prompted her to come to the ER. Has some nausea, but no vomiting. No chest pain, no shortness of breath, no cough, no fever or chills. No headache, no blurred visions, no earache, no runny nose, no sore throat. Otherwise, ambulates okay. Normal bladder movements. In the ER in the CAT scan showing high-grade small-bowel obstruction, she is status post NG tube. Currently, resting comfortably. Has some sore throat from the NG tube. ALLERGIES: KEFLEX, OXYCODONE, ADHESIVES. PAST MEDICAL HISTORY: As mentioned above. PAST SURGICAL HISTORY: Bilateral carpal tunnel surgery, correction of rectal prolapse, lumbosacral spine injection, sigmoidoscopy, sacroiliac joint injection. MEDICATIONS: The patient is on gabapentin 100 mg p.o. b.i.d., clonazepam 1 mg p.o. at bedtime, Imitrex 100 mg p.o. p.r.n., Align Probiotics 1 capsule daily, omeprazole 20 mg p.o. daily, colchicine 0.6 mg p.o. daily, hydroxychloroquine 200 mg p.o. daily, vitamin B complex one tablet p.o. daily, prednisone 5 mg p.o. daily, felodipine ER 2.5 mg p.o. daily, lifitegrast 2 times daily ophthalmic solution, Actonel 35 mg p.o. weekly, Cosopt-S ophthalmic solution as directed, celecoxib 200 mg p.o. b.i.d., vitamin D 1000 units p.o. daily, Zoloft 50 mg p.o. daily, latanoprost one ophthalmic drop p.m. FAMILY HISTORY: Significant for father has arthritis, colon polyps. Sister has arthritis. Aunt has breast cancer. Nephew has inflammatory bowel disease. Mother has osteoporosis. SOCIAL HISTORY: Former tobacco use. Occasional alcohol, occasional glass of wine. No drugs. REVIEW OF SYSTEMS: As per HPI. Rest of the review of systems is negative. PHYSICAL EXAMINATION: GENERAL: The patient is of moderate build, not in acute distress. VITAL SIGNS: Temperature 36.7, pulse 56, respiratory rate 18, blood pressure 150/76, oxygen 97% on room air. HEENT: Pupils equal, round and reactive to light. Oral mucosa moist. NECK: No JVD or neck masses. CARDIOVASCULAR: S1 and S2 heard. Regular rate and rhythm. No murmur, no gallop. RESPIRATORY SYSTEM: Normal AP diameter. No accessory muscle use. No wheezing, no crackles. ABDOMEN: Soft, bowel sounds sluggish, currently soft, nontender, no distention. CENTRAL NERVOUS SYSTEM: Cranial nerves II through XII grossly intact, nonfocal. EXTREMITIES: No edema, no erythema. LABORATORY DATA: WBC 12, hemoglobin 13.4, hematocrit 42, platelets 301. PT 11.1, INR 1. Sodium 144, potassium 3.7, chloride 105, bicarbonate 33, BUN 31, creatinine 0.8, serum glucose 131. Lactate 1.5, calcium 9.2, total bilirubin 0.3, AST 15, ALT 11, alkaline phosphatase 40. Troponin I high sensitivity 8.5. Lipase 15. SARS-CoV-2 rapid test negative. IMAGING DATA: Chest x-ray, no acute findings. CT abdomen and pelvis preliminary report showing high-grade small-bowel obstruction with transition point in the left lower quadrant. Severe sigmoid diverticulosis. EKG: Sinus bradycardia at a rate of 49, no acute ST changes seen. ASSESSMENT AND PLAN: This is an 82-year-old female who presents with abdominal pain, found to have high-grade small bowel obstruction. 1. Abdominal pain with high-grade small-bowel obstruction, status post NG tube: We will keep her n.p.o., IV fluids, IV antiemetics p.r.n., IV Dilaudid p.r.n. Consult General Surgery. Closely monitor in the medical floor. 2. History of gastroesophageal reflux disease: Place on IV Pepcid. 3. History of scleroderma: Restart her home medications, Plaquenil when able to. The patient is also on prednisone 5 mg, placed on stress dose hydrocortisone IV 25 mg b.i.d., taper down to home prednisone when able to take p.o. 4. History of pseudogout: On colchicine. Restart when the patient is able to take p.o. medications. 5. Hypertension: Holding p.o. felodipine for now. Place on IV hydralazine p.r.n. 6. Depression: Restart Zoloft when the patient is able to take p.o. 7. History of pericardial effusion: The patient's echo in 2020 showed small pericardial effusion. followup 8. Deep venous thrombosis prophylaxis: Heparin subcutaneously for now. DISPOSITION: Closely monitor in the medical floor. PT, OT prior to discharge. Social service to help with discharge planning. Job ID: [id number] MTDD
[2022-10-02] MEDS: FAMOTIDINE 20 MG in SYRINGE 3 ML IV SCH ×2 (09:03→21:02)
[2022-10-02] MEDS: HEPARIN SOD 5,000 UNIT/0.5 ML VIAL SQ SCH ×3 (09:04→21:02)
[2022-10-02] MEDS: HYDROCORTISONE SOD 25 MG in SYRINGE 0 ML IV SCH ×2 (09:04→21:02)
[2022-10-02 10:46] LABS: Magnesium 2.2 mg/dl (1.7-2.4); Phosphorus 3.1 mg/dl (2.5-4.9)
[2022-10-02] MEDS: POTASSIUM CHLORIDE / WTR 10 MEQ/100 ML PLCT IV SCH ×2 (14:13→16:14)
[2022-10-02] MEDS: HYDROmorphone INJ 0.5 MG/0.5 ML SYR IV PRN (14:13)
--- NOTE | 2022-10-02 15:25 | Electrocardiogram Report ---
Test Reason : Blood Pressure : / mmHG Vent. Rate : 049 BPM Atrial Rate : 049 BPM P-R Int : 188 ms QRS Dur : 064 ms QT Int : 438 ms P-R-T Axes : 039 014 062 degrees QTc Int : 395 ms Poor data quality, interpretation may be adversely affected Sinus bradycardia Low voltage QRS Septal infarct (cited on or before 29-AUG-2012) Abnormal ECG When compared with ECG of 25-MAY-2022 12:21, Questionable change in initial forces of Anterior leads Confirmed by Raúl Weston ([id number]) on 10/02/2022 3:25:43 PM Referred By: REFERRED SELF Confirmed By:Raúl Weston
[2022-10-03] MEDS: D5W AND NSS 1,000 ML IV SCH ×2 (04:03→14:24)
[2022-10-03] MEDS: HEPARIN SOD 5,000 UNIT/0.5 ML VIAL SQ SCH ×3 (05:46→22:10)
[2022-10-03 06:33] LABS: BUN Creatinine Ratio 20.3 (10-20); Calcium 8.3 mg/dl (8.5-10.1); Creatinine Clr Calc Pharmacy 45.8 ml/min; Est GFR (African American) 88.7 ml/min; Est GFR (Non-African American) 76.5 ml/min; Magnesium 1.9 mg/dl (1.7-2.4); Phosphorus 2.7 mg/dl (2.5-4.9); Potassium 3.7 mmol/L (3.5-5.1)
[2022-10-03 06:42] LABS: Hemoglobin 13.5 g/dl (12.0-16.0); Mean Corpuscular Hemoglobin 30.9 pg (25.0-34.0); Mean Corpuscular Hgb Conc 32.9 g/dL (32.0-36.0); Mean Corpuscular Volume 93.8 fL (80.0-100.0); Mean Platelet Volume 9.9 fL (9.4-12.3); Platelet Count 315 K/uL (130-400); RDW Coefficient of Variation 14.1 % (11.5-14.5); RDW Standard Deviation 49.1 fL (36.4-46.3); Red Blood Count 4.37 M/uL (3.93-5.22); White Blood Count 14.91 K/ul (4.8-10.8)
[2022-10-03] MEDS ORDERED: COUGH DROP (SUGAR FREE) LOZ 24 LOZ/1 BOX BUCCAL ONE (08:09)
--- NOTE | 2022-10-03 08:22 | Hospitalist Progress Note ---
Date of Service October 03, 2022 Assessment & Plan (1) SBO (small bowel obstruction): Plan: This is an 82 yo female who presents with abdominal pain, found to have high- grade small bowel obstruction. 1. Abdominal pain with high-grade small-bowel obstruction, status post NG tube: Keep n.p.o., IV fluids, IV antiemetics p.r.n., IV Dilaudid p.r.n. General Surgery consulted - keep NG tube until bowel function resumes. Closely monitor in the medical floor. 2. History of gastroesophageal reflux disease: Place on IV Pepcid. 3. History of scleroderma: Restart her home medications, Plaquenil when able to. The patient is also on prednisone 5 mg, placed on stress dose hydrocortisone IV 25 mg b.i.d., taper down to home prednisone when able to take p.o. 4. History of pseudogout: On colchicine. Restart when the patient is able to take p.o. medications. 5. Hypertension: Holding p.o. felodipine for now. Place on IV hydralazine p.r.n. 6. Depression: Restart Zoloft when the patient is able to take p.o. 7. History of pericardial effusion: The patient's echo in 2020 showed small pericardial effusion. followup outpt DVT prophylaxis: Heparin subcutaneously for now. DISPOSITION: medical floor. PT, OT prior to discharge. Admission and Anticipated Discharge Date Admission Date: October 02, 2022 Subjective Pt seen in follow up of SBO NG tube placed on admission Currently patient lying in bed, in no acute distress, overall feels better Abdominal pain improved No fevers, chills, chest pain, shortness of breath Patient's daughter at the bedside and updated Review of Systems Review of Systems: All systems reviewed & are unremarkable except as noted in Subjective Physical Exam Physical Exam: GENERAL: The patient is of moderate build, not in acute distress. NG tube placed HEENT: Pupils equal, round and reactive to light. Oral mucosa moist. NECK: No JVD or neck masses. CARDIOVASCULAR: S1 and S2 heard. Regular rate and rhythm. No murmur, no gallop. RESPIRATORY: Normal AP diameter. No accessory muscle use. No wheezing, no crackles. ABDOMEN: Soft, bowel sounds sluggish, currently soft, nontender, no distention. NEURO:Alert oriented, answer questions appropriately, no facial asymmetry, moves extremities EXTREMITIES: No edema, no erythema. Results & Data Results & Data ([facility]) Vital Signs (Past 12 Hours) Vital Signs Temp Pulse Resp BP Pulse Ox O2 Del Method 10/03/22 07:15 36.4 C L 68 16 147/79 H 98 Room Air 10/02/22 23:02 37.0 C 63 18 149/81 H 96 Room Air Laboratory Results 10/03/22 10/03/22 10/02/22 Range/Units 05:49 05:49 01:13 WBC 14.91 H (4.8-10.8) K/ul RBC 4.37 (3.93-5.22) M/uL Hgb 13.5 (12.0-16.0) g/dl Hct 41.0 (34.1-44.9) % MCV 93.8 (80.0-100.0) fL MCH 30.9 (25.0-34.0) pg MCHC 32.9 (32.0-36.0) g/dL RDW Std Deviation 49.1 H (36.4-46.3) fL RDW Coeff of Lila 14.1 (11.5-14.5) % Plt Count 315 (130-400) K/uL MPV 9.9 (9.4-12.3) fL Sodium 144 (136-145) mmol/L Potassium 3.7 (3.5-5.1) mmol/L Chloride 110 H (98-107) mmol/L Carbon Dioxide 28 (21-32) mmol/L Anion Gap 6 (3-11) BUN 15 (6-23) mg/dl Creatinine 0.74 (0.6-1.2) mg/dl Est Cr Clr Drug Dosing 45.8 ml/min Est GFR ( Amer) 88.7 ml/min Est GFR (Non-Af Amer) 76.5 ml/min BUN/Creatinine Ratio 20.3 H (10-20) Glucose 118 H (70-99(Fasting)) mg/dl Calcium 8.3 L (8.5-10.1) mg/dl Phosphorus 2.7 3.1 (2.5-4.9) mg/dl Magnesium 1.9 2.2 (1.7-2.4) mg/dl Medications Administered Current Inpatient Medications Heparin Sodium (Porcine) (Heparin Sod 5,000 Unit/0.5 Ml Vial) 5,000 units SQ Q8 RAMO Stop: 11/01/22 07:57 Last Admin: 10/03/22 05:46 Dose: 5,000 units Hydralazine HCl (Hydralazine Hcl 20 Mg/Ml Vial) 5 mg IV Q6H PRN PRN Reason: Hypertension Stop: 11/01/22 07:57 Hydromorphone HCl (Hydromorphone Inj 0.5 Mg/0.5 Ml Syr) 0.5 mg IV Q3H PRN PRN Reason: Severe Pain Stop: 10/16/22 07:57 Last Admin: 10/02/22 14:13 Dose: 0.5 mg Dextrose/Sodium Chloride (D5w And Nss) 1,000 mls @ 100 mls/hr IV .Q10H RAMO Stop: 11/01/22 07:57 Last Admin: 10/03/22 04:03 Dose: 100 mls/hr Acetaminophen (Ofirmev) 1,000 mg in 100 mls @ 400 mls/hr IV Q8H PRN PRN Reason: Pain or Fever Stop: 10/05/22 07:57 Famotidine 20 mg/ Syringe 5 mls @ 2.5 mls/min IV Q12 RAMO Stop: 11/01/22 08:59 Last Admin: 10/02/22 21:02 Dose: 2.5 mls/min Hydrocortisone Sodium (Succinate 25 mg/ Syringe) 0.5 mls @ 4 mls/min IV BID RAMO Stop: 11/01/22 08:59 Last Admin: 10/02/22 21:02 Dose: 4 mls/min Potassium Chloride (K Rivas / Wtr) 10 meq in 100 mls @ 100 mls/hr IV Q1H RAMO Stop: 10/03/22 10:29 Magnesium Sulfate/Dextrose (Magnesium Sulfate / D5w) 1 gm in 100 mls @ 50 mls/hr IV ONE ONE Stop: 10/03/22 10:18 Lorazepam (Lorazepam 1 Mg Tab) 1 mg SL BID PRN PRN Reason: Anxiety/Insomnia Stop: 11/01/22 07:57 Ondansetron HCl (Ondansetron Inj 2 Mg/Ml 2 Ml Vial) 4 mg IV Q6H PRN PRN Reason: Nausea Stop: 11/01/22 07:57
[2022-10-03] MEDS: HYDROmorphone INJ 0.5 MG/0.5 ML SYR IV PRN ×3 (08:29→22:12)
[2022-10-03] MEDS ORDERED: MAGNESIUM SULFATE / D5W 1 GM/100 ML BAG IV ONE (08:30)
[2022-10-03] MEDS: HYDROCORTISONE SOD 25 MG in SYRINGE 0 ML IV SCH ×2 (08:31→22:11)
[2022-10-03] MEDS: FAMOTIDINE 20 MG in SYRINGE 3 ML IV SCH ×2 (08:31→22:12)
[2022-10-03] MEDS ORDERED: COUGH DROP (SUGAR FREE) LOZ 24 LOZ/1 BOX BUCCAL PRN (09:17)
[2022-10-03] MEDS: ONDANSETRON INJ 2 MG/ML 2 ML VIAL IV PRN ×2 (09:39→22:12)
[2022-10-03] MEDS: POTASSIUM CHLORIDE / WTR 10 MEQ/100 ML PLCT IV SCH ×2 (09:40→11:45)
--- NOTE | 2022-10-03 10:05 | Surgery Progress Note ---
Date of Service October 03, 2022 Assessment & Plan (1) SBO (small bowel obstruction): Plan: Patient with history of tubal ligation here with SBO NGT in place draining 200cc thus far Her abdominal complaints are improved Will obtain KUB for further evaluation However likely leave NGT in place until bowel function returns Pt seen/examined with Dr. Lazo Admission and Anticipated Discharge Date Admission Date: October 02, 2022 Subjective Patient states she is feeling better. Abdominal pain improved. No current n/v. No flatus yet. Some complaints surrounding NGT. Physical Exam Physical Exam: awake/alert, no distress Gastrointestinal (Abdomen): Inspection/Auscultation: + abdomen distended (mild lower abdominal distention) Percussion/Palpation: abdomen soft; abdomen nontender Results & Data ([facility]) Vital Signs (Past 12 Hours) Vital Signs Temp Pulse Resp BP Pulse Ox O2 Del Method 10/03/22 07:15 36.4 C L 68 16 147/79 H 98 Room Air 10/02/22 23:02 37.0 C 63 18 149/81 H 96 Room Air PG Care Time/CCT Total # of Minutes Spent Total Time Spent with Patient: Total time spent is greater than 50% in coordination of care (as documented) at patient's floor/unit and/or counseling patient: Coding Level of Care Code 56068 Subseq Hosp Care Lvl 1 Diagnoses SBO (small bowel obstruction) K56.609
--- NOTE | 2022-10-03 11:03 | XRay Report ---
KUB HISTORY: Small bowel obstruction. Follow-up. COMPARISON: Abdomen and pelvis CT 10/02/2022. FINDINGS: Mildly dilated gas-filled loops of small bowel are again noted within the upper abdomen con sistent with the patient's small bowel obstruction. This has slightly improved. Nasogastric tube term inates in the proximal stomach. Levoscoliosis of the lumbar spine. No renal calculi. No ureteral michelle culi. No pneumoperitoneum or pneumatosis. IMPRESSION: Nasogastric tube terminates in the proximal stomach. Small bowel obstruction pattern has slightly imp roved. ACT 112: Negative or not required by law. Electronically signed by: Mark Villela M.D. 10/03/2022 11:01 AM
[2022-10-03] MEDS ORDERED: DORZOLAMIDE HCL 2% OPH SOLN 10 ML BTL OP SCH (21:00)
[2022-10-03] MEDS: DORZOLAMIDE HCL 2% OPH SOLN 10 ML BTL OP SCH (22:08)
[2022-10-03] MEDS: TRAVOPROST Z 0.004% OPH SOLN 2.5 ML BTL OP SCH (22:09)
[2022-10-04] MEDS: D5W AND NSS 1,000 ML IV SCH ×3 (00:28→22:32)
[2022-10-04] MEDS: HYDROmorphone INJ 0.5 MG/0.5 ML SYR IV PRN ×2 (02:35→08:52)
[2022-10-04] MEDS: HEPARIN SOD 5,000 UNIT/0.5 ML VIAL SQ SCH ×3 (06:06→21:18)
[2022-10-04 07:40] LABS: Hematocrit (blood only) 36.4 % (34.1-44.9); Hemoglobin 11.5 g/dl (12.0-16.0); Mean Corpuscular Hemoglobin 30.3 pg (25.0-34.0); Mean Corpuscular Hgb Conc 31.6 g/dL (32.0-36.0); Mean Platelet Volume 9.7 fL (9.4-12.3); Platelet Count 253 K/uL (130-400); RDW Standard Deviation 49.8 fL (36.4-46.3); Red Blood Count 3.79 M/uL (3.93-5.22); White Blood Count 13.08 K/ul (4.8-10.8)
[2022-10-04 08:00] LABS: BUN Creatinine Ratio 19.3 (10-20); Calcium 7.8 mg/dl (8.5-10.1); Creatinine Clr Calc Pharmacy 59.4 ml/min; Est GFR (African American) 101.5 ml/min; Est GFR (Non-African American) 87.6 ml/min; Magnesium 2.1 mg/dl (1.7-2.4); Phosphorus 2.5 mg/dl (2.5-4.9); Potassium 3.7 mmol/L (3.5-5.1)
[2022-10-04] MEDS: FAMOTIDINE 20 MG in SYRINGE 3 ML IV SCH ×2 (08:25→21:17)
[2022-10-04] MEDS: HYDROCORTISONE SOD 25 MG in SYRINGE 0 ML IV SCH (08:25)
[2022-10-04] MEDS: TRAVOPROST Z 0.004% OPH SOLN 2.5 ML BTL OP SCH ×3 (08:26→21:18)
[2022-10-04] MEDS: DORZOLAMIDE HCL 2% OPH SOLN 10 ML BTL OP SCH ×2 (08:26→21:18)
--- NOTE | 2022-10-04 08:34 | Surgery Progress Note ---
Date of Service October 04, 2022 Assessment & Plan (1) SBO (small bowel obstruction): Plan: improving will check KUB before removing NG seen with Dr. Lazo Admission and Anticipated Discharge Date Admission Date: October 02, 2022 Subjective passing some flatus, no pain, no BM Physical Exam Gastrointestinal (Abdomen): Inspection/Auscultation: + abdomen distended (minimal) Percussion/Palpation: abdomen soft; abdomen nontender NG 300 cc past 16 hours Results & Data ([facility]) Vital Signs (Past 12 Hours) Vital Signs Temp Pulse Resp BP Pulse Ox O2 Del Method 10/04/22 07:58 36.6 C 66 16 173/80 H 99 Room Air 10/03/22 23:00 36.6 C 67 16 135/71 95 Room Air PG Care Time/CCT Total # of Minutes Spent Total Time Spent with Patient: Total time spent is greater than 50% in coordination of care (as documented) at patient's floor/unit and/or counseling patient: Coding Level of Care Code 75281 Subseq Hosp Care Lvl 1 Diagnoses SBO (small bowel obstruction) K56.609
[2022-10-04] MEDS ORDERED: Nursing to Pharmacy Communication SCH (08:45)
[2022-10-04] MEDS: ONDANSETRON INJ 2 MG/ML 2 ML VIAL IV PRN (08:49)
--- NOTE | 2022-10-04 08:56 | Hospitalist Progress Note ---
Date of Service October 04, 2022 Assessment & Plan (1) SBO (small bowel obstruction): Plan: This is an 82 yo female who presents with abdominal pain, found to have high- grade small bowel obstruction. 1. Abdominal pain with high-grade small-bowel obstruction, status post NG tube: Keep n.p.o., IV fluids, IV antiemetics p.r.n., analgesia General Surgery consulted - keep NG tube until bowel function resumes. Closely monitor in the medical floor. 2. History of gastroesophageal reflux disease: Place on IV Pepcid. 3. History of scleroderma: Restart her home medications, Plaquenil when able to. The patient is also on prednisone 5 mg, placed on stress dose hydrocortisone IV 25 mg b.i.d., taper down to home prednisone when able to take p.o. 4. History of pseudogout: On colchicine. Restart when the patient is able to take p.o. medications. 5. Hypertension: Holding p.o. felodipine for now. Place on IV hydralazine p.r.n. 6. Depression: Restart Zoloft when the patient is able to take p.o. 7. History of pericardial effusion: The patient's echo in 2020 showed small pericardial effusion. followup outpt DVT prophylaxis: Heparin subcutaneously for now. DISPOSITION: medical floor. PT, OT prior to discharge. Admission and Anticipated Discharge Date Admission Date: October 02, 2022 Subjective Pt seen in follow up of SBO NG tube placed on admission Currently patient lying in bed, in no acute distress, overall feels better Abdominal pain improved No fevers, chills, chest pain, shortness of breath + flatus, no BM Patient's daughter at the bedside and updated Review of Systems Review of Systems: All systems reviewed & are unremarkable except as noted in Subjective Physical Exam Physical Exam: GENERAL: The patient is of moderate build, not in acute distress. NG tube placed HEENT: Pupils equal, round and reactive to light. Oral mucosa moist. NECK: No JVD or neck masses. CARDIOVASCULAR: S1 and S2 heard. Regular rate and rhythm. No murmur, no gallop. RESPIRATORY: Normal AP diameter. No accessory muscle use. No wheezing, no crackles. ABDOMEN: Soft, bowel sounds sluggish, currently soft, nontender, no distention. NEURO:Alert oriented, answer questions appropriately, no facial asymmetry, moves extremities EXTREMITIES: No edema, no erythema. Results & Data Results & Data ([facility]) Vital Signs (Past 12 Hours) Vital Signs Temp Pulse Pulse Resp BP Pulse Ox O2 Del Method 10/04/22 08:22 36.8 C 69 13 110/70 98 Room Air 10/04/22 07:58 36.6 C 66 16 173/80 H 99 Room Air 10/03/22 23:00 36.6 C 67 16 135/71 95 Room Air Laboratory Results 10/04/22 10/04/22 Range/Units 07:08 07:08 WBC 13.08 H (4.8-10.8) K/ul RBC 3.79 L (3.93-5.22) M/uL Hgb 11.5 L (12.0-16.0) g/dl Hct 36.4 (34.1-44.9) % MCV 96.0 (80.0-100.0) fL MCH 30.3 (25.0-34.0) pg MCHC 31.6 L (32.0-36.0) g/dL RDW Std Deviation 49.8 H (36.4-46.3) fL RDW Coeff of Lila 14.0 (11.5-14.5) % Plt Count 253 (130-400) K/uL MPV 9.7 (9.4-12.3) fL Sodium 140 (136-145) mmol/L Potassium 3.7 (3.5-5.1) mmol/L Chloride 109 H (98-107) mmol/L Carbon Dioxide 28 (21-32) mmol/L Anion Gap 3 (3-11) BUN 11 (6-23) mg/dl Creatinine 0.57 L (0.6-1.2) mg/dl Est Cr Clr Drug Dosing 59.4 ml/min Est GFR ( Amer) 101.5 ml/min Est GFR (Non-Af Amer) 87.6 ml/min BUN/Creatinine Ratio 19.3 (10-20) Glucose 119 H (70-99(Fasting)) mg/dl Calcium 7.8 L (8.5-10.1) mg/dl Phosphorus 2.5 (2.5-4.9) mg/dl Magnesium 2.1 (1.7-2.4) mg/dl Medications Administered Current Inpatient Medications Dorzolamide HCl (Dorzolamide Hcl 2% Oph Soln 10 Ml Btl) 1 drops OP BID RAMO Stop: 11/02/22 20:59 Last Admin: 10/04/22 08:26 Dose: 1 drops Heparin Sodium (Porcine) (Heparin Sod 5,000 Unit/0.5 Ml Vial) 5,000 units SQ Q8 RAMO Stop: 11/01/22 07:57 Last Admin: 10/04/22 06:06 Dose: 5,000 units Hydralazine HCl (Hydralazine Hcl 20 Mg/Ml Vial) 5 mg IV Q6H PRN PRN Reason: Hypertension Stop: 11/01/22 07:57 Hydromorphone HCl (Hydromorphone Inj 0.5 Mg/0.5 Ml Syr) 0.5 mg IV Q3H PRN PRN Reason: Severe Pain Stop: 10/16/22 07:57 Last Admin: 10/04/22 02:35 Dose: 0.5 mg Dextrose/Sodium Chloride (D5w And Nss) 1,000 mls @ 100 mls/hr IV .Q10H RAMO Stop: 11/01/22 07:57 Last Admin: 10/04/22 00:28 Dose: 100 mls/hr Acetaminophen (Ofirmev) 1,000 mg in 100 mls @ 400 mls/hr IV Q8H PRN PRN Reason: Pain or Fever Stop: 10/05/22 07:57 Famotidine 20 mg/ Syringe 5 mls @ 2.5 mls/min IV Q12 RAMO Stop: 11/01/22 08:59 Last Admin: 10/04/22 08:25 Dose: 2.5 mls/min Hydrocortisone Sodium (Succinate 25 mg/ Syringe) 0.5 mls @ 4 mls/min IV BID RAMO Stop: 11/01/22 08:59 Last Admin: 10/04/22 08:25 Dose: 4 mls/min Potassium Chloride (K Rivas / Wtr) 10 meq in 100 mls @ 100 mls/hr IV Q1H RAMO Stop: 10/04/22 10:59 Lorazepam (Lorazepam 1 Mg Tab) 1 mg SL BID PRN PRN Reason: Anxiety/Insomnia Stop: 11/01/22 07:57 Menthol (Cough Drop (Sugar Free) Maxim 24 Maxim/1 Box) 1 maxim BUCCAL Q2H PRN PRN Reason: Sore Throat Stop: 11/02/22 09:16 Last Admin: 10/03/22 09:41 Dose: 1 maxim Miscellaneous (Order Awaiting Action (Lifitegrast [Xiidra] 5 % Dropperette)) 1 each N/A QS [facility] Stop: 11/03/22 00:00 Last Admin: 10/04/22 08:27 Dose: Not Given Miscellaneous Information (Nursing To Pharmacy Communication) 1 each N/A TODAY [facility] Stop: 11/03/22 08:44 Ondansetron HCl (Ondansetron Inj 2 Mg/Ml 2 Ml Vial) 4 mg IV Q6H PRN PRN Reason: Nausea Stop: 11/01/22 07:57 Last Admin: 10/03/22 22:12 Dose: 4 mg Travoprost (Travoprost Z 0.004% Oph Soln 2.5 Ml Btl) 1 drops OP DAILY RAMO Stop: 11/02/22 20:59 Last Admin: 10/03/22 22:09 Dose: 1 drops
[2022-10-04] MEDS: POTASSIUM CHLORIDE / WTR 10 MEQ/100 ML PLCT IV SCH ×2 (13:10→15:34)
[2022-10-04] MEDS ORDERED: SUMAtriptan succinate 50 MG TAB PO STA (15:03)
--- NOTE | 2022-10-04 22:33 | XRay Report ---
XR KUB/Abdomen 1 view CLINICAL HISTORY: SBO TECHNIQUE: 1 view of the abdomen was obtained. Comparison: Comparison is made to an radiograph 10/03/2022 FINDINGS: Enteric tube is seen in the stomach. Degenerative changes are seen in the visualized skeleton. The braydon wel gas pattern is nonobstructive. A moderate amount of stool is noted within the large bowel. IMPRESSION: Nonobstructive bowel gas pattern. ACT 112: Negative or not required by law. Electronically signed by: Kobi Castellanos M.D. 10/04/2022 10:32 PM
[2022-10-05] MEDS: HEPARIN SOD 5,000 UNIT/0.5 ML VIAL SQ SCH ×3 (06:32→22:32)
[2022-10-05] MEDS ORDERED: CHLORASEPTIC 1.4% SOLN 180 ML BTL MT PRN (06:40)
[2022-10-05] MEDS: DORZOLAMIDE HCL 2% OPH SOLN 10 ML BTL OP SCH ×2 (08:05→21:11)
[2022-10-05] MEDS: FAMOTIDINE 20 MG in SYRINGE 3 ML IV SCH ×2 (08:07→22:31)
--- NOTE | 2022-10-05 08:16 | Surgery Progress Note ---
Date of Service October 05, 2022 Assessment & Plan (1) SBO (small bowel obstruction): Plan: improving can start on clears, advance over next 24 hours as tolerated Admission and Anticipated Discharge Date Admission Date: October 02, 2022 Supervising Physician Co-Signing Physician Notes I personally saw and evaluated the patient with Reza Francisco PA-C and agree with the assessment and plan. 82-year-old female with small bowel obstruction, improving She is tolerating clear liquids and is passing flatus still without a BM We will give her full liquids today as well as an enema as she did have some moderate stool throughout her colon on KUB Continue advance her diet as tolerated Subjective MASON/nausea resolved after NG removed, passing flatus no BM Physical Exam Gastrointestinal (Abdomen): Inspection/Auscultation: + abdomen distended (slight) Percussion/Palpation: abdomen soft; abdomen nontender Results & Data ([facility]) Vital Signs (Past 12 Hours) Vital Signs Temp Pulse Resp BP BP Pulse Ox O2 Del Method 10/05/22 07:10 37.0 C 54 L 16 133/85 98 Room Air 10/04/22 21:12 36.8 C 58 L 18 121/72 100 Room Air PG Care Time/CCT Total # of Minutes Spent Total Time Spent with Patient: Total time spent is greater than 50% in coordination of care (as documented) at patient's floor/unit and/or counseling patient: Coding Level of Care Code 21396 Subseq Hosp Care Lvl 1 Diagnoses SBO (small bowel obstruction) K56.609
--- NOTE | 2022-10-05 08:24 | Hospitalist Progress Note ---
Date of Service October 05, 2022 Assessment & Plan (1) SBO (small bowel obstruction): Plan: This is an 82 yo female who presents with abdominal pain, found to have high- grade small bowel obstruction. 1. Abdominal pain with high-grade small-bowel obstruction, status post NG tube: Initially n.p.o., IV fluids, IV antiemetics p.r.n., analgesia General Surgery consulted - NG tube removed yesterday (10/04) Started on clear liquid diet Closely monitor in the medical floor. 2. History of gastroesophageal reflux disease: Place on IV Pepcid. 3. History of scleroderma: Restart her home medications, Plaquenil when able to. The patient is also on prednisone 5 mg, placed on stress dose hydrocortisone IV 25 mg b.i.d., tapering down to home prednisone when able to take p.o. 4. History of pseudogout: On colchicine. Restart when the patient is able to take p.o. medications. 5. Hypertension: Holding p.o. felodipine for now. Place on IV hydralazine p.r.n. 6. Depression: Restart Zoloft when the patient is able to take p.o. 7. History of pericardial effusion: The patient's echo in 2020 showed small pericardial effusion. followup outpt DVT prophylaxis: Heparin subcutaneously for now. DISPOSITION: medical floor. PT, OT prior to discharge. Admission and Anticipated Discharge Date Admission Date: October 02, 2022 Subjective Pt seen in follow up of SBO NG tube removed yesterday PM Currently patient lying in bed, in no acute distress, overall feels better Abdominal pain much improved No fevers, chills, chest pain, shortness of breath + flatus, no BM Had clear liquid diet this AM, so far doing ok with that Review of Systems Review of Systems: All systems reviewed & are unremarkable except as noted in Subjective Physical Exam Physical Exam: GENERAL: The patient is of moderate build, not in acute distress. NG tube now removed HEENT: Pupils equal, round and reactive to light. Oral mucosa moist. NECK: No JVD or neck masses. CARDIOVASCULAR: S1 and S2 heard. Regular rate and rhythm. No murmur, no gallop. RESPIRATORY: Normal AP diameter. No accessory muscle use. No wheezing, no crackles. ABDOMEN: Soft, bowel sounds sluggish, currently soft, nontender, no distention. NEURO:Alert oriented, answer questions appropriately, no facial asymmetry, moves extremities EXTREMITIES: No edema, no erythema. Results & Data Results & Data ([facility]) Vital Signs (Past 12 Hours) Vital Signs Temp Pulse Resp BP BP Pulse Ox O2 Del Method 10/05/22 07:10 37.0 C 54 L 16 133/85 98 Room Air 10/04/22 21:12 36.8 C 58 L 18 121/72 100 Room Air Laboratory Results 10/05/22 10/05/22 Range/Units 07:50 07:50 WBC 7.61 (4.8-10.8) K/ul RBC 3.79 L (3.93-5.22) M/uL Hgb 11.4 L (12.0-16.0) g/dl Hct 36.5 (34.1-44.9) % MCV 96.3 (80.0-100.0) fL MCH 30.1 (25.0-34.0) pg MCHC 31.2 L (32.0-36.0) g/dL RDW Std Deviation 49.9 H (36.4-46.3) fL RDW Coeff of Lila 14.0 (11.5-14.5) % Plt Count 267 (130-400) K/uL MPV 9.7 (9.4-12.3) fL Sodium 145 (136-145) mmol/L Potassium 3.5 (3.5-5.1) mmol/L Chloride 113 H (98-107) mmol/L Carbon Dioxide 29 (21-32) mmol/L Anion Gap 3 (3-11) BUN 8 (6-23) mg/dl Creatinine 0.65 (0.6-1.2) mg/dl Est Cr Clr Drug Dosing 52.1 ml/min Est GFR ( Amer) 97.2 ml/min Est GFR (Non-Af Amer) 83.9 ml/min BUN/Creatinine Ratio 12.3 (10-20) Glucose 90 (70-99(Fasting)) mg/dl Calcium 8.4 L (8.5-10.1) mg/dl Phosphorus 1.7 L (2.5-4.9) mg/dl Magnesium 2.1 (1.7-2.4) mg/dl Medications Administered Current Inpatient Medications Dorzolamide HCl (Dorzolamide Hcl 2% Oph Soln 10 Ml Btl) 1 drops OP BID [facility] Stop: 11/02/22 20:59 Last Admin: 10/05/22 08:05 Dose: 1 drops Heparin Sodium (Porcine) (Heparin Sod 5,000 Unit/0.5 Ml Vial) 5,000 units SQ Q8 [facility]O Stop: 11/01/22 07:57 Last Admin: 10/05/22 06:32 Dose: 5,000 units Hydralazine HCl (Hydralazine Hcl 20 Mg/Ml Vial) 5 mg IV Q6H PRN PRN Reason: Hypertension Stop: 11/01/22 07:57 Dextrose/Sodium Chloride (D5w And Nss) 1,000 mls @ 80 mls/hr IV .[id number] [facility] Stop: 11/01/22 07:57 Last Infusion: 10/04/22 22:33 Dose: 80 mls/hr Famotidine 20 mg/ Syringe 5 mls @ 2.5 mls/min IV Q12 [facility]O Stop: 11/01/22 08:59 Last Admin: 10/05/22 08:07 Dose: 2.5 mls/min Hydrocortisone Sodium (Succinate 25 mg/ Syringe) 0.5 mls @ 4 mls/min IV QAM [facility] Stop: 11/04/22 08:59 Last Admin: 10/05/22 08:05 Dose: 4 mls/min Lorazepam (Lorazepam 1 Mg Tab) 1 mg SL BID PRN PRN Reason: Anxiety/Insomnia Stop: 11/01/22 07:57 Menthol (Cough Drop (Sugar Free) Maxim 24 Maxim/1 Box) 1 maxim BUCCAL Q2H PRN PRN Reason: Sore Throat Stop: 11/02/22 09:16 Last Admin: 10/03/22 09:41 Dose: 1 maxim Miscellaneous (Order Awaiting Action (Lifitegrast [Xiidra] 5 % Dropperette)) 1 each N/A QS [facility] Stop: 11/03/22 00:00 Last Admin: 10/05/22 07:19 Dose: Not Given Ondansetron HCl (Ondansetron Inj 2 Mg/Ml 2 Ml Vial) 4 mg IV Q6H PRN PRN Reason: Nausea Stop: 11/01/22 07:57 Last Admin: 10/04/22 08:49 Dose: 4 mg Phenol (Chloraseptic 1.4% Soln 180 Ml Btl) 1 sprays MT Q4H PRN PRN Reason: Sore Throat Stop: 11/04/22 06:39 Travoprost (Travoprost Z 0.004% Oph Soln 2.5 Ml Btl) 1 drops OP HS [facility]O Stop: 11/03/22 20:59 Last Admin: 10/04/22 21:18 Dose: 1 drops
[2022-10-05 08:31] LABS: Hematocrit (blood only) 36.5 % (34.1-44.9); Hemoglobin 11.4 g/dl (12.0-16.0); Mean Corpuscular Hemoglobin 30.1 pg (25.0-34.0); Mean Corpuscular Hgb Conc 31.2 g/dL (32.0-36.0); Mean Corpuscular Volume 96.3 fL (80.0-100.0); Mean Platelet Volume 9.7 fL (9.4-12.3); Platelet Count 267 K/uL (130-400); RDW Standard Deviation 49.9 fL (36.4-46.3); Red Blood Count 3.79 M/uL (3.93-5.22); White Blood Count 7.61 K/ul (4.8-10.8)
[2022-10-05] MEDS ORDERED: HYDROCORTISONE SOD 25 MG in SYRINGE 0 ML IV SCH (09:00)
[2022-10-05 09:07] LABS: BUN Creatinine Ratio 12.3 (10-20); Calcium 8.4 mg/dl (8.5-10.1); Creatinine Clr Calc Pharmacy 52.1 ml/min; Est GFR (African American) 97.2 ml/min; Est GFR (Non-African American) 83.9 ml/min; Magnesium 2.1 mg/dl (1.7-2.4); Phosphorus 1.7 mg/dl (2.5-4.9); Potassium 3.5 mmol/L (3.5-5.1)
[2022-10-05] MEDS ORDERED: POTASSIUM PHOS 3 MMOL/1 ML INFUSION IV STA (10:10)
[2022-10-05] MEDS ORDERED: POTASSIUM PHOSPHATE 9 MMOL in SODIUM CHLORIDE 0.9% 250 ML IV ONE (10:30)
[2022-10-05] MEDS: D5W AND NSS 1,000 ML IV SCH (10:56)
[2022-10-05] MEDS: POTASSIUM CHLORIDE / WTR 10 MEQ/100 ML PLCT IV SCH ×2 (13:31→14:35)
[2022-10-05] MEDS: TRAVOPROST Z 0.004% OPH SOLN 2.5 ML BTL OP SCH (21:12)
[2022-10-05] MEDS: SUMAtriptan succinate 50 MG TAB PO STA (22:32)
[2022-10-06] MEDS: D5W AND NSS 1,000 ML IV SCH (01:15)
[2022-10-06] MEDS: SUMAtriptan succinate 50 MG TAB PO STA (01:23)
[2022-10-06] MEDS: HEPARIN SOD 5,000 UNIT/0.5 ML VIAL SQ SCH ×2 (05:54→13:12)
[2022-10-06] MEDS ORDERED: HYDROCORTISONE SOD 12.5 MG in SYRINGE 0 ML IV SCH (09:00)
[2022-10-06 09:24] LABS: BUN Creatinine Ratio 13.4 (10-20); Calcium 8.8 mg/dl (8.5-10.1); Creatinine Clr Calc Pharmacy 50.5 ml/min; Est GFR (African American) 96.2 ml/min; Magnesium 1.8 mg/dl (1.7-2.4); Phosphorus 2.7 mg/dl (2.5-4.9); Potassium 3.4 mmol/L (3.5-5.1)
[2022-10-06] MEDS: DORZOLAMIDE HCL 2% OPH SOLN 10 ML BTL OP SCH (09:35)
[2022-10-06] MEDS: FAMOTIDINE 20 MG in SYRINGE 3 ML IV SCH (10:02)
--- NOTE | 2022-10-06 11:05 | Surgery Progress Note ---
Date of Service October 06, 2022 Assessment & Plan (1) SBO (small bowel obstruction): Plan: patient's sbo resolving. she is passing flatus and BMs abd soft, non tender tolerating fulls, will advance to low fiber for lunch if tolerates may dispo from home from our point of view no need for f/u with us in clinic Admission and Anticipated Discharge Date Admission Date: October 02, 2022 Supervising Physician Co-Signing Physician Notes Patient seen and examined for Dr. Can, agree with above. Resolved SBO, dayana erating diet. Exam is benign. DC to home. Subjective Patient is doing well. Tolerating full liquids. Denies nausea/vomiting/abdominal pain. Passing flatus and had another BM today. Physical Exam Physical Exam: awake/alert Gastrointestinal (Abdomen): Inspection/Auscultation: + abdomen distended (mild in lower abd) Percussion/Palpation: abdomen soft; abdomen nontender Results & Data ([facility]) Vital Signs (Past 12 Hours) Vital Signs Temp Pulse Resp BP Pulse Ox O2 Del Method 10/06/22 07:33 36.6 C 59 L 16 152/79 H 100 Room Air PG Care Time/CCT Total # of Minutes Spent Total Time Spent with Patient: Total time spent is greater than 50% in coordination of care (as documented) at patient's floor/unit and/or counseling patient: Coding Level of Care Code 29038 Subseq Hosp Care Lvl 1 Diagnoses SBO (small bowel obstruction) K56.609
[2022-10-06] MEDS ORDERED: ACETAMINOPHEN 325 MG TAB PO PRN (11:26)
[2022-10-06] MEDS ORDERED: POTASSIUM CHLORIDE PWD 20 MEQ PACK PO ONE (12:45)
--- NOTE | 2022-10-06 12:50 | Hospitalist Progress Note ---
Date of Service October 06, 2022 Assessment & Plan (1) SBO (small bowel obstruction): Plan: This is an 82 yo female who presents with abdominal pain, found to have high- grade small bowel obstruction. 1. Abdominal pain with high-grade small-bowel obstruction, status post NG tube: Initially n.p.o., IV fluids, IV antiemetics p.r.n., analgesia General Surgery consulted - NG tube removed on (10/04) Yesterday started on full liquid diet and today on low fiber diet. she is tolerating it well. passing flatus and had BM Closely monitor in the medical floor. 2. History of gastroesophageal reflux disease: Placed on IV Pepcid while inpt 3. History of scleroderma: Restart her home medications, Plaquenil when able to. The patient is also on prednisone 5 mg, placed on stress dose hydrocortisone IV 25 mg b.i.d., tapering down to home prednisone when able to take p.o. 4. History of pseudogout: On colchicine. Restart when the patient is able to take p.o. medications. 5. Hypertension: Holding p.o. felodipine for now. Place on IV hydralazine p.r.n. 6. Depression: Restart Zoloft when the patient is able to take p.o. 7. History of pericardial effusion: The patient's echo in 2020 showed small pericardial effusion. followup outpt DVT prophylaxis: Heparin subcutaneously for now. DISPOSITION:Plan to DC home. Admission and Anticipated Discharge Date Admission Date: October 02, 2022 Subjective Pt seen in follow up of SBO NG tube removed and pt was started on diet She is passing flatus and had BM Currently patient lying in bed, in no acute distress, overall feels better Abdominal pain resolved No fevers, chills, chest pain, shortness of breath Yesterday afternoon patient was advanced to full liquid diet. She tolerated well, and was advanced to low fiber diet today. She did very well with lunch, and is inquiring about going home. Review of Systems Review of Systems: All systems reviewed & are unremarkable except as noted in Subjective Physical Exam Physical Exam: GENERAL: The patient is of moderate build, not in acute distress. HEENT: Pupils equal, round and reactive to light. Oral mucosa moist. NECK: No JVD or neck masses. CARDIOVASCULAR: S1 and S2 heard. Regular rate and rhythm. No murmur, no gallop. RESPIRATORY: Normal AP diameter. No accessory muscle use. No wheezing, no crackles. ABDOMEN: Soft, + bowel sounds, currently soft, nontender, no distention. NEURO:Alert oriented, answering questions appropriately, no facial asymmetry, moves extremities EXTREMITIES: No edema, no erythema. Results & Data Results & Data ([facility]) Vital Signs (Past 12 Hours) Vital Signs Temp Pulse Resp BP Pulse Ox O2 Del Method 10/06/22 07:33 36.6 C 59 L 16 152/79 H 100 Room Air Laboratory Results 10/06/22 Range/Units 08:12 Sodium 145 (136-145) mmol/L Potassium 3.4 L (3.5-5.1) mmol/L Chloride 113 H (98-107) mmol/L Carbon Dioxide 27 (21-32) mmol/L Anion Gap 5 (3-11) BUN 9 (6-23) mg/dl Creatinine 0.67 (0.6-1.2) mg/dl Est Cr Clr Drug Dosing 50.5 ml/min Est GFR ( Amer) 96.2 ml/min Est GFR (Non-Af Amer) 83.0 ml/min BUN/Creatinine Ratio 13.4 (10-20) Glucose 95 (70-99(Fasting)) mg/dl Calcium 8.8 (8.5-10.1) mg/dl Phosphorus 2.7 D (2.5-4.9) mg/dl Magnesium 1.8 (1.7-2.4) mg/dl Medications Administered Current Inpatient Medications Acetaminophen (Acetaminophen 325 Mg Tab) 650 mg PO Q4H PRN PRN Reason: Pain or Fever Stop: 11/05/22 11:25 Dorzolamide HCl (Dorzolamide Hcl 2% Oph Soln 10 Ml Btl) 1 drops OP BID [facility] Stop: 11/02/22 20:59 Last Admin: 10/06/22 09:35 Dose: 1 drops Heparin Sodium (Porcine) (Heparin Sod 5,000 Unit/0.5 Ml Vial) 5,000 units SQ Q8 [facility]O Stop: 11/01/22 07:57 Last Admin: 10/06/22 05:54 Dose: 5,000 units Hydralazine HCl (Hydralazine Hcl 20 Mg/Ml Vial) 5 mg IV Q6H PRN PRN Reason: Hypertension Stop: 12/11/22 07:57 Famotidine 20 mg/ Syringe 5 mls @ 2.5 mls/min IV Q12 [facility]O Stop: 11/01/22 08:59 Last Admin: 10/06/22 10:02 Dose: 2.5 mls/min Hydrocortisone Sodium (Succinate 12.5 mg/ Syringe) 0.25 mls @ 4 mls/min IV QAM [facility] Stop: 11/05/22 08:59 Last Admin: 10/06/22 09:36 Dose: 4 mls/min Lorazepam (Lorazepam 1 Mg Tab) 1 mg SL BID PRN PRN Reason: Anxiety/Insomnia Stop: 11/01/22 07:57 Menthol (Cough Drop (Sugar Free) Maxim 24 Maxim/1 Box) 1 maxim BUCCAL Q2H PRN PRN Reason: Sore Throat Stop: 11/02/22 09:16 Last Admin: 10/03/22 09:41 Dose: 1 maxim Miscellaneous (Order Awaiting Action (Lifitegrast [Xiidra] 5 % Dropperette)) 1 each N/A QS [facility] Stop: 11/03/22 00:00 Last Admin: 10/06/22 09:34 Dose: Not Given Ondansetron HCl (Ondansetron Inj 2 Mg/Ml 2 Ml Vial) 4 mg IV Q6H PRN PRN Reason: Nausea Stop: 11/01/22 07:57 Last Admin: 10/04/22 08:49 Dose: 4 mg Phenol (Chloraseptic 1.4% Soln 180 Ml Btl) 1 sprays MT Q4H PRN PRN Reason: Sore Throat Stop: 11/04/22 06:39 Potassium Chloride (Potassium Chloride Pwd 20 Meq Pack) 20 meq PO ONE ONE Stop: 10/06/22 12:46 Travoprost (Travoprost Z 0.004% Oph Soln 2.5 Ml Btl) 1 drops OP HS [facility] Stop: 11/03/22 20:59 Last Admin: 10/05/22 21:12 Dose: 1 drops
--- NOTE | 2022-10-06 15:51 | Discharge Summary ---
Date of Service October 06, 2022 Admission HPI Per Admitting Provider This is an 82-year-old female who says that she was in her usual state of health feeling fine when after the evening meal on 10/01/2022 she developed some diffuse abdominal pain. She did report several episodes of nausea and vomiting. She denies any fevers, shakes, or chills. She notes that she had a normal bowel movement earlier in the day. Because of her symptomatology she presented to the emergency department. She notes that she has had prior abdominal surgeries in the form of a tubal ligation. In the emergency department the patient had labs and imaging which I independently reviewed. She did have a CT scan of the abdomen that showed concern for high grade small bowel obstruction with a transition point in the left lower quadrant. There were some loops of small bowel with mesenteric edema and thickened enhancing tapia concerning for injury however there was no pneumatosis or mesenteric gas. There is no evidence of a closed-loop. Labs included a CBC were white blood cell count was 12.0. Hemoglobin and hematocrit were both normal. Her platelet count was normal. Chemistry profile showed sodium and potassium are both normal. BUN and creatinine were 31 and 0.8. Chemistry profile did not reveal any elevation of patient's LFTs. Lipase was also normal. At the time of my interview the patient was noted to be afebrile without tachycardia. She was hemodynamically stable. She was in no distress. Admission Exam Per Admitting Provider GENERAL: The patient is of moderate build, not in acute distress. VITAL SIGNS: Temperature 36.7, pulse 56, respiratory rate 18, blood pressure 150/76, oxygen 97% on room air. HEENT: Pupils equal, round and reactive to light. Oral mucosa moist. NECK: No JVD or neck masses. CARDIOVASCULAR: S1 and S2 heard. Regular rate and rhythm. No murmur, no gallop. RESPIRATORY SYSTEM: Normal AP diameter. No accessory muscle use. No wheezing, no crackles. ABDOMEN: Soft, bowel sounds sluggish, currently soft, nontender, no distention. CENTRAL NERVOUS SYSTEM: Cranial nerves II through XII grossly intact, nonfocal. EXTREMITIES: No edema, no erythema. Principal Diagnosis Small bowel obstruction Discharge Exam GENERAL: The patient is of moderate build, not in acute distress. HEENT: Pupils equal, round and reactive to light. Oral mucosa moist. NECK: No JVD or neck masses. CARDIOVASCULAR: S1 and S2 heard. Regular rate and rhythm. No murmur, no gallop. RESPIRATORY: Normal AP diameter. No accessory muscle use. No wheezing, no crackles. ABDOMEN: Soft, + bowel sounds, currently soft, nontender, no distention. NEURO:Alert oriented, answering questions appropriately, no facial asymmetry, moves extremities EXTREMITIES: No edema, no erythema. Discharge Data Allergies Allergy/AdvReac Type Severity Reaction Status Date / Time cephalexin [From Keflex] Allergy Mild rash Verified 09/01/22 14:59 oxycodone Allergy Mild rash Verified 09/01/22 14:59 adhesive AdvReac Mild SKIN Verified 09/01/22 14:59 IRRITATION Consultations 10/02/22 07:58 Consult General Surgery Routine Ordered Studies 10/02/22 01:00 CT abd pelvis IV con only Urgent FINDINGS: Lung bases: The heart is enlarged noting a small pericardial effusion. There is mild fibrotic change at the lung bases. No airspace consolidation or pleural effusion is identified. There are calcified granulomas. There is a small hiatal hernia. Liver: The contrast-enhanced liver is normal in size, contour, and attenuation. There is no intrahepatic biliary ductal dilatation. The hepatic veins and portal veins are patent. Gallbladder: Unremarkable. Spleen: Normal in size and attenuation. There are numerous calcified splenic granulomas. Pancreas: Unremarkable. Adrenal glands: Unremarkable. Kidneys: The contrast enhanced kidneys are normal in size and without hydron ephrosis. The kidneys enhance symmetrically. Bilateral renal cysts measure up to 1.5 cm. Abdominal vasculature: The abdominal aorta is normal in course and caliber noting moderate to advanced atherosclerotic calcification. Bowel: The proximal small bowel loops are distended and fluid-filled, measuring up to 2.8 cm in diameter. There is a transition point in the left lower quadrant seen on axial image #258. The distal small bowel is decompressed, and the appearance is consistent with a small bowel obstruction. Mildly hyperemic appearing loops of small bowel are seen in the pelvis. Interloop fluid is observed and there is associated mesenteric edema. There is no pneumatosis intestinalis or portal venous gas. There is mild colonic diverticulosis without CT evidence of acute diverticulitis. Mild/moderate fecal retention is seen throughout the colon. The appendix is well-visualized and normal. Peritoneum: There is a small volume of perihepatic and perisplenic ascites. There is also trace free fluid in the pelvis. No intraperitoneal free air is seen. Lymphadenopathy: None. Pelvic viscera: The bladder wall appears mildly thickened. There is marked endometrial thickening versus fluid within the endometrial canal. This measures up to 2.5 cm in diameter. No adnexal lesion is seen. Skeletal structures: The skeletal structures are osteopenic. There is moderate lumbosacral spondylosis and scoliosis. There is a mild chronic superior endplate compression deformity of L2. No lytic or blastic lesions are seen. IMPRESSION: 1. Findings are consistent with a small bowel obstruction. A transition point is identified in the left lower quadrant and this may be related to adhesions. 2. There is interloop fluid, mildly hyperemic small bowel loops, and mild mesenteric edema. 3. No intraperitoneal free air is seen. There is no significant bowel wall thickening, and no pneumatosis intestinalis or portal venous gas. 4. Small volume abdominopelvic ascites. 5. Cardiomegaly. 6. There is marked endometrial thickening versus fluid within the endometrial canal (hydrocolpos). This is not well evaluated by CT, and nonemergent pelvic ultrasound and gynecology evaluation is advised. 7. The bladder wall appears mildly thickened. Correlate with clinical findings and urinalysis. 8. Additional findings as above. Hospital Course (1) SBO (small bowel obstruction): This is an 82 yo female who presents with abdominal pain, found to have high- grade small bowel obstruction. 1. Abdominal pain with high-grade small-bowel obstruction, status post NG tube: Initially n.p.o., IV fluids, IV antiemetics p.r.n., analgesia General Surgery consulted - NG tube removed on (10/04) Yesterday started on full liquid diet and today on low fiber diet. she is tolerating it well. passing flatus and had BM Plan to DC home and follow up w/ family physician 2. History of gastroesophageal reflux disease: Placed on IV Pepcid while inpt 3. History of scleroderma: Restart her home medications, Plaquenil when able to. The patient is also on prednisone 5 mg, placed on stress dose hydrocortisone IV 25 mg b.i.d., tapering down to home prednisone when able to take p.o. 4. History of pseudogout: On colchicine. Restart when the patient is able to take p.o. medications. 5. Hypertension: Holding p.o. felodipine for now. Place on IV hydralazine p.r.n. 6. Depression: Restart Zoloft when the patient is able to take p.o. 7. History of pericardial effusion: The patient's echo in 2020 showed small pericardial effusion. followup outpt Marked endometrial thickening versus fluid within the endometrial canal. - noted on CT abdomen This measures up to 2.5 cm in diameter. No adnexal lesion is seen. This is not well evaluated by CT, and nonemergent pelvic ultrasound and gynecology evaluation is advised. Follow up as outpt Total Time Total Time Spent Total Time Spent (In Minutes): 40 Discharge Plan Discharge Items Patient Disposition: Home - Self-Care Reason For Visit: ABDOMINAL PAIN Discharge Diagnosis: Small bowel obstruction Activity: Per Instructions section Non-emergency contact: Primary Care Provider Call non-emergency contact if: you have any medication questions and your sym ptoms worsen Follow-up/Referrals: Anupam Huang MD [Primary Care Provider] - (Date & Time 10/12/2022 9:40 AM Provider Anupam Huang MD Department [facility] ) Diet: Low Fiber Addtl Attending Provider Instructions: Follow-up with your primary care doctor, the appointment was scheduled for you for October 12. Make sure to stay well-hydrated, and continue with low fiber diet for now. It is also recommended that you have a follow-up with gynecology. Pending Studies at Discharge: No Stand-Alone Forms: My [facility], Smoking Cessation Medications and DC Order Prescriptions: New potassium chloride 10 mEq capsule, extended release 10 meq PO DAILY Qty: 3 0RF Continued dorzolamide [Trusopt] 2 % drops 1 drops OP BID sumatriptan succinate [Imitrex] 50 mg tablet 50 mg PO Q2H PRN (Reason: migraines) Travatan Z 0.004 % drops 1 drops OP QPM cholecalciferol (vitamin D3) [Vitamin D3] 1,000 unit Capsule 1,000 unit PO BID risedronate 35 mg Tablet 35 mg PO WK Rx Instructions: SATURDAYS colchicine 0.6 mg Tablet 0.6 mg PO QAM sertraline 50 mg Tablet 50 mg PO QAM clonazepam 1 mg Tablet,Disintegrating 1 mg PO HS Calcium 600 + D(3) 600 mg calcium- 200 unit Capsule 2 cap PO QAM Xiidra 5 % Dropperette 1 drp OPHTHALMIC (EYE) BID celecoxib 200 mg capsule 200 mg PO BID felodipine 2.5 mg tablet extended release 24 hr 2.5 mg PO QAM prednisone 5 mg tablet 5 mg PO QAM Airborne (ascorbic acid) 250-8.875 mg Tablet,Chewable 1 tab PO DAILY vitamin B complex Tablet 1 tab PO QAM Align 10.5 mg (10 million cell) Tablet,Chewable 10.5 mg PO DAILY gabapentin 100 mg Capsule 100 mg PO BID hydroxychloroquine 200 mg PO BID omeprazole 20 mg Capsule,Delayed Release(Dr/Ec) 20 mg PO BID Discharge Orders: Discharge Order (Routine); Ordered 10/06/22 Ordered By: Michael White Admission Data Admit Date/Time: 10/02/22 05:36 Attending Provider: Michael White Admit Provider: Connor Méndez Primary Care Provider: Anupam Huang Other Providers: Chong Trevino ; Marty Vega ; Kylah Emerson ; Farnaz Patel ; Jhon Bae ; Jhony Juarez ; Stacy Staton ; Isha Laughlin ; Sudhakar Lundberg Jr ; Alec Harris ; Christopher Hines ; Gloria West
== END 2022-10-06 16:57 | disposition home or self-care (01) | DRG 390 ==
LOC: ED 00:42 → EDINP 05:36 → 3W 07:58 → 3E 10-06 09:57

== ENCOUNTER 2025-05-26 09:11 | Inpatient (IN) ==
--- NOTE | 2025-05-26 09:39 | Emergency Department Note ---
Impression & Plan Generalized weakness, Dehydration, Hypotension, Acute UTI (urinary tract infection), Sepsis ED Provider Note ED Provider Note NAME: MARY NOVOA AGE:84 SEX: Female : 1940 ARRIVES VIA: EMS INFORMANT: Patient ED PROVIDER(s): Krysta Williamson DO CHIEF COMPLAINT: weakness, fatigeu HPI: This is an 84-year-old female who presents emergency department via EMS due to concern for weakness and fatigue over the last 5 days. Patient denies any change in diet or activity, denies any recent travel or known sick contacts. Patient states she has spent 2 days in bed simply because she did not have the energy to get up and do anything. She states she has been eating and drinking somewhat although admits to not drinking enough. Patient denies headaches, chest pain, abdominal pain, cough. She states her voice is not normal but has been that way for many years. She denies any change in bowel or bladder function. She denies leg swelling, rash or sores, tick or insect bites. Patient states she did notice that her temperature seemed low recently and she was concerned this could be a sign of evolving sepsis. Patient states she did have ablations recently to her neck and back as part of her ongoing and chronic treatment for pain. She states these procedures seem to go well and she had an expected amount of pain afterwards with nothing else that seems out of the ordinary. Patient states her blood pressures do tend to run low. PAST MEDICAL HISTORY:See Below PAST SURGICAL HISTORY:See Below FAMILY HISTORY:See Below SOCIAL HISTORY:See Below HOME MEDICATIONS:See Below ALLERGIES:See Below VITALS:See Below PHYSICAL EXAMINATION: GENERAL: alert, ill appearing, well nourished, no distress, non-toxic EYE EXAM: normal conjunctiva, PERRL and EOM's grossly intact OROPHARYNX: no exudate, no erythema, lips, buccal mucosa, and tongue normal and mucous membranes are very dry NECK: supple, no nuchal rigidity, no adenopathy, non-tender LUNGS: Clear to auscultation. Normal chest wall mechanics, no w/r/r HEART: no murmurs, S1 normal and S2 normal ABDOMEN: abdomen soft, non-tender, normo-active bowel sounds, no masses, no rebound or guarding. SKIN: no rashes, petechiae, orbruising UPPER EXTREMITIES: upper extremities are grossly normal. FROM, nml pulses b/l. LOWER EXTREMITIES: No pitting edema. FROM, nml pulses b/l. NEURO EXAM: Normal sensorium, cranial nerves II-XII grossly intact, normal speech, no facial droop,nogross weakness of arms, no gross weakness of legs. Gross sensation intact. No ataxia. Vital Signs: reviewed and remarkable Differential Diagnosis: dehydration, stroke, anemia, hypoglycemia, hyponatremia, hypernatremia, urinary tract infection, pneumonia, bronchitis, sepsis, gastroenteritis, additional abdominal pathology, metabolic abnormalities, as well as others were considered MEDICAL DECISION MAKING: This is an 82-year-old female who presents to the emergency department for 5 days of weakness, decreased oral intake, fatigue, and reported hypothermia at home. Patient afebrile here however noted to be hypotensive. Labs drawn and sent. Established, EKG and chest ray performed at bedside interpreted by me and patient monitored on telemetry. She was started on IV fluids. Patient noted to have significant leukocytosis, in light of this blood cultures, lactic acid, procalcitonin added. Empiric dose of cefepime was also added. Patient had no focal complaints to suggest origin of occult infection. Tickborne studies added additionally. Patient did have some concerns regarding antibiotics and so there was a delay in these being administered while attempting to speak with her. Patient did receive greater than 30 mL/KG based on actual body weight of IV fluids. It took 3 L of IV fluids before the patient actually produced urine to send for analysis as well. Urine did appear abnormal and I suspect at this time is the source of the infection. I have a low suspicion for occult infection of the spine related to the recent ablations as she has not noticed any changes/symptoms and has gone through these several times before. Following 3 L her blood pressure did seem improved and she was decreased to maintenance rate. Patient was noted to have elevated creatinine compared to prior, I suspect this is secondary to dehydration. Patient did have significantly elevated procalcitonin however lactic acid normal. Patient rechecked several times and had no other new or evolving symptoms. Due to concern for hypotension, dehydration, and evolving sepsis, case discussed with the hospitalist team for additional evaluation and management. Consultation(s): 1333: Discussed with Dr. [facility] hospitalist team for additional evaluation and mgmt. ER Treatment Provided: See below 1040: Patient initially refused antibiotics for nursing staff. I attempted twice to go in and speak with her regarding her concerns however she continued to be on the phone. Nursing staff reported she had concerns about antibiotics due to prior history of C. difficile. Diagnostics Interpreted By Me: -ECG: Normal sinus at 78, normal axis, normal intervals, no acute ST/T wave changes -Cardiac Monitoring: An order was placed for continuous cardiac monitoring. The monitor shows a rate of 78 with normal sinus rhythm. -Laboratory studies: As stated above and show below. -Imaging studies: X-ray Chest: A single view study of the chest was reviewed and was negative for cardiomegaly, focal infiltrate, effusion, pulmonary edema, or wide mediastinum. Triage Nursing Note Reviewed Prior/Outside Records Reviewed - prior pain mgmt note reviewed Critical Care: Critical care of 56 min performed to assess and manage high likelihood of life-threatening hypotension, involving labs and imaging performed with assessment to evaluate hypotension diagnosis with frequent reassessment. This time includes bedside time, treatment discussions with patient/family/consultants, documentation time and excludes procedure time. Past Med/Surg History Problem List (Updated 05/26/25 @ 17:27 by Krysta Williamson DO) Sepsis (Acute) Acute UTI (urinary tract infection) (Acute) Hypotension (Acute) Dehydration (Acute) Multilevel degenerative joint disease of spine Complicated urinary tract infection Demand ischemia Acute kidney injury Severe sepsis with acute organ dysfunction Generalized weakness (Acute) Sacroiliitis Lumbar degenerative disc disease Spinal stenosis of lumbar region with neurogenic claudication Scoliosis deformity of spine Lumbosacral facet joint syndrome COVID-19 (Acute) Cervical stenosis of spine Cervical facet joint syndrome Cervical spondylosis Pre-procedural laboratory examination SBO (small bowel obstruction) (Acute) Neck discomfort Abnormal ultrasound of endometrium Right toe amputee Depression pt denies Surgical wound, non healing Abscess of right middle finger MRSA (methicillin resistant staph aureus) culture positive History of melanoma Traumatic wound Knee pain, bilateral Tricompartment degenerative joint disease of knee Skin rash Migraine Carpal tunnel syndrome, bilateral Arthritis Encounter for pre-operative examination Hammertoe of second toe of left foot Surgery follow-up Degenerative arthritis of knee, bilateral Sepsis (Acute) Abdominal pain (Acute) Pneumonia (Acute) Leukocytosis (Acute) Splenic infarct (Acute) IVC thrombosis Recurrent Clostridioides difficile diarrhea Cough Edema Bilateral pleural effusion Hammertoe of right foot Scleroderma CKD (chronic kidney disease) per records GERD (gastroesophageal reflux disease) Medical History Lumbar degenerative disc disease Spinal stenosis of lumbar region with neurogenic claudication Scoliosis deformity of spine Lumbosacral facet joint syndrome Cervical facet joint syndrome Cervical spondylosis Pre-procedural laboratory examination Right toe amputee Rheumatoid arthritis History of melanoma right heel & chest wall Calcinosis Hx of Clostridium difficile infection C. difficile colitis Hx MRSA infection Scleroderma CKD (chronic kidney disease) per records Patella-femoral syndrome Chronic back pain Osteoporosis Osteoarthritis GERD (gastroesophageal reflux disease) Migraine Glaucoma Restless leg syndrome Cervical stenosis of spine Spondylolisthesis of cervical region FULL ROM Surgical History S/P dilation and curettage History of amputation RT LEFT TOE AMPUTATION Hx of surgical procedure left hand pointer finger repair Hx of bilateral cataract extraction History of surgery repair of prolapsed rectum History of tooth extraction History of tubal ligation History of hand surgery Rt finger History of colonoscopy w/ polypectomy History of Mohs micrographic surgery for skin cancer S/P LASIK surgery of both eyes History of carpal tunnel surgery bilateral Family History Father Family hx of colon cancer Colorectal cancer Other Breast cancer No family history of adverse response to anesthesia Denies family history of Ovarian cancer Uterine cancer Social History Smoking Status: Former smoker Second Hand Exposure: No; Hx Alcohol Use: No Hx Substance Use: No Preferred Language: Ghanaian Communication Ability: Effective Visual Impairment: No Limitations Hearing Ability: Normal 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: No Beliefs That Will Affect Care: None marital status: / Current Living Situation: Alone current occupational status: retired Feels Safe at Home: Yes Safety Concerns: Feels Safe At This Time Childhood Exposure to Second-Hand Smoke: No Assistive Devices: Cane and Walker Allergies Allergies Allergy/AdvReac Type Severity Reaction Status Date / Time nirmatrelvir [From Paxlovid] Allergy Intermediate Hives Verified 05/23/25 10:56 ritonavir [From Paxlovid] Allergy Intermediate Hives Verified 05/23/25 10:56 cephalexin [From Keflex] Allergy Mild rash Verified 05/23/25 10:56 oxycodone Allergy Mild rash Verified 05/23/25 10:56 adhesive AdvReac Mild SKIN Verified 05/23/25 10:56 IRRITATION Home Meds Home Medications Medication Instructions Recorded Confirmed sumatriptan succinate 50 mg tablet 50 mg PO Q2H PRN migraines 06/22/19 05/26/25 (Imitrex) travoprost 0.004 % eye drops 1 drops ophthalmic (eye) QPM 06/22/19 05/26/25 (Travatan Z) calcium 600 mg (as 2 cap PO QAM 04/25/20 05/26/25 carbonate)-vitamin D3 5 mcg (200 unit) capsule (Calcium 600 + D(3)) clonazepam 1 mg disintegrating 1 mg PO DAILY 04/25/20 05/26/25 tablet colchicine 0.6 mg tablet 0.6 mg PO QAM 04/25/20 05/26/25 lifitegrast 5 % eye drops in a 1 drp ophthalmic (eye) BID 04/25/20 05/26/25 dropperette (Xiidra) sertraline 50 mg tablet 50 mg PO QAM 04/25/20 05/26/25 celecoxib 200 mg capsule 200 mg PO BID 08/12/21 05/26/25 felodipine 2.5 mg tablet,extended 2.5 mg PO QAM 08/12/21 05/26/25 release 24 hr prednisone 5 mg tablet 5 mg PO QAM 08/12/21 05/26/25 Bifidobacterium infantis 10.5 mg 10.5 mg PO DAILY 12/05/21 05/26/25 (10 million cell) chewable tablet (Align (B.infantis)) acetaminophen 500 mg oral powder 500 mg PO Q6H PRN PAIN/FEVER 07/20/23 05/26/25 packet (Tylenol Extra Strength) dorzolamide 2 % eye drops 1 drp ophthalmic (eye) BID 11/05/23 05/26/25 hydroxychloroquine 200 mg tablet 200 mg PO DAILY 11/05/23 05/26/25 famotidine 40 mg tablet 40 mg PO DAILY 11/24/23 05/26/25 gabapentin 300 mg capsule 300 mg PO BID 11/24/23 05/26/25 gabapentin 600 mg tablet 600 mg PO HS 11/24/23 05/26/25 pantoprazole 20 mg tablet,delayed 40 mg PO BID 09/26/24 05/26/25 release tramadol 50 mg tablet 50 mg PO TID 09/26/24 05/26/25 Metamucil 0 packet PO DAILY PRN Constipation 05/26/25 05/26/25 bisacodyl 5 mg tablet,delayed 5 mg PO DAILY PRN Constipation 05/26/25 05/26/25 release (Dulcolax (bisacodyl)) diazepam 5 mg tablet 5 mg PO UD 05/26/25 05/26/25 ondansetron 4 mg disintegrating 4 mg PO DIRECTED PRN Nausea And 05/26/25 05/26/25 tablet Vomiting polyethylene glycol 3350 17 17 g PO DAILY PRN Constipation 05/26/25 05/26/25 gram/dose oral powder (Miralax) Results & Data (ED) Vital Signs Vital Signs - 24 hr 05/26/25 09:20 05/26/25 09:24 05/26/25 09:29 Temperature 37.4 C Temperature Source Oral Pulse Rate 82 75 Pulse Rate [Apical] Pulse Rate from SpO2 Sensor Respiratory Rate 16 Respiratory Effort / Characteristics Non-Labored Spontaneous Respiratory Depth Normal Respiratory Pattern Regular Blood Pressure 87/51 L Blood Pressure [Right Arm] Blood Pressure Mean 63 Blood Pressure Mean [Right Arm] Blood Pressure Position Lying Blood Pressure Position [Right Arm] Pulse Oximetry 96 96 Oxygen Delivery Method Room Air Room Air Sepsis Recent Fever Within 48 Hours No Sepsis New/Unexplained Change in Mental Status N/A Sepsis Action Taken by Nursing No Action Required 05/26/25 09:30 05/26/25 09:39 05/26/25 09:57 Temperature Temperature Source Pulse Rate 73 71 Pulse Rate [Apical] Pulse Rate from SpO2 Sensor 81 71 Respiratory Rate 18 16 Respiratory Effort / Characteristics Respiratory Depth Respiratory Pattern Blood Pressure 87/48 L Blood Pressure [Right Arm] Blood Pressure Mean 73 Blood Pressure Mean [Right Arm] Blood Pressure Position Blood Pressure Position [Right Arm] Pulse Oximetry Oxygen Delivery Method Sepsis Recent Fever Within 48 Hours Sepsis New/Unexplained Change in Mental Status Sepsis Action Taken by Nursing 05/26/25 10:01 05/26/25 10:03 05/26/25 10:45 Temperature Temperature Source Pulse Rate 83 Pulse Rate [Apical] 76 Pulse Rate from SpO2 Sensor Respiratory Rate 19 22 Respiratory Effort / Characteristics Non-Labored Spontaneous Respiratory Depth Normal Respiratory Pattern Regular Blood Pressure 82/61 L Blood Pressure [Right Arm] 86/54 L Blood Pressure Mean 70 Blood Pressure Mean [Right Arm] 64 Blood Pressure Position Blood Pressure Position [Right Arm] Lying Pulse Oximetry 94 94 Oxygen Delivery Method Room Air Sepsis Recent Fever Within 48 Hours Sepsis New/Unexplained Change in Mental Status Sepsis Action Taken by Nursing 05/26/25 11:00 05/26/25 11:30 05/26/25 12:00 Temperature Temperature Source Pulse Rate 72 70 71 Pulse Rate [Apical] Pulse Rate from SpO2 Sensor Respiratory Rate 15 13 15 Respiratory Effort / Characteristics Respiratory Depth Respiratory Pattern Blood Pressure 86/54 L 88/52 L 96/60 L Blood Pressure [Right Arm] Blood Pressure Mean 64 66 72 Blood Pressure Mean [Right Arm] Blood Pressure Position Blood Pressure Position [Right Arm] Pulse Oximetry 92 93 96 Oxygen Delivery Method Sepsis Recent Fever Within 48 Hours Sepsis New/Unexplained Change in Mental Status Sepsis Action Taken by Nursing 05/26/25 12:30 05/26/25 13:00 05/26/25 13:27 Temperature Temperature Source Pulse Rate 71 79 77 Pulse Rate [Apical] Pulse Rate from SpO2 Sensor Respiratory Rate 17 18 Respiratory Effort / Characteristics Respiratory Depth Respiratory Pattern Blood Pressure 100/55 L 115/61 Blood Pressure [Right Arm] Blood Pressure Mean 65 93 Blood Pressure Mean [Right Arm] Blood Pressure Position Blood Pressure Position [Right Arm] Pulse Oximetry 92 Oxygen Delivery Method Sepsis Recent Fever Within 48 Hours Sepsis New/Unexplained Change in Mental Status Sepsis Action Taken by Nursing 05/26/25 13:30 05/26/25 14:00 Temperature Temperature Source Pulse Rate 78 90 Pulse Rate [Apical] Pulse Rate from SpO2 Sensor Respiratory Rate 20 20 Respiratory Effort / Characteristics Respiratory Depth Respiratory Pattern Blood Pressure 122/81 122/83 Blood Pressure [Right Arm] Blood Pressure Mean 94 103 Blood Pressure Mean [Right Arm] Blood Pressure Position Blood Pressure Position [Right Arm] Pulse Oximetry 96 Oxygen Delivery Method Sepsis Recent Fever Within 48 Hours Sepsis New/Unexplained Change in Mental Status Sepsis Action Taken by Nursing Laboratory Data 05/26/25 09:15 05/26/25 09:15 Lab Results 05/26/25 05/26/25 05/26/25 Range/Units 09:15 09:37 10:21 WBC 19.56 H (4.8-10.8) K/ul RBC 4.02 L (4.20-5.40) M/uL Hgb 10.1 L (12.0-16.0) g/dl Hct 33.5 L (37.0-47.0) % MCV 83.3 (80.0-100.0) fL MCH 25.1 (25.0-34.0) pg MCHC 30.1 L (32.0-36.0) g/dL RDW Std Deviation 47.9 H (36.4-46.3) fL RDW Coeff of Lila 15.7 H (11.5-14.5) % Plt Count 265 (130-400) K/uL MPV 9.9 (9.4-12.4) fL Immature Gran % (Auto) 0.6 % Neut % (Auto) 85.2 % Lymph % (Auto) 6.1 % [place] % (Auto) 7.5 % Eos % (Auto) 0.2 % Baso % (Auto) 0.4 % Neut # (Auto) 16.69 H (1.40-6.50) K/uL Lymph # (Auto) 1.20 (1.20-3.40) K/uL [place] # (Auto) 1.46 H (0.11-0.59) K/uL Eos # (Auto) 0.03 (0.00-0.50) K/uL Baso # (Auto) 0.07 (0.00-0.20) K/uL Immature Gran # (Auto) 0.11 (0.01-0.20) K/uL Dohle Bodies 1+ Polychromasia 1+ Hypochromasia Present PT 11.1 (9.0-12.0) Seconds INR 1.0 (0.9-1.1) Sodium 141 (136-145) mmol/L Potassium 4.0 (3.5-5.1) mmol/L Chloride 108 H (98-107) mmol/L Carbon Dioxide 26 (21-32) mmol/L Anion Gap 7 (3-11) BUN 27 H (6-23) mg/dl Creatinine 1.47 H (0.6-1.2) mg/dl Est Cr Clr Drug Dosing 22.3 ml/min eGFR 35.43 BUN/Creatinine Ratio 18.4 (10-20) Glucose 126 H (70-99(Fasting)) mg/dl Lactate 1.0 (0.4-2.0) mmol/L Calcium 9.1 (8.6-10.3) mg/dl Magnesium 1.9 (1.7-2.4) mg/dl Total Bilirubin 0.3 (0.2-1.0) mg/dl AST 15 (13-39) U/L ALT 9 (7-52) U/L Alkaline Phosphatase 45 (34-104) U/L Troponin I High Sens 21.8 H (0-14) pg/ml Total Protein 6.1 (6.0-8.3) gm/dl Albumin 3.7 (3.4-5.0) gm/dl Globulin 2.4 L (2.5-4.0) gm/dl Albumin/Globulin Ratio 1.5 (0.9-2) Lipase 15 (11-82) U/L Procalcitonin 31.50 H (0-0.5) ng/ml TSH 0.647 (0.300-4.500) uIu/ml Urine Color Urine Appearance (Clear) Urine pH (4.5-7.5) Ur Specific [place] (1.000-1.030) Urine Protein (Negative) Urine Glucose (UA) (Negative) Urine Ketones (Negative) Urine Blood (Negative) Urine Nitrite (Negative) Urine Bilirubin (Negative) Urine Urobilinogen (Negative) Ur Leukocyte Esterase (Negative) Urine WBC (Auto) (0-5) /hpf Urine RBC (Auto) (0-2) /hpf U Hyaline Cast (Auto) (0-2) /lpf U Epithel Cells (Auto) (0-2) /hpf Urine Bacteria (Auto) (None Seen) Urine Comment Adenovirus (PCR) Not Detected (NotDetected) Anaplasma Smear See Comment Babesia Smear See Comment B. pertussis DNA (PCR) Not Detected (NotDetected) B.parapertussis DNA PCR Not Detected (NotDetected) Lyme Disease Screen Negative (Negative) C. pneumoniae DNA (PCR) Not Detected (NotDetected) Coronavirus OC43 (PCR) Not Detected (NotDetected) Coronavirus HKU1 (PCR) Not Detected (NotDetected) Coronavirus 229E (PCR) Not Detected (NotDetected) SARS-CoV-2 (PCR) Not Detected (NotDetected) Coronavirus NL63 (PCR) Not Detected (NotDetected) Human Metapneumovir PCR Not Detected (NotDetected) Influenza Type A (PCR) Not Detected (NotDetected) Influenza Type B (PCR) Not Detected (NotDetected) M. pneumoniae (PCR) Not Detected (NotDetected) Parainfluenza 1 (PCR) Not Detected (NotDetected) Parainfluenza 2 (PCR) Not Detected (NotDetected) Parainfluenza 3 (PCR) Not Detected (NotDetected) Parainfluenza 4 (PCR) Not Detected (NotDetected) RSV (PCR) Not Detected (NotDetected) Entero/Rhino (PCR) Not Detected (NotDetected) 05/26/25 Range/Units 12:43 WBC (4.8-10.8) K/ul RBC (4.20-5.40) M/uL Hgb (12.0-16.0) g/dl Hct (37.0-47.0) % MCV (80.0-100.0) fL MCH (25.0-34.0) pg MCHC (32.0-36.0) g/dL RDW Std Deviation (36.4-46.3) fL RDW Coeff of Lila (11.5-14.5) % Plt Count (130-400) K/uL MPV (9.4-12.4) fL Immature Gran % (Auto) % Neut % (Auto) % Lymph % (Auto) % [place] % (Auto) % Eos % (Auto) % Baso % (Auto) % Neut # (Auto) (1.40-6.50) K/uL Lymph # (Auto) (1.20-3.40) K/uL [place] # (Auto) (0.11-0.59) K/uL Eos # (Auto) (0.00-0.50) K/uL Baso # (Auto) (0.00-0.20) K/uL Immature Gran # (Auto) (0.01-0.20) K/uL Dohle Bodies Polychromasia Hypochromasia PT (9.0-12.0) Seconds INR (0.9-1.1) Sodium (136-145) mmol/L Potassium (3.5-5.1) mmol/L Chloride (98-107) mmol/L Carbon Dioxide (21-32) mmol/L Anion Gap (3-11) BUN (6-23) mg/dl Creatinine (0.6-1.2) mg/dl Est Cr Clr Drug Dosing ml/min eGFR BUN/Creatinine Ratio (10-20) Glucose (70-99(Fasting)) mg/dl Lactate (0.4-2.0) mmol/L Calcium (8.6-10.3) mg/dl Magnesium (1.7-2.4) mg/dl Total Bilirubin (0.2-1.0) mg/dl AST (13-39) U/L ALT (7-52) U/L Alkaline Phosphatase (34-104) U/L Troponin I High Sens (0-14) pg/ml Total Protein (6.0-8.3) gm/dl Albumin (3.4-5.0) gm/dl Globulin (2.5-4.0) gm/dl Albumin/Globulin Ratio (0.9-2) Lipase (11-82) U/L Procalcitonin (0-0.5) ng/ml TSH (0.300-4.500) uIu/ml Urine Color Yellow Urine Appearance Clear (Clear) Urine pH 6.0 (4.5-7.5) Ur Specific [place] 1.008 (1.000-1.030) Urine Protein 1+ H (Negative) Urine Glucose (UA) Negative (Negative) Urine Ketones Negative (Negative) Urine Blood Trace H (Negative) Urine Nitrite Positive A (Negative) Urine Bilirubin Negative (Negative) Urine Urobilinogen Negative (Negative) Ur Leukocyte Esterase 3+ H (Negative) Urine WBC (Auto) >50 H (0-5) /hpf Urine RBC (Auto) 0-2 (0-2) /hpf U Hyaline Cast (Auto) 0-2 (0-2) /lpf U Epithel Cells (Auto) 0-2 (0-2) /hpf Urine Bacteria (Auto) 1+ H (None Seen) Urine Comment Adenovirus (PCR) (NotDetected) Anaplasma Smear Babesia Smear B. pertussis DNA (PCR) (NotDetected) B.parapertussis DNA PCR (NotDetected) Lyme Disease Screen (Negative) C. pneumoniae DNA (PCR) (NotDetected) Coronavirus OC43 (PCR) (NotDetected) Coronavirus HKU1 (PCR) (NotDetected) Coronavirus 229E (PCR) (NotDetected) SARS-CoV-2 (PCR) (NotDetected) Coronavirus NL63 (PCR) (NotDetected) Human Metapneumovir PCR (NotDetected) Influenza Type A (PCR) (NotDetected) Influenza Type B (PCR) (NotDetected) M. pneumoniae (PCR) (NotDetected) Parainfluenza 1 (PCR) (NotDetected) Parainfluenza 2 (PCR) (NotDetected) Parainfluenza 3 (PCR) (NotDetected) Parainfluenza 4 (PCR) (NotDetected) RSV (PCR) (NotDetected) Entero/Rhino (PCR) (NotDetected) Administered Medications Enoxaparin Sodium (Enoxaparin Inj 40 Mg/0.4 Ml Syr) 40 mg SQ Q24H RAMO Stop: 06/25/25 16:29 Last Admin: 05/26/25 17:07 Dose: 40 mg Documented By: LAF Sodium Chloride (Nss) 1,000 mls @ 100 mls/hr IV .Q10H RAMO Stop: 05/29/25 16:13 Last Admin: 05/26/25 16:32 Dose: 100 mls/hr Documented By: EDER Aztreonam 1,000 mg/ Dextrose 100 mls @ 100 mls/hr IV Q12H [facility]; Protocol Stop: 06/05/25 16:29 Last Admin: 05/26/25 17:07 Dose: 100 mls/hr Documented By: EDER Saccharomyces Boulardii (Saccharomyces Boulardii 250 Mg Cap) 250 mg PO DAILY RAMO Stop: 06/25/25 16:13 Last Admin: 05/26/25 17:07 Dose: 250 mg Documented By: EDER Tramadol HCl (Tramadol Hcl 50 Mg Tablet) 50 mg PO TID RAMO Stop: 06/25/25 13:59 Last Admin: 05/26/25 16:54 Dose: Not Given Documented By: LAF Discontinued Medications Sodium Chloride (Nss) 1,000 mls @ 999 mls/hr IV .Q1H1M ONE Stop: 05/26/25 10:32 Last Infusion: 05/26/25 10:07 Dose: Infused Documented By: Admin: 05/26/25 09:42 Dose: 999 mls/hr Documented By: TNK Sodium Chloride (Nss) 1,000 mls @ 999 mls/hr IV .Q1H1M ONE Stop: 05/26/25 11:02 Last Infusion: 05/26/25 11:26 Dose: Infused Documented By: Admin: 05/26/25 10:06 Dose: 999 mls/hr Documented By: TNK Cefepime HCl (Maxipime 2000mg) 2,000 mg in 20 mls @ 5 mls/min IV NOW STA; Protocol Stop: 05/26/25 10:05 Last Admin: 05/26/25 10:44 Dose: 5 mls/min Documented By: TNK Sodium Chloride (Nss) 1,000 mls @ 999 mls/hr IV .Q1H1M ONE Stop: 05/26/25 11:46 Last Infusion: 05/26/25 12:10 Dose: Infused Documented By: Admin: 05/26/25 10:53 Dose: 999 mls/hr Documented By: TNK Vancomycin HCl 1,250 mg/ (Sodium Chloride) 525 mls @ 200 mls/hr IV NOW ONE Stop: 05/26/25 13:38 Last Infusion: 05/26/25 14:10 Dose: Infused Documented By: Admin: 05/26/25 11:33 Dose: 200 mls/hr Documented By: ANT Sodium Chloride (Nss) 1,000 mls @ 125 mls/hr IV .Q8H RAMO Stop: 05/29/25 12:59 Last Admin: 05/26/25 13:10 Dose: 125 mls/hr Documented By: ANT Imaging Data Radiologist's Impression: Chest X-Ray 05/26/25 09:33 XR chest 1V portable CLINICAL HISTORY: weakness COMPARISON STUDY: Chest CT April 10, 2021. Chest radiograph November 05, 2023. FINDINGS: Lung volumes are normal. There is no pneumothorax or pleural effusion. Cardiomegaly is unchanged. Lower lung interstitial thickening is chronic. There is no consolidation to suggest pneumonia. IMPRESSION: 1. No acute cardiopulmonary findings. No significant change in appearance of the chest. 2. Chronic lower lung interstitial thickening. ACT 112: Negative or not required by law. Electronically signed by: Niles Denton M.D. 05/26/2025 9:55 AM Discharge Plan Visit Data Chief Complaint: Weakness Stated Complaint: ILLNESS ED Provider: Krysta Williamson Discharge Problem: Generalized weakness, Dehydration, Hypotension, Acute UTI (urinary tract infection), Sepsis Patient Disposition: Admitted As Inpatient Condition: Fair Discharge Instructions Interventions: ED Discharge Assessment Last Done: 05/26/25 16:03
[2025-05-26] MEDS: SODIUM CHLORIDE 0.9% 1,000 ML IV ONE ×3 (09:42→10:53)
[2025-05-26 09:45] LABS: Hematocrit (blood only) 33.5 % (37.0-47.0); Hemoglobin 10.1 g/dl (12.0-16.0); Mean Corpuscular Hemoglobin 25.1 pg (25.0-34.0); Mean Corpuscular Volume 83.3 fL (80.0-100.0); Platelet Count 265 K/uL (130-400); RDW Standard Deviation 47.9 fL (36.4-46.3); Red Blood Count 4.02 M/uL (4.20-5.40); White Blood Count 19.56 K/ul (4.8-10.8)
--- NOTE | 2025-05-26 09:56 | XRay Report ---
XR chest 1V portable CLINICAL HISTORY: weakness COMPARISON STUDY: Chest CT April 10, 2021. Chest radiograph November 05, 2023. FINDINGS: Lung volumes are normal. There is no pneumothorax or pleural effusion. Cardiomegaly is unch anged. Lower lung interstitial thickening is chronic. There is no consolidation to suggest pneumonia. IMPRESSION: 1. No acute cardiopulmonary findings. No significant change in appearance of the chest. 2. Chronic lower lung interstitial thickening. ACT 112: Negative or not required by law. Electronically signed by: Niles Denton M.D. 05/26/2025 9:55 AM
[2025-05-26 10:05] LABS: Dohle Bodies 1+; Hypochromasia Present; Immature Granulocytes # (auto) 0.11 K/uL (0.01-0.20); Immature Granulocytes % (auto) 0.6 %; Polychromasia 1+
[2025-05-26 10:06] LABS: Alanine Aminotransferase 9.0 U/L (7-52); Albumin Globulin Ratio 1.5 (0.9-2); Alkaline Phosphatase 45.0 U/L (34-104); Anion Gap 7.0 (3-11); Bilirubin,Total 0.3 mg/dl (0.2-1.0); Blood Urea Nitrogen 27.0 mg/dl (6-23); Calcium 9.1 mg/dl (8.6-10.3); Carbon Dioxide 26.0 mmol/L (21-32); Chloride 108.0 mmol/L (98-107); Creatinine Clr Calc Pharmacy 22.3 ml/min; Globulin 2.4 gm/dl (2.5-4.0); Glucose 126.0 mg/dl (70-99(Fasting)); Lipase 15.0 U/L (11-82); Magnesium 1.9 mg/dl (1.7-2.4); Potassium 4.0 mmol/L (3.5-5.1); Sodium 141.0 mmol/L (136-145); Total Protein 6.1 gm/dl (6.0-8.3)
[2025-05-26 10:18] LABS: INR 1.0 (0.9-1.1); Prothrombin Time 11.1 Seconds (9.0-12.0)
[2025-05-26 10:21] LABS: Thyroid Stimulating Hormone 0.647 uIu/ml (0.300-4.500)
[2025-05-26 10:30] LABS: Procalcitonin 31.50 ng/ml (0-0.5)
[2025-05-26 10:37] LABS: Chlamydia pneumoniae PCR Not Detected (NotDetected); Coronavirus 229E PCR Not Detected (NotDetected); Coronavirus CoV-2 (COVID19)PCR Not Detected (NotDetected); Coronavirus HKU1 PCR Not Detected (NotDetected); Coronavirus NL63 PCR Not Detected (NotDetected); Coronavirus OC43PCR Not Detected (NotDetected); Human Metapneumovirus PCR Not Detected (NotDetected); Parainfluenza Virus 1 PCR Not Detected (NotDetected); Parainfluenza Virus 2 PCR Not Detected (NotDetected); Parainfluenza Virus 3 PCR Not Detected (NotDetected); Parainfluenza Virus 4 PCR Not Detected (NotDetected); Respiratory Syncytial VirusPCR Not Detected (NotDetected); Rhinovirus/Enterovirus PCR Not Detected (NotDetected)
[2025-05-26] MEDS: CEFEPIME 2000MG 2,000 MG/20 ML SYR IV STA (10:44)
[2025-05-26 10:55] LABS: Lyme Screen Rflx Confirmation Negative (Negative)
[2025-05-26] MEDS ORDERED: VANCOMYCIN CONSULT ACTIVE PRN (11:01)
[2025-05-26] MEDS: VANCOMYCIN HCL 1,250 MG in SODIUM CHLORIDE 0.9% 500 ML IV ONE (11:33)
[2025-05-26] MEDS: SODIUM CHLORIDE 0.9% 1,000 ML IV SCH ×2 (13:10→16:32)
[2025-05-26 13:12] LABS: Appearance Urine Clear (Clear); Bacteria Urine Automated 1+ (None Seen); Cast Urine Automated 0-2 /lpf (0-2); Epithelial Cell Urine Auto 0-2 /hpf (0-2); Glucose Urine UA Negative (Negative); RBC Urine Automated 0-2 /hpf (0-2); WBC Urine Automated >50 /hpf (0-5)
--- NOTE | 2025-05-26 14:22 | History & Physical Report ---
Date of Service May 26, 2025 Assessment & Plan (1) Severe sepsis with acute organ dysfunction: (2) Acute kidney injury: (3) Demand ischemia: (4) Complicated urinary tract infection: (5) Multilevel degenerative joint disease of spine: (6) Scleroderma: Plan Patient 84-year-old female presents to the emergency room hypotensive due to severe sepsis with evidence of acute organ dysfunction most likely due to complicated urinary tract infection and setting of chronic immunosuppression on chronic steroid use. Patient is at high risk for further deterioration in septic shock requires hospital level care and interventions Admit to a monitored setting Continue IV fluids Patient has reported drug rash to cephalexin, she did receive cefepime in the ED. Will hold on that and use aztreonam and vancomycin Monitor blood and urine cultures Monitor renal function and hold nephrotoxins in the setting of acute kidney injury from sepsis Troponin mildly elevated, this is consistent with demand ischemia in the setting of severe sepsis continue to treat infection Patient reports that she had been in the past instructed to use prophylactic oral vancomycin whenever she is on any type of antibiotics with a history of C. difficile. Evidence for that is weak. Will use probiotic and continue to monitor for any symptoms of C. difficile. Will narrow antibiotics as soon as sensitivities are available Continue home medications as ordered, hold antihypertensive medications in set ting of hypotension Son and daughter at bedside agreeable to the plan of care History of Present Illness Chief Complaint: Chills, rigors, weakness Primary Care Provider: Anupam Huang MD Patient is an 84-year-old female who presented to the emergency room with her family with above complaints. She reports she started with chills and shaking rigors last night. Continued again last night came to the emergency room today. In the emergency room noted to have severe leukocytosis, elevated procalcitonin and a somewhat abnormal urinalysis. She was also quite hypotensive at the time of presentation. It did respond to fluid resuscitation. Patient was referred to our service for further evaluation and treatment. Time my evaluation patient still having some chills. She describes an overwhelming weakness. She has some chronic back pains and joint pains associated with her arthritis but denied any chest pain or shortness of breath. No bowel problems. She denies any urinary complaints. However, ED physician reported that it she did not have any urine output until she received 3 L of fluid in the ED. She denies any change in her appetite, however may not have been drinking a whole lot of fluids over the last 48 hours. Of note patient did undergo cervical and lumbar ablations this past week but denies any new or worsening symptoms are related to her chronic back pains. Patient does have a history of C. difficile colitis. She is concerned about taking any types of antibiotics. Apparently she had been instructed to potentially consider that oral vancomycin prophylaxis whenever she is also on any other antibiotics. Allergies Allergy/AdvReac Type Severity Reaction Status Date / Time nirmatrelvir [From Paxlovid] Allergy Intermediate Hives Verified 05/23/25 10:56 ritonavir [From Paxlovid] Allergy Intermediate Hives Verified 05/23/25 10:56 cephalexin [From Keflex] Allergy Mild rash Verified 05/23/25 10:56 oxycodone Allergy Mild rash Verified 05/23/25 10:56 adhesive AdvReac Mild SKIN Verified 05/23/25 10:56 IRRITATION Home Medications Medication Instructions Recorded Confirmed Type sumatriptan succinate 50 mg tablet 50 mg PO Q2H PRN migraines 06/22/19 05/26/25 History (Imitrex) travoprost 0.004 % eye drops 1 drops ophthalmic (eye) QPM 06/22/19 05/26/25 History (Travatan Z) calcium 600 mg (as 2 cap PO QAM 04/25/20 05/26/25 History carbonate)-vitamin D3 5 mcg (200 unit) capsule (Calcium 600 + D(3)) clonazepam 1 mg disintegrating 1 mg PO DAILY 04/25/20 05/26/25 History tablet colchicine 0.6 mg tablet 0.6 mg PO QAM 04/25/20 05/26/25 History lifitegrast 5 % eye drops in a 1 drp ophthalmic (eye) BID 04/25/20 05/26/25 History dropperette (Xiidra) sertraline 50 mg tablet 50 mg PO QAM 04/25/20 05/26/25 History celecoxib 200 mg capsule 200 mg PO BID 08/12/21 05/26/25 History felodipine 2.5 mg tablet,extended 2.5 mg PO QAM 08/12/21 05/26/25 History release 24 hr prednisone 5 mg tablet 5 mg PO QAM 08/12/21 05/26/25 History Bifidobacterium infantis 10.5 mg 10.5 mg PO DAILY 12/05/21 05/26/25 History (10 million cell) chewable tablet (Align (B.infantis)) acetaminophen 500 mg oral powder 500 mg PO Q6H PRN PAIN/FEVER 07/20/23 05/26/25 History packet (Tylenol Extra Strength) dorzolamide 2 % eye drops 1 drp ophthalmic (eye) BID 11/05/23 05/26/25 History hydroxychloroquine 200 mg tablet 200 mg PO DAILY 11/05/23 05/26/25 History famotidine 40 mg tablet 40 mg PO DAILY 11/24/23 05/26/25 History gabapentin 300 mg capsule 300 mg PO BID 11/24/23 05/26/25 History gabapentin 600 mg tablet 600 mg PO HS 11/24/23 05/26/25 History pantoprazole 20 mg tablet,delayed 40 mg PO BID 09/26/24 05/26/25 History release tramadol 50 mg tablet 50 mg PO TID 09/26/24 05/26/25 History Metamucil 0 packet PO DAILY PRN Constipation 05/26/25 05/26/25 History bisacodyl 5 mg tablet,delayed 5 mg PO DAILY PRN Constipation 05/26/25 05/26/25 History release (Dulcolax (bisacodyl)) diazepam 5 mg tablet 5 mg PO UD 05/26/25 05/26/25 History ondansetron 4 mg disintegrating 4 mg PO DIRECTED PRN Nausea And 05/26/25 05/26/25 History tablet Vomiting polyethylene glycol 3350 17 17 g PO DAILY PRN Constipation 05/26/25 05/26/25 History gram/dose oral powder (Miralax) Past Med/Surg History Problem List (Updated 05/26/25 @ 14:18 by Thong Sin DO) Multilevel degenerative joint disease of spine Complicated urinary tract infection Demand ischemia Acute kidney injury Severe sepsis with acute organ dysfunction Generalized weakness (Acute) Sacroiliitis Lumbar degenerative disc disease Spinal stenosis of lumbar region with neurogenic claudication Scoliosis deformity of spine Lumbosacral facet joint syndrome COVID-19 (Acute) Cervical stenosis of spine Cervical facet joint syndrome Cervical spondylosis Pre-procedural laboratory examination SBO (small bowel obstruction) (Acute) Neck discomfort Abnormal ultrasound of endometrium Right toe amputee Depression pt denies Surgical wound, non healing Abscess of right middle finger MRSA (methicillin resistant staph aureus) culture positive History of melanoma Traumatic wound Knee pain, bilateral Tricompartment degenerative joint disease of knee Skin rash Migraine Carpal tunnel syndrome, bilateral Arthritis Encounter for pre-operative examination Hammertoe of second toe of left foot Surgery follow-up Degenerative arthritis of knee, bilateral Sepsis (Acute) Abdominal pain (Acute) Pneumonia (Acute) Leukocytosis (Acute) Splenic infarct (Acute) IVC thrombosis Recurrent Clostridioides difficile diarrhea Cough Edema Bilateral pleural effusion Hammertoe of right foot Scleroderma CKD (chronic kidney disease) per records GERD (gastroesophageal reflux disease) Medical History Lumbar degenerative disc disease Spinal stenosis of lumbar region with neurogenic claudication Scoliosis deformity of spine Lumbosacral facet joint syndrome Cervical facet joint syndrome Cervical spondylosis Pre-procedural laboratory examination Right toe amputee Rheumatoid arthritis History of melanoma right heel & chest wall Calcinosis Hx of Clostridium difficile infection C. difficile colitis Hx MRSA infection Scleroderma CKD (chronic kidney disease) per records Patella-femoral syndrome Chronic back pain Osteoporosis Osteoarthritis GERD (gastroesophageal reflux disease) Migraine Glaucoma Restless leg syndrome Cervical stenosis of spine Spondylolisthesis of cervical region FULL ROM Surgical History S/P dilation and curettage History of amputation RT LEFT TOE AMPUTATION Hx of surgical procedure left hand pointer finger repair Hx of bilateral cataract extraction History of surgery repair of prolapsed rectum History of tooth extraction History of tubal ligation History of hand surgery Rt finger History of colonoscopy w/ polypectomy History of Mohs micrographic surgery for skin cancer S/P LASIK surgery of both eyes History of carpal tunnel surgery bilateral Family History Father Family hx of colon cancer Colorectal cancer Other Breast cancer No family history of adverse response to anesthesia Denies family history of Ovarian cancer Uterine cancer Social History Smoking Status: Former smoker Second Hand Exposure: No; Do You Dip or Chew Tobacco: No; Hx Alcohol Use: No Hx Substance Use: No Preferred Language: Kazakh Communication Ability: Effective Visual Impairment: No Limitations Hearing Ability: Normal Manager Agricultural Required: No Beliefs That Will Affect Care: None marital status: / Current Living Situation: Alone current occupational status: retired Feels Safe at Home: Yes Childhood Exposure to Second-Hand Smoke: No Assistive Devices: None Review of Systems Review of Systems: Pertinent positive and negative review of systems as mentioned in the HPI Physical Exam Physical Exam: Constitutional: Alert, ill in appearance, pale in appearance HEENT: Mucous membranes dry. Sclera clear Neck: Soft, no adenopathy Lungs: Clear to auscultation, decreased, no wheezes rales or rhonchi CV: S1-S2, regular, systolic murmur Abdomen: Soft, nontender, nondistended Extremities: No significant edema Musculoskeletal: No significant joint tenderness Neuro: No focal deficits generalized weakness Psych: Cooperative, normal mood Results & Data Results & Data Vital Signs (Past 12 Hours) Vital Signs Temp Pulse Pulse Resp BP BP Pulse Ox 05/26/25 14:00 90 20 122/83 96 05/26/25 13:30 78 20 122/81 05/26/25 13:27 77 05/26/25 13:00 79 18 115/61 05/26/25 12:30 71 17 100/55 L 92 05/26/25 12:00 71 15 96/60 L 96 05/26/25 11:30 70 13 88/52 L 93 05/26/25 11:00 72 15 86/54 L 92 05/26/25 10:45 76 22 86/54 L 94 05/26/25 10:03 83 19 05/26/25 10:01 82/61 L 94 05/26/25 09:57 71 16 05/26/25 09:39 73 18 05/26/25 09:30 87/48 L 05/26/25 09:29 96 05/26/25 09:24 75 05/26/25 09:20 37.4 C 82 16 87/51 L 96 O2 Del Method 05/26/25 14:00 05/26/25 13:30 05/26/25 13:27 05/26/25 13:00 05/26/25 12:30 05/26/25 12:00 05/26/25 11:30 05/26/25 11:00 05/26/25 10:45 Room Air 05/26/25 10:03 05/26/25 10:01 05/26/25 09:57 05/26/25 09:39 05/26/25 09:30 05/26/25 09:29 Room Air 05/26/25 09:24 05/26/25 09:20 Room Air Diagnostic Findings Reviewed imaging, laboratory and diagnostic studies. Pertinent findings as below. Personally reviewed chest x-ray no infiltrate of consolidation Personally reviewed EKG sinus rhythm WBCs 19.5 Hemoglobin 10.1 Platelets of 265 Creatinine 1.47 Glucose 126 Troponin 21.8 Procalcitonin 31.5 Urinalysis positive nitrates, trace blood, 3+ leukocyte esterase, greater than 50 WBCs, 1+ bacteria Respiratory viral panel negative Code Status & VTE Plan VTE Prophylaxis Plan VTE Prophylaxis will be ordered: Yes
[2025-05-26] MEDS ORDERED: PSYLLIUM HUSK 4GM PACKET PO PRN (16:08)
[2025-05-26] MEDS ORDERED: ARTIFICIAL TEARS OP PRN (16:08)
[2025-05-26] MEDS ORDERED: ACETAMINOPHEN 325 MG TAB PO PRN (16:14)
[2025-05-26] MEDS ORDERED: ONDANSETRON INJ 2 MG/ML 2 ML VIAL IV PRN (16:14)
[2025-05-26] MEDS: SACCHAROMYCES BOULARDII 250 MG CAP PO SCH (17:07)
[2025-05-26] MEDS: ENOXAPARIN INJ 40 MG/0.4 ML SYR SQ SCH (17:07)
[2025-05-26] MEDS: AZTREONAM 1,000 MG in DEXTROSE 5% MINI-B 100 ML IV SCH (17:07)
[2025-05-26] MEDS: SODIUM CHLORIDE 0.9% 500 ML IV ONE (18:56)
[2025-05-26] MEDS: MIDODRINE HCL 2.5 MG TAB PO SCH (18:57)
[2025-05-26] MEDS: GABAPENTIN 600 MG TAB PO SCH (20:23)
[2025-05-26] MEDS: TRAVOPROST Z 0.004% OPH SOLN 2.5 ML BTL OP SCH (20:25)
[2025-05-26] MEDS: GABAPENTIN 300 MG CAP PO SCH (20:25)
[2025-05-26] MEDS: DORZOLAMIDE HCL 2% OPH SOLN 10 ML BTL OP SCH (20:28)
[2025-05-26] MEDS: clonazePAM 1 MG TAB PO SCH (20:45)
[2025-05-26] MEDS: VANCOMYCIN HCL 1,000 MG/270 ML BAG IV SCH (22:43)
[2025-05-26] MEDS: MIDODRINE HCL 2.5 MG TAB PO STA (23:53)
[2025-05-26 23:57] LABS: A calco-baum cmplx NotReported Not Detected (NotDetected); Bact fragilis Not Reported Not Detected (NotDetected); Blood Culture Id Panel See PCR Comment (NotDetected); C auris Not Reported Not Detected (NotDetected); CTX-M Resistant Gene Not Detected (NotDetected); Calbicans Not Reported Not Detected (NotDetected); Candida glabrata Not Reported Not Detected (NotDetected); Candida krusei Not Reported Not Detected (NotDetected); Cneoformans/gatti Not Reported Not Detected (NotDetected); Cparapsilosis Not Reported Not Detected (NotDetected); Ctropicalis Not Reported Not Detected (NotDetected); E cloacae compx Not Reported Not Detected (NotDetected); Efaecalis Not Reported Not Detected (NotDetected); Efaecium Not Reported Not Detected (NotDetected); Enterobacterales DETECTED (NotDetected); Enterobacterales Not Reported DETECTED (NotDetected); Escherichia coli Not Reported DETECTED (NotDetected); H influenzae Not Reported Not Detected (NotDetected); IMP Resistant Gene Not Detected (NotDetected); K aerogenes Not Reported Not Detected (NotDetected); KPC Resistant Gene Not Detected (NotDetected); Koxytoca Not Reported Not Detected (NotDetected); Kpneumoniae grp Not Reported Not Detected (NotDetected); Lmonocyt Not Reported Not Detected (NotDetected); N meningitidis Not Reported Not Detected (NotDetected); NDM Resistant Gene Not Detected (NotDetected); OXA 48 Like Resistant Gene Not Detected (NotDetected); P aeruginosa Not Reported Not Detected (NotDetected); Proteus spp Not Reported Not Detected (NotDetected); Salmonella spp Not Reported Not Detected (NotDetected); Staph lugdunensis Not Reported Not Detected (NotDetected); Staph spp. Not Reported Not Detected (NotDetected); Staphaureus Not Reported Not Detected (NotDetected); Staphepi Not Reported Not Detected (NotDetected); Stenmaltophilia Not Reported Not Detected (NotDetected); Strep agal(GrpB) Not Reported Not Detected (NotDetected); Strep pneum Not Reported Not Detected (NotDetected); Strep pyog (GrpA) Not Reported Not Detected (NotDetected); Strep spp Not Reported Not Detected (NotDetected); VIM Resistant Gene Not Detected (NotDetected); mcr-1 Colistin Resistant Gene Not Detected (NotDetected)
[2025-05-27] MEDS: HYDROCORTISONE SOD 100 MG in SYRINGE 0 ML IV SCH (00:04)
--- NOTE | 2025-05-27 06:31 | Pharmacy Report ---
Pharmacy PK ABX Note - Date of Service May 27, 2025 - Assessment and Plan Assessment * Ms Venegas is an 84 year old F receiving vancomycin and aztreonam for treatment of sepsis, most likely d/t complicated UTI. * Relevant PMH includes immunosuppression d/t chronic steroids for RA, history of c.diff, history of MRSA * Pt underwent cervical and lumbar ablations in the past week. * Pertinent microbiologic data includes: blood and urine cx pending * Labs on admission: WBC 19.6, procal 31.5, SCr 1.47 (baseline ~1) Plan Vancomycin * Loading dose: 1250 mg IV x 1 * Maintenance dose: 1000 mg IV every 24 hours * Suspect that regimen will require adjustment as SCr improves to baseline * Regimen is predicted to achieve target AUC/SANAM of 400-600 mg/L.hr * Will check a vanc level in 1-2 days Pharmacy will continue to follow and will adjust dose/frequency as necessary. Thank you. Pharmacy has transitioned to AUC monitoring for vancomycin. AUC/SANAM is the preferred PK/PD target and is associated with decreased risk of nephrotoxicity compared to traditional trough targets.
[2025-05-27 07:04] LABS: Hematocrit (blood only) 26.4 % (37.0-47.0); Hemoglobin 7.9 g/dl (12.0-16.0); Mean Corpuscular Hemoglobin 25.6 pg (25.0-34.0); Mean Corpuscular Volume 85.7 fL (80.0-100.0); Platelet Count 197 K/uL (130-400); RDW Standard Deviation 49.9 fL (36.4-46.3); Red Blood Count 3.08 M/uL (4.20-5.40); White Blood Count 16.15 K/ul (4.8-10.8)
[2025-05-27 07:25] LABS: Anion Gap 6.0 (3-11); Blood Urea Nitrogen 20.0 mg/dl (6-23); Calcium 7.3 mg/dl (8.6-10.3); Carbon Dioxide 19.0 mmol/L (21-32); Chloride 118.0 mmol/L (98-107); Creatinine Clr Calc Pharmacy 30.6 ml/min; Glucose 118.0 mg/dl (70-99(Fasting)); Magnesium 1.8 mg/dl (1.7-2.4); Potassium 3.9 mmol/L (3.5-5.1); Sodium 143.0 mmol/L (136-145)
[2025-05-27] MEDS: FAMOTIDINE 40 MG TABLET PO SCH (08:34)
[2025-05-27] MEDS: SERTRALINE HCL 50 MG TABLET PO SCH (08:34)
[2025-05-27] MEDS: COLCHICINE 0.6 MG TAB PO SCH (08:34)
[2025-05-27] MEDS: HYDROXYCHLOROQUINE SULFATE 200 MG TAB PO SCH (08:34)
--- NOTE | 2025-05-27 08:53 | Hospitalist Progress Note ---
Date of Service May 27, 2025 Assessment & Plan (1) Severe sepsis with acute organ dysfunction: (2) Acute kidney injury: (3) Demand ischemia: (4) Complicated urinary tract infection: (5) Multilevel degenerative joint disease of spine: (6) Scleroderma: Plan 84-year-old woman with history of DDD, Arthritis, C diff, migraine and other medical problems who presented to the emergency room with weakness, chills Being managed for Severe sepsis with Acute kidney injury Most likely due to complicated urinary tract infection and setting of chronic immunosuppression on chronic steroid use. Hypotension on admission resolved with IVF Lab on admission notable for leukocytosis, Hb of 10, Cr of 1.47, procal 31.5, Trop 21 UA suggestive of UTI CXR did not show any acute findings Blood culture growing E coli. Patient reports allergy to cephalexin with rash My review of EPIC showed she had received amoxicillin in the past She also got cefepime in ER with no reaction I discussed with Pharmacy. Vanc and aztreonam changed to Ceftriaxone. 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 Hb dropped to 7.9 today from 10 No active bleeding Possibly dilutional as all cell lines dropped and got IVF DVT ppx- lovenox I spent a total of 55 minutes coordinating, documenting and providing care for this patient excluding time spent in performance of separately billed services Admission and Anticipated Discharge Date Admission Date: May 26, 2025 Subjective Patient seen and examined Reports feeling better today. Reports feeling stronger Denied any dysuria, freq, hematuria. Stated she may have had some change/odor to urine prior to admission Denied nausea, vomiting, abd pain, flank pain, diarrhea, fever, chills Denied cough, chest pain and SOB Physical Exam Constitutional: + well hydrated; no acute distress Eyes: PERRL, conjunctivae normal, anicteric sclerae ENMT: external ear and nose normal, oropharynx normal Respiratory: normal respiratory effort, lungs clear to auscultation Cardiovascular: Rate/Rhythm: regular rate and regular rhythm Gastrointestinal (Abdomen): normal bowel sounds, soft, nontender, no hepatosplenomegaly Musculoskeletal: No pedal edema Neurologic: PERRL, EOMI, accommodation nl, no face palsy, no dysarthria Psychiatric: A+Ox3, euthymic affect Results & Data Results & Data Vital Signs (Past 12 Hours) Vital Signs Temp Pulse Pulse Resp BP BP Pulse Ox 05/27/25 07:00 36.8 C 61 14 106/55 L 94 05/27/25 03:30 36.7 C 65 16 105/66 98 05/27/25 00:53 107/67 05/26/25 23:20 36.8 C 77 18 83/49 L 90 05/26/25 21:54 85 O2 Del Method 05/27/25 07:00 Room Air 05/27/25 03:30 Room Air 05/27/25 00:53 05/26/25 23:20 Room Air 05/26/25 21:54 Laboratory Results Abnormal lab results 05/26/25 05/26/25 05/27/25 Range/Units 10:20 12:43 05:46 WBC 16.15 H (4.8-10.8) K/ul RBC 3.08 L (4.20-5.40) M/uL Hgb 7.9 L (12.0-16.0) g/dl Hct 26.4 L (37.0-47.0) % MCHC 29.9 L (32.0-36.0) g/dL RDW Std Deviation 49.9 H (36.4-46.3) fL RDW Coeff of Lila 16.0 H (11.5-14.5) % Chloride 118 H (98-107) mmol/L Carbon Dioxide 19 L (21-32) mmol/L Glucose 118 H (70-99(Fasting)) mg/dl Calcium 7.3 L (8.6-10.3) mg/dl Urine Protein 1+ H (Negative) Urine Blood Trace H (Negative) Urine Nitrite Positive A (Negative) Ur Leukocyte Esterase 3+ H (Negative) Urine WBC (Auto) >50 H (0-5) /hpf Urine Bacteria (Auto) 1+ H (None Seen) Enterobacterales (PCR) DETECTED A (NotDetected) E. coli (PCR) DETECTED A (NotDetected)
[2025-05-27] MEDS ORDERED: clonazePAM 1 MG TAB PO SCH (09:00)
[2025-05-27] MEDS: cefTRIAXone SODIUM 2,000 MG/50 ML BAG IV SCH (12:24)
--- NOTE | 2025-05-27 13:08 | Electrocardiogram Report ---
Test Reason : Blood Pressure : */* mmHG Vent. Rate : 78 BPM Atrial Rate : 78 BPM P-R Int : 186 ms QRS Dur : 68 ms QT Int : 374 ms P-R-T Axes : 44 -15 19 degrees QTcB Int : 426 ms Normal sinus rhythm with sinus arrhythmia Low voltage QRS Septal infarct (cited on or before 29-Aug-2012) Abnormal ECG When compared with ECG of 05-Nov-2023 13:24, Questionable change in initial forces of Anteroseptal leads Confirmed by Jose Angel Olvera ([id number]) on 05/27/2025 1:08:22 PM Referred By: REFERRED SELF Confirmed By: Jose Angel Olvera
[2025-05-28 06:55] LABS: Hematocrit (blood only) 25.8 % (37.0-47.0); Hemoglobin 7.9 g/dl (12.0-16.0); Mean Corpuscular Hemoglobin 25.5 pg (25.0-34.0); Mean Corpuscular Volume 83.2 fL (80.0-100.0); Platelet Count 211 K/uL (130-400); RDW Standard Deviation 48.7 fL (36.4-46.3); Red Blood Count 3.10 M/uL (4.20-5.40); White Blood Count 14.98 K/ul (4.8-10.8)
[2025-05-28 07:23] LABS: Anion Gap 7.0 (3-11); Blood Urea Nitrogen 18.0 mg/dl (6-23); Calcium 7.2 mg/dl (8.6-10.3); Carbon Dioxide 19.0 mmol/L (21-32); Chloride 117.0 mmol/L (98-107); Creatinine Clr Calc Pharmacy 42.3 ml/min; Glucose 139.0 mg/dl (70-99(Fasting)); Potassium 3.5 mmol/L (3.5-5.1); Sodium 143.0 mmol/L (136-145)
[2025-05-28] MEDS: GABAPENTIN 300 MG CAP PO SCH (08:40)
[2025-05-28] MEDS ORDERED: VANCOMYCIN HCL 125 MG/2.5ML SOLN PO SCH (09:30)
[2025-05-28] MEDS: CHERRY SYRUP 5 ML UDP PO SCH ×2 (10:30→21:02)
[2025-05-28] MEDS: VANCOMYCIN HCL 125 MG/2.5ML SOLN PO SCH ×2 (10:30→21:02)
[2025-05-28 10:36] VITALS: TEMP 97.9
--- NOTE | 2025-05-28 11:50 | Hospitalist Progress Note ---
Date of Service May 28, 2025 Assessment & Plan (1) Severe sepsis with acute organ dysfunction: (2) Acute kidney injury: (3) Demand ischemia: (4) Complicated urinary tract infection: (5) Multilevel degenerative joint disease of spine: (6) Scleroderma: Plan 84-year-old woman with history of DDD, Arthritis, C diff, migraine and other medical problems who presented to the emergency room with weakness, chills Being managed for Severe sepsis with Acute kidney injury Most likely due to complicated urinary tract infection and setting of chronic immunosuppression on chronic steroid use. Hypotension on admission resolved with IVF Lab on admission notable for leukocytosis, Hb of 10, Cr of 1.47, procal 31.5, Trop 21 UA suggestive of UTI CXR did not show any acute findings Blood culture growing E coli. Patient reported allergy to cephalexin with rash My review of EPIC showed she had received amoxicillin in the past She also got cefepime in ER with no reaction Antibiotics deescalated to IV ceftriaxone Continue probiotic Leukocytosis improving Awaiting ID eval Patient reported history of severe C diff and was told by GI to always take vancomycin when on antibiotics. I reviewed EPIC and GI Dr Ling strongly recommended in his note on 11/12/2021 for patient to always have po vancomycin 125mg po q6h overlap with any antibiotics in the future for entire period of antibiotics and 2 weeks following. PO vancomycin 125mg q6h ordered based on that BP elevated today Resume home felodipine and monitor Acute kidney injury is resolved Continue to monitor Anemia. Hb dropped to 7.9 from 10 on admission No active bleeding Possibly dilutional as all cell lines dropped and got IVF Hb stable in 7.9 DVT ppx- lovenox I spent a total of 50 minutes coordinating, documenting and providing care for this patient excluding time spent in performance of separately billed services Admission and Anticipated Discharge Date Admission Date: May 26, 2025 Subjective Patient seen and examined Reports feeling better today Denied any new complaints Physical Exam Constitutional: + well hydrated; no acute distress Eyes: PERRL, conjunctivae normal, anicteric sclerae ENMT: external ear and nose normal, oropharynx normal Respiratory: normal respiratory effort, lungs clear to auscultation Cardiovascular: Rate/Rhythm: regular rate and regular rhythm Gastrointestinal (Abdomen): normal bowel sounds, soft, nontender, no hepatosplenomegaly Musculoskeletal: No pedal edema Neurologic: PERRL, EOMI, accommodation nl, no face palsy, no dysarthria Psychiatric: A+Ox3, euthymic affect Results & Data Results & Data Vital Signs (Past 12 Hours) Vital Signs Temp Pulse Pulse Resp BP Pulse Ox O2 Del Method 05/28/25 10:34 36.6 C 54 L 16 179/73 H 98 Room Air 05/28/25 07:30 36.4 C L 66 16 153/66 H 97 Room Air 05/28/25 07:00 58 L 05/28/25 04:27 36.5 C 53 L 18 138/64 95 Room Air Laboratory Results Abnormal lab results 05/28/25 Range/Units 05:44 WBC 14.98 H (4.8-10.8) K/ul RBC 3.10 L (4.20-5.40) M/uL Hgb 7.9 L (12.0-16.0) g/dl Hct 25.8 L (37.0-47.0) % MCHC 30.6 L (32.0-36.0) g/dL RDW Std Deviation 48.7 H (36.4-46.3) fL RDW Coeff of Lila 16.2 H (11.5-14.5) % Chloride 117 H (98-107) mmol/L Carbon Dioxide 19 L (21-32) mmol/L BUN/Creatinine Ratio 21.4 H (10-20) Glucose 139 H (70-99(Fasting)) mg/dl Calcium 7.2 L (8.6-10.3) mg/dl
--- NOTE | 2025-05-28 13:45 | Infectious Disease Consult ---
Date of Service May 28, 2025 Telehealth Information I performed this visit using a real-time telehealth connection between my location and the patients location ([facility]). After connecting through interactive tele-video, patient was identified by name and date of and/or wristband check.Patient (or authorized healthcare technical service representative) was informed that this was a telemedicine visit and it was being conducted confidentially over secure lines. My office door was closed and no one else was present in the room with me.Patient (or authorized healthcare technical service representative) provided consent to proceed with the visit, expressed an understanding of privacy and security of the telemedicine visit, and gave permission to have a hospital technical service representative in the room in order to assist with the visit and to conduct portions of the visit, as needed. I informed the patient (or authorized healthcare technical service representative) that I reviewed their record and presented the opportunity for them to ask any questions regarding the visit today. The patient agreed to participate. Assessment & Plan (1) Complicated urinary tract infection: (2) E coli bacteremia: (3) Severe sepsis with acute organ dysfunction: (4) Acute kidney injury: Plan Continue on IV ceftriaxone 2 g IV daily for 1 more day (1 more dose tomorrow). Then, step-down to oral Bactrim DS twice daily to complete a course of 14 days with anticipated end date of June 09, 2025. I agree with oral vancomycin for prophylaxis, but I would recommend using 125 mg twice daily instead of every 6 hours. Continue on oral vancomycin for around 1 week after the last dose of Bactrim. Anticipated end date will be June 16, 2025. Thank you for consulting Infectious Disease. We will sign off for now. History of Present Illness History of Present Illness Ms. Venegas is a 84-year-old woman with medical history of rheumatoid arthritis/sacroiliitis, spinal stenosis of the lumbar region, and recurrent Clostridium difficile diarrhea who was admitted to [facility] on 05/26/2025 because of chills and rigors which started around 3 days prior to presentation. In the Emergency Department, she was found to be hypotensive at 87/51, febrile at 39.2; the rest of the vitals were within normal limits. Initial workup showed leukocytosis of 19.6 (ANC 16.7), elevated creatinine 1.47 suggesting EFREM, UA with more than 50 WBCs and 1+ bacteria, and shortly after admission, blood culture came back positive for E coli (identified via PCR). She never required pressors and she responded appropriately to IV fluids. ID team is consulted for further recommendations and to help guide antibiotic treatment. Allergies Allergy/AdvReac Type Severity Reaction Status Date / Time nirmatrelvir [From Paxlovid] Allergy Intermediate Hives Verified 05/23/25 10:56 ritonavir [From Paxlovid] Allergy Intermediate Hives Verified 05/23/25 10:56 cephalexin [From Keflex] Allergy Mild rash Verified 05/23/25 10:56 oxycodone Allergy Mild rash Verified 05/23/25 10:56 adhesive AdvReac Mild SKIN Verified 05/23/25 10:56 IRRITATION Home Medications Medication Instructions Recorded Confirmed Type sumatriptan succinate 50 mg tablet 50 mg PO Q2H PRN migraines 06/22/19 05/26/25 History (Imitrex) travoprost 0.004 % eye drops 1 drops ophthalmic (eye) QPM 06/22/19 05/26/25 History (Travatan Z) calcium 600 mg (as 2 cap PO QAM 04/25/20 05/26/25 History carbonate)-vitamin D3 5 mcg (200 unit) capsule (Calcium 600 + D(3)) clonazepam 1 mg disintegrating 1 mg PO DAILY 04/25/20 05/26/25 History tablet colchicine 0.6 mg tablet 0.6 mg PO QAM 04/25/20 05/26/25 History lifitegrast 5 % eye drops in a 1 drp ophthalmic (eye) BID 04/25/20 05/26/25 History dropperette (Xiidra) sertraline 50 mg tablet 50 mg PO QAM 04/25/20 05/26/25 History celecoxib 200 mg capsule 200 mg PO BID 08/12/21 05/26/25 History felodipine 2.5 mg tablet,extended 2.5 mg PO QAM 08/12/21 05/26/25 History release 24 hr prednisone 5 mg tablet 5 mg PO QAM 08/12/21 05/26/25 History Bifidobacterium infantis 10.5 mg 10.5 mg PO DAILY 12/05/21 05/26/25 History (10 million cell) chewable tablet (Align (B.infantis)) acetaminophen 500 mg oral powder 500 mg PO Q6H PRN PAIN/FEVER 07/20/23 05/26/25 History packet (Tylenol Extra Strength) dorzolamide 2 % eye drops 1 drp ophthalmic (eye) BID 11/05/23 05/26/25 History hydroxychloroquine 200 mg tablet 200 mg PO DAILY 11/05/23 05/26/25 History famotidine 40 mg tablet 40 mg PO DAILY 11/24/23 05/26/25 History gabapentin 300 mg capsule 300 mg PO BID 11/24/23 05/26/25 History gabapentin 600 mg tablet 600 mg PO HS 11/24/23 05/26/25 History pantoprazole 20 mg tablet,delayed 40 mg PO BID 09/26/24 05/26/25 History release tramadol 50 mg tablet 50 mg PO TID 09/26/24 05/26/25 History Metamucil 0 packet PO DAILY PRN Constipation 05/26/25 05/26/25 History bisacodyl 5 mg tablet,delayed 5 mg PO DAILY PRN Constipation 05/26/25 05/26/25 History release (Dulcolax (bisacodyl)) diazepam 5 mg tablet 5 mg PO UD 05/26/25 05/26/25 History ondansetron 4 mg disintegrating 4 mg PO DIRECTED PRN Nausea And 05/26/25 05/26/25 History tablet Vomiting polyethylene glycol 3350 17 17 g PO DAILY PRN Constipation 05/26/25 05/26/25 History gram/dose oral powder (Miralax) Patient History Medical History Lumbar degenerative disc disease Spinal stenosis of lumbar region with neurogenic claudication Scoliosis deformity of spine Lumbosacral facet joint syndrome Cervical facet joint syndrome Cervical spondylosis Pre-procedural laboratory examination Right toe amputee Rheumatoid arthritis History of melanoma right heel & chest wall Calcinosis Hx of Clostridium difficile infection C. difficile colitis Hx MRSA infection Scleroderma CKD (chronic kidney disease) per records Patella-femoral syndrome Chronic back pain Osteoporosis Osteoarthritis GERD (gastroesophageal reflux disease) Migraine Glaucoma Restless leg syndrome Cervical stenosis of spine Spondylolisthesis of cervical region FULL ROM Surgical History S/P dilation and curettage History of amputation RT LEFT TOE AMPUTATION Hx of surgical procedure left hand pointer finger repair Hx of bilateral cataract extraction History of surgery repair of prolapsed rectum History of tooth extraction History of tubal ligation History of hand surgery Rt finger History of colonoscopy w/ polypectomy History of Mohs micrographic surgery for skin cancer S/P LASIK surgery of both eyes History of carpal tunnel surgery bilateral Family History Father Family hx of colon cancer Colorectal cancer Other Breast cancer No family history of adverse response to anesthesia Denies family history of Ovarian cancer Uterine cancer Social History Smoking Status: Former smoker Second Hand Exposure: No; Hx Alcohol Use: No Hx Substance Use: No Preferred Language: Chinese Communication Ability: Effective Visual Impairment: No Limitations Hearing Ability: Normal Ore Digger Required: No Beliefs That Will Affect Care: None marital status: / Current Living Situation: Alone current occupational status: retired Feels Safe at Home: Yes Safety Concerns: Feels Safe At This Time Childhood Exposure to Second-Hand Smoke: No Assistive Devices: Cane and Walker Review of Systems Negative except for what was mentioned in the H&P Physical Exam Could not be performed given that the encounter was conducted via TeleMed. Results & Data Vital Signs (Past 12 Hours) Vital Signs Temp Pulse Pulse Resp BP Pulse Ox O2 Del Method 05/28/25 10:34 36.6 C 54 L 16 179/73 H 98 Room Air 05/28/25 07:30 36.4 C L 66 16 153/66 H 97 Room Air 05/28/25 07:00 58 L 05/28/25 04:27 36.5 C 53 L 18 138/64 95 Room Air Laboratory Results Microbiology: 05/26: 3/4 bottles of blood culture growing E coli 05/26: Straight cath urine culture with more than 3 types of organisms
[2025-05-28] MEDS: FELODIPINE 2.5 MG TABCR PO SCH (14:32)
[2025-05-28] MEDS: POLYETHYLENE (MIRALAX) 17 GM PACK PO PRN (21:58)
[2025-05-28 22:27] VITALS: RESP 18
[2025-05-29 02:45] VITALS: O2SAT 96
[2025-05-29 06:17] LABS: Hematocrit (blood only) 25.3 % (37.0-47.0); Hemoglobin 7.9 g/dl (12.0-16.0); Mean Corpuscular Hemoglobin 25.5 pg (25.0-34.0); Mean Corpuscular Volume 81.6 fL (80.0-100.0); Platelet Count 232 K/uL (130-400); RDW Standard Deviation 47.9 fL (36.4-46.3); Red Blood Count 3.10 M/uL (4.20-5.40); White Blood Count 9.85 K/ul (4.8-10.8)
[2025-05-29 06:35] LABS: Anion Gap 5.0 (3-11); Blood Urea Nitrogen 16.0 mg/dl (6-23); Calcium 7.6 mg/dl (8.6-10.3); Carbon Dioxide 23.0 mmol/L (21-32); Chloride 116.0 mmol/L (98-107); Creatinine Clr Calc Pharmacy 39.9 ml/min; Glucose 124.0 mg/dl (70-99(Fasting)); Potassium 3.3 mmol/L (3.5-5.1); Sodium 144.0 mmol/L (136-145)
[2025-05-29 07:45] VITALS: BP 159/78
[2025-05-29] MEDS: POTASSIUM CHLORIDE CRTAB 20 MEQ TABCR PO STA (09:00)
--- NOTE | 2025-05-29 09:06 | Discharge Summary ---
Date of Service May 29, 2025 Admission HPI Per Admitting Provider Patient is an 84-year-old female who presented to the emergency room with her family with above complaints. She reports she started with chills and shaking rigors last night. Continued again last night came to the emergency room today. In the emergency room noted to have severe leukocytosis, elevated procalcitonin and a somewhat abnormal urinalysis. She was also quite hypotensive at the time of presentation. It did respond to fluid resuscitation. Patient was referred to our service for further evaluation and treatment. Time my evaluation patient still having some chills. She describes an overwhelming weakness. She has some chronic back pains and joint pains associated with her arthritis but denied any chest pain or shortness of breath. No bowel problems. She denies any urinary complaints. However, ED physician reported that it she did not have any urine output until she received 3 L of fluid in the ED. She denies any change in her appetite, however may not have been drinking a whole l ot of fluids over the last 48 hours. Of note patient did undergo cervical and lumbar ablations this past week but denies any new or worsening symptoms are related to her chronic back pains. Patient does have a history of C. difficile colitis. She is concerned about taking any types of antibiotics. Apparently she had been instructed to potentially consider that oral vancomycin prophylaxis whenever she is also on any other antibiotics. Admission Exam Per Admitting Provider Constitutional: Alert, ill in appearance, pale in appearance HEENT: Mucous membranes dry. Sclera clear Neck: Soft, no adenopathy Lungs: Clear to auscultation, decreased, no wheezes rales or rhonchi CV: S1-S2, regular, systolic murmur Abdomen: Soft, nontender, nondistended Extremities: No significant edema Musculoskeletal: No significant joint tenderness Neuro: No focal deficits generalized weakness Psych: Cooperative, normal mood Principal Diagnosis Severe Sepsis E coli bacteremia Acute Kidney Injury Discharge Exam Constitutional + well hydrated; no acute distress Eyes PERRL, conjunctivae normal, anicteric sclerae ENMT external ear and nose normal, oropharynx normal Respiratory normal respiratory effort, lungs clear to auscultation Cardiovascular Rate/Rhythm: regular rate and regular rhythm Gastrointestinal (Abdomen) normal bowel sounds, soft, nontender, no hepatosplenomegaly Musculoskeletal No pedal edema Neurologic PERRL, EOMI, accommodation nl, no face palsy, no dysarthria Psychiatric A+Ox3, euthymic affect Discharge Data Allergies Allergy/AdvReac Type Severity Reaction Status Date / Time nirmatrelvir [From Paxlovid] Allergy Intermediate Hives Verified 05/23/25 10:56 ritonavir [From Paxlovid] Allergy Intermediate Hives Verified 05/23/25 10:56 cephalexin [From Keflex] Allergy Mild rash Verified 05/23/25 10:56 oxycodone Allergy Mild rash Verified 05/23/25 10:56 adhesive AdvReac Mild SKIN Verified 05/23/25 10:56 IRRITATION Consultations 05/26/25 14:01 ED Decision to Admit Stat 05/28/25 08:40 Consult Infectious Diseases Routine Hospital Course (1) Severe sepsis with acute organ dysfunction: (2) Acute kidney injury: (3) Demand ischemia: (4) Complicated urinary tract infection: (5) Multilevel degenerative joint disease of spine: (6) Scleroderma: Plan 84-year-old woman with history of DDD, Arthritis, C diff, migraine and other medical problems who presented to the emergency room with weakness, chills Being managed for Severe sepsis with Acute kidney injury Most likely due to complicated urinary tract infection and setting of chronic immunosuppression on chronic steroid use. Hypotension on admission resolved with IVF Lab on admission notable for leukocytosis 19K, Hb of 10, Cr of 1.47, procal 31.5, Trop 21 UA suggestive of UTI CXR did not show any acute findings Blood culture growing E coli. Urine culture showed multiple org likely skin ashley Patient was treated with IV ceftriaxone in the hospital Leukocytosis resolved Patient reported history of severe C diff and was told by GI to always take vancomycin when on antibiotics. I reviewed [facility] and GI Dr Ling strongly recommended in his note on 11/12/2021 for patient to always have po vancomycin overlap with any antibiotics in the future for entire period of antibiotics and 2 weeks following. ID evaluated and recommended discharge on po Bactrim DS 1 BID till 06/09/25 to completer treatment of bacteremia and to continue po vancomycin 125mg BID until a week after completion of bactrim for c diff prophylaxis Acute kidney injury is resolved PCP to monitor renal function on follow up Continue home felodipine Anemia. Hb dropped to 7.9 from 10 on admission No active bleeding Possibly dilutional as all cell lines dropped and got IVF Hb remained stable at 7.9 for the past 3 days Total Time Total Time Spent Total Time Spent (In Minutes): 35 Total Time Includes: Examination of the Patient, Discharge Planning and Medication Reconciliation Discharge Plan Discharge Items Patient Disposition: Home - Self-Care Reason For Visit: SEPSIS Discharge Diagnosis: Severe Sepsis E coli bacteremia Acute Kidney Injury Condition on Discharge: Fair Activity: Resume your previous activity Non-emergency contact: Primary Care Provider Call non-emergency contact if: you have any medication questions Follow-up/Referrals: Anupam Huang MD [Primary Care Provider] - (Date & Time 06/04/2025 3:50 PM Provider: Anupam Huang MD [facility] ) Diet: Heart Healthy Addtl Attending Provider Instructions: Mrs Venegas You were hospitalized and managed for the above listed diagnoses. You received injection antibiotics. You are being discharged on oral antibiotics (Bactrim DS) twice a day until 06/09/2025. You were also started oral vancomycin for C diff prophylaxis until 06/16/25. Please ensure follow up with your Primary Doctor who will monitor your kidney function. It was a pleasure taking care of you Pending Studies at Discharge: No Stand-Alone Forms: [place] [facility] [place], Smoking Cessation Medications and DC Order Prescriptions: New vancomycin 125 mg capsule 125 mg PO BID Qty: 36 0RF sulfamethoxazole-trimethoprim [Bactrim DS] 800-160 mg tablet 1 tab PO BID Qty: 22 0RF Continued famotidine 40 mg tablet 40 mg PO DAILY gabapentin 600 mg tablet 600 mg PO HS tramadol 50 mg tablet 50 mg PO TID pantoprazole 20 mg tablet,delayed release (DR/EC) 40 mg PO BID sumatriptan succinate [Imitrex] 50 mg tablet 50 mg PO Q2H PRN (Reason: migraines) Travatan Z 0.004 % drops 1 drops OP QPM Tylenol Extra Strength 500 mg powder in packet 500 mg PO Q6H PRN (Reason: PAIN/FEVER) colchicine 0.6 mg Tablet 0.6 mg PO QAM sertraline 50 mg Tablet 50 mg PO QAM clonazepam 1 mg Tablet,Disintegrating 1 mg PO DAILY calcium carbonate-vitamin D3 [Calcium 600 + D(3)] 600 mg calcium- 200 unit Capsule 2 cap PO QAM Xiidra 5 % Dropperette 1 drp OPHTHALMIC (EYE) BID celecoxib 200 mg capsule 200 mg PO BID felodipine 2.5 mg tablet extended release 24 hr 2.5 mg PO QAM prednisone 5 mg tablet 5 mg PO QAM Align (B.infantis) 10.5 mg (10 million cell) Tablet,Chewable 10.5 mg PO DAILY hydroxychloroquine 200 mg tablet 200 mg PO DAILY dorzolamide 2 % Drops 1 drp OPHTHALMIC (EYE) BID gabapentin 300 mg capsule 300 mg PO BID bisacodyl [Dulcolax (bisacodyl)] 5 mg Tablet,Delayed Release (Dr/Ec) 5 mg PO DAILY PRN (Reason: Constipation) polyethylene glycol 3350 [Miralax] 17 gram/dose Powder 17 g PO DAILY PRN (Reason: Constipation) ondansetron 4 mg tablet,disintegrating 4 mg PO DIRECTED PRN (Reason: Nausea And Vomiting) Metamucil 0 packet PO DAILY PRN (Reason: Constipation) Patient Comments: 05/26- otc unable to verify Discontinued diazepam 5 mg tablet 5 mg PO UD Patient Comments: 05/26-per pt she uses before procedures Rx Instructions: 5 mg PO 1 PO qhs night prior, then 1.5 hours before procedure, then may repeat 0.5 hours prior to procedure; Discharge Orders: Discharge Order (Routine); Ordered 05/29/25 Ordered By: Sara Sanches Admission Data Admit Date/Time: 05/26/25 14:12 Attending Provider: Sara Sanches I. Admit Provider: Thong Sin Primary Care Provider: Anupam Huang Other Providers: Thong Sin; Abraham Blake; Kelley Rinaldi; Grzegorz St I.; Hussain Barbosa II; Luisa Osuna; Marty Sin; Sudhakar Wilson; Chris Solorio Other Interventions: Discharge Summary Assessment (RN) Last Done: 05/29/25 10:56
[2025-05-29 10:58] VITALS: PULSE 56
== END 2025-05-29 12:48 | disposition home or self-care (01) | DRG 872 ==
LOC: ED 09:11 → 2S 14:12 → SUATTDRO 14:12 → 2S 16:03

== ENCOUNTER 2025-06-08 13:10 | Observation (INO) ==
--- NOTE | 2025-06-08 13:40 | Emergency Department Note ---
Impression & Plan Ambulatory dysfunction, EFREM (acute kidney injury), Weakness ED Provider Note CHIEF COMPLAINT: Weakness, dehydration HISTORY OF PRESENTING ILLNESS: I evaluated the 84-year-old female who presents to the emergency department with her daughter stating that she has been feeling "dehydrated" as well as very weak. She reports that she typically ambulates with a walker but has been struggling to do so. She was recently hospitalized for sepsis and was feeling much better upon discharge but then slowly began to feel weak again. She denies fever, chills, urinary symptoms, chest pain, shortness of breath, abdominal pain. She also reports that she may have a rectal prolapse. She request that I look at it. She does state that it was evaluated by another provider and she does not want to have surgery at this time but wants to make sure nothing needs to be done currently. REVIEW OF SYSTEMS: See HPI for pertinent positives and pertinent negatives. ALLERGIES: Ritonavir, cephalexin, oxycodone, nirmatrelvir, adhesive MEDICATIONS: See below PAST MEDICAL HISTORY: See below PHYSICAL EXAM: VITALS: Vitals are noted on the nurse's note and reviewed by myself. Vital signs stable. GENERAL: 84-year-old female, sitting in a wheelchair, in no acute distress, nondiaphoretic, well-developed well-nourished. SKIN: Capillary refill less than 2 seconds. HEENT: Normocephalic. PERRLA. EOMI. Nares patent. Mucous membranes moist. Neck is supple without nuchal rigidity. HEART: Regular rate and rhythm without murmurs gallops or rubs. LUNGS: CTA BL without wheezes, rales or rhonchi. No retractions or accessory muscle use. ABDOMEN: Soft, nontender, without masses or organomegaly. No guarding or rebound tenderness. MUSCULOSKELETAL: No gross musculoskeletal defects. No pedal edema. NEURO: Patient was alert and oriented to person place and time. No focal neurological deficits. RECTAL - No rectal fissures. There is an external hemorrhoid appreciated. This is not thrombosed. No rectal prolapse appreciated on exam. There is a small surrounding erythematous rash that appears to be either a heat rash or Noemi infection. The patient reports that it is mildly tender but it does not itch. DIFFERENTIAL DIAGNOSIS: cardiac cause, peripheral neuropathy, back pain, hypoglycemia, electrolyte abnormality, thyroid disorder, sepsis, UTI, pyelonephritis, stroke, TIA, medication side effect, among others. ED COURSE AND MEDICAL DECISION MAKING: HISTORY FROM INDEPENDENT HISTORIAN: The patient herself and her daughter. MEDICATIONS GIVEN: 1 L normal saline IV MONITOR: Continuous horse trainer: Order was placed for continuous horse trainer. Patient was placed on the horse trainer and continuous pulse ox. Patient was noted to be in normal sinus rhythm at an initial rate of 62 bpm per my interpretation. EKG: EKG was interpreted by myself as normal sinus rhythm. Left axis deviation. No obvious arrhythmias. INTERPRETATION OF LABS: I interpreted the labs with full lab results as below in the lab section of this note. Pertinent lab results discussed in the MDM section below. INTERPRETATION OF IMAGING: Imaging studies were interpreted by myself and read by radiology as per the imaging section of this note. Chest x-ray - Cardiomegaly with no acute cardiopulmonary abnormality identified. ESCALATION OF CARE CONSIDERED: Escalation of care was considered due to the patient's presentation of weakness as well as a recent admission 2 weeks ago for sepsis due to UTI. A full workup was completed showing acute EFREM and ambulatory dysfunction. The patient was admitted to medicine. CONSULTATIONS: On-call [facility] hospitalist Evelyne Blount PA-C -presented the patient to the provider. I did inform her that she was extremely weak when ambulating to the restroom to give a urine sample. Blood work does reveal EFREM. Urinalysis does not show infection at this time. She agrees to evaluating the patient to admit her to medicine for further workup and treatment. MDM SUMMARY: I evaluated the 84-year-old female who presents to the emergency department due to weakness. See HPI and physical exam above. IV access was established and labs were obtained. EKG shows normal sinus rhythm with an initial rate of 62 bpm. Chest x-ray shows cardiomegaly without acute cardiopulmonary abnormality. Mild leukocytosis WBC 12.27. RBC 4.30. Hemoglobin hematocrit 10.7/35.6. This is within the patient's normal limits and is elevated from her previous hospital stay. Coagulation panel within normal limits. No electrolyte abnormality. BUN elevated 25. Creatinine elevated 2.03. Patient was given 1 L normal saline. Glucose 74. Troponin mildly elevated 16.3. Does deny all cardiac symptoms. Urinalysis does not show any sign of infection or hematuria at this time. All results were thoroughly reviewed with the patient and discussed with her and her daughter that it is of her best interest to be admitted to medicine for resolution of EFREM and further investigation as to why her BUN and creatinine levels do need to elevate. She also feels weak and is not able to ambulate on her own. She required assistance walking from the bed to the restroom to provide the urinalysis. The patient is in agreements to this plan. When I did talk with the hospitalist we noticed that the patient was discharged from the hospital previously on oral vancomycin as well as Bactrim. This may be the cause of the patient's elevated levels. I did inform the hospitalist team over the patient's concerns of her rectal prolapse and that a prolapse was not visualized on exam. I did inform them of a rash noted around the rectal area on exam. Consultation with the on-call hospitalist can be seen in detail above. The patient was admitted to medicine in stable condition. DIAGNOSIS: Ambulatory dysfunction, EFREM, weakness The chart was completed utilizing [employer] Speech voice recognition software. Grammatical errors, random word insertions, pronoun errors, and incomplete sentences are an occasional consequence of this system due to software limitations, ambient noise, and hardware issues. Any formal questions or concerns about the content, text, or information contained within the body of this dictation should be directly addressed to the provider for clarification. Past Med/Surg History Problem List Weakness (Acute) EFREM (acute kidney injury) (Acute) Ambulatory dysfunction E coli bacteremia Sepsis (Acute) Acute UTI (urinary tract infection) (Acute) Hypotension (Acute) Dehydration (Acute) Multilevel degenerative joint disease of spine Complicated urinary tract infection Demand ischemia Acute kidney injury Severe sepsis with acute organ dysfunction Generalized weakness (Acute) Sacroiliitis Lumbar degenerative disc disease Spinal stenosis of lumbar region with neurogenic claudication Scoliosis deformity of spine Lumbosacral facet joint syndrome COVID-19 (Acute) Cervical stenosis of spine Cervical facet joint syndrome Cervical spondylosis Pre-procedural laboratory examination SBO (small bowel obstruction) (Acute) Neck discomfort Abnormal ultrasound of endometrium Right toe amputee Depression pt denies Surgical wound, non healing Abscess of right middle finger MRSA (methicillin resistant staph aureus) culture positive History of melanoma Traumatic wound Knee pain, bilateral Tricompartment degenerative joint disease of knee Skin rash Migraine Carpal tunnel syndrome, bilateral Arthritis Encounter for pre-operative examination Hammertoe of second toe of left foot Surgery follow-up Degenerative arthritis of knee, bilateral Sepsis (Acute) Abdominal pain (Acute) Pneumonia (Acute) Leukocytosis (Acute) Splenic infarct (Acute) IVC thrombosis Recurrent Clostridioides difficile diarrhea Cough Edema Bilateral pleural effusion Hammertoe of right foot Scleroderma CKD (chronic kidney disease) per records GERD (gastroesophageal reflux disease) Medical History Ambulatory dysfunction Rheumatoid arthritis History of melanoma right heel & chest wall Calcinosis Hx of Clostridium difficile infection C. difficile colitis Hx MRSA infection Patella-femoral syndrome Chronic back pain Osteoporosis Osteoarthritis Migraine Glaucoma Restless leg syndrome Spondylolisthesis of cervical region FULL ROM Surgical History S/P dilation and curettage History of amputation RT LEFT TOE AMPUTATION Hx of surgical procedure left hand pointer finger repair Hx of bilateral cataract extraction History of surgery repair of prolapsed rectum History of tooth extraction History of tubal ligation History of hand surgery Rt finger History of colonoscopy w/ polypectomy History of Mohs micrographic surgery for skin cancer S/P LASIK surgery of both eyes History of carpal tunnel surgery bilateral Family History Father Family hx of colon cancer Colorectal cancer Other Breast cancer No family history of adverse response to anesthesia Denies family history of Ovarian cancer Uterine cancer Social History Smoking Status: Former smoker Tobacco Type: Cigarettes Second Hand Exposure: No; Hx Alcohol Use: Yes Alcohol type: wine Hx Substance Use: No Preferred Language: Setswana Communication Ability: Effective Visual Impairment: No Limitations Hearing Ability: Normal Instrumentation Tech Required: No Beliefs That Will Affect Care: None marital status: / Current Living Situation: Alone current occupational status: retired Feels Safe at Home: Yes Childhood Exposure to Second-Hand Smoke: No Assistive Devices: Cane and Walker Allergies Allergies Allergy/AdvReac Type Severity Reaction Status Date / Time nirmatrelvir [From Paxlovid] Allergy Intermediate Hives Verified 05/23/25 10:56 ritonavir [From Paxlovid] Allergy Intermediate Hives Verified 05/23/25 10:56 cephalexin [From Keflex] Allergy Mild rash Verified 05/23/25 10:56 oxycodone Allergy Mild rash Verified 05/23/25 10:56 adhesive AdvReac Mild SKIN Verified 05/23/25 10:56 IRRITATION Home Meds Home Medications Medication Instructions Recorded Confirmed sumatriptan succinate 50 mg tablet 50 mg PO Q2H PRN migraines 06/22/19 06/08/25 (Imitrex) travoprost 0.004 % eye drops 1 drops ophthalmic (eye) QPM 06/22/19 06/08/25 (Travatan Z) calcium 600 mg (as 2 cap PO QAM 04/25/20 06/08/25 carbonate)-vitamin D3 5 mcg (200 unit) capsule (Calcium 600 + D(3)) clonazepam 1 mg disintegrating 1 mg PO DAILY 04/25/20 06/08/25 tablet colchicine 0.6 mg tablet 0.6 mg PO QAM 04/25/20 06/08/25 lifitegrast 5 % eye drops in a 1 drp ophthalmic (eye) BID 04/25/20 06/08/25 dropperette (Xiidra) sertraline 50 mg tablet 50 mg PO QAM 04/25/20 06/08/25 celecoxib 200 mg capsule 200 mg PO BID 08/12/21 06/08/25 felodipine 2.5 mg tablet,extended 2.5 mg PO QAM 08/12/21 06/08/25 release 24 hr prednisone 5 mg tablet 5 mg PO QAM 08/12/21 06/08/25 Bifidobacterium infantis 10.5 mg 10.5 mg PO DAILY 12/05/21 06/08/25 (10 million cell) chewable tablet (Align (B.infantis)) acetaminophen 500 mg oral powder 500 mg PO Q6H PRN PAIN/FEVER 07/20/23 06/08/25 packet (Tylenol Extra Strength) dorzolamide 2 % eye drops 1 drp ophthalmic (eye) BID 11/05/23 06/08/25 hydroxychloroquine 200 mg tablet 200 mg PO DAILY 11/05/23 06/08/25 famotidine 40 mg tablet 40 mg PO DAILY 11/24/23 06/08/25 gabapentin 300 mg capsule 300 mg PO BID 11/24/23 06/08/25 gabapentin 600 mg tablet 600 mg PO HS 11/24/23 06/08/25 pantoprazole 20 mg tablet,delayed 40 mg PO BID 09/26/24 06/08/25 release tramadol 50 mg tablet 50 mg PO TID 09/26/24 06/08/25 Metamucil 0 packet PO DAILY PRN Constipation 05/26/25 06/08/25 bisacodyl 5 mg tablet,delayed 5 mg PO DAILY PRN Constipation 05/26/25 06/08/25 release (Dulcolax (bisacodyl)) ondansetron 4 mg disintegrating 4 mg PO DIRECTED PRN Nausea And 05/26/25 06/08/25 tablet Vomiting polyethylene glycol 3350 17 17 g PO DAILY PRN Constipation 05/26/25 06/08/25 gram/dose oral powder (Miralax) Previous Rx's Medication Instructions Recorded sulfamethoxazole 800 1 tab PO BID #22 tabs 05/29/25 mg-trimethoprim 160 mg tablet (Bactrim DS) vancomycin 125 mg capsule 125 mg PO BID #36 caps 05/29/25 Results & Data (ED) Vital Signs Vital Signs - 24 hr 06/08/25 15:13 06/08/25 15:30 06/08/25 16:00 Pulse Rate 66 62 62 Respiratory Rate 12 12 Blood Pressure 114/60 110/61 Blood Pressure Mean 78 77 Pulse Oximetry 96 93 Oxygen Delivery Method Room Air Room Air 06/08/25 16:00 06/08/25 17:00 Pulse Rate 62 66 Respiratory Rate 12 19 Blood Pressure 110/61 117/57 L Blood Pressure Mean 70 77 Pulse Oximetry 94 94 Oxygen Delivery Method Room Air Room Air Laboratory Data 06/09/25 06:49 06/09/25 06:49 Lab Results 06/08/25 06/08/25 Range/Units 13:25 16:33 WBC 12.27 H (4.8-10.8) K/ul RBC 4.30 (4.20-5.40) M/uL Hgb 10.7 L (12.0-16.0) g/dl Hct 35.6 L (37.0-47.0) % MCV 82.8 (80.0-100.0) fL MCH 24.9 L (25.0-34.0) pg MCHC 30.1 L (32.0-36.0) g/dL RDW Std Deviation 48.9 H (36.4-46.3) fL RDW Coeff of Lila 16.7 H (11.5-14.5) % Plt Count 537 H (130-400) K/uL MPV 9.3 L (9.4-12.4) fL Immature Gran % (Auto) 0.7 % Neut % (Auto) 70.4 % Lymph % (Auto) 18.3 % Tyler % (Auto) 6.7 % Eos % (Auto) 3.2 % Baso % (Auto) 0.7 % Neut # (Auto) 8.65 H (1.40-6.50) K/uL Lymph # (Auto) 2.24 (1.20-3.40) K/uL Tyler # (Auto) 0.82 H (0.11-0.59) K/uL Eos # (Auto) 0.39 (0.00-0.50) K/uL Baso # (Auto) 0.08 (0.00-0.20) K/uL Immature Gran # (Auto) 0.09 (0.01-0.20) K/uL PT 11.0 (9.0-12.0) Seconds INR 1.0 (0.9-1.1) APTT 29 (21-31) Seconds PTT Ratio 1.1 Sodium 138 (136-145) mmol/L Potassium 4.3 (3.5-5.1) mmol/L Chloride 106 (98-107) mmol/L Carbon Dioxide 23 (21-32) mmol/L Anion Gap 9 (3-11) BUN 25 H (6-23) mg/dl Creatinine 2.03 H (0.6-1.2) mg/dl Est Cr Clr Drug Dosing Not Reportable eGFR 24.05 BUN/Creatinine Ratio 12.3 (10-20) Glucose 74 (70-99(Fasting)) mg/dl Calcium 9.4 (8.6-10.3) mg/dl Total Bilirubin 0.2 (0.2-1.0) mg/dl AST 20 (13-39) U/L ALT 12 (7-52) U/L Alkaline Phosphatase 57 (34-104) U/L Troponin I High Sens 17.3 H (0-14) pg/ml Total Protein 7.4 (6.0-8.3) gm/dl Albumin 4.2 (3.4-5.0) gm/dl Globulin 3.2 (2.5-4.0) gm/dl Albumin/Globulin Ratio 1.3 (0.9-2) Urine Color Yellow Urine Appearance Clear (Clear) Urine pH 6.0 (4.5-7.5) Ur Specific [place] 1.008 (1.000-1.030) Urine Protein Negative (Negative) Urine Glucose (UA) Negative (Negative) Urine Ketones Negative (Negative) Urine Blood Negative (Negative) Urine Nitrite Negative (Negative) Urine Bilirubin Negative (Negative) Urine Urobilinogen Negative (Negative) Ur Leukocyte Esterase Trace H (Negative) Urine WBC (Auto) 0-5 (0-5) /hpf Urine RBC (Auto) 0-2 (0-2) /hpf U Hyaline Cast (Auto) 3-5 H (0-2) /lpf U Epithel Cells (Auto) 0-2 (0-2) /hpf Urine Bacteria (Auto) None Seen (None Seen) Urine Comment Administered Medications Dos Santos Syrup (Dos Santos Syrup 5 Ml Udp) 5 ml PO Q12H RAMO Stop: 06/16/25 20:59 Last Admin: 06/09/25 08:02 Dose: 5 ml Documented By: Admin: 06/08/25 21:02 Dose: 5 ml Documented By: MEERA Clonazepam (Clonazepam 1 Mg Tab) 1 mg PO HS RAMO Stop: 07/08/25 21:29 Last Admin: 06/08/25 22:13 Dose: 1 mg Documented By: MEERA Colchicine (Colchicine 0.6 Mg Tab) 0.6 mg PO QAM RAMO Stop: 07/09/25 08:59 Last Admin: 06/09/25 07:56 Dose: 0.6 mg Documented By: MACIE Cyanocobalamin (Cyanocobalamin (B-12) 500 Mcg Tablet) 1,000 mcg PO QAM RAMO Stop: 07/09/25 08:59 Last Admin: 06/09/25 11:15 Dose: 1,000 mcg Documented By: MACIE Dorzolamide HCl (Dorzolamide Hcl 2% Oph Soln 10 Ml Btl) 1 drops OP BID RAMO Stop: 07/08/25 20:59 Last Admin: 06/09/25 07:56 Dose: 1 drops Documented By: Admin: 06/08/25 20:59 Dose: 1 drops Documented By: MEREA Gabapentin (Gabapentin 300 Mg Cap) 300 mg PO BID RAMO Stop: 07/08/25 20:59 Last Admin: 06/09/25 07:55 Dose: 300 mg Documented By: PHARMACY TECHNICIAN ASSISTANT Admin: 06/08/25 21:04 Dose: 300 mg Documented By: MEERA Heparin Sodium (Porcine) (Heparin Sod 5,000 Unit/0.5 Ml Vial) 5,000 units SQ Q8 RAMO Stop: 07/08/25 21:59 Last Admin: 06/09/25 15:04 Dose: 5,000 units Documented By: PHARMACY TECHNICIAN ASSISTANT Admin: 06/09/25 06:12 Dose: 5,000 units Documented By: Admin: 06/08/25 21:10 Dose: 5,000 units Documented By: MEERA Hydroxychloroquine Sulfate (Hydroxychloroquine Sulfate 200 Mg Tab) 200 mg PO DAILY RAMO Stop: 07/09/25 08:59 Last Admin: 06/09/25 07:55 Dose: 200 mg Documented By: MACIE Ceftriaxone Sodium (Rocephin) 2,000 mg in 50 mls @ 100 mls/hr IV Q24H RAMO Stop: 06/10/25 19:15 Last Infusion: 06/08/25 21:30 Dose: Infused Documented By: Admin: 06/08/25 20:56 Dose: 100 mls/hr Documented By: MEERA Folic Acid 1 mg/ Syringe 10 mls @ 5 mls/min IV QAM RAMO Stop: 07/09/25 08:59 Last Admin: 06/09/25 11:16 Dose: 5 mls/min Documented By: MACIE Lactobacillus Acidophilus (Advanced Probiotic 625 Mg Capsule) 1,250 mg PO DAILY RAMO Stop: 07/09/25 08:59 Last Admin: 06/09/25 07:56 Dose: 1,250 mg Documented By: MACIE Pantoprazole Sodium (Pantoprazole 40 Mg Tab) 40 mg PO BID RAMO Stop: 07/08/25 20:59 Last Admin: 06/09/25 07:55 Dose: 40 mg Documented By: Admin: 06/08/25 21:04 Dose: 40 mg Documented By: MEERA Prednisone (Prednisone 5 Mg Tab) 5 mg PO QAM RAMO Stop: 07/09/25 08:59 Last Admin: 06/09/25 07:56 Dose: 5 mg Documented By: MACIE Sertraline HCl (Sertraline Hcl 50 Mg Tablet) 50 mg PO QAM RAMO Stop: 07/09/25 08:59 Last Admin: 06/09/25 07:55 Dose: 50 mg Documented By: MACIE Tramadol HCl (Tramadol Hcl 50 Mg Tablet) 50 mg PO TID RAMO Stop: 07/08/25 20:59 Last Admin: 06/09/25 15:04 Dose: 50 mg Documented By: Admin: 06/09/25 08:01 Dose: 50 mg Documented By: Admin: 06/08/25 21:04 Dose: Not Given Documented By: MEERA Travoprost (Travoprost Z 0.004% Oph Soln 2.5 Ml Btl) 1 drops OP QPM RAMO Stop: 07/08/25 20:59 Last Admin: 06/08/25 20:59 Dose: 1 drops Documented By: MEERA Vancomycin HCl (Vancomycin Hcl 125 Mg/2.5ml Soln) 125 mg PO Q12H RAMO Stop: 06/16/25 20:59 Last Admin: 06/09/25 08:02 Dose: 125 mg Documented By: Admin: 06/08/25 21:02 Dose: 125 mg Documented By: MEERA Discontinued Medications Sodium Chloride (Nss) 1,000 mls @ 999 mls/hr IV .Q1H1M ONE Stop: 06/08/25 17:50 Last Infusion: 06/08/25 18:00 Dose: Infused Documented By: Admin: 06/08/25 16:54 Dose: 999 mls/hr Documented By: BLANCA Sodium Chloride (Nss) 1,000 mls @ 125 mls/hr IV .Q8H RAMO Stop: 06/09/25 10:43 Last Infusion: 06/09/25 13:21 Dose: Infused Documented By: Admin: 06/09/25 06:14 Dose: 120 mls/hr Documented By: Infusion: 06/09/25 05:42 Dose: Infused Documented By: Infusion: 06/08/25 22:13 Dose: 120 mls/hr Documented By: Admin: 06/08/25 20:56 Dose: 80 mls/hr Documented By: MEERA Imaging Data Radiologist's Impression: Chest X-Ray 06/08/25 13:23 SINGLE VIEW CHEST CLINICAL HISTORY: Chest pain FINDINGS: A PA chest radiograph is compared to study dated 05/26/2025 and correlated with chest CT dated 04/10/2021. The heart is enlarged noting atherosclerotic calcification of the thoracic aorta. The pulmonary vasculature is noncongested. Chronic interstitial thickening is similar to previous. There is bibasilar scarring/atelectasis. No airspace consolidation or pleural effusion is identified. No pneumothorax is seen. The skeletal structures are osteopenic. The bony thorax is grossly intact. Degenerative change and scoliosis is noted in the spine. IMPRESSION: Cardiomegaly with no acute cardiopulmonary abnormality identified. ACT 112: Negative or not required by law. Electronically signed by: Devante Ortiz M.D. 06/08/2025 2:59 PM Discharge Plan Visit Data Chief Complaint: Weakness Stated Complaint: WEAKNESS,DEHYDRATED ED Provider: Devante Chapman ED Midlevel Provider: Kristy Cain Discharge Problem: Ambulatory dysfunction, EFREM (acute kidney injury), Weakness Patient Disposition: Admitted As Inpatient Condition: Fair Discharge Instructions Interventions: ED Discharge Assessment Last Done: 06/08/25 18:09
[2025-06-08 13:53] LABS: Hematocrit (blood only) 35.6 % (37.0-47.0); Hemoglobin 10.7 g/dl (12.0-16.0); Immature Granulocytes # (auto) 0.09 K/uL (0.01-0.20); Immature Granulocytes % (auto) 0.7 %; Mean Corpuscular Hemoglobin 24.9 pg (25.0-34.0); Mean Corpuscular Volume 82.8 fL (80.0-100.0); Platelet Count 537 K/uL (130-400); RDW Standard Deviation 48.9 fL (36.4-46.3); Red Blood Count 4.30 M/uL (4.20-5.40); White Blood Count 12.27 K/ul (4.8-10.8)
[2025-06-08 14:20] LABS: Alanine Aminotransferase 12 U/L (7-52); Albumin Globulin Ratio 1.3 (0.9-2); Alkaline Phosphatase 57 U/L (34-104); Anion Gap 9 (3-11); Bilirubin,Total 0.2 mg/dl (0.2-1.0); Blood Urea Nitrogen 25 mg/dl (6-23); Calcium 9.4 mg/dl (8.6-10.3); Carbon Dioxide 23 mmol/L (21-32); Chloride 106 mmol/L (98-107); Globulin 3.2 gm/dl (2.5-4.0); Glucose 74 mg/dl (70-99(Fasting)); Potassium 4.3 mmol/L (3.5-5.1); Sodium 138 mmol/L (136-145); Total Protein 7.4 gm/dl (6.0-8.3)
[2025-06-08 14:31] LABS: INR 1.0 (0.9-1.1); Partial Thromboplastin Time 29 Seconds (21-31); Prothrombin Time 11.0 Seconds (9.0-12.0)
--- NOTE | 2025-06-08 15:01 | XRay Report ---
SINGLE VIEW CHEST CLINICAL HISTORY: Chest pain FINDINGS: A PA chest radiograph is compared to study dated 05/26/2025 and correlated with chest CT date d 04/10/2021. The heart is enlarged noting atherosclerotic calcification of the thoracic aorta. The pu lmonary vasculature is noncongested. Chronic interstitial thickening is similar to previous. There is bibasilar scarring/atelectasis. No airspace consolidation or pleural effusion is identified. No pneu mothorax is seen. The skeletal structures are osteopenic. The bony thorax is grossly intact. Degenera tive change and scoliosis is noted in the spine. IMPRESSION: Cardiomegaly with no acute cardiopulmonary abnormality identified. ACT 112: Negative or not required by law. Electronically signed by: Devante Ortiz M.D. 06/08/2025 2:59 PM
--- NOTE | 2025-06-08 15:11 | Electrocardiogram Report ---
Test Reason : Blood Pressure : */* mmHG Vent. Rate : 62 BPM Atrial Rate : 62 BPM P-R Int : 208 ms QRS Dur : 66 ms QT Int : 380 ms P-R-T Axes : 47 -49 9 degrees QTcB Int : 385 ms Normal sinus rhythm with sinus arrhythmia Left axis deviation Anteroseptal infarct (cited on or before 29-Aug-2012) Abnormal ECG When compared with ECG of 26-May-2025 09:21, QRS axis Shifted left Inverted T waves have replaced nonspecific T wave abnormality in Anterior leads Confirmed by Raúl Weston ([id number]) on 06/08/2025 3:11:17 PM Referred By: Confirmed By: Raúl Weston
[2025-06-08] MEDS: SODIUM CHLORIDE 0.9% 1,000 ML IV ONE (16:54)
[2025-06-08 16:56] LABS: Appearance Urine Clear (Clear); Bacteria Urine Automated None Seen (None Seen); Epithelial Cell Urine Auto 0-2 /hpf (0-2); Glucose Urine UA Negative (Negative); RBC Urine Automated 0-2 /hpf (0-2); WBC Urine Automated 0-5 /hpf (0-5)
--- NOTE | 2025-06-08 17:22 | Emergency Department Note ---
ED Visit Note I was consulted by the Advanced Practice Provider. I personally made/approved the management plan and take responsibility for the patient management. I performed a substantive portion of the visit. This includes the aspects of: [-I independently interpreted the following studies:][Chest x-ray does not show CHF or pneumonia.] Patient presents with weakness. Workup suggest acute kidney injury/dehydration. She did have a slightly elevated cardiac troponin. Given her findings, given her presentation, hospitalization is indicated. Further workup/care is warranted. .
--- NOTE | 2025-06-08 17:28 | History & Physical Report ---
Date of Service June 08, 2025 Assessment & Plan (1) Generalized weakness: (2) Acute kidney injury: (3) Ambulatory dysfunction: Plan This is an 84-year-old female who has a significant past medical history of scleroderma, Raynaud's disease, IBS, GERD, CKD stage III, osteoporosis, arthritis, pseudogout, history of lumbar spinal stenosis, glaucoma, depression, history of C. difficile who presents to ED secondary to generalized weakness. #Generalized weakness #Ambulatory dysfunction #EFREM/CKD-3 #Recent E.Coli Bactermia admit to [facility] stop Bactrim DS, possible culprit of EFREM, cr on 05/29 was 0.89, 06/04 cr was 1.5 and today 2.0 baseline cr ~ 1.0 resume IV ceftriaxone 2g daily for additional 2 doses to complete treatment for previous bacteremia obtain urine for eosinophils, possibility of AIN, but UA mostly bland except hyaline casts if cr not improving or worsening obtain nephrology evaluation NSS 80cc/hr for additional 2L, received 1L in ED #Hx of severe cdiff continue oral vanco though 06/16 obtain stool for cdiff given reported loose stools #Scleroderma chronic, stable on hydroxychlorquine #Osteoarthritis: on chronic 5mg prednisone daily #Anemia: h/h 10.7 and 35.6, improved from recent admission, will obtain anemia panel in a.m #Elevated troponin: 17.3pg/ml, no CP or ecg changes, will trend but suspect 2/2 EFREM DVT ppx: SQ Heparin FULL CODE PCP: Sal Dispo: admit to [facility], PT/OT consulted, pt interested in therapy services at discharge pending evals Pt was seen and examined in collaboration with Dr. Beebe, please see addendum I spent a total of 60 minutes coordinating, documenting and providing care for this patient excluding time spent in the performance of separately billed services or time spent by another provider/QHP. History of Present Illness Chief Complaint: Generalized weakness Primary Care Provider: Anupam Huang MD This is an 84-year-old female who has a significant past medical history of scleroderma, Raynaud's disease, IBS, GERD, CKD stage III, osteoporosis, arthritis, pseudogout, history of lumbar spinal stenosis, glaucoma, depression, history of C. difficile who presents to ED secondary to generalized weakness. Of significance patient was recently hospitalized May 26 through May 29 secondary to severe sepsis, EFREM and a complicated UTI. She was bacteremic with positive blood cultures growing E. coli. She was initially started on IV ceftriaxone. Infectious disease was consulted and she was recommended to be discharged on oral Bactrim DS 1 tablet twice daily through 06/09/2025. She was also prescribed a prolonged course of oral vancomycin due to a prior history of severe C. difficile. Patient, daughter at bedside as well as external chart review. Upon recent discharge she initially was doing well. Over the last 5 days she has had a gradual increase in generalized weakness. This morning she was unable to get ou t of bed due to feeling so weak. She has been eating and drinking well. Daughter feels she has been drinking anywhere between 1 to 1-1/2 L of fluid a day. She has been taking her antibiotics as prescribed with her last dose being this morning. She denies any fever, chills, sweats, lightheadedness, dizziness, chest pain, shortness of breath, nausea, vomiting, abdominal pain. She has noticed a change in her urination and she feels like she is not urinating as much with occasional urinary urgency, but denies any hematuria or dysuria. She also reports 6 episodes of loose stool with occasional incontinence. She thinks she is having a rectal prolapse. She has had this in the past which required surgical repair. Currently she has no symptoms of prolapse. Allergies Allergy/AdvReac Type Severity Reaction Status Date / Time nirmatrelvir [From Paxlovid] Allergy Intermediate Hives Verified 05/23/25 10:56 ritonavir [From Paxlovid] Allergy Intermediate Hives Verified 05/23/25 10:56 cephalexin [From Keflex] Allergy Mild rash Verified 05/23/25 10:56 oxycodone Allergy Mild rash Verified 05/23/25 10:56 adhesive AdvReac Mild SKIN Verified 05/23/25 10:56 IRRITATION Home Medications Medication Instructions Recorded Confirmed Type sumatriptan succinate 50 mg tablet 50 mg PO Q2H PRN migraines 06/22/19 06/08/25 History (Imitrex) travoprost 0.004 % eye drops 1 drops ophthalmic (eye) QPM 06/22/19 06/08/25 History (Travatan Z) calcium 600 mg (as 2 cap PO QAM 04/25/20 06/08/25 History carbonate)-vitamin D3 5 mcg (200 unit) capsule (Calcium 600 + D(3)) clonazepam 1 mg disintegrating 1 mg PO DAILY 04/25/20 06/08/25 History tablet colchicine 0.6 mg tablet 0.6 mg PO QAM 04/25/20 06/08/25 History lifitegrast 5 % eye drops in a 1 drp ophthalmic (eye) BID 04/25/20 06/08/25 History dropperette (Xiidra) sertraline 50 mg tablet 50 mg PO QAM 04/25/20 06/08/25 History celecoxib 200 mg capsule 200 mg PO BID 08/12/21 06/08/25 History felodipine 2.5 mg tablet,extended 2.5 mg PO QAM 08/12/21 06/08/25 History release 24 hr prednisone 5 mg tablet 5 mg PO QAM 08/12/21 06/08/25 History Bifidobacterium infantis 10.5 mg 10.5 mg PO DAILY 12/05/21 06/08/25 History (10 million cell) chewable tablet (Align (B.infantis)) acetaminophen 500 mg oral powder 500 mg PO Q6H PRN PAIN/FEVER 07/20/23 06/08/25 History packet (Tylenol Extra Strength) dorzolamide 2 % eye drops 1 drp ophthalmic (eye) BID 11/05/23 06/08/25 History hydroxychloroquine 200 mg tablet 200 mg PO DAILY 11/05/23 06/08/25 History famotidine 40 mg tablet 40 mg PO DAILY 11/24/23 06/08/25 History gabapentin 300 mg capsule 300 mg PO BID 11/24/23 06/08/25 History gabapentin 600 mg tablet 600 mg PO HS 11/24/23 06/08/25 History pantoprazole 20 mg tablet,delayed 40 mg PO BID 09/26/24 06/08/25 History release tramadol 50 mg tablet 50 mg PO TID 09/26/24 06/08/25 History Metamucil 0 packet PO DAILY PRN Constipation 05/26/25 06/08/25 History bisacodyl 5 mg tablet,delayed 5 mg PO DAILY PRN Constipation 05/26/25 06/08/25 History release (Dulcolax (bisacodyl)) ondansetron 4 mg disintegrating 4 mg PO DIRECTED PRN Nausea And 05/26/25 06/08/25 History tablet Vomiting polyethylene glycol 3350 17 17 g PO DAILY PRN Constipation 05/26/25 06/08/25 History gram/dose oral powder (Miralax) sulfamethoxazole 800 1 tab PO BID #22 tabs 05/29/25 06/08/25 Rx mg-trimethoprim 160 mg tablet (Bactrim DS) vancomycin 125 mg capsule 125 mg PO BID #36 caps 05/29/25 06/08/25 Rx Past Med/Surg History Problem List (Updated 06/08/25 @ 17:57 by Evelyne Blount PA-C) Ambulatory dysfunction E coli bacteremia Sepsis (Acute) Acute UTI (urinary tract infection) (Acute) Hypotension (Acute) Dehydration (Acute) Multilevel degenerative joint disease of spine Complicated urinary tract infection Demand ischemia Acute kidney injury Severe sepsis with acute organ dysfunction Generalized weakness (Acute) Sacroiliitis Lumbar degenerative disc disease Spinal stenosis of lumbar region with neurogenic claudication Scoliosis deformity of spine Lumbosacral facet joint syndrome COVID-19 (Acute) Cervical stenosis of spine Cervical facet joint syndrome Cervical spondylosis Pre-procedural laboratory examination SBO (small bowel obstruction) (Acute) Neck discomfort Abnormal ultrasound of endometrium Right toe amputee Depression pt denies Surgical wound, non healing Abscess of right middle finger MRSA (methicillin resistant staph aureus) culture positive History of melanoma Traumatic wound Knee pain, bilateral Tricompartment degenerative joint disease of knee Skin rash Migraine Carpal tunnel syndrome, bilateral Arthritis Encounter for pre-operative examination Hammertoe of second toe of left foot Surgery follow-up Degenerative arthritis of knee, bilateral Sepsis (Acute) Abdominal pain (Acute) Pneumonia (Acute) Leukocytosis (Acute) Splenic infarct (Acute) IVC thrombosis Recurrent Clostridioides difficile diarrhea Cough Edema Bilateral pleural effusion Hammertoe of right foot Scleroderma CKD (chronic kidney disease) per records GERD (gastroesophageal reflux disease) Medical History Rheumatoid arthritis History of melanoma right heel & chest wall Calcinosis Hx of Clostridium difficile infection C. difficile colitis Hx MRSA infection Patella-femoral syndrome Chronic back pain Osteoporosis Osteoarthritis Migraine Glaucoma Restless leg syndrome Spondylolisthesis of cervical region FULL ROM Surgical History S/P dilation and curettage History of amputation RT LEFT TOE AMPUTATION Hx of surgical procedure left hand pointer finger repair Hx of bilateral cataract extraction History of surgery repair of prolapsed rectum History of tooth extraction History of tubal ligation History of hand surgery Rt finger History of colonoscopy w/ polypectomy History of Mohs micrographic surgery for skin cancer S/P LASIK surgery of both eyes History of carpal tunnel surgery bilateral Family History Father Family hx of colon cancer Colorectal cancer Other Breast cancer No family history of adverse response to anesthesia Denies family history of Ovarian cancer Uterine cancer Social History Smoking Status: Former smoker Tobacco Type: Cigarettes Second Hand Exposure: No; Hx Alcohol Use: No Hx Substance Use: No Preferred Language: Japanese Communication Ability: Effective Visual Impairment: No Limitations Hearing Ability: Normal Manager Employee Benefits Required: No Beliefs That Will Affect Care: None marital status: / Current Living Situation: Alone current occupational status: retired Feels Safe at Home: Yes Childhood Exposure to Second-Hand Smoke: No Assistive Devices: Cane and Walker Review of Systems Review of Systems: All systems reviewed & are unremarkable except as noted in HPI & below Physical Exam Physical Exam: Constitutional: WD/WN, vitals as above, NAD, sitting up in bed, pleasant, conversing easily +scleroderma features Head: Normocephalic, Atraumatic Eyes: PERRL, conjunctivae normal, anicteric sclerae ENMT: external ear and nose normal, oropharynx normal Neck: trachea midline, no thyromegaly normal visual inspection Respiratory: normal respiratory effort, lungs clear to auscultation, no wheeze, rales, rhonchi. Normal insp/exp effort, no accessory muscle use Cardiovascular: RRR, no edema Vessels: no JVD or carotid bruit Chest: normal inspection of chest Abdomen: normal bowel sounds, soft, nontender, no hepatosplenomegaly Musculoskeletal: no cyanosis or clubbing, extremities motor strength 5/5 Skin: no rashes, warm and dry normal turgor Neurologic: PERRL, EOMI, accommodation nl, no face palsy, no dysarthria CN's II-XI intact bilaterally and moves all extremities Psychiatric: A+Ox3, euthymic affect Results & Data Results & Data Vital Signs (Past 12 Hours) Vital Signs Temp Pulse Resp BP Pulse Ox O2 Del Method 06/08/25 16:00 62 12 110/61 93 Room Air 06/08/25 15:30 62 12 114/60 96 Room Air 06/08/25 15:13 66 06/08/25 14:47 96 Room Air 06/08/25 14:47 96 Room Air 06/08/25 13:16 36.5 C 63 14 105/59 L 96 Room Air Laboratory Results I have independently reviewed and interpreted patient's admitting labs including CBC, CMP, PTT, PT/INR, mag and troponin. Diagnostic Findings Chest X-Ray 06/08/25 13:23 SINGLE VIEW CHEST CLINICAL HISTORY: Chest pain FINDINGS: A PA chest radiograph is compared to study dated 05/26/2025 and correlated with chest CT dated 04/10/2021. The heart is enlarged noting atherosclerotic calcification of the thoracic aorta. The pulmonary vasculature is noncongested. Chronic interstitial thickening is similar to previous. There is bibasilar scarring/atelectasis. No airspace consolidation or pleural effusion is identified. No pneumothorax is seen. The skeletal structures are osteopenic. The bony thorax is grossly intact. Degenerative change and scoliosis is noted in the spine. IMPRESSION: Cardiomegaly with no acute cardiopulmonary abnormality identified. ACT 112: Negative or not required by law. Electronically signed by: Devante Ortiz M.D. 06/08/2025 2:59 PM Medications Administered Medication List Sodium Chloride (Nss) 1,000 mls @ 999 mls/hr IV .Q1H1M ONE Stop: 06/08/25 17:50 Last Admin: 06/08/25 16:54 Dose: 999 mls/hr Documented By: BLANCA ECG Additional Comments: I have independently reviewed and interpreted patient's admitting EKG which revealed: 62 NSR, no st or t wave change qtc 385ms COVID-19 Results Results COVID-19 Adm Lab Results: RBC 4.30 M/uL (4.20-5.40) 06/08/25 WBC 12.27 K/ul (4.8-10.8) H 06/08/25 Hgb 10.7 g/dl (12.0-16.0) L 07/18/25 Hct 35.6 % (37.0-47.0) L 06/08/25 Plt Count 537 K/uL (130-400) H 06/08/25 Neutrophils (%) (Auto) 70.4 % 06/08/25 Lymphocytes (%) (Auto) 18.3 % 06/08/25 Monocytes # (Auto) 0.82 K/uL (0.11-0.59) H 06/08/25 Eosinophils # (Auto) 0.39 K/uL (0.00-0.50) 06/08/25 Immature Granulocyte % (Auto) 0.7 % 06/08/25 Neutrophils # (Auto) 8.65 K/uL (1.40-6.50) H 06/08/25 Lymphocytes # (Auto) 2.24 K/uL (1.20-3.40) 06/08/25 Monocytes # (Auto) 0.82 K/uL (0.11-0.59) H 06/08/25 Eosinophils # (Auto) 0.39 K/uL (0.00-0.50) 06/08/25 Basophils # (Auto) 0.08 K/uL (0.00-0.20) 06/08/25 Immature Granulocyte # (Auto) 0.09 K/uL (0.01-0.20) 5 Na 138 mmol/L (136-145) 06/08/25 K 4.3 mmol/L (3.5-5.1) 06/08/25 Cl 106 mmol/L (98-107) 06/08/25 CO2 23 mmol/L (21-32) 06/08/25 Anion Gap 9 (3-11) 06/08/25 BUN 25 mg/dl (6-23) H 06/08/25 Creatinine 2.03 mg/dl (0.6-1.2) H 06/08/25 BUN/Creatinine Ratio 12.3 (10-20) 06/08/25 Glucose Level 74 mg/dl (70-99(Fasting)) 06/08/25 Ca 9.4 mg/dl (8.6-10.3) 06/08/25 Total Bilirubin 0.2 mg/dl (0.2-1.0) 06/08/25 AST/SGOT 20 U/L (13-39) 06/08/25 ALT/SGPT 12 U/L (7-52) 06/08/25 Alkaline Phosphatase 57 U/L (34-104) 06/08/25 Total Protein 7.4 gm/dl (6.0-8.3) 06/08/25 Albumin 4.2 gm/dl (3.4-5.0) 06/08/25 Globulin 3.2 gm/dl (2.5-4.0) 06/08/25 Albumin/Globulin Ratio 1.3 (0.9-2) 06/08/25 PTT 29 Seconds (21-31) 06/08/25 INR 1.0 (0.9-1.1) 06/08/25 Chest X-Ray 06/08/25 Code Status & VTE Plan Code Status FULL CODE VTE Prophylaxis Plan VTE Prophylaxis will be ordered: Yes Supervising Physician Co-Signing Physician Notes Patient is an 84-year-old female with history of scleroderma, Raynaud's disease, CKD and other medical problems presents with history of generalized weakness which has been gradually worsening over the past 5 days difficulty with performing ADLs, and decreased urination. She also states having some diarrhea and believes having a rectal prolapse. She was recently diagnosed to have complicated urinary tract infection, E. coli bacteremia and was discharged on Bactrim to complete the course as recommended by infectious disease. Please review HPI for complete details of presentation. I personally reviewed blood work and imaging studies. I agree with physical exam as above. Patient is admitted for management of generalized weakness, ambulatory dysfunction, EFREM on CKD stage III, diarrhea, minimal troponin elevation. Will hold Bactrim and complete antibiotic course with IV Rocephin. Avoid nephrotoxic agents as able. Continue IV fluids. Check urine for eosinophils, stool studies for infectious source. Renal ultrasound pending. Bladder scan per protocol. PT OT, fall precautions. I personally interviewed and examined the patient at bedside. I have reviewed the advanced practitioner's documentation on the date of service referred in note and agree with plan. Patient's care is coordinated with Evelyne Blount PA-C. Please refer to the documentation above for details of patient's presentation and for discussion of other issues. I spent a total [id number] coordinating, documenting, and providing care for this patient excluding time spent in the performance of separately billed services or time spent by another provider/QHP.
[2025-06-08] MEDS ORDERED: ONDANSETRON INJ 2 MG/ML 2 ML VIAL IV PRN (19:16)
[2025-06-08] MEDS ORDERED: POLYETHYLENE (MIRALAX) 17 GM PACK PO PRN (19:16)
[2025-06-08] MEDS ORDERED: ACETAMINOPHEN 325 MG TAB PO PRN (19:16)
[2025-06-08] MEDS ORDERED: ARTIFICIAL TEARS OP PRN (19:30)
[2025-06-08] MEDS: cefTRIAXone SODIUM 2,000 MG/50 ML BAG IV SCH (20:56)
[2025-06-08] MEDS: SODIUM CHLORIDE 0.9% 1,000 ML IV SCH (20:56)
[2025-06-08] MEDS: TRAVOPROST Z 0.004% OPH SOLN 2.5 ML BTL OP SCH (20:59)
[2025-06-08] MEDS: DORZOLAMIDE HCL 2% OPH SOLN 10 ML BTL OP SCH (20:59)
[2025-06-08] MEDS: CHERRY SYRUP 5 ML UDP PO SCH (21:02)
[2025-06-08] MEDS: VANCOMYCIN HCL 125 MG/2.5ML SOLN PO SCH (21:02)
[2025-06-08] MEDS: GABAPENTIN 300 MG CAP PO SCH (21:04)
[2025-06-08] MEDS: HEPARIN SOD 5,000 UNIT/0.5 ML VIAL SQ SCH (21:10)
[2025-06-08] MEDS: clonazePAM 1 MG TAB PO SCH (22:13)
[2025-06-09 02:47] LABS: Cdiff Toxin B Gene (2yr or >) Negative Cdiff Gene (Neg)
[2025-06-09 03:20] LABS: Adenovirus F 40/41 PCR Not Detected (NotDetected); Campylobacter PCR Not Detected (NotDetected); Enteroaggregative E.coli(EAEC) Not Detected (NotDetected); Shiga-like Toxin E.coli (STEC) Not Detected (NotDetected); Vibrio species PCR Not Detected (NotDetected)
[2025-06-09 07:24] LABS: Hematocrit (blood only) 27.1 % (37.0-47.0); Hemoglobin 8.2 g/dl (12.0-16.0); Immature Granulocytes # (auto) 0.04 K/uL (0.01-0.20); Immature Granulocytes % (auto) 0.6 %; Mean Corpuscular Hemoglobin 24.9 pg (25.0-34.0); Mean Corpuscular Volume 82.4 fL (80.0-100.0); Platelet Count 458 K/uL (130-400); RDW Standard Deviation 47.9 fL (36.4-46.3); Red Blood Count 3.29 M/uL (4.20-5.40); White Blood Count 6.33 K/ul (4.8-10.8)
[2025-06-09] MEDS: SERTRALINE HCL 50 MG TABLET PO SCH (07:55)
[2025-06-09] MEDS: HYDROXYCHLOROQUINE SULFATE 200 MG TAB PO SCH (07:55)
[2025-06-09 07:56] LABS: Alanine Aminotransferase 8.0 U/L (7-52); Albumin Globulin Ratio 1.4 (0.9-2); Alkaline Phosphatase 42.0 U/L (34-104); Anion Gap 5.0 (3-11); Bilirubin,Total 0.2 mg/dl (0.2-1.0); Blood Urea Nitrogen 19.0 mg/dl (6-23); Calcium 8.1 mg/dl (8.6-10.3); Carbon Dioxide 22.0 mmol/L (21-32); Chloride 115.0 mmol/L (98-107); Creatinine Clr Calc Pharmacy 22.3 ml/min; Globulin 2.3 gm/dl (2.5-4.0); Glucose 72.0 mg/dl (70-99(Fasting)); Iron 28.0 mcg/dl (35-150); Magnesium 1.9 mg/dl (1.7-2.4); Potassium 4.4 mmol/L (3.5-5.1); Sodium 142.0 mmol/L (136-145); Total Iron Binding Cap Calc 358.0 mcg/dl (250-450); Total Protein 5.5 gm/dl (6.0-8.3); Transferrin 256.0 mg/dl (200-360); Transferrin (FE) Percent Satur 8.0 % (15-50)
[2025-06-09] MEDS: ADVANCED PROBIOTIC 625 MG CAPSULE PO SCH (07:56)
[2025-06-09] MEDS: COLCHICINE 0.6 MG TAB PO SCH (07:56)
[2025-06-09 08:13] LABS: Folate (Folic Acid),Ser orPlas 5.27 ng/ml (>5.38)
[2025-06-09 08:14] LABS: Vitamin B12 219.0 pg/ml (180-914)
[2025-06-09] MEDS ORDERED: clonazePAM 1 MG TAB PO SCH (09:00)
[2025-06-09 09:07] LABS: Ferritin 15.9 ng/ml (8-388)
--- NOTE | 2025-06-09 09:12 | Ultrasound Report ---
EXAM: US renal/blad retro comp CLINICAL HISTORY: EFREM. TECHNIQUE: A renal ultrasound was performed using grayscale imaging. COMPARISON: No previous studies are available for comparison. FINDINGS: Right Kidney: The right kidney measures 3.4x4.9x8.3 cm. Mid-pole anechoic area measuring 1.1 x 1.5 x 1.2 cm. No hydronephrosis, calculi, or masses were identified. Renal parenchymal echogenicity is slightly increased as per the images. Cortical thickness: Within normal. The renal pelvis is within normal. Left Kidney: The left kidney measures 4.1x4.1x9.2 cm. A tiny focus at mid-pole left kidney with a twinkling artifact measuring 0.31 cm. Anechoic area upper pole left kidney measuring 1.1 x 1.2 cm. Renal parenchymal echogenicity is slightly increased as per the images. Cortical thickness: Within normal. The renal pelvis is within normal. Urinary bladder: The urinary bladder is normally distended with normal wall thickness. No calculus or mass is noted in it. Bilateral ureteral jets are not seen. IMPRESSION: 1. Mild renal parenchymal disease as per images. 2. Small bilateral nonobstructing calculi. 3. Small right cortical cyst. 4. No other significant abnormality. Electronically signed by Brannon Lai 06-09-2025 09:12 AM
[2025-06-09] MEDS: CYANOCOBALAMIN (B-12) 500 MCG TABLET PO SCH (11:15)
[2025-06-09] MEDS: FOLIC ACID 1 MG in SYRINGE 9.8 ML IV SCH (11:16)
--- NOTE | 2025-06-09 14:44 | Hospitalist Progress Note ---
Date of Service June 09, 2025 Assessment & Plan (1) Generalized weakness: (2) Acute kidney injury: (3) Ambulatory dysfunction: Plan This is an 84-year-old female who has a significant past medical history of scleroderma, Raynaud's disease, IBS, GERD, CKD stage III, osteoporosis, arthritis, pseudogout, history of lumbar spinal stenosis, glaucoma, depression, history of C. difficile who presents to ED secondary to generalized weakness. #Generalized weakness #Ambulatory dysfunction #EFREM/CKD-3 #Recent E.Coli Bactermia -admit to med tele -stop Bactrim DS, possible culprit of EFREM, cr on 05/29 was 0.89, 06/04 cr was 1.5 and today 2.0 -baseline cr ~ 1.0 Plan: -resume IV ceftriaxone 2g daily for additional 2 doses to complete treatment for previous bacteremia -check PT/OT, check AM cortisol, TSH to finish metabolic workup -start B12 and folic acid supplementation #Hx of severe cdiff -continue oral vanco though 06/16 -stool negative #Scleroderma -chronic, stable on hydroxychlorquine #Osteoarthritis: on chronic 5mg prednisone daily #Anemia: h/h 10.7 and 35.6, improved from recent admission, will obtain anemia panel in a.m #Elevated troponin: 17.3pg/ml, no CP or ecg changes, will trend but suspect 2/2 EFREM I spent a total of 50 minutes in direct patient care, including [id number] time with the patient and/or family, reviewing medical records, ordering and reviewing diagnostic tests, and coordinating care with other healthcare providers. This time includes: history taking, physical examination, medical decision making, counseling, ECG interpretation, imaging interpretation, lab interpretation, orders, and education, excluding time spent in the performance of separately billed services. Admission and Anticipated Discharge Date Admission Date: June 08, 2025 Subjective Patient seen and examined at bedside. Patient is doing well today. States she is having frequent bowel movements. States she has no energy but feels she is moving better at home. Review of Systems Review of Systems: CONSTITUTIONAL: fatigue EYES: Patient denies any visual symptoms. EARS, NOSE, AND THROAT: No difficulties with hearing. No symptoms of rhinitis or sore throat. CARDIOVASCULAR: Patient denies chest pains, palpitations, orthopnea and paroxysmal nocturnal dyspnea. RESPIRATORY: No dyspnea on exertion, no wheezing or cough. GI: frequent bowel movements : No urinary hesitancy or dribbling. No nocturia or urinary frequency. No abnormal urethral discharge. MUSCULOSKELETAL: No myalgias or arthralgias. NEUROLOGIC: No chronic headaches, no seizures. Patient denies numbness, tingling or weakness. PSYCHIATRIC: Patient denies problems with mood disturbance. No problems with anxiety. ENDOCRINE: No excessive urination or excessive thirst. DERMATOLOGIC: Patient denies any rashes or skin changes. Physical Exam Physical Exam: Gen: A&O 3 NAD HEENT: NCAT, EOMI, not icteric. External ears normal. No rhinorrhea. Moist mucous membranes. Neck: Supple, full range of motion, no observable masses, No meningeal sign. Lungs: No Respiratory distress. CV: RRR, no edema. Abdomen: Soft, nondistended, No rebound tenderness. MSK: No joint swelling, no redness. Skin: No rashes, petechiae, lesions. Normal color per patient. Neuro: Normal Gait, Grossly intact. Psych: Appropriate for situation. Results & Data Results & Data Vital Signs (Past 12 Hours) Vital Signs Temp Pulse Pulse Resp BP Pulse Ox O2 Del Method 06/09/25 13:27 76 06/09/25 11:45 36.7 C 62 18 137/80 94 Room Air 06/09/25 07:32 36.7 C 61 16 109/65 94 Room Air 06/09/25 05:42 60 Laboratory Results -personally reviewed, no leukocytosis, creatinine downtrending post fluids, low folic acid and B12 likely contributor Medications Administered Dos Santos Syrup (Dos Santos Syrup 5 Ml Udp) 5 ml PO Q12H RAMO Stop: 06/16/25 20:59 Last Admin: 06/09/25 08:02 Dose: 5 ml Documented By: Admin: 06/08/25 21:02 Dose: 5 ml Documented By: MEERA Clonazepam (Clonazepam 1 Mg Tab) 1 mg PO HS RAMO Stop: 07/08/25 21:29 Last Admin: 06/08/25 22:13 Dose: 1 mg Documented By: MEERA Colchicine (Colchicine 0.6 Mg Tab) 0.6 mg PO QAM RAMO Stop: 07/09/25 08:59 Last Admin: 06/09/25 07:56 Dose: 0.6 mg Documented By: MACIE Cyanocobalamin (Cyanocobalamin (B-12) 500 Mcg Tablet) 1,000 mcg PO QAM RAMO Stop: 07/09/25 08:59 Last Admin: 06/09/25 11:15 Dose: 1,000 mcg Documented By: MACIE Dorzolamide HCl (Dorzolamide Hcl 2% Oph Soln 10 Ml Btl) 1 drops OP BID RAMO Stop: 07/08/25 20:59 Last Admin: 06/09/25 07:56 Dose: 1 drops Documented By: Admin: 06/08/25 20:59 Dose: 1 drops Documented By: MEERA Gabapentin (Gabapentin 300 Mg Cap) 300 mg PO BID RAMO Stop: 07/08/25 20:59 Last Admin: 06/09/25 07:55 Dose: 300 mg Documented By: Admin: 06/08/25 21:04 Dose: 300 mg Documented By: MEERA Heparin Sodium (Porcine) (Heparin Sod 5,000 Unit/0.5 Ml Vial) 5,000 units SQ Q8 RAMO Stop: 07/08/25 21:59 Last Admin: 06/09/25 06:12 Dose: 5,000 units Documented By: Admin: 06/08/25 21:10 Dose: 5,000 units Documented By: MEERA Hydroxychloroquine Sulfate (Hydroxychloroquine Sulfate 200 Mg Tab) 200 mg PO DAILY RAMO Stop: 07/09/25 08:59 Last Admin: 06/09/25 07:55 Dose: 200 mg Documented By: MACIE Ceftriaxone Sodium (Rocephin) 2,000 mg in 50 mls @ 100 mls/hr IV Q24H RAMO Stop: 06/10/25 19:15 Last Infusion: 06/08/25 21:30 Dose: Infused Documented By: Admin: 06/08/25 20:56 Dose: 100 mls/hr Documented By: MEERA Folic Acid 1 mg/ Syringe 10 mls @ 5 mls/min IV QAM RAMO Stop: 07/09/25 08:59 Last Admin: 06/09/25 11:16 Dose: 5 mls/min Documented By: MACIE Lactobacillus Acidophilus (Advanced Probiotic 625 Mg Capsule) 1,250 mg PO DAILY RAMO Stop: 07/09/25 08:59 Last Admin: 06/09/25 07:56 Dose: 1,250 mg Documented By: MACIE Pantoprazole Sodium (Pantoprazole 40 Mg Tab) 40 mg PO BID RAMO Stop: 07/08/25 20:59 Last Admin: 06/09/25 07:55 Dose: 40 mg Documented By: Admin: 06/08/25 21:04 Dose: 40 mg Documented By: MEERA Prednisone (Prednisone 5 Mg Tab) 5 mg PO QAM RAMO Stop: 07/09/25 08:59 Last Admin: 06/09/25 07:56 Dose: 5 mg Documented By: MACIE Sertraline HCl (Sertraline Hcl 50 Mg Tablet) 50 mg PO QAM RAMO Stop: 07/09/25 08:59 Last Admin: 06/09/25 07:55 Dose: 50 mg Documented By: MACIE Tramadol HCl (Tramadol Hcl 50 Mg Tablet) 50 mg PO TID RAMO Stop: 07/08/25 20:59 Last Admin: 06/09/25 08:01 Dose: 50 mg Documented By: Admin: 06/08/25 21:04 Dose: Not Given Documented By: MEERA Travoprost (Travoprost Z 0.004% Oph Soln 2.5 Ml Btl) 1 drops OP QPM RAMO Stop: 07/08/25 20:59 Last Admin: 06/08/25 20:59 Dose: 1 drops Documented By: MEERA Vancomycin HCl (Vancomycin Hcl 125 Mg/2.5ml Soln) 125 mg PO Q12H RAMO Stop: 06/16/25 20:59 Last Admin: 06/09/25 08:02 Dose: 125 mg Documented By: Admin: 06/08/25 21:02 Dose: 125 mg Documented By: MEERA
[2025-06-09 15:32] LABS: Thyroid Stimulating Hormone 1.11 uIu/ml (0.300-4.500)
[2025-06-09] MEDS ORDERED: Nursing to Pharmacy Communication SCH (17:30)
[2025-06-09] MEDS: FAMOTIDINE 20MG IV PUSH 20 MG/5 ML SYR IV STA (19:41)
[2025-06-09] MEDS: ALUMINUM/MAGNESIUM/SIMETH (MAALOX MAX) 30 ML UDC PO STA (19:41)
[2025-06-10] MEDS: MELATONIN 3 MG TAB PO PRN (00:36)
[2025-06-10 07:18] LABS: Hematocrit (blood only) 28.8 % (37.0-47.0); Hemoglobin 8.8 g/dl (12.0-16.0); Mean Corpuscular Hemoglobin 25.2 pg (25.0-34.0); Mean Corpuscular Volume 82.5 fL (80.0-100.0); Platelet Count 462 K/uL (130-400); RDW Standard Deviation 48.8 fL (36.4-46.3); Red Blood Count 3.49 M/uL (4.20-5.40); White Blood Count 7.14 K/ul (4.8-10.8)
[2025-06-10 07:48] LABS: Anion Gap 6.0 (3-11); Blood Urea Nitrogen 16.0 mg/dl (6-23); Calcium 8.6 mg/dl (8.6-10.3); Carbon Dioxide 23.0 mmol/L (21-32); Chloride 112.0 mmol/L (98-107); Creatinine Clr Calc Pharmacy 24.6 ml/min; Glucose 86.0 mg/dl (70-99(Fasting)); Potassium 4.3 mmol/L (3.5-5.1); Sodium 141.0 mmol/L (136-145)
[2025-06-10] MEDS: HYDROCORTISONE SOD 50 MG in SYRINGE 0 ML IV SCH (09:56)
[2025-06-10 12:35] VITALS: RESP 18
--- NOTE | 2025-06-10 14:18 | Hospitalist Progress Note ---
Date of Service June 10, 2025 Assessment & Plan (1) Generalized weakness: (2) Acute kidney injury: (3) Ambulatory dysfunction: Plan This is an 84-year-old female who has a significant past medical history of scleroderma, Raynaud's disease, IBS, GERD, CKD stage III, osteoporosis, arthritis, pseudogout, history of lumbar spinal stenosis, glaucoma, depression, history of C. difficile who presents to ED secondary to generalized weakness. #Generalized weakness #Ambulatory dysfunction #EFREM/CKD-3 #Recent E.Coli Bactermia #Adrenal Insufficiency -admit to med tele -stop Bactrim DS, possible culprit of EFREM -baseline cr ~ 1.0 -finished course of ceftriaxone -AM cortisol less than 3 suggestive of adrenal insufficiency Plan: -PT/OT ordered, recommending return home -start hydrocortisone 50mg q6hrs of adrenal insufficiency -continue B12 and folic acid supplementation #Hx of severe cdiff -continue oral vanco though 06/16 -stool negative #Scleroderma -chronic, stable on hydroxychlorquine #Osteoarthritis: on chronic 5mg prednisone daily #Anemia: h/h 10.7 and 35.6, improved from recent admission, will obtain anemia panel in a.m #Elevated troponin: resolved I spent a total of 50 minutes in direct patient care, including [id number] time with the patient and/or family, reviewing medical records, ordering and reviewing diagnostic tests, and coordinating care with other healthcare providers. This time includes: history taking, physical examination, medical decision making, counseling, ECG interpretation, imaging interpretation, lab interpretation, orders, and education, excluding time spent in the performance of separately billed services. Admission and Anticipated Discharge Date Admission Date: June 08, 2025 Subjective Patient seen and examined at bedside. Patient doing ok today. Discussed findings of adrenal insufficiency based off of AM cortisol, per patient she has been stopping and titrating off prednisone over the past few months. Review of Systems Review of Systems: CONSTITUTIONAL: fatigue EYES: Patient denies any visual symptoms. EARS, NOSE, AND THROAT: No difficulties with hearing. No symptoms of rhinitis or sore throat. CARDIOVASCULAR: Patient denies chest pains, palpitations, orthopnea and paroxysmal nocturnal dyspnea. RESPIRATORY: No dyspnea on exertion, no wheezing or cough. GI: frequent bowel movements : No urinary hesitancy or dribbling. No nocturia or urinary frequency. No abnormal urethral discharge. MUSCULOSKELETAL: No myalgias or arthralgias. NEUROLOGIC: No chronic headaches, no seizures. Patient denies numbness, tingling or weakness. PSYCHIATRIC: Patient denies problems with mood disturbance. No problems with anxiety. ENDOCRINE: No excessive urination or excessive thirst. DERMATOLOGIC: Patient denies any rashes or skin changes. Physical Exam Physical Exam: Gen: A&O 3 NAD HEENT: NCAT, EOMI, not icteric. External ears normal. No rhinorrhea. Moist mucous membranes. Neck: Supple, full range of motion, no observable masses, No meningeal sign. Lungs: No Respiratory distress. CV: RRR, no edema. Abdomen: Soft, nondistended, No rebound tenderness. MSK: No joint swelling, no redness. Skin: No rashes, petechiae, lesions. Normal color per patient. Neuro: Normal Gait, Grossly intact. Psych: Appropriate for situation. Results & Data Results & Data Vital Signs (Past 12 Hours) Vital Signs Temp Pulse Pulse Resp BP Pulse Ox Pulse Ox 06/10/25 12:35 36.4 C L 72 18 109/60 98 06/10/25 11:45 97 06/10/25 08:35 36.5 C 84 20 131/76 97 06/10/25 07:14 60 06/10/25 03:35 36.5 C 69 16 96/55 L 93 O2 Del Method O2 Flow Rate 06/10/25 12:35 Room Air 06/10/25 11:45 0 06/10/25 08:35 Room Air 06/10/25 07:14 06/10/25 03:35 Room Air Laboratory Results -personally reviewed, AM cortisol less than 3 suggestive of adrenal insufficiency, creatinine downtrending Medications Administered Dos Santos Syrup (D[place] Santos Syrup 5 Ml Udp) 5 ml PO Q12H RAMO Stop: 06/16/25 20:59 Last Admin: 06/10/25 09:56 Dose: 5 ml Documented By: Admin: 06/09/25 20:45 Dose: 5 ml Documented By: chef de froid: 06/09/25 08:02 Dose: 5 ml Documented By: Admin: 06/08/25 21:02 Dose: 5 ml Documented By: MEERA Clonazepam (Clonazepam 1 Mg Tab) 1 mg PO HS RAMO Stop: 07/08/25 21:29 Last Admin: 06/09/25 20:45 Dose: 1 mg Documented By: chef de froid: 06/08/25 22:13 Dose: 1 mg Documented By: MEERA Colchicine (Colchicine 0.6 Mg Tab) 0.6 mg PO QAM RAMO Stop: 07/09/25 08:59 Last Admin: 06/10/25 09:56 Dose: 0.6 mg Documented By: Admin: 06/09/25 07:56 Dose: 0.6 mg Documented By: MACIE Cyanocobalamin (Cyanocobalamin (B-12) 500 Mcg Tablet) 1,000 mcg PO QAM RAMO Stop: 07/09/25 08:59 Last Admin: 06/10/25 09:57 Dose: 1,000 mcg Documented By: Admin: 06/09/25 11:15 Dose: 1,000 mcg Documented By: MACIE Dorzolamide HCl (Dorzolamide Hcl 2% Oph Soln 10 Ml Btl) 1 drops OP BID RAMO Stop: 07/08/25 20:59 Last Admin: 06/10/25 09:57 Dose: 1 drops Documented By: Admin: 06/09/25 20:46 Dose: 1 drops Documented By: chef de froid: 06/09/25 07:56 Dose: 1 drops Documented By: Admin: 06/08/25 20:59 Dose: 1 drops Documented By: MEERA Gabapentin (Gabapentin 300 Mg Cap) 300 mg PO BID RAMO Stop: 07/08/25 20:59 Last Admin: 06/10/25 09:55 Dose: 300 mg Documented By: Admin: 06/09/25 20:45 Dose: 300 mg Documented By: chef de froid: 06/09/25 07:55 Dose: 300 mg Documented By: Admin: 06/08/25 21:04 Dose: 300 mg Documented By: MEERA Heparin Sodium (Porcine) (Heparin Sod 5,000 Unit/0.5 Ml Vial) 5,000 units SQ Q8 RAMO Stop: 07/08/25 21:59 Last Admin: 06/10/25 13:55 Dose: 5,000 units Documented By: Admin: 06/10/25 06:21 Dose: 5,000 units Documented By: chef de froid: 06/09/25 21:28 Dose: 5,000 units Documented By: chef de froid: 06/09/25 15:04 Dose: 5,000 units Documented By: Admin: 06/09/25 06:12 Dose: 5,000 units Documented By: Admin: 06/08/25 21:10 Dose: 5,000 units Documented By: MEERA Hydroxychloroquine Sulfate (Hydroxychloroquine Sulfate 200 Mg Tab) 200 mg PO DAILY RAMO Stop: 07/09/25 08:59 Last Admin: 06/10/25 09:55 Dose: 200 mg Documented By: Admin: 06/09/25 07:55 Dose: 200 mg Documented By: MACIE Ceftriaxone Sodium (Rocephin) 2,000 mg in 50 mls @ 100 mls/hr IV Q24H RAMO Stop: 06/10/25 19:15 Last Infusion: 06/09/25 21:26 Dose: Infused Documented By: chef de froid: 06/09/25 20:45 Dose: 100 mls/hr Documented By: Infusion: 06/08/25 21:30 Dose: Infused Documented By: Admin: 06/08/25 20:56 Dose: 100 mls/hr Documented By: MEERA Folic Acid 1 mg/ Syringe 10 mls @ 5 mls/min IV QAM RAMO Stop: 07/09/25 08:59 Last Admin: 06/10/25 11:00 Dose: 5 mls/min Documented By: Admin: 06/09/25 11:16 Dose: 5 mls/min Documented By: MACIE Hydrocortisone Sodium (Succinate 50 mg/ Syringe) 1 mls @ 4 mls/min IV Q6H RAMO Stop: 07/10/25 08:59 Last Admin: 06/10/25 14:00 Dose: 4 mls/min Documented By: Admin: 06/10/25 09:56 Dose: 4 mls/min Documented By: GARY Lactobacillus Acidophilus (Advanced Probiotic 625 Mg Capsule) 1,250 mg PO DAILY RAMO Stop: 07/09/25 08:59 Last Admin: 06/10/25 09:54 Dose: 1,250 mg Documented By: Admin: 06/09/25 07:56 Dose: 1,250 mg Documented By: MACIE Melatonin (Melatonin 3 Mg Tab) 3 mg PO HS PRN PRN Reason: Sleep Stop: 07/08/25 19:15 Last Admin: 06/10/25 00:36 Dose: 3 mg Documented By: SAVITA Pantoprazole Sodium (Pantoprazole 40 Mg Tab) 40 mg PO BID RAMO Stop: 07/08/25 20:59 Last Admin: 06/10/25 09:55 Dose: 40 mg Documented By: Admin: 06/09/25 20:45 Dose: 40 mg Documented By: chef de froid: 06/09/25 07:55 Dose: 40 mg Documented By: Admin: 06/08/25 21:04 Dose: 40 mg Documented By: MEERA Prednisone (Prednisone 5 Mg Tab) 5 mg PO QAM ARMO Stop: 07/09/25 08:59 Last Admin: 06/10/25 09:55 Dose: 5 mg Documented By: Admin: 06/09/25 07:56 Dose: 5 mg Documented By: MACIE Sertraline HCl (Sertraline Hcl 50 Mg Tablet) 50 mg PO QAM RAMO Stop: 07/09/25 08:59 Last Admin: 06/10/25 09:55 Dose: 50 mg Documented By: Admin: 06/09/25 07:55 Dose: 50 mg Documented By: MACIE Tramadol HCl (Tramadol Hcl 50 Mg Tablet) 50 mg PO TID RAMO Stop: 07/08/25 20:59 Last Admin: 06/10/25 13:56 Dose: 50 mg Documented By: Admin: 06/10/25 09:55 Dose: 50 mg Documented By: Admin: 06/09/25 20:33 Dose: Not Given Documented By: chef de froid: 06/09/25 15:04 Dose: 50 mg Documented By: Admin: 06/09/25 08:01 Dose: 50 mg Documented By: Admin: 06/08/25 21:04 Dose: Not Given Documented By: MEERA Travoprost (Travoprost Z 0.004% Oph Soln 2.5 Ml Btl) 1 drops OP QPM RAMO Stop: 07/08/25 20:59 Last Admin: 06/09/25 20:46 Dose: 1 drops Documented By: chef de froid: 06/08/25 20:59 Dose: 1 drops Documented By: MEERA Vancomycin HCl (Vancomycin Hcl 125 Mg/2.5ml Soln) 125 mg PO Q12H RAMO Stop: 06/16/25 20:59 Last Admin: 06/10/25 09:56 Dose: 125 mg Documented By: Admin: 06/09/25 20:45 Dose: 125 mg Documented By: chef de froid: 06/09/25 08:02 Dose: 125 mg Documented By: TEMPLE MEAT CUTTER Admin: 06/08/25 21:02 Dose: 125 mg Documented By: BMS
--- NOTE | 2025-06-10 16:50 | Electrocardiogram Report ---
Test Reason : Blood Pressure : */* mmHG Vent. Rate : 69 BPM Atrial Rate : 69 BPM P-R Int : 206 ms QRS Dur : 68 ms QT Int : 374 ms P-R-T Axes : 54 -15 -4 degrees QTcB Int : 400 ms Normal sinus rhythm Septal infarct (cited on or before 29-Aug-2012) Abnormal ECG When compared with ECG of 08-Jun-2025 13:31, No significant change Confirmed by Jose Angel Olvera ([id number]) on 06/10/2025 4:50:27 PM Referred By: REFERRED SELF Confirmed By: Jose Angel Olvera
[2025-06-11 06:52] LABS: Hematocrit (blood only) 29.3 % (37.0-47.0); Hemoglobin 8.7 g/dl (12.0-16.0); Mean Corpuscular Hemoglobin 24.5 pg (25.0-34.0); Mean Corpuscular Volume 82.5 fL (80.0-100.0); Platelet Count 486 K/uL (130-400); RDW Standard Deviation 49.1 fL (36.4-46.3); Red Blood Count 3.55 M/uL (4.20-5.40); White Blood Count 6.66 K/ul (4.8-10.8)
[2025-06-11 07:20] LABS: Anion Gap 7.0 (3-11); Blood Urea Nitrogen 17.0 mg/dl (6-23); Calcium 8.7 mg/dl (8.6-10.3); Carbon Dioxide 23.0 mmol/L (21-32); Chloride 110.0 mmol/L (98-107); Creatinine Clr Calc Pharmacy 29.8 ml/min; Glucose 115.0 mg/dl (70-99(Fasting)); Potassium 4.1 mmol/L (3.5-5.1); Sodium 140.0 mmol/L (136-145)
[2025-06-11 08:43] VITALS: BP 111/68; PULSE 109; TEMP 97.9; O2SAT 99
--- NOTE | 2025-06-11 14:22 | Discharge Summary ---
Discharge Summary Date of Service June 11, 2025 Principal Dx & Hospital Course #1 = Principal Diagnosis (1) Generalized weakness: (2) Acute kidney injury: (3) Ambulatory dysfunction: Plan This is an 84-year-old female who has a significant past medical history of scleroderma, Raynaud's disease, IBS, GERD, CKD stage III, osteoporosis, arthritis, pseudogout, history of lumbar spinal stenosis, glaucoma, depression, history of C. difficile who presents to ED secondary to generalized weakness. #Generalized weakness #Ambulatory dysfunction #EFREM/CKD-3 #Recent E.Coli Bactermia #Adrenal Insufficiency -admit to med tele -stop Bactrim DS, possible culprit of EFREM -baseline cr ~ 1.0 -finished course of ceftriaxone -AM cortisol less than 3 suggestive of adrenal insufficiency Plan: -PT/OT ordered, recommending return home -start hydrocortisone 50mg q6hrs of adrenal insufficiency -continue B12 and folic acid supplementation #Hx of severe cdiff -continue oral vanco though 06/16 -stool negative #Scleroderma -chronic, stable on hydroxychlorquine #Osteoarthritis: on chronic 5mg prednisone daily #Anemia: h/h 10.7 and 35.6, improved from recent admission, will obtain anemia panel in a.m #Elevated troponin: resolved I spent a total of 50 minutes in direct patient care, including [id number] time with the patient and/or family, reviewing medical records, ordering and reviewing diagnostic tests, and coordinating care with other healthcare providers. This time includes: history taking, physical examination, medical decision making, counseling, ECG interpretation, imaging interpretation, lab interpretation, orders, and education, excluding time spent in the performance of separately billed services. Notes For Next Care Provider This is an 84-year-old female who has a significant past medical history of scleroderma, Raynaud's disease, IBS, GERD, CKD stage III, osteoporosis, arthritis, pseudogout, history of lumbar spinal stenosis, glaucoma, depression, history of C. difficile who presents to ED secondary to generalized weakness. On medicine, PT/OT recommended homegoing. AM cortisol was 2, started on 1 day of stress dose steroids with substantial improvement. Prednisone dose for homegoing doubled. On 06/11/2025 patient medically stable for discharge home. To do: [ ] f/u with rheumatology for prednisone tapering/increase Medication Changes From Visit -see below Admission HPI Per Admitting Provider This is an 84-year-old female who has a significant past medical history of scleroderma, Raynaud's disease, IBS, GERD, CKD stage III, osteoporosis, arthritis, pseudogout, history of lumbar spinal stenosis, glaucoma, depression, history of C. difficile who presents to ED secondary to generalized weakness. Of significance patient was recently hospitalized May 26 through May 29 secondary to severe sepsis, EFREM and a complicated UTI. She was bacteremic with positive blood cultures growing E. coli. She was initially started on IV ceftriaxone. Infectious disease was consulted and she was recommended to be discharged on oral Bactrim DS 1 tablet twice daily through 06/09/2025. She was also prescribed a prolonged course of oral vancomycin due to a prior history of severe C. difficile. Patient, daughter at bedside as well as external chart review. Upon recent discharge she initially was doing well. Over the last 5 days she has had a gradual increase in generalized weakness. This morning she was unable to get out of bed due to feeling so weak. She has been eating and drinking well. Daughter feels she has been drinking anywhere between 1 to 1-1/2 L of fluid a day. She has been taking her antibiotics as prescribed with her last dose being this morning. She denies any fever, chills, sweats, lightheadedness, dizziness, chest pain, shortness of breath, nausea, vomiting, abdominal pain. She has noticed a change in her urination and she feels like she is not urinating as much with occasional urinary urgency, but denies any hematuria or dysuria. She also reports 6 episodes of loose stool with occasional incontinence. She thinks she is having a rectal prolapse. She has had this in the past which required surgical repair. Currently she has no symptoms of prolapse. Discharge Exam Gen: A&O 3 NAD HEENT: NCAT, EOMI, not icteric. External ears normal. No rhinorrhea. Moist mucous membranes. Neck: Supple, full range of motion, no observable masses, No meningeal sign. Lungs: No Respiratory distress. CV: RRR, no edema. Abdomen: Soft, nondistended, No rebound tenderness. MSK: No joint swelling, no redness. Skin: No rashes, petechiae, lesions. Normal color per patient. Neuro: Normal Gait, Grossly intact. Psych: Appropriate for situation. Updated Medication List Medication Instructions Recorded Confirmed Type sumatriptan succinate 50 mg tablet 50 mg PO Q2H PRN migraines 06/22/19 06/08/25 History (Imitrex) travoprost 0.004 % eye drops 1 drops ophthalmic (eye) QPM 06/22/19 06/08/25 His tory (Travatan Z) calcium 600 mg (as 2 cap PO QAM 04/25/20 06/08/25 History carbonate)-vitamin D3 5 mcg (200 unit) capsule (Calcium 600 + D(3)) clonazepam 1 mg disintegrating 1 mg PO DAILY 04/25/20 06/08/25 History tablet colchicine 0.6 mg tablet 0.6 mg PO QAM 04/25/20 06/08/25 History lifitegrast 5 % eye drops in a 1 drp ophthalmic (eye) BID 04/25/20 06/08/25 History dropperette (Xiidra) sertraline 50 mg tablet 50 mg PO QAM 04/25/20 06/08/25 History celecoxib 200 mg capsule 200 mg PO BID 08/12/21 06/08/25 History acetaminophen 500 mg oral powder 500 mg PO Q6H PRN PAIN/FEVER 07/20/23 06/08/25 History packet (Tylenol Extra Strength) dorzolamide 2 % eye drops 1 drp ophthalmic (eye) BID 11/05/23 06/08/25 History hydroxychloroquine 200 mg tablet 200 mg PO DAILY 11/05/23 06/08/25 History famotidine 40 mg tablet 40 mg PO DAILY 11/24/23 06/08/25 History gabapentin 300 mg capsule 300 mg PO BID 11/24/23 06/08/25 History gabapentin 600 mg tablet 600 mg PO HS 11/24/23 06/08/25 History pantoprazole 20 mg tablet,delayed 40 mg PO BID 09/26/24 06/08/25 History release tramadol 50 mg tablet 50 mg PO TID 09/26/24 06/08/25 History Metamucil 0 packet PO DAILY PRN Constipation 05/26/25 06/08/25 History bisacodyl 5 mg tablet,delayed 5 mg PO DAILY PRN Constipation 05/26/25 06/08/25 History release (Dulcolax (bisacodyl)) ondansetron 4 mg disintegrating 4 mg PO DIRECTED PRN Nausea And 05/26/25 06/08/25 History tablet Vomiting polyethylene glycol 3350 17 17 g PO DAILY PRN Constipation 05/26/25 06/08/25 History gram/dose oral powder (Miralax) vancomycin 125 mg capsule 125 mg PO BID #36 caps 05/29/25 06/08/25 Rx cyanocobalamin (vitamin B-12) 500 1,000 mcg (2 x 500 mcg) PO QAM #60 06/11/25 Rx mcg tablet tabs folic acid 1 mg tablet 1 mg PO DAILY #30 tabs 06/11/25 Rx prednisone 10 mg tablet 10 mg PO DAILY #30 tabs 06/11/25 Rx Hospital Stay Data Consultations 06/08/25 17:16 ED Decision to Admit Stat Diagnostic Imagining Performed 06/08/25 17:27 US Renal Bladder [US renal/blad retro comp] Routine Pending Results Patient Have Any Pending Studies at Discharge: No Discharge Instructions Given to Patient (Per Discharging Provider) 1. Please follow up with PCP, rheumatology. 2. Please take prednisone as prescribed. Total Time Total Time Spent Total Time Spent (In Minutes): I spent a total of 35 minutes in direct patient care, including [id number] time with the patient and/or family, reviewing medical records, ordering and reviewing diagnostic tests, and coordinating care with other healthcare providers. This time includes: history taking, physical examination, medical decision making, counseling, ECG interpretation, imaging interpretation, lab interpretation, orders, and education, excluding time spent in the performance of separately billed services.
== END 2025-06-11 10:52 | disposition home health service (06) | DRG 683 ==
LOC: ED 13:10 → SUATTDRO 17:20 → INTOOBSV 17:20 → 2W 17:20 → 3E 06-10 22:36